=== PATIENT | female | born 1940 | race Caucasian/White ===

== ENCOUNTER → 2019-11-30 13:02 | Outpatient (CLI) | payer MEDICARE, BC, SELFPAY ==
--- NOTE | 2019-11-30 | DI.MRI.S_ITS ---
PROCEDURE: MR LUMBAR SPINE WO CON INDICATIONS: SPINAL STENOSIS TECHNIQUE: Noncontrast sagittal T1 spin echo and T2 fast echo, sagittal STIR, axial T1 and T2 fast spin echo through the lumbar spine. In cases with scoliosis, additional coronal T2 fast spin echo may be performed. COMPARISON: [facility], , L-SPINE WITHOUT CONTRAST, 09/20/2015, 13:13. FINDINGS: Image quality: Excellent. Alignment and Curvature: There is minimal anterolisthesis of L3 on L4. Bone Marrow: Marrow is of normal overall signal. No acute vertebral body compression fractures. Spinal Cord: Conus medullaris terminates at the T12-L1 level. Visualized cord demonstrates normal signal and size. Paraspinous Soft Tissues: No paravertebral masses. 1.2 cm right renal cyst is unchanged. L1-L2: Decreased intervertebral disc space and degenerative endplate changes are noted. Broad-based disc bulge and bilateral facet arthrosis with hypertrophy of ligamentum flavum is seen causing moderate central canal stenosis and mild bilateral neural foraminal narrowing progressed since 2016 study. L2-L3: Decreased intervertebral disc space and degenerative endplate changes are noted. Broad-based disc bulge and bilateral facet arthrosis with hypertrophy of ligamentum flavum is seen causing mild to moderate central canal stenosis and bilateral neural foraminal narrowing unchanged from previous study. L3-L4: Decreased intervertebral disc space and degenerative endplate changes are seen with broad-based disc bulge and bilateral facet arthrosis and hypertrophy of ligamentum flavum. There is severe central canal stenosis and left worse than right bilateral neural foraminal narrowing. There is likely compression of bilateral exiting L3 nerve roots. Finding has progressed since 2016 study. L4-L5: There is marked intervertebral disc space narrowing. Broad-based disc bulge and bilateral facet arthrosis is seen with hypertrophy of ligamentum flavum causing severe central canal stenosis and left worse than right bilateral neural foraminal narrowing. There is likely compression of bilateral L4 and L5 nerve roots. Finding has also progressed since previous study. L5-S1: Mild diffuse disc bulge and bilateral facet arthrosis is seen with mild central canal stenosis and bilateral neural foraminal narrowing not significantly changed from prior study. IMPRESSION: 1. Degenerative disc bulge and bilateral facet arthrosis throughout lumbar spine causing moderate to severe central canal stenosis and bilateral neural foraminal narrowing more prominent at L3-4 and L4-5 levels progressed since 2016 study. 2. Minimal anterolisthesis of L3 on L4. No marrow edema. No acute compression fracture. Dictated by: Shelton Boateng M.D. on 11/30/2019 at 15:08 Approved by: Shelton Boateng M.D. on 11/30/2019 at 15:16
== END ==
PROVIDERS: Family Provider Family Medicine; PCP Family Medicine; Referring Provider Nurse Practitioner; Visit Provider Nurse Practitioner
DX: M48.061 Spinal stenosis, lumbar region without neurogenic claudication (principal); M48.07 Spinal stenosis, lumbosacral region; M47.816 Spondylosis without myelopathy or radiculopathy, lumbar region; M47.817 Spondylosis without myelopathy or radiculopathy, lumbosacral region; M51.36 Other intervertebral disc degeneration, lumbar region; M51.37 Other intervertebral disc degeneration, lumbosacral region; G62.9 Polyneuropathy, unspecified
CPT/HCPCS: 72148

== ENCOUNTER → 2021-08-02 13:49 | Outpatient (CLI) | payer MEDICARE, BC, SELFPAY ==
--- NOTE | 2021-08-02 | DI.CT.S_ITS ---
PROCEDURE: CT SOFT TISSUE NECK W CON INDICATIONS: Localized swelling, mass and lump, neck TECHNIQUE: After the administration of intravenous contrast, 3.0 mm axial sections acquired from the sella to the aortic arch. Additional oblique axial 3.0 mm sections acquired through the pharynx. 3 mm thick coronal and sagittal reformats were generated. For radiation dose reduction, the following was used: automated exposure control. COMPARISON: None. FINDINGS: Image quality: Excellent. Lymph nodes: No enlarged lymph nodes seen throughout the neck. Vessels: Visualized vasculature appears patent. Neck spaces: The oropharynx, nasopharynx, and pharynx demonstrate no mucosal lesions. The vocal cords, false vocal cords, pyriform sinuses, epiglottis, vallecula, and tongue base all appear normal. Extramucosal spaces appear unremarkable. Glands: The parotid and submandibular glands appear normal. Thyroid gland demonstrates 3.1 cm focus of low attenuation within the right lobe causing [id number] midline shift of the trachea.. Miscellaneous: Visualized brain and orbits appear normal. Lung apices appear clear. Superficial soft tissues appear normal. Bones: No suspicious bony lesions. Visualized sinuses and mastoids appear unremarkable. IMPRESSION: Prominent left thyroid mass possibly adenoma or cyst. It is causing [id number] tracheal deviation and thyroid ultrasound is recommended for further evaluation. Dictated by: Araceli Andujar M.D. on 08/02/2021 at 17:01 Approved by: Araceli Andujar M.D. on 08/02/2021 at 17:03
== END ==
PROVIDERS: Family Provider Family Medicine; PCP Family Medicine; Referring Provider Internal Medicine; Visit Provider Internal Medicine
DX: E07.9 Disorder of thyroid, unspecified (principal); R22.1 Localized swelling, mass and lump, neck
CPT/HCPCS: 70491; Q9967

== ENCOUNTER 2022-12-08 19:49 | Emergency (ER) | payer MEDICARE, BC, SELFPAY ==
[2022-12-08 19:55] VITALS: BP 175/88; PULSE 72; RESP 17; TEMP 36.2; O2SAT 97; BMI 27.4
--- NOTE | 2022-12-08 20:55 | PC.NURSE ---
Pt unwilling to wait for MD evaluation. Left VDC
== END 2022-12-08 20:58 | disposition left against medical advice (07) ==
PROVIDERS: Emergency Provider Emergency Medicine; Family Provider Family Medicine; PCP Family Medicine
DX: R42 Dizziness and giddiness (principal)
CPT/HCPCS: 99281

== ENCOUNTER 2023-04-17 14:30 | Outpatient (RCR) | payer MEDICARE, BC, SELFPAY ==
--- NOTE | 2023-02-11 17:01 | PT.OIE ---
Current Diagnoses Polyneuropathy, unspecified (02/11/23) Benign paroxysmal vertigo, right ear (02/11/23) Labyrinthitis, unspecified ear (02/11/23) Stiffness of unspecified knee, not elsewhere classified (02/11/23) Other abnormalities of gait and mobility (02/11/23) Repeated falls (02/11/23) Visit Care Team Role Provider Type Kin Haywood MD Attending Provider Non-Staff Family Provider Primary Care Provider Referring Provider Specialty: Internal Medicine Address: [address] [place] [address] [address], [place], [address] Email: Physical Therapy Initial Evaluation PT-OP-A Visit Information Start: 02/11/23 16:35 Freq: Status: Active Protocol: Document 02/11/23 12:45 DCW (Rec: 02/11/23 17:01 DCW [id number]) Out-Patient Physical Therapy Visit Information Visit Information Visit Type Initial Evaluation Visit Start Time 12:50 Visit Stop Time 13:55 Total Visit Minutes 60 Visit Number 1 Number of MISSILEMAN Visits 0 Evaluation Information Evaluation Date 02/11/23 PT-OP-B Current Condition Start: 02/11/23 16:35 Freq: Status: Active Protocol: Document 02/11/23 12:45 DCW (Rec: 02/11/23 17:01 DCW [id number]) Current Condition History of Current Condition Onset Date Multi-year history Current Complaints Falls, instability, difficult floor transfers, leg weakness, dizziness History of Current Condition Pt is an 82 year old female presenting with multiple complaints, including repeated falls, inability to get up off the ground following her falls, instability/dizziness, leg weakness and bilateral knee stiffness 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 Pt complains that she falls constantly, but it is typically not due to dizziness , although she does occasionally experience dizziness. Most recently she fell on 12/06/22 after bending over. She experienced sudden, violent vertigo, collapsed, and could not get up until her went to get the neighbor for assistance. Pt is a fairly tangential historian . Notes she does do an online exercise/balance class, but it has not helped her improve her knee mobility, and still feels often off balance. Prior Treatments and Tests Reports she has undergone a bilateral knee manipulation in 2016, did not help with decreased bilateral knee ROM following TKA in 2013 (left) and 2014 (right). Reports she tries PT once or twice a year for her knees, without benefit. PT-OP-C Subjective Start: 02/11/23 16:35 Freq: Status: Active Protocol: Document 02/11/23 12:45 DCW (Rec: 02/11/23 17:01 DCW [id number]) OP-PT Subjective Patient Comments Patient Comments I fall constantly. Typically tripping over things, but it's just like I collapse and go down, I can't even catch myself. PT-OP-M Strength Start: 02/11/23 16:35 Freq: Status: Active Protocol: Document 02/11/23 12:45 DCW (Rec: 02/11/23 17:01 DCW [id number]) Hip Strength Hip Manual Muscle Testing Right Flexion (L2) 4+ Good+ Abduction 4+ Good+ Adduction 4- Good- Left Flexion (L2) 4 Good Abduction 4+ Good+ Adduction 4- Good- Knee Strength Knee Manual Muscle Testing Right Flexion (S2) 4 Good Extension (L3) 4 Good Left Flexion (S2) 4 Good Extension (L3) 4 Good PT-OP-O Vestibular Start: 02/11/23 16:35 Freq: Status: Active Protocol: Document 02/11/23 12:45 DCW (Rec: 02/11/23 17:01 DCW [id number]) Vestibular Assessment Screening Tests Vestibular Artery Screen Negative Auditory Tests Rios Test Within normal limits Rinne Test Negative Air Conduction Results Equal Visual Testing Smooth Pursuits Horizontal WNL Smooth Pursuits Vertical WNL Saccades Horizontal WNL Heave Test Positive Bilateral Thrust Head Positive Bilateral Positional Testing Smith-Hallpike Positive Right,Negative Left, Upbeating,< 60 Seconds Rolling Test Negative Left,Negative Right PT-OP-Q Treatments Start: 02/11/23 16:35 Freq: Status: Active Protocol: Document 02/11/23 12:45 DCW (Rec: 02/11/23 17:01 DCW [id number]) Canalithic Repositioning BPPV Treatment Radha Affected Canal(s) Right posterior Reps x2 PT-OP-T Assessment and Plan Start: 02/11/23 16:35 Freq: Status: Active Protocol: Document 02/11/23 12:45 DCW (Rec: 02/11/23 17:01 DCW [id number]) Physical Therapy Assessment Rehab Potential Rehabilitation Potential Good Evaluation Complexity Number of Personal Factors/Comorbidities 3 or More Number of Body Systems Impaired 4 or More Clinical Presentation at Evaluation Unstable Impairments Impairments Balance,Functional Activities, Functional Mobility,Pain,ROM, Soft Tissue Mobility,Strength, Vestibular Goals Two Impairment Pt unable to get herself off the floor Debeader Goal (LTG) Pt to demonstrate ability to perform floor transfer x2 without assistance in order to demonstrate improved ability to recover following a potential fall LTG Duration 04/13/23 One Impairment Positive right [place]-Hallpike [employer] Goal (LTG) Pt to present with negative positional testing bilaterally LTG Duration 04/13/23 Assessment Summary Assessment Pt presents for a high complexity evaluation with multiple complaints and concerns. Pt has experienced repeated falls recently, with signs of both neuropathy and vestibular dysfunction contributing to her difficulties. In addition, due to her LE strength and ROM deficits in her bilateral knees, pt has difficulty with recovery following these falls , and is typically stuck on the floor until she can get assistance. 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 Pt should benefit from skilled therapy focusing on LE strength and ROM, transfer and gait training, balance challenges, and vestibular rehabilitation. During right [place]-Hallpike test, pt complained of vertigo and demonstrated up-beating, torsional nystagmus lasting approximately 10 seconds, consistent with diagnosis of right-sided posterior canal BPPV, canalithiasis-type. Pt was treated with a right-sided modified Radha maneuver. Pt complained of symptoms in the first and third position, which is normally indicative of a successful treatment. Further positional testing was negative. Pt was educated on BPPV, expectations for treatment, possible recurrence (BPPV has a ~50% recurrence rate in the five years following treatment), and post -Radha restrictions. Pt to return in ~1 week for a follow -up appointment, and intermittently afterward as indicated for treatment of BPPV. Following pt's appointment, she went into the restroom. When washing her hands, she experienced a sudden brief episode of vertigo and became very concerned. Therapist returned patient to treatment room, performed Smith-Hallpike, and despite a negative test, repeated right modified Radha. No indications of any lingering effects. Brief episode of vertigo while in restroom may have been caused by last few otolith suddenly exiting the posterior canal, but unclear at this time. Pt instructed to take it easy the remainder of the day and relax in the waiting room if she continued to feel off balance. Pt did feel better following this retesting. Physical Therapy Plan Frequency and Duration Frequency of Treatment 1-2x/week Plan of Care Start Date 02/11/23 Plan of Care End Date 04/13/23 Therapeutic Interventions Therapeutic Interventions Balance Training,Canalithic Repositioning,Home Exercise Program,Joint Mobilizations, Manual Therapy,Neuromuscular Re-education,Patient/Caregiver Education,Self-Care/Home Management,Soft Tissue Mobilization,Therapeutic Activities,Therapeutic Exercises Modalities Cold Pack/Ice Massage,Electric Stimulation,Hot Packs, Ultrasound Next Visit Focus/Plan Next Note Type Treatment Note Next Visit Plan Further testing of balance and knee ROM/function. Positional testing and CRM as indicated.
--- NOTE | 2023-02-11 17:03 | PT.OPPOC ---
Physical, Occupational & Speech Therapy At [facility] Current Diagnoses Polyneuropathy, unspecified (02/11/23) Benign paroxysmal vertigo, right ear (02/11/23) Labyrinthitis, unspecified ear (02/11/23) Stiffness of unspecified knee, not elsewhere classified (02/11/23) Other abnormalities of gait and mobility (02/11/23) Repeated falls (02/11/23) Visit Care Team Role Provider Type Kin Haywood MD Attending Provider Non-Staff Family Provider Primary Care Provider Referring Provider Specialty: Internal Medicine Address: [address] [place] [address] [address], [place], [address] Email: Plan Of Care PT-OP-T Assessment and Plan Start: 02/11/23 16:35 Freq: Status: Active Protocol: Document 02/11/23 12:45 DCW (Rec: 02/11/23 17:01 DCW [id number]) Physical Therapy Assessment Rehab Potential Rehabilitation Potential Good Evaluation Complexity Number of Personal Factors/Comorbidities 3 or More Number of Body Systems Impaired 4 or More Clinical Presentation at Evaluation Unstable Impairments Impairments Balance,Functional Activities, Functional Mobility,Pain,ROM, Soft Tissue Mobility,Strength, Vestibular Goals Two Impairment Pt unable to get herself off the floor Snf Goal (LTG) Pt to demonstrate ability to perform floor transfer x2 without assistance in order to demonstrate improved ability to recover following a potential fall LTG Duration 04/13/23 One Impairment Positive right [place]-Hallpike Professional Nursing Assistant Goal (LTG) Pt to present with negative positional testing bilaterally LTG Duration 04/13/23 Assessment Summary Assessment Pt presents for a high complexity evaluation with multiple complaints and concerns. Pt has experienced repeated falls recently, with signs of both neuropathy and vestibular dysfunction contributing to her difficulties. In addition, due to her LE strength and ROM deficits in her bilateral knees, pt has difficulty with recovery following these falls , and is typically stuck on the floor until she can get assistance. 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 Pt should benefit from skilled therapy focusing on LE strength and ROM, transfer and gait training, balance challenges, and vestibular rehabilitation. During right [place]-Hallpike test, pt complained of vertigo and demonstrated up-beating, torsional nystagmus lasting approximately 10 seconds, consistent with diagnosis of right-sided posterior canal BPPV, canalithiasis-type. Pt was treated with a right-sided modified Radha maneuver. Pt complained of symptoms in the first and third position, which is normally indicative of a successful treatment. Further positional testing was negative. Pt was educated on BPPV, expectations for treatment, possible recurrence (BPPV has a ~50% recurrence rate in the five years following treatment), and post -Radha restrictions. Pt to return in ~1 week for a follow -up appointment, and intermittently afterward as indicated for treatment of BPPV. Following pt's appointment, she went into the restroom. When washing her hands, she experienced a sudden brief episode of vertigo and became very concerned. Therapist returned patient to treatment room, performed [place]-Hallpike, and despite a negative test, repeated right modified Radha. No indications of any lingering effects. Brief episode of vertigo while in restroom may have been caused by last few otolith suddenly exiting the posterior canal, but unclear at this time. Pt instructed to take it easy the remainder of the day and relax in the waiting room if she continued to feel off balance. Pt did feel better following this retesting. Physical Therapy Plan Frequency and Duration Frequency of Treatment 1-2x/week Plan of Care Start Date 02/11/23 Plan of Care End Date 04/13/23 Therapeutic Interventions Therapeutic Interventions Balance Training,Canalithic Repositioning,Home Exercise Program,Joint Mobilizations, Manual Therapy,Neuromuscular Re-education,Patient/Caregiver Education,Self-Care/Home Management,Soft Tissue Mobilization,Therapeutic Activities,Therapeutic Exercises Modalities Cold Pack/Ice Massage,Electric Stimulation,Hot Packs, Ultrasound Next Visit Focus/Plan Next Note Type Treatment Note Next Visit Plan Further testing of balance and knee ROM/function. Positional testing and CRM as indicated. Plan of Care Dates Plan of Care Start Date 02/11/23 Plan of Care End Date 04/13/23 Electronically Signed by: Carter Lozano, PT 02/11/23 8736 If you are in agreement with this Plan of Care, please return a signed and dated copy. I have reviewed this Plan of Care and certify that the skilled therapy services above are required to meet the patient?s needs. Physician Signature Date Printed Name and Credentials Clinical Instructor Signature Printed Name and Credentials
--- NOTE | 2023-02-13 11:17 | PT.OTN ---
Current Diagnoses Polyneuropathy, unspecified (02/13/23) Benign paroxysmal vertigo, right ear (02/13/23) Labyrinthitis, unspecified ear (02/13/23) Stiffness of unspecified knee, not elsewhere classified (02/13/23) Other abnormalities of gait and mobility (02/13/23) Repeated falls (02/13/23) Physical Therapy Treatment Note PT-OP-A Visit Information Start: 02/11/23 16:35 Freq: Status: Active Protocol: Document 02/13/23 10:35 DCW (Rec: 02/13/23 11:17 DCW [id number]) Out-Patient Physical Therapy Visit Information Visit Information Visit Type Treatment Note Visit Start Time 10:35 Visit Stop Time 11:15 Total Visit Minutes 40 Visit Number 2 Number of COATER HELPER Visits 0 Evaluation Information Evaluation Date 02/11/23 PT-OP-B Current Condition Start: 02/11/23 16:35 Freq: Status: Active Protocol: Document 02/11/23 12:45 DCW (Rec: 02/11/23 17:01 DCW [id number]) Current Condition History of Current Condition Onset Date Multi-year history Current Complaints Falls, instability, difficult floor transfers, leg weakness, dizziness History of Current Condition Pt is an 82 year old female presenting with multiple complaints, including repeated falls, inability to get up off the ground following her falls, instability/dizziness, leg weakness and bilateral knee stiffness 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 Pt complains that she falls constantly, but it is typically not due to dizziness , although she does occasionally experience dizziness. Most recently she fell on 12/06/22 after bending over. She experienced sudden, violent vertigo, collapsed, and could not get up until her went to get the neighbor for assistance. Pt is a fairly tangential historian . Notes she does do an online exercise/balance class, but it has not helped her improve her knee mobility, and still feels often off balance. Prior Treatments and Tests Reports she has undergone a bilateral knee manipulation in 2015, did not help with decreased bilateral knee ROM following TKA in 2013 (left) and 2014 (right). Reports she tries PT once or twice a year for her knees, without benefit. PT-OP-C Subjective Start: 02/11/23 16:35 Freq: Status: Active Protocol: Document 02/13/23 10:35 DCW (Rec: 02/13/23 11:17 DCW [id number]) OP-PT Subjective Patient Comments Patient Comments I've been pretty dimitri with my falling so far. I've takes some spectacular falls, and I have't broken anything. PT-OP-D Balance Start: 02/11/23 16:35 Freq: Status: Active Protocol: Document 02/13/23 10:35 DCW (Rec: 02/13/23 11:17 DCW [id number]) Balance Tests Single Limb Standing Single Limb- Right 5 Single Limb- Left 3 PT-OP-E Functional Tests Start: 02/11/23 16:35 Freq: Status: Active Protocol: Document 02/13/23 10:35 DCW (Rec: 02/13/23 11:17 DCW [id number]) Functional Tests Dynamic Gait Index (DGI) Score 19/24 Five Times Sit to Stand Test Score 11.42 PT-OP-K Range of Motion Start: 02/11/23 16:35 Freq: Status: Active Protocol: Document 02/13/23 10:35 DCW (Rec: 02/13/23 11:17 DCW [id number]) Knee Goniometric Range of Motion Knee Right Knee ROM WFL No Patient Position Supine Flexion Active (degrees) 96 Flexion Passive (degrees) 105 Extension Active (degrees) 12 Extension Passive (degrees) 12 Left Knee ROM WFL No Patient Position Supine Flexion Active (degrees) 90 Flexion Passive (degrees) 95 Extension Active (degrees) 14 Extension Passive (degrees) 14 PT-OP-M Strength Start: 02/11/23 16:35 Freq: Status: Active Protocol: Document 02/11/23 12:45 DCW (Rec: 02/11/23 17:01 DCW [id number]) Hip Strength Hip Manual Muscle Testing Right Flexion (L2) 4+ Good+ Abduction 4+ Good+ Adduction 4- Good- Left Flexion (L2) 4 Good Abduction 4+ Good+ Adduction 4- Good- Knee Strength Knee Manual Muscle Testing Right Flexion (S2) 4 Good Extension (L3) 4 Good Left Flexion (S2) 4 Good Extension (L3) 4 Good PT-OP-O Vestibular Start: 02/11/23 16:35 Freq: Status: Active Protocol: Document 02/13/23 10:35 DCW (Rec: 02/13/23 11:17 DCW [id number]) Vestibular Assessment Positional Testing Smith-Hallpike Negative Left,Negative Right Rolling Test Negative Left,Negative Right PT-OP-Q Treatments Start: 02/11/23 16:35 Freq: Status: Active Protocol: Document 02/11/23 12:45 DCW (Rec: 02/11/23 17:01 DCW [id number]) Canalithic Repositioning BPPV Treatment Radha Affected Canal(s) Right posterior Reps x2 PT-OP-T Assessment and Plan Start: 02/11/23 16:35 Freq: Status: Active Protocol: Document 02/13/23 10:35 DCW (Rec: 02/13/23 11:17 DCW [id number]) Physical Therapy Assessment Assessment Summary Assessment Positional testing negative today. Spent rest of session focusing on knee and balance assessment. DGI score of 19/24 suggests slight increased falls risk, pt does not do well on SLS. Limited knee ROM is biggest limiting factor with pt's ability to get up off the floor following a fall . Did discuss ADs, pt hesitant about use of walking sticks or cane, feels she would not be able to walk her dog if both hands were occupied. Agreeable to practice. Physical Therapy Plan Frequency and Duration Frequency of Treatment 1-2x/week Plan of Care Start Date 02/11/23 Plan of Care End Date 04/13/23 Therapeutic Interventions Therapeutic Interventions Balance Training,Canalithic Repositioning,Home Exercise Program,Joint Mobilizations, Manual Therapy,Neuromuscular Re-education,Patient/Caregiver Education,Self-Care/Home Management,Soft Tissue Mobilization,Therapeutic Activities,Therapeutic Exercises Modalities Cold Pack/Ice Massage,Electric Stimulation,Hot Packs, Ultrasound Next Visit Focus/Plan Next Note Type Treatment Note Next Visit Plan Further testing of balance and knee ROM/function. Positional testing and CRM as indicated.
--- NOTE | 2023-02-16 11:08 | PT.OTN ---
Current Diagnoses Polyneuropathy, unspecified (02/16/23) Benign paroxysmal vertigo, right ear (02/16/23) Labyrinthitis, unspecified ear (02/16/23) Stiffness of unspecified knee, not elsewhere classified (02/16/23) Other abnormalities of gait and mobility (02/16/23) Repeated falls (02/16/23) Physical Therapy Treatment Note PT-OP-A Visit Information Start: 02/11/23 16:35 Freq: Status: Active Protocol: Document 02/16/23 10:22 DCW (Rec: 02/16/23 11:08 DCW [id number]) Out-Patient Physical Therapy Visit Information Visit Information Visit Type Treatment Note Visit Start Time 10: Visit Stop Time 11:00 Total Visit Minutes 38 Visit Number 3 Number of DIRECTOR OF SOCIAL MEDIA MARKETING Visits 0 Evaluation Information Evaluation Date 02/11/23 PT-OP-B Current Condition Start: 02/11/23 16:35 Freq: Status: Active Protocol: Document 02/11/23 12:45 DCW (Rec: 02/11/23 17:01 DCW [id number]) Current Condition History of Current Condition Onset Date Multi-year history Current Complaints Falls, instability, difficult floor transfers, leg weakness, dizziness History of Current Condition Pt is an 82 year old female presenting with multiple complaints, including repeated falls, inability to get up off the ground following her falls, instability/dizziness, leg weakness and bilateral knee stiffness 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 Pt complains that she falls constantly, but it is typically not due to dizziness , although she does occasionally experience dizziness. Most recently she fell on 12/06/22 after bending over. She experienced sudden, violent vertigo, collapsed, and could not get up until her went to get the neighbor for assistance. Pt is a fairly tangential historian . Notes she does do an online exercise/balance class, but it has not helped her improve her knee mobility, and still feels often off balance. Prior Treatments and Tests Reports she has undergone a bilateral knee manipulation in 2015, did not help with decreased bilateral knee ROM following TKA in 2013 (left) and 2014 (right). Reports she tries PT once or twice a year for her knees, without benefit. PT-OP-C Subjective Start: 02/11/23 16:35 Freq: Status: Active Protocol: Document 02/16/23 10:22 DCW (Rec: 02/16/23 11:08 DCW [id number]) OP-PT Subjective Patient Comments Patient Comments Pt doing fairly well today, but admits she has difficulty waking up in the morning PT-OP-D Balance Start: 02/11/23 16:35 Freq: Status: Active Protocol: Document 02/13/23 10:35 DCW (Rec: 02/13/23 11:17 DCW [id number]) Balance Tests Single Limb Standing Single Limb- Right 5 Single Limb- Left 3 PT-OP-E Functional Tests Start: 02/11/23 16:35 Freq: Status: Active Protocol: Document 02/13/23 10:35 DCW (Rec: 02/13/23 11:17 DCW [id number]) Functional Tests Dynamic Gait Index (DGI) Score 19/24 Five Times Sit to Stand Test Score 11.42 PT-OP-K Range of Motion Start: 02/11/23 16:35 Freq: Status: Active Protocol: Document 02/13/23 10:35 DCW (Rec: 02/13/23 11:17 DCW [id number]) Knee Goniometric Range of Motion Knee Right Knee ROM WFL No Patient Position Supine Flexion Active (degrees) 96 Flexion Passive (degrees) 105 Extension Active (degrees) 12 Extension Passive (degrees) 12 Left Knee ROM WFL No Patient Position Supine Flexion Active (degrees) 90 Flexion Passive (degrees) 95 Extension Active (degrees) 14 Extension Passive (degrees) 14 PT-OP-M Strength Start: 02/11/23 16:35 Freq: Status: Active Protocol: Document 02/11/23 12:45 DCW (Rec: 02/11/23 17:01 DCW [id number]) Hip Strength Hip Manual Muscle Testing Right Flexion (L2) 4+ Good+ Abduction 4+ Good+ Adduction 4- Good- Left Flexion (L2) 4 Good Abduction 4+ Good+ Adduction 4- Good- Knee Strength Knee Manual Muscle Testing Right Flexion (S2) 4 Good Extension (L3) 4 Good Left Flexion (S2) 4 Good Extension (L3) 4 Good PT-OP-O Vestibular Start: 02/11/23 16:35 Freq: Status: Active Protocol: Document 02/13/23 10:35 DCW (Rec: 02/13/23 11:17 DCW [id number]) Vestibular Assessment Positional Testing Smith-Hallpike Negative Left,Negative Right Rolling Test Negative Left,Negative Right PT-OP-Q Treatments Start: 02/11/23 16:35 Freq: Status: Active Protocol: Document 02/16/23 10:22 DCW (Rec: 02/16/23 11:08 [facility] [id number]) Cardio Equipment Recumbent Bicycle Duration (Minutes) 5 Resistance 0 Seat Position 5 Other Partial rotations Gym Equipment Shuttle Recovery Unilateral Squats Resistance 50# (One new) Bilateral Squats Resistance 75# (Two new) Shuttle Recovery Platform Stable Shuttle Balance Red Details WBOS, Staggered Therapeutic Exercises Supine Exercises Quad stretch Supine Exercise Name Leg off table Side bilateral Standing Exercises Wall posture Standing Exercise Name Wall posture PT-OP-T Assessment and Plan Start: 02/11/23 16:35 Freq: Status: Active Protocol: Document 02/16/23 10:22 DCW (Rec: 02/16/23 11:08 [facility] [id number]) Physical Therapy Assessment Impairments Impairments Balance,Functional Activities, Functional Mobility,Pain,ROM, Soft Tissue Mobility,Strength, Vestibular Goals Two Impairment Pt unable to get herself off the floor Black Oxide Operator Goal (LTG) Pt to demonstrate ability to perform floor transfer x2 without assistance in order to demonstrate improved ability to recover following a potential fall LTG Duration 04/13/23 One Impairment Positive right Smith-Hallpike Black Oxide Operator Goal (LTG) Pt to present with negative positional testing bilaterally LTG Duration 04/13/23 Assessment Summary Assessment Good response to treatment so far. PT very happy with new quad stretch, notes her legs typically feel like steel plates run up through them. Good difficulty with balance challenges. Physical Therapy Plan Frequency and Duration Frequency of Treatment 1-2x/week Plan of Care Start Date 02/11/23 Plan of Care End Date 04/13/23 Therapeutic Interventions Therapeutic Interventions Balance Training,Canalithic Repositioning,Home Exercise Program,Joint Mobilizations, Manual Therapy,Neuromuscular Re-education,Patient/Caregiver Education,Self-Care/Home Management,Soft Tissue Mobilization,Therapeutic Activities,Therapeutic Exercises Modalities Cold Pack/Ice Massage,Electric Stimulation,Hot Packs, Ultrasound Next Visit Focus/Plan Next Note Type Treatment Note Next Visit Plan Further testing of balance and knee ROM/function. Positional testing and CRM as indicated.
--- NOTE | 2023-02-25 09:00 | PT.OTN ---
Current Diagnoses Polyneuropathy, unspecified (02/25/23) Benign paroxysmal vertigo, right ear (02/25/23) Labyrinthitis, unspecified ear (02/25/23) Stiffness of unspecified knee, not elsewhere classified (02/25/23) Other abnormalities of gait and mobility (02/25/23) Repeated falls (02/25/23) Physical Therapy Treatment Note PT-OP-A Visit Information Start: 02/11/23 16:35 Freq: Status: Active Protocol: Document 02/25/23 08:16 SP (Rec: 02/25/23 09:03 SP [id number]) Out-Patient Physical Therapy Visit Information Visit Information Visit Type Treatment Note Visit Start Time 08:16 Visit Stop Time 09:00 Total Visit Minutes 44 Visit Number 4 Number of PSYCHIATRIC CLINICIAN Visits 1 Evaluation Information Evaluation Date 02/11/23 PT-OP-B Current Condition Start: 02/11/23 16:35 Freq: Status: Active Protocol: Document 02/11/23 12:45 DCW (Rec: 02/11/23 17:01 DCW [id number]) Current Condition History of Current Condition Onset Date Multi-year history Current Complaints Falls, instability, difficult floor transfers, leg weakness, dizziness History of Current Condition Pt is an 82 year old female presenting with multiple complaints, including repeated falls, inability to get up off the ground following her falls, instability/dizziness, leg weakness and bilateral knee stiffness 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 Pt complains that she falls constantly, but it is typically not due to dizziness , although she does occasionally experience dizziness. Most recently she fell on 12/06/22 after bending over. She experienced sudden, violent vertigo, collapsed, and could not get up until her went to get the neighbor for assistance. Pt is a fairly tangential historian . Notes she does do an online exercise/balance class, but it has not helped her improve her knee mobility, and still feels often off balance. Prior Treatments and Tests Reports she has undergone a bilateral knee manipulation in 2015, did not help with decreased bilateral knee ROM following TKA in 2013 (left) and 2014 (right). Reports she tries PT once or twice a year for her knees, without benefit. 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 SHe reports last L knee manipulation to help with bend . She still hasn't gotten full ROM/ limited, but please has gotten what has now and why can't do full revolutions on recumbent bike. She states is working walking around [employer] and [employer] in town. She tries to walk 1 hill a day to keep mobile. PT-OP-D Balance Start: 02/11/23 16:35 Freq: Status: Active Protocol: Document 02/13/23 10:35 DCW (Rec: 02/13/23 11:17 DCW [id number]) Balance Tests Single Limb Standing Single Limb- Right 5 Single Limb- Left 3 PT-OP-E Functional Tests Start: 02/11/23 16:35 Freq: Status: Active Protocol: Document 02/13/23 10:35 DCW (Rec: 02/13/23 11:17 DCW [id number]) Functional Tests Dynamic Gait Index (DGI) Score 19/24 Five Times Sit to Stand Test Score 11.42 PT-OP-K Range of Motion Start: 02/11/23 16:35 Freq: Status: Active Protocol: Document 02/13/23 10:35 DCW (Rec: 02/13/23 11:17 DCW [id number]) Knee Goniometric Range of Motion Knee Right Knee ROM WFL No Patient Position Supine Flexion Active (degrees) 96 Flexion Passive (degrees) 105 Extension Active (degrees) 12 Extension Passive (degrees) 12 Left Knee ROM WFL No Patient Position Supine Flexion Active (degrees) 90 Flexion Passive (degrees) 95 Extension Active (degrees) 14 Extension Passive (degrees) 14 PT-OP-M Strength Start: 02/11/23 16:35 Freq: Status: Active Protocol: Document 02/11/23 12:45 DCW (Rec: 02/11/23 17:01 DCW [id number]) Hip Strength Hip Manual Muscle Testing Right Flexion (L2) 4+ Good+ Abduction 4+ Good+ Adduction 4- Good- Left Flexion (L2) 4 Good Abduction 4+ Good+ Adduction 4- Good- Knee Strength Knee Manual Muscle Testing Right Flexion (S2) 4 Good Extension (L3) 4 Good Left Flexion (S2) 4 Good Extension (L3) 4 Good PT-OP-O Vestibular Start: 02/11/23 16:35 Freq: Status: Active Protocol: Document 02/13/23 10:35 DCW (Rec: 02/13/23 11:17 DCW [id number]) Vestibular Assessment Positional Testing Smith-Hallpike Negative Left,Negative Right Rolling Test Negative Left,Negative Right PT-OP-Q Treatments Start: 02/11/23 16:35 Freq: Status: Active Protocol: Document 02/25/23 08:16 SP (Rec: 02/25/23 09:03 SP [id number]) Cardio Equipment Recumbent Elliptical (BiodSeen) Duration (Minutes) 6 Resistance 4 Seat Position 6- reps feels better. Other UEs/LEs- 482 steps, PRMs? Recumbent Bicycle Duration (Minutes) 2 Resistance 0 Seat Position 5 Other Partial rotations- Gym Equipment Shuttle Recovery Unilateral Squats Resistance 50# (One new) Reps/Time x20 reps Bilateral Squats Details cued knees // (103deg L) Resistance 75# (Two new) Shuttle Recovery Platform Stable Reps/Time x20 Shuttle Balance Red Details WBOS: f/b/lateral, Staggered ( fwd) Comments wt shift, less UEs- CG/5%A -improved wt shifting COG more fwd over ankles strategies, more ankle DF. Therapeutic Exercises Supine Exercises Quad stretch Supine Exercise Name Leg off table- showed be at angle (safe away from EOB) Side bilateral Equipment Used opp LE bent to support back Reps/Minutes 30SH dangle release, then knee flexion amanda hold 5-10SH Comments good feedback stretch Sitting Exercises STS Equipment Used elevated mat table (not measured height) Reps/Minutes x10 Comments cued slower descend hip hinge Standing Exercises Wall posture Standing Exercise Name Wall posture Neuro Re-Education Treatment Balance Activities hurdles Details next tx PT-OP-T Assessment and Plan Start: 02/11/23 16:35 Freq: Status: Active Protocol: Document 02/25/23 08:16 SP (Rec: 02/25/23 09:03 SP [id number]) Physical Therapy Assessment Goals Two Impairment Pt unable to get herself off the floor Hospital Ward Clerk Goal (LTG) Pt to demonstrate ability to perform floor transfer x2 without assistance in order to demonstrate improved ability to recover following a potential fall LTG Duration 04/13/23 One Impairment Positive right Smith-Hallpike Hospital Ward Clerk Goal (LTG) Pt to present with negative positional testing bilaterally LTG Duration 04/13/23 Assessment Summary Assessment Pt responded well to use of biodex and seat depth adjustments for L knee ROM progression vs Recumbent bike today. Good feedback quad stretch and added knee flexion , suggested upperbody more away from EOB and pelvis toward EOB (diagonal) to allow safety comfort positioning home carryover. Improved decrease UE support on rails during shuttle balance, with increased core/hip abd and COG over JUANJO. Briefly discussed use of rolling pin over quad if beneficial. Physical Therapy Plan Frequency and Duration Frequency of Treatment 1-2x/week Plan of Care Start Date 02/11/23 Plan of Care End Date 04/13/23 Therapeutic Interventions Therapeutic Interventions Balance Training,Canalithic Repositioning,Home Exercise Program,Joint Mobilizations, Manual Therapy,Neuromuscular Re-education,Patient/Caregiver Education,Self-Care/Home Management,Soft Tissue Mobilization,Therapeutic Activities,Therapeutic Exercises Modalities Cold Pack/Ice Massage,Electric Stimulation,Hot Packs, Ultrasound Next Visit Focus/Plan Next Note Type Treatment Note Next Visit Plan Further testing of balance and knee ROM/function. Positional testing and CRM as indicated.
--- NOTE | 2023-03-04 17:30 | PT.OTN ---
Current Diagnoses Polyneuropathy, unspecified (03/04/23) Benign paroxysmal vertigo, right ear (03/04/23) Labyrinthitis, unspecified ear (03/04/23) Stiffness of unspecified knee, not elsewhere classified (03/04/23) Other abnormalities of gait and mobility (03/04/23) Repeated falls (03/04/23) Physical Therapy Treatment Note PT-OP-A Visit Information Start: 02/11/23 16:35 Freq: Status: Active Protocol: Document 03/04/23 16:34 DCW (Rec: 03/04/23 17:30 DCW [id number]) Out-Patient Physical Therapy Visit Information Visit Information Visit Type Treatment Note Visit Start Time 16:34 Visit Stop Time 17:15 Total Visit Minutes 41 Visit Number 5 Number of COOK HOUSE LABORER Visits 0 Evaluation Information Evaluation Date 02/11/23 PT-OP-B Current Condition Start: 02/11/23 16:35 Freq: Status: Active Protocol: Document 02/11/23 12:45 DCW (Rec: 02/11/23 17:01 DCW [id number]) Current Condition History of Current Condition Onset Date Multi-year history Current Complaints Falls, instability, difficult floor transfers, leg weakness, dizziness History of Current Condition Pt is an 82 year old female presenting with multiple complaints, including repeated falls, inability to get up off the ground following her falls, instability/dizziness, leg weakness and bilateral knee stiffness 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 Pt complains that she falls constantly, but it is typically not due to dizziness , although she does occasionally experience dizziness. Most recently she fell on 12/06/22 after bending over. She experienced sudden, violent vertigo, collapsed, and could not get up until her went to get the neighbor for assistance. Pt is a fairly tangential historian . Notes she does do an online exercise/balance class, but it has not helped her improve her knee mobility, and still feels often off balance. Prior Treatments and Tests Reports she has undergone a bilateral knee manipulation in 2016, did not help with decreased bilateral knee ROM following TKA in 2013 (left) and 2014 (right). Reports she tries PT once or twice a year for her knees, without benefit. PT-OP-C Subjective Start: 02/11/23 16:35 Freq: Status: Active Protocol: Document 03/04/23 16:34 DCW (Rec: 03/04/23 17:30 DCW [id number]) OP-PT Subjective Patient Comments Patient Comments I had about 1-2 minutes walking out of here last visit where the knee felt better than it has in years, it just didn't last long. PT-OP-D Balance Start: 02/11/23 16:35 Freq: Status: Active Protocol: Document 02/13/23 10:35 DCW (Rec: 02/13/23 11:17 DCW [id number]) Balance Tests Single Limb Standing Single Limb- Right 5 Single Limb- Left 3 PT-OP-E Functional Tests Start: 02/11/23 16:35 Freq: Status: Active Protocol: Document 02/13/23 10:35 DCW (Rec: 02/13/23 11:17 DCW [id number]) Functional Tests Dynamic Gait Index (DGI) Score 19/24 Five Times Sit to Stand Test Score 11.42 PT-OP-K Range of Motion Start: 02/11/23 16:35 Freq: Status: Active Protocol: Document 02/13/23 10:35 DCW (Rec: 02/13/23 11:17 DCW [id number]) Knee Goniometric Range of Motion Knee Right Knee ROM WFL No Patient Position Supine Flexion Active (degrees) 96 Flexion Passive (degrees) 105 Extension Active (degrees) 12 Extension Passive (degrees) 12 Left Knee ROM WFL No Patient Position Supine Flexion Active (degrees) 90 Flexion Passive (degrees) 95 Extension Active (degrees) 14 Extension Passive (degrees) 14 PT-OP-M Strength Start: 02/11/23 16:35 Freq: Status: Active Protocol: Document 02/11/23 12:45 DCW (Rec: 02/11/23 17:01 DCW [id number]) Hip Strength Hip Manual Muscle Testing Right Flexion (L2) 4+ Good+ Abduction 4+ Good+ Adduction 4- Good- Left Flexion (L2) 4 Good Abduction 4+ Good+ Adduction 4- Good- Knee Strength Knee Manual Muscle Testing Right Flexion (S2) 4 Good Extension (L3) 4 Good Left Flexion (S2) 4 Good Extension (L3) 4 Good PT-OP-O Vestibular Start: 02/11/23 16:35 Freq: Status: Active Protocol: Document 02/13/23 10:35 DCW (Rec: 02/13/23 11:17 DCW [id number]) Vestibular Assessment Positional Testing [place]-Hallpike Negative Left,Negative Right Rolling Test Negative Left,Negative Right PT-OP-Q Treatments Start: 02/11/23 16:35 Freq: Status: Active Protocol: Document 03/04/23 16:34 DCW (Rec: 03/04/23 17:30 DCW [id number]) Cardio Equipment Recumbent Elliptical (Biodex) Duration (Minutes) 6 Resistance 4 Seat Position 6- reps feels better. Other UEs/LEs- 482 steps Gym Equipment Shuttle Recovery Unilateral Squats Resistance 50# (One new) Bilateral Squats Resistance 75# (Two new) Shuttle Recovery Platform Stable Shuttle Balance Red Details WBOS, Staggered Manual Therapy Treatment Joint Mobilizations Knee mobs Joint B knee Direction A<->P Grade III Body Position Sitting PT-OP-T Assessment and Plan Start: 02/11/23 16:35 Freq: Status: Active Protocol: Document 03/04/23 16:34 DCW (Rec: 03/04/23 17:30 DCW [id number]) Physical Therapy Assessment Impairments Impairments Balance,Functional Activities, Functional Mobility,Pain,ROM, Soft Tissue Mobility,Strength, Vestibular Goals Two Impairment Pt unable to get herself off the floor Creche Attendant Goal (LTG) Pt to demonstrate ability to perform floor transfer x2 without assistance in order to demonstrate improved ability to recover following a potential fall LTG Duration 04/13/23 One Impairment Positive right [place]-Hallpike Creche Attendant Goal (LTG) Pt to present with negative positional testing bilaterally LTG Duration 04/13/23 Assessment Summary Assessment Excellent response to treatment today, pt able to walk out of facility with much improved posture following joint mobilizations. Continue to focus on joint ROM and mobilizations, as well as LE strengthening and balance Physical Therapy Plan Frequency and Duration Frequency of Treatment 1-2x/week Plan of Care Start Date 02/11/23 Plan of Care End Date 04/13/23 Therapeutic Interventions Therapeutic Interventions Balance Training,Canalithic Repositioning,Home Exercise Program,Joint Mobilizations, Manual Therapy,Neuromuscular Re-education,Patient/Caregiver Education,Self-Care/Home Management,Soft Tissue Mobilization,Therapeutic Activities,Therapeutic Exercises Modalities Cold Pack/Ice Massage,Electric Stimulation,Hot Packs, Ultrasound Next Visit Focus/Plan Next Note Type Treatment Note Next Visit Plan Further testing of balance and knee ROM/function. Positional testing and CRM as indicated.
--- NOTE | 2023-03-11 13:30 | PT.OTN ---
Current Diagnoses Polyneuropathy, unspecified (03/11/23) Benign paroxysmal vertigo, right ear (03/11/23) Labyrinthitis, unspecified ear (03/11/23) Stiffness of unspecified knee, not elsewhere classified (03/11/23) Other abnormalities of gait and mobility (03/11/23) Repeated falls (03/11/23) Physical Therapy Treatment Note PT-OP-A Visit Information Start: 02/11/23 16:35 Freq: Status: Active Protocol: Document 03/11/23 12:50 DCW (Rec: 03/11/23 13:30 DCW [id number]) Out-Patient Physical Therapy Visit Information Visit Information Visit Type Treatment Note Visit Start Time 12:50 Visit Stop Time 13:30 Total Visit Minutes 40 Visit Number 6 Number of HARBOR MASTER Visits 0 Evaluation Information Evaluation Date 02/11/23 PT-OP-B Current Condition Start: 02/11/23 16:35 Freq: Status: Active Protocol: Document 02/11/23 12:45 DCW (Rec: 02/11/23 17:01 DCW [id number]) Current Condition History of Current Condition Onset Date Multi-year history Current Complaints Falls, instability, difficult floor transfers, leg weakness, dizziness History of Current Condition Pt is an 82 year old female presenting with multiple complaints, including repeated falls, inability to get up off the ground following her falls, instability/dizziness, leg weakness and bilateral knee stiffness 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 Pt complains that she falls constantly, but it is typically not due to dizziness , although she does occasionally experience dizziness. Most recently she fell on 12/06/22 after bending over. She experienced sudden, violent vertigo, collapsed, and could not get up until her went to get the neighbor for assistance. Pt is a fairly tangential historian . Notes she does do an online exercise/balance class, but it has not helped her improve her knee mobility, and still feels often off balance. Prior Treatments and Tests Reports she has undergone a bilateral knee manipulation in 2015, did not help with decreased bilateral knee ROM following TKA in 2013 (left) and 2014 (right). Reports she tries PT once or twice a year for her knees, without benefit. PT-OP-C Subjective Start: 02/11/23 16:35 Freq: Status: Active Protocol: Document 03/11/23 12:50 DCW (Rec: 03/11/23 13:30 DCW [id number]) OP-PT Subjective Patient Comments Patient Comments I think I feel better, but I' m not sure. PT-OP-D Balance Start: 02/11/23 16:35 Freq: Status: Active Protocol: Document 02/13/23 10:35 DCW (Rec: 02/13/23 11:17 DCW [id number]) Balance Tests Single Limb Standing Single Limb- Right 5 Single Limb- Left 3 PT-OP-E Functional Tests Start: 02/11/23 16:35 Freq: Status: Active Protocol: Document 02/13/23 10:35 DCW (Rec: 02/13/23 11:17 DCW [id number]) Functional Tests Dynamic Gait Index (DGI) Score 19/24 Five Times Sit to Stand Test Score 11.42 PT-OP-K Range of Motion Start: 02/11/23 16:35 Freq: Status: Active Protocol: Document 02/13/23 10:35 DCW (Rec: 02/13/23 11:17 DCW [id number]) Knee Goniometric Range of Motion Knee Right Knee ROM WFL No Patient Position Supine Flexion Active (degrees) 96 Flexion Passive (degrees) 105 Extension Active (degrees) 12 Extension Passive (degrees) 12 Left Knee ROM WFL No Patient Position Supine Flexion Active (degrees) 90 Flexion Passive (degrees) 95 Extension Active (degrees) 14 Extension Passive (degrees) 14 PT-OP-M Strength Start: 02/11/23 16:35 Freq: Status: Active Protocol: Document 02/11/23 12:45 DCW (Rec: 02/11/23 17:01 DCW [id number]) Hip Strength Hip Manual Muscle Testing Right Flexion (L2) 4+ Good+ Abduction 4+ Good+ Adduction 4- Good- Left Flexion (L2) 4 Good Abduction 4+ Good+ Adduction 4- Good- Knee Strength Knee Manual Muscle Testing Right Flexion (S2) 4 Good Extension (L3) 4 Good Left Flexion (S2) 4 Good Extension (L3) 4 Good PT-OP-O Vestibular Start: 02/11/23 16:35 Freq: Status: Active Protocol: Document 02/13/23 10:35 DCW (Rec: 02/13/23 11:17 DCW [id number]) Vestibular Assessment Positional Testing [place]-Hallpike Negative Left,Negative Right Rolling Test Negative Left,Negative Right PT-OP-Q Treatments Start: 02/11/23 16:35 Freq: Status: Active Protocol: Document 03/11/23 12:50 DCW (Rec: 03/11/23 13:30 DCW [id number]) Cardio Equipment Recumbent Elliptical (Biodex) Duration (Minutes) 6 Resistance 4 Seat Position 6 Other UEs/LEs- 482 steps Gym Equipment Shuttle Balance Red Details WBOS, Staggered Therapeutic Exercises Supine Exercises Quad stretch Supine Exercise Name Leg off table Side bilateral Equipment Used opp LE bent to support back Reps/Minutes 30 hold Comments good feedback stretch Manual Therapy Treatment Joint Mobilizations Knee mobs Joint B knee Direction A<->P Grade III Body Position Hooklying PT-OP-T Assessment and Plan Start: 02/11/23 16:35 Freq: Status: Active Protocol: Document 03/11/23 12:50 DCW (Rec: 03/11/23 13:30 DCW [id number]) Physical Therapy Assessment Impairments Impairments Balance,Functional Activities, Functional Mobility,Pain,ROM, Soft Tissue Mobility,Strength, Vestibular Goals Two Impairment Pt unable to get herself off the floor Usp Goal (LTG) Pt to demonstrate ability to perform floor transfer x2 without assistance in order to demonstrate improved ability to recover following a potential fall LTG Duration 04/13/23 One Impairment Positive right [place]-Hallpike Usp Goal (LTG) Pt to present with negative positional testing bilaterally LTG Duration 04/13/23 Assessment Summary Assessment Pt interested in working on floor transfers next visit. Good response today to joint mobs and hip flexor stretching . Balance showing some improvements. Physical Therapy Plan Frequency and Duration Frequency of Treatment 1-2x/week Plan of Care Start Date 02/11/23 Plan of Care End Date 04/13/23 Therapeutic Interventions Therapeutic Interventions Balance Training,Canalithic Repositioning,Home Exercise Program,Joint Mobilizations, Manual Therapy,Neuromuscular Re-education,Patient/Caregiver Education,Self-Care/Home Management,Soft Tissue Mobilization,Therapeutic Activities,Therapeutic Exercises Modalities Cold Pack/Ice Massage,Electric Stimulation,Hot Packs, Ultrasound Next Visit Focus/Plan Next Note Type Treatment Note Next Visit Plan Further testing of balance and knee ROM/function. Positional testing and CRM as indicated.
--- NOTE | 2023-03-18 09:00 | PT.OTN ---
Current Diagnoses Polyneuropathy, unspecified (03/18/23) Benign paroxysmal vertigo, right ear (03/18/23) Labyrinthitis, unspecified ear (03/18/23) Stiffness of unspecified knee, not elsewhere classified (03/18/23) Other abnormalities of gait and mobility (03/18/23) Repeated falls (03/18/23) Physical Therapy Treatment Note PT-OP-A Visit Information Start: 02/11/23 16:35 Freq: Status: Active Protocol: Document 03/18/23 08:20 SP (Rec: 03/18/23 09:07 SP [id number]) Out-Patient Physical Therapy Visit Information Visit Information Visit Type Treatment Note Visit Start Time 08:20 Visit Stop Time 09:00 Total Visit Minutes 40 Visit Number 7 Number of PASTING INSPECTOR Visits 1 Evaluation Information Evaluation Date 02/11/23 PT-OP-B Current Condition Start: 02/11/23 16:35 Freq: Status: Active Protocol: Document 02/11/23 12:45 DCW (Rec: 02/11/23 17:01 DCW [id number]) Current Condition History of Current Condition Onset Date Multi-year history Current Complaints Falls, instability, difficult floor transfers, leg weakness, dizziness History of Current Condition Pt is an 82 year old female presenting with multiple complaints, including repeated falls, inability to get up off the ground following her falls, instability/dizziness, leg weakness and bilateral knee stiffness 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 Pt complains that she falls constantly, but it is typically not due to dizziness , although she does occasionally experience dizziness. Most recently she fell on 12/06/22 after bending over. She experienced sudden, violent vertigo, collapsed, and could not get up until her went to get the neighbor for assistance. Pt is a fairly tangential historian . Notes she does do an online exercise/balance class, but it has not helped her improve her knee mobility, and still feels often off balance. Prior Treatments and Tests Reports she has undergone a bilateral knee manipulation in 2015, did not help with decreased bilateral knee ROM following TKA in 2013 (left) and 2014 (right). Reports she tries PT once or twice a year for her knees, without benefit. PT-OP-C Subjective Start: 02/11/23 16:35 Freq: Status: Active Protocol: Document 03/18/23 08:20 SP (Rec: 03/18/23 09:07 SP [id number]) OP-PT Subjective Patient Comments Patient Comments Pt reported finds PT has been helping. She feel getting stronger. She stated the quad stretch in PT off side of table was very helpful in lessening her rope like quad, but her bed at home isn't as tall to do, inquired if another angle or position to get same stretch possible? PT-OP-D Balance Start: 02/11/23 16:35 Freq: Status: Active Protocol: Document 02/13/23 10:35 DCW (Rec: 02/13/23 11:17 DCW [id number]) Balance Tests Single Limb Standing Single Limb- Right 5 Single Limb- Left 3 PT-OP-E Functional Tests Start: 02/11/23 16:35 Freq: Status: Active Protocol: Document 02/13/23 10:35 DCW (Rec: 02/13/23 11:17 DCW [id number]) Functional Tests Dynamic Gait Index (DGI) Score 19/24 Five Times Sit to Stand Test Score 11.42 PT-OP-K Range of Motion Start: 02/11/23 16:35 Freq: Status: Active Protocol: Document 02/13/23 10:35 DCW (Rec: 02/13/23 11:17 DCW [id number]) Knee Goniometric Range of Motion Knee Right Knee ROM WFL No Patient Position Supine Flexion Active (degrees) 96 Flexion Passive (degrees) 105 Extension Active (degrees) 12 Extension Passive (degrees) 12 Left Knee ROM WFL No Patient Position Supine Flexion Active (degrees) 90 Flexion Passive (degrees) 95 Extension Active (degrees) 14 Extension Passive (degrees) 14 PT-OP-M Strength Start: 02/11/23 16:35 Freq: Status: Active Protocol: Document 02/11/23 12:45 DCW (Rec: 02/11/23 17:01 DCW [id number]) Hip Strength Hip Manual Muscle Testing Right Flexion (L2) 4+ Good+ Abduction 4+ Good+ Adduction 4- Good- Left Flexion (L2) 4 Good Abduction 4+ Good+ Adduction 4- Good- Knee Strength Knee Manual Muscle Testing Right Flexion (S2) 4 Good Extension (L3) 4 Good Left Flexion (S2) 4 Good Extension (L3) 4 Good PT-OP-O Vestibular Start: 02/11/23 16:35 Freq: Status: Active Protocol: Document 02/13/23 10:35 DCW (Rec: 02/13/23 11:17 DCW [id number]) Vestibular Assessment Positional Testing [place]-Hallpike Negative Left,Negative Right Rolling Test Negative Left,Negative Right PT-OP-Q Treatments Start: 02/11/23 16:35 Freq: Status: Active Protocol: Document 03/18/23 08:20 SP (Rec: 03/18/23 09:07 SP [id number]) Cardio Equipment Recumbent Elliptical (Biodex) Duration (Minutes) 6 Resistance 4>7 Seat Position 6- 45 RPMs Other UEs&LEs> LEs only- 482 steps Gym Equipment Shuttle Recovery Unilateral Squats Details cued knee //with feet, ROM tolerant Resistance 50# (One new) Reps/Time x20 Bilateral Squats Details cued knee //with feet, ROM tolerant Resistance 75# (Two new) Shuttle Recovery Platform Stable Reps/Time x20 Therapeutic Exercises Supine Exercises Quad stretch Supine Exercise Name Hip flexor stretch: Jorge Side bilateral Equipment Used opp LE bent use towel at thigh to support back Reps/Minutes 30 hold Comments leg off side table vs perpendicular for low bed modification- good response Standing Exercises mini lunge Standing Exercise Name added to HEP Equipment Used //bars, BUE support Reps/Minutes x10 Comments cued normal stance width JUANJO, frnt knee behind forft, back knee flex floor hip flexor stretch Standing Exercise Name added to HEP- (lunge positioning)- good response Side bilateral Equipment Used rail support 1-2 UE Reps/Minutes 30 hold Comments cued upright posturing, allow back leg heel elevate for front hip stretch Therapeutic Activity Therapeutic Activity floor transfer Name nextt x Neuro Re-Education Treatment Balance Activities hurdles Details next tx PT-OP-T Assessment and Plan Start: 02/11/23 16:35 Freq: Status: Active Protocol: Document 03/18/23 08:20 SP (Rec: 03/18/23 09:07 SP [id number]) Physical Therapy Assessment Goals Two Impairment Pt unable to get herself off the floor Long-Term Goal (LTG) Pt to demonstrate ability to perform floor transfer x2 without assistance in order to demonstrate improved ability to recover following a potential fall LTG Duration 04/13/23 One Impairment Positive right [place]-Hallpike Long-Term Goal (LTG) Pt to present with negative positional testing bilaterally LTG Duration 04/13/23 Progress Towards Goals Progress Comments p Assessment Summary Assessment Pt good hip flexor stretch review off along side vs perpendicular EOB bed (her bed low) and same stretch response lunge stance with cues for set up. Pt good muscular effort during mini lunge added to HEP to assist quad and glut strengthening to support getting on/off floor transfers, will trial/perform next tx. Pt stated her quads and knees feel less stiff end tx. She reports also uses a rolling pin to quad as needed at home but doesn't fully relax her knee. Physical Therapy Plan Frequency and Duration Frequency of Treatment 1-2x/week Plan of Care Start Date 02/11/23 Plan of Care End Date 04/13/23 Therapeutic Interventions Therapeutic Interventions Balance Training,Canalithic Repositioning,Home Exercise Program,Joint Mobilizations, Manual Therapy,Neuromuscular Re-education,Patient/Caregiver Education,Self-Care/Home Management,Soft Tissue Mobilization,Therapeutic Activities,Therapeutic Exercises Modalities Cold Pack/Ice Massage,Electric Stimulation,Hot Packs, Ultrasound Next Visit Focus/Plan Next Note Type Treatment Note Next Visit Plan Assess response to added mini lunge, hip flexor stretch. Next tx trial floor transfers for fall prevention. POC: Further testing of balance and knee ROM/function. Positional testing and CRM as indicated.
--- NOTE | 2023-03-20 09:00 | PT.OTN ---
Current Diagnoses Polyneuropathy, unspecified (03/20/23) Benign paroxysmal vertigo, right ear (03/20/23) Labyrinthitis, unspecified ear (03/20/23) Stiffness of unspecified knee, not elsewhere classified (03/20/23) Other abnormalities of gait and mobility (03/20/23) Repeated falls (03/20/23) Physical Therapy Treatment Note PT-OP-A Visit Information Start: 02/11/23 16:35 Freq: Status: Active Protocol: Document 03/20/23 08:19 SP (Rec: 03/20/23 09:03 SP [id number]) Out-Patient Physical Therapy Visit Information Visit Information Visit Type Treatment Note Visit Start Time 08:19 Visit Stop Time 09:00 Total Visit Minutes 41 Visit Number 8 Number of HELMET COVERER Visits 2 Evaluation Information Evaluation Date 02/11/23 PT-OP-B Current Condition Start: 02/11/23 16:35 Freq: Status: Active Protocol: Document 02/11/23 12:45 DCW (Rec: 02/11/23 17:01 DCW [id number]) Current Condition History of Current Condition Onset Date Multi-year history Current Complaints Falls, instability, difficult floor transfers, leg weakness, dizziness History of Current Condition Pt is an 82 year old female presenting with multiple complaints, including repeated falls, inability to get up off the ground following her falls, instability/dizziness, leg weakness and bilateral knee stiffness 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 Pt complains that she falls constantly, but it is typically not due to dizziness , although she does occasionally experience dizziness. Most recently she fell on 12/06/22 after bending over. She experienced sudden, violent vertigo, collapsed, and could not get up until her went to get the neighbor for assistance. Pt is a fairly tangential historian . Notes she does do an online exercise/balance class, but it has not helped her improve her knee mobility, and still feels often off balance. Prior Treatments and Tests Reports she has undergone a bilateral knee manipulation in 2015, did not help with decreased bilateral knee ROM following TKA in 2013 (left) and 2014 (right). Reports she tries PT once or twice a year for her knees, without benefit. PT-OP-C Subjective Start: 02/11/23 16:35 Freq: Status: Active Protocol: Document 03/20/23 08:19 SP (Rec: 03/20/23 09:03 SP [id number]) OP-PT Subjective Patient Comments Patient Comments Pt reports was very tired after tx Wed. Misplaced her ex HOs, wants reprint them. PT-OP-D Balance Start: 02/11/23 16:35 Freq: Status: Active Protocol: Document 02/13/23 10:35 DCW (Rec: 02/13/23 11:17 DCW [id number]) Balance Tests Single Limb Standing Single Limb- Right 5 Single Limb- Left 3 PT-OP-E Functional Tests Start: 02/11/23 16:35 Freq: Status: Active Protocol: Document 02/13/23 10:35 DCW (Rec: 02/13/23 11:17 DCW [id number]) Functional Tests Dynamic Gait Index (DGI) Score 19/24 Five Times Sit to Stand Test Score 11.42 PT-OP-K Range of Motion Start: 02/11/23 16:35 Freq: Status: Active Protocol: Document 02/13/23 10:35 DCW (Rec: 02/13/23 11:17 DCW [id number]) Knee Goniometric Range of Motion Knee Right Knee ROM WFL No Patient Position Supine Flexion Active (degrees) 96 Flexion Passive (degrees) 105 Extension Active (degrees) 12 Extension Passive (degrees) 12 Left Knee ROM WFL No Patient Position Supine Flexion Active (degrees) 90 Flexion Passive (degrees) 95 Extension Active (degrees) 14 Extension Passive (degrees) 14 PT-OP-M Strength Start: 02/11/23 16:35 Freq: Status: Active Protocol: Document 02/11/23 12:45 DCW (Rec: 02/11/23 17:01 DCW [id number]) Hip Strength Hip Manual Muscle Testing Right Flexion (L2) 4+ Good+ Abduction 4+ Good+ Adduction 4- Good- Left Flexion (L2) 4 Good Abduction 4+ Good+ Adduction 4- Good- Knee Strength Knee Manual Muscle Testing Right Flexion (S2) 4 Good Extension (L3) 4 Good Left Flexion (S2) 4 Good Extension (L3) 4 Good PT-OP-O Vestibular Start: 02/11/23 16:35 Freq: Status: Active Protocol: Document 02/13/23 10:35 DCW (Rec: 02/13/23 11:17 DCW [id number]) Vestibular Assessment Positional Testing [place] Negative Left,Negative Right Rolling Test Negative Left,Negative Right PT-OP-Q Treatments Start: 02/11/23 16:35 Freq: Status: Active Protocol: Document 03/20/23 08:19 SP (Rec: 03/20/23 09:03 SP [id number]) Cardio Equipment Recumbent Stepper (Sci-Fit) Duration (Minutes) 8 Resistance 3 Seat Position 8- 70 RPMs, 1mile Other BUEs/BLEs cued heel press and allow Therapeutic Exercises Supine Exercises HS stretch Supine Exercise Name added to HEP: c/ and s/ AP Side bilateral Reps/Minutes 30 x3 reps bridge Supine Exercise Name added to HEP Side bilateral Reps/Minutes x15 reps Comments good Pelvis tilt/TA then lift/ lower Standing Exercises step ups Standing Exercise Name added to HEP Equipment Used light contact rail Reps/Minutes x10 each LE up/down Comments cued take peak at step for clearance ascend hip flexor stretch Standing Exercise Name HEP reviewed Side bilateral Equipment Used ft up on 2nd step, rail support Reps/Minutes 3x30 hold Comments cued upright posture, bk leg hip flex stre, front knee flex stretch Therapeutic Activity Therapeutic Activity floor transfer Name declined today 03/20 not ready Gait Training Gait Activity gait Description fwd posture, head up, decrease retro lean noted with cues Distance/Duration 50 ft x2 hallway Treatment Focus COG over JUANJO Comments cued chest lift w/ head up, wt shift upper body over pelvis walk like on a mission. PT-OP-T Assessment and Plan Start: 02/11/23 16:35 Freq: Status: Active Protocol: Document 03/20/23 08:19 SP (Rec: 03/20/23 09:03 SP [id number]) Physical Therapy Assessment Goals Two Impairment Pt unable to get herself off the floor [facility] Goal (LTG) Pt to demonstrate ability to perform floor transfer x2 without assistance in order to demonstrate improved ability to recover following a potential fall 03/20/23: pt stated not strong enough right now and feels can't do floor transfer right now. LTG Duration 04/13/23 updated 03/20/23 One Impairment Positive right [place]-Hallpike [facility] Goal (LTG) Pt to present with negative positional testing bilaterally LTG Duration 04/13/23 Assessment Summary Assessment Pt reported hip flexor stretch just as helpful in standing as alternative to laying down (bed to low). Provided HOs for HEP carryover home. Good quad , glut and core firing during bridge and step ups today. Pt improved more forward trunk positioning gait end tx post ther ex. Physical Therapy Plan Frequency and Duration Frequency of Treatment 1-2x/week Plan of Care Start Date 02/11/23 Plan of Care End Date 04/13/23 Therapeutic Interventions Therapeutic Interventions Balance Training,Canalithic Repositioning,Home Exercise Program,Joint Mobilizations, Manual Therapy,Neuromuscular Re-education,Patient/Caregiver Education,Self-Care/Home Management,Soft Tissue Mobilization,Therapeutic Activities,Therapeutic Exercises Modalities Cold Pack/Ice Massage,Electric Stimulation,Hot Packs, Ultrasound Next Visit Focus/Plan Next Note Type Treatment Note Next Visit Plan Assess response to added mini lunge, step ups, Next tx trial floor transfers for fall prevention. POC: Further testing of balance and knee ROM/function. Positional testing and CRM as indicated.
--- NOTE | 2023-03-25 10:36 | PT.OTN ---
Current Diagnoses Polyneuropathy, unspecified (03/25/23) Benign paroxysmal vertigo, right ear (03/25/23) Labyrinthitis, unspecified ear (03/25/23) Stiffness of unspecified knee, not elsewhere classified (03/25/23) Other abnormalities of gait and mobility (03/25/23) Repeated falls (03/25/23) Physical Therapy Treatment Note PT-OP-A Visit Information Start: 02/11/23 16:35 Freq: Status: Active Protocol: Document 03/25/23 09:50 DCW (Rec: 03/25/23 10:36 DCW [id number]) Out-Patient Physical Therapy Visit Information Visit Information Visit Type Treatment Note Visit Start Time 09:50 Visit Stop Time 10:30 Total Visit Minutes 40 Visit Number 9 Number of SENIOR CLINICAL PROJECT MANAGER Visits 0 Evaluation Information Evaluation Date 02/11/23 PT-OP-B Current Condition Start: 02/11/23 16:35 Freq: Status: Active Protocol: Document 02/11/23 12:45 DCW (Rec: 02/11/23 17:01 DCW [id number]) Current Condition History of Current Condition Onset Date Multi-year history Current Complaints Falls, instability, difficult floor transfers, leg weakness, dizziness History of Current Condition Pt is an 82 year old female presenting with multiple complaints, including repeated falls, inability to get up off the ground following her falls, instability/dizziness, leg weakness and bilateral knee stiffness 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 Pt complains that she falls constantly, but it is typically not due to dizziness , although she does occasionally experience dizziness. Most recently she fell on 12/06/22 after bending over. She experienced sudden, violent vertigo, collapsed, and could not get up until her went to get the neighbor for assistance. Pt is a fairly tangential historian . Notes she does do an online exercise/balance class, but it has not helped her improve her knee mobility, and still feels often off balance. Prior Treatments and Tests Reports she has undergone a bilateral knee manipulation in 2015, did not help with decreased bilateral knee ROM following TKA in 2013 (left) and 2014 (right). Reports she tries PT once or twice a year for her knees, without benefit. PT-OP-C Subjective Start: 02/11/23 16:35 Freq: Status: Active Protocol: Document 03/25/23 09:50 DCW (Rec: 03/25/23 10:36 DCW [id number]) OP-PT Subjective Patient Comments Patient Comments Thursday, pt was using her husbands recumbent bike, and she was able to get a full rotation for the first time in nine years. She was so excited that she did the same on Thursday, and increased the resistance, but ended up pulling her quad, so now she's having more pain. PT-OP-D Balance Start: 02/11/23 16:35 Freq: Status: Active Protocol: Document 02/13/23 10:35 DCW (Rec: 02/13/23 11:17 DCW [id number]) Balance Tests Single Limb Standing Single Limb- Right 5 Single Limb- Left 3 PT-OP-E Functional Tests Start: 02/11/23 16:35 Freq: Status: Active Protocol: Document 02/13/23 10:35 DCW (Rec: 02/13/23 11:17 DCW [id number]) Functional Tests Dynamic Gait Index (DGI) Score 19/24 Five Times Sit to Stand Test Score 11.42 PT-OP-K Range of Motion Start: 02/11/23 16:35 Freq: Status: Active Protocol: Document 02/13/23 10:35 DCW (Rec: 02/13/23 11:17 DCW [id number]) Knee Goniometric Range of Motion Knee Right Knee ROM WFL No Patient Position Supine Flexion Active (degrees) 96 Flexion Passive (degrees) 105 Extension Active (degrees) 12 Extension Passive (degrees) 12 Left Knee ROM WFL No Patient Position Supine Flexion Active (degrees) 90 Flexion Passive (degrees) 95 Extension Active (degrees) 14 Extension Passive (degrees) 14 PT-OP-M Strength Start: 02/11/23 16:35 Freq: Status: Active Protocol: Document 02/11/23 12:45 DCW (Rec: 02/11/23 17:01 DCW [id number]) Hip Strength Hip Manual Muscle Testing Right Flexion (L2) 4+ Good+ Abduction 4+ Good+ Adduction 4- Good- Left Flexion (L2) 4 Good Abduction 4+ Good+ Adduction 4- Good- Knee Strength Knee Manual Muscle Testing Right Flexion (S2) 4 Good Extension (L3) 4 Good Left Flexion (S2) 4 Good Extension (L3) 4 Good PT-OP-O Vestibular Start: 02/11/23 16:35 Freq: Status: Active Protocol: Document 02/13/23 10:35 DCW (Rec: 02/13/23 11:17 DCW [id number]) Vestibular Assessment Positional Testing Smith-Hallpike Negative Left,Negative Right Rolling Test Negative Left,Negative Right PT-OP-Q Treatments Start: 02/11/23 16:35 Freq: Status: Active Protocol: Document 03/25/23 09:50 DCW (Rec: 03/25/23 10:36 DCW [id number]) Cardio Equipment Recumbent Elliptical (Biodex) Duration (Minutes) 6 Resistance 4>7 Other UEs/LEs - 360 steps Gym Equipment Shuttle Balance Red Details WBOS, Staggered Therapeutic Exercises Supine Exercises HS stretch Supine Exercise Name HS stretch Side bilateral Reps/Minutes 30 x3 reps Quad stretch Supine Exercise Name Hip flexor stretch: Jorge Side bilateral Equipment Used opp LE bent use towel at thigh to support back Reps/Minutes 30 hold Comments leg off side table vs perpendicular for low bed modification- good response Standing Exercises mini lunge Equipment Used //bars, BUE support Reps/Minutes x10 Comments cued normal stance width JUANJO, frnt knee behind forft, back knee flex floor Therapeutic Activity Therapeutic Activity floor transfer Name Continues to report not ready . Manual Therapy Treatment Joint Mobilizations Knee mobs Joint B knee Direction A<->P Grade III Body Position Hooklying PT-OP-T Assessment and Plan Start: 02/11/23 16:35 Freq: Status: Active Protocol: Document 03/25/23 09:50 DCW (Rec: 03/25/23 10:36 DCW [id number]) Physical Therapy Assessment Impairments Impairments Balance,Functional Activities, Functional Mobility,Pain,ROM, Soft Tissue Mobility,Strength, Vestibular Goals Two Impairment Pt unable to get herself off the floor Retirement Goal (LTG) Pt to demonstrate ability to perform floor transfer x2 without assistance in order to demonstrate improved ability to recover following a potential fall 03/20/23: pt stated not strong enough right now and feels can't do floor transfer right now. LTG Duration 04/13/23 updated 03/20/23 One Impairment Positive right Smith-Hallpike Record Keeper Goal (LTG) Pt to present with negative positional testing bilaterally LTG Duration 04/13/23 Assessment Summary Assessment good response to joint mobs today. Pt sore overall from fall this weekend when her dog pulled her over, but still very happy with recent progress, including full rotations using her home recumbent exercise bike. Physical Therapy Plan Frequency and Duration Frequency of Treatment 1-2x/week Plan of Care Start Date 02/11/23 Plan of Care End Date 04/13/23 Therapeutic Interventions Therapeutic Interventions Balance Training,Canalithic Repositioning,Home Exercise Program,Joint Mobilizations, Manual Therapy,Neuromuscular Re-education,Patient/Caregiver Education,Self-Care/Home Management,Soft Tissue Mobilization,Therapeutic Activities,Therapeutic Exercises Modalities Cold Pack/Ice Massage,Electric Stimulation,Hot Packs, Ultrasound Next Visit Focus/Plan Next Note Type Treatment Note Next Visit Plan 10th visit prog note POC: Further testing of balance and knee ROM/function. Positional testing and CRM as indicated.
--- NOTE | 2023-03-27 13:02 | PT.OTN ---
Current Diagnoses Polyneuropathy, unspecified (03/27/23) Benign paroxysmal vertigo, right ear (03/27/23) Labyrinthitis, unspecified ear (03/27/23) Stiffness of unspecified knee, not elsewhere classified (03/27/23) Other abnormalities of gait and mobility (03/27/23) Repeated falls (03/27/23) Physical Therapy Treatment Note PT-OP-A Visit Information Start: 02/11/23 16:35 Freq: Status: Active Protocol: Document 03/27/23 12:19 SP (Rec: 03/27/23 13:04 SP [id number]) Out-Patient Physical Therapy Visit Information Visit Information Visit Type Treatment Note Visit Note 02/17 post eval Visit Start Time 12:19 Visit Stop Time 13:02 Total Visit Minutes 43 Visit Number 10 Number of DIRECTOR OF DIAGNOSTIC IMAGING Visits 1 Evaluation Information Evaluation Date 02/11/23 PT-OP-B Current Condition Start: 02/11/23 16:35 Freq: Status: Active Protocol: Document 02/11/23 12:45 DCW (Rec: 02/11/23 17:01 DCW [id number]) Current Condition History of Current Condition Onset Date Multi-year history Current Complaints Falls, instability, difficult floor transfers, leg weakness, dizziness History of Current Condition Pt is an 82 year old female presenting with multiple complaints, including repeated falls, inability to get up off the ground following her falls, instability/dizziness, leg weakness and bilateral knee stiffness 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 Pt complains that she falls constantly, but it is typically not due to dizziness , although she does occasionally experience dizziness. Most recently she fell on 12/06/22 after bending over. She experienced sudden, violent vertigo, collapsed, and could not get up until her went to get the neighbor for assistance. Pt is a fairly tangential historian . Notes she does do an online exercise/balance class, but it has not helped her improve her knee mobility, and still feels often off balance. Prior Treatments and Tests Reports she has undergone a bilateral knee manipulation in 2015, did not help with decreased bilateral knee ROM following TKA in 2013 (left) and 2014 (right). Reports she tries PT once or twice a year for her knees, without benefit. PT-OP-C Subjective Start: 02/11/23 16:35 Freq: Status: Active Protocol: Document 03/27/23 12:19 SP (Rec: 03/27/23 13:04 SP [id number]) OP-PT Subjective Patient Comments Patient Comments Pt reports her L quad is still sore and so not doing bike at home. She is not over doing it today. PT-OP-D Balance Start: 02/11/23 16:35 Freq: Status: Active Protocol: Document 02/13/23 10:35 DCW (Rec: 02/13/23 11:17 DCW [id number]) Balance Tests Single Limb Standing Single Limb- Right 5 Single Limb- Left 3 PT-OP-E Functional Tests Start: 02/11/23 16:35 Freq: Status: Active Protocol: Document 02/13/23 10:35 DCW (Rec: 02/13/23 11:17 DCW [id number]) Functional Tests Dynamic Gait Index (DGI) Score 19/24 Five Times Sit to Stand Test Score 11.42 PT-OP-K Range of Motion Start: 02/11/23 16:35 Freq: Status: Active Protocol: Document 02/13/23 10:35 DCW (Rec: 02/13/23 11:17 DCW [id number]) Knee Goniometric Range of Motion Knee Right Knee ROM WFL No Patient Position Supine Flexion Active (degrees) 96 Flexion Passive (degrees) 105 Extension Active (degrees) 12 Extension Passive (degrees) 12 Left Knee ROM WFL No Patient Position Supine Flexion Active (degrees) 90 Flexion Passive (degrees) 95 Extension Active (degrees) 14 Extension Passive (degrees) 14 PT-OP-M Strength Start: 02/11/23 16:35 Freq: Status: Active Protocol: Document 02/11/23 12:45 DCW (Rec: 02/11/23 17:01 DCW [id number]) Hip Strength Hip Manual Muscle Testing Right Flexion (L2) 4+ Good+ Abduction 4+ Good+ Adduction 4- Good- Left Flexion (L2) 4 Good Abduction 4+ Good+ Adduction 4- Good- Knee Strength Knee Manual Muscle Testing Right Flexion (S2) 4 Good Extension (L3) 4 Good Left Flexion (S2) 4 Good Extension (L3) 4 Good PT-OP-O Vestibular Start: 02/11/23 16:35 Freq: Status: Active Protocol: Document 02/13/23 10:35 DCW (Rec: 02/13/23 11:17 DCW [id number]) Vestibular Assessment Positional Testing Smith-Hallpike Negative Left,Negative Right Rolling Test Negative Left,Negative Right PT-OP-Q Treatments Start: 02/11/23 16:35 Freq: Status: Active Protocol: Document 03/27/23 12:19 SP (Rec: 03/27/23 13:04 SP [id number]) Cardio Equipment Recumbent Elliptical (Biodex) Duration (Minutes) 6 Resistance 4>7 Other UEs/LEs - 360 steps Manual Therapy Treatment Soft Tissue Mobilization L quad Body Location L quad, gastroc, distal HS, popliteus Mobilization Type Myofascial Release, Oscillations,Rolling Intensity/Depth Superficial Body Position Hooklying and LE draped off table Comments gentle manual STMs: knee bent Joint Mobilizations Knee mobs Joint B knee into flexion Direction A<->P Grade II Body Position Hooklying Neuro Re-Education Treatment Balance Activities fwd march/back stepping Details high knee marching fwd, back stepping Surface carpet Reps/Duration 30 ft. Comments cued tall elongated posture and allow arm mobility. Improved increase knee flexion and stride backwards, no sways/LOB. hurdles Equipment light contact rail (outside stairs), 2 hurdles Reps/Duration 4 laps Comments cued increase knee flex/DF, trail LE caught evan x2 no LOB PT-OP-T Assessment and Plan Start: 02/11/23 16:35 Freq: Status: Active Protocol: Document 03/27/23 12:19 SP (Rec: 03/27/23 13:04 SP [id number]) Physical Therapy Assessment Goals Two Impairment Pt unable to get herself off the floor Cabinet Maker Goal (LTG) Pt to demonstrate ability to perform floor transfer x2 without assistance in order to demonstrate improved ability to recover following a potential fall 03/20/23: pt stated not strong enough right now and feels can't do floor transfer right now. 03/27/23: slow progress due to recent fall and over worked L quad on bike gaining ROM but causing discomfort bending. She is unable to try but progressing mini lunge, bridges, step ups resisted exercise machines. LTG Duration 04/13/23 updated 03/27/23 One Impairment Positive right Smith-Hallpike Cabinet Maker Goal (LTG) Pt to present with negative positional testing bilaterally LTG Duration 04/13/23 Assessment Summary Assessment Pt responded well to manual, decreased reports of discomfort in L quad during Fabio stretch off table and improved less pain during gait end tx. Physical Therapy Plan Frequency and Duration Frequency of Treatment 1-2x/week Plan of Care Start Date 02/11/23 Plan of Care End Date 04/13/23 Therapeutic Interventions Therapeutic Interventions Balance Training,Canalithic Repositioning,Home Exercise Program,Joint Mobilizations, Manual Therapy,Neuromuscular Re-education,Patient/Caregiver Education,Self-Care/Home Management,Soft Tissue Mobilization,Therapeutic Activities,Therapeutic Exercises Modalities Cold Pack/Ice Massage,Electric Stimulation,Hot Packs, Ultrasound Next Visit Focus/Plan Next Note Type Treatment Note Next Visit Plan 10th visit prog note, POC in 4 visits POC: Further testing of balance and knee ROM/function. Positional testing and CRM as indicated.
--- NOTE | 2023-03-31 13:47 | PT.OTN ---
Current Diagnoses Polyneuropathy, unspecified (03/31/23) Benign paroxysmal vertigo, right ear (03/31/23) Labyrinthitis, unspecified ear (03/31/23) Stiffness of unspecified knee, not elsewhere classified (03/31/23) Other abnormalities of gait and mobility (03/31/23) Repeated falls (03/31/23) Physical Therapy Treatment Note PT-OP-A Visit Information Start: 02/11/23 16:35 Freq: Status: Active Protocol: Document 03/31/23 13:04 SP (Rec: 03/31/23 13:57 SP [id number]) Out-Patient Physical Therapy Visit Information Visit Information Visit Type Treatment Note Visit Note 03/20 post eval Visit Start Time 13:07 Visit Stop Time 13:47 Total Visit Minutes 40 Visit Number 11 Number of FULL ROLL INSPECTOR Visits 2 Evaluation Information Evaluation Date 02/11/23 PT-OP-B Current Condition Start: 02/11/23 16:35 Freq: Status: Active Protocol: Document 02/11/23 12:45 DCW (Rec: 02/11/23 17:01 DCW [id number]) Current Condition History of Current Condition Onset Date Multi-year history Current Complaints Falls, instability, difficult floor transfers, leg weakness, dizziness History of Current Condition Pt is an 82 year old female presenting with multiple complaints, including repeated falls, inability to get up off the ground following her falls, instability/dizziness, leg weakness and bilateral knee stiffness 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 Pt complains that she falls constantly, but it is typically not due to dizziness , although she does occasionally experience dizziness. Most recently she fell on 12/06/22 after bending over. She experienced sudden, violent vertigo, collapsed, and could not get up until her went to get the neighbor for assistance. Pt is a fairly tangential historian . Notes she does do an online exercise/balance class, but it has not helped her improve her knee mobility, and still feels often off balance. Prior Treatments and Tests Reports she has undergone a bilateral knee manipulation in 2015, did not help with decreased bilateral knee ROM following TKA in 2013 (left) and 2014 (right). Reports she tries PT once or twice a year for her knees, without benefit. PT-OP-C Subjective Start: 02/11/23 16:35 Freq: Status: Active Protocol: Document 03/31/23 13:04 SP (Rec: 03/31/23 13:57 SP [id number]) OP-PT Subjective Patient Comments Patient Comments Pt reports L leg feels weak and times effort lifting it to walk or step over things like logs on beach. She was told has callus on bottom of B feet and feels like walking on cactus. She has old orthotics but not wanting to put in current shoes wearing. Wondered if recommend new orthotic place and if a shoe dresser in town. She reports PT-OP-D Balance Start: 02/11/23 16:35 Freq: Status: Active Protocol: Document 02/13/23 10:35 DCW (Rec: 02/13/23 11:17 DCW [id number]) Balance Tests Single Limb Standing Single Limb- Right 5 Single Limb- Left 3 PT-OP-E Functional Tests Start: 02/11/23 16:35 Freq: Status: Active Protocol: Document 02/13/23 10:35 DCW (Rec: 02/13/23 11:17 DCW [id number]) Functional Tests Dynamic Gait Index (DGI) Score 19/24 Five Times Sit to Stand Test Score 11.42 PT-OP-K Range of Motion Start: 02/11/23 16:35 Freq: Status: Active Protocol: Document 02/13/23 10:35 DCW (Rec: 02/13/23 11:17 DCW [id number]) Knee Goniometric Range of Motion Knee Right Knee ROM WFL No Patient Position Supine Flexion Active (degrees) 96 Flexion Passive (degrees) 105 Extension Active (degrees) 12 Extension Passive (degrees) 12 Left Knee ROM WFL No Patient Position Supine Flexion Active (degrees) 90 Flexion Passive (degrees) 95 Extension Active (degrees) 14 Extension Passive (degrees) 14 PT-OP-M Strength Start: 02/11/23 16:35 Freq: Status: Active Protocol: Document 02/11/23 12:45 DCW (Rec: 02/11/23 17:01 DCW [id number]) Hip Strength Hip Manual Muscle Testing Right Flexion (L2) 4+ Good+ Abduction 4+ Good+ Adduction 4- Good- Left Flexion (L2) 4 Good Abduction 4+ Good+ Adduction 4- Good- Knee Strength Knee Manual Muscle Testing Right Flexion (S2) 4 Good Extension (L3) 4 Good Left Flexion (S2) 4 Good Extension (L3) 4 Good PT-OP-O Vestibular Start: 02/11/23 16:35 Freq: Status: Active Protocol: Document 02/13/23 10:35 DCW (Rec: 02/13/23 11:17 DCW [id number]) Vestibular Assessment Positional Testing [place]-Hallpike Negative Left,Negative Right Rolling Test Negative Left,Negative Right PT-OP-Q Treatments Start: 02/11/23 16:35 Freq: Status: Active Protocol: Document 03/31/23 13:04 SP (Rec: 03/31/23 13:57 SP [id number]) Therapeutic Exercises Supine Exercises Jorge stretch Supine Exercise Name reviewed self HEP Side left Reps/Minutes 30 Comments manual cross fiber with stretch good feedback SAQ Supine Exercise Name initiated: L quad weaker than R Side bilateral Resistance AROM holds Reps/Minutes 5 SH x10 each Comments good mid quad tiring. Sitting Exercises LAQ Sitting Exercise Name added to HEP Side bilateral Resistance 2# leg wt Reps/Minutes 2x10 Comments cued range as far as can go, slight lag- good quad fac STS Equipment Used 18 elevated table Reps/Minutes x10 Comments cued slower descend hip hinge Standing Exercises step ups Standing Exercise Name reviewed HEP Resistance 2# leg wt Equipment Used light contact rail Reps/Minutes x10 each LE up/down Comments cued take peak at step for clearance ascend Manual Therapy Treatment Soft Tissue Mobilization L quad Body Location L quad, ITB, gastroc, distal HS, popliteus Mobilization Type Myofascial Release, Oscillations,Rolling Intensity/Depth Superficial Body Position Hooklying and LE draped off table Comments gentle manual STMs: knee bent and off table during Jorge stretch Joint Mobilizations Knee mobs Joint B knee into flexion Direction A<->P Grade II Body Position Hooklying PT-OP-T Assessment and Plan Start: 02/11/23 16:35 Freq: Status: Active Protocol: Document 03/31/23 13:04 SP (Rec: 03/31/23 13:57 SP [id number]) Physical Therapy Assessment Goals Two Impairment Pt unable to get herself off the floor Roving Court Reporter Goal (LTG) Pt to demonstrate ability to perform floor transfer x2 without assistance in order to demonstrate improved ability to recover following a potential fall 03/20/23: pt stated not strong enough right now and feels can't do floor transfer right now. 03/27/23: slow progress due to recent fall and over worked L quad on bike gaining ROM but causing discomfort bending. She is unable to try but progressing mini lunge, bridges, step ups resisted exercise machines. LTG Duration 04/13/23 updated 03/27/23 One Impairment Positive right [place]-Hallpike Care Home Goal (LTG) Pt to present with negative positional testing bilaterally LTG Duration 04/13/23 Assessment Summary Assessment Pt improved quad engagement post manual and able to increase resistance 2# leg wts during LAQ and step ups today . Physical Therapy Plan Frequency and Duration Frequency of Treatment 1-2x/week Plan of Care Start Date 02/11/23 Plan of Care End Date 04/13/23 Therapeutic Interventions Therapeutic Interventions Balance Training,Canalithic Repositioning,Home Exercise Program,Joint Mobilizations, Manual Therapy,Neuromuscular Re-education,Patient/Caregiver Education,Self-Care/Home Management,Soft Tissue Mobilization,Therapeutic Activities,Therapeutic Exercises Modalities Cold Pack/Ice Massage,Electric Stimulation,Hot Packs, Ultrasound Next Visit Focus/Plan Next Note Type Treatment Note Next Visit Plan 12th visit prog note next tx, update POC in 2 visits, 04/10. Progress balance activities if knee tolerant. POC: Further testing of balance and knee ROM/function. Positional testing and CRM as indicated.
--- NOTE | 2023-04-08 10:31 | PT.OTN ---
Current Diagnoses Polyneuropathy, unspecified (04/08/23) Benign paroxysmal vertigo, right ear (04/08/23) Labyrinthitis, unspecified ear (04/08/23) Stiffness of unspecified knee, not elsewhere classified (04/08/23) Other abnormalities of gait and mobility (04/08/23) Repeated falls (04/08/23) Physical Therapy Treatment Note PT-OP-A Visit Information Start: 02/11/23 16:35 Freq: Status: Active Protocol: Document 04/08/23 09:51 DCW (Rec: 04/08/23 10:30 DCW [id number]) Out-Patient Physical Therapy Visit Information Visit Information Visit Type Progress Note Visit Start Time 09:51 Visit Stop Time 10:30 Total Visit Minutes 39 Visit Number 12 Number of DIGITAL IMAGING TECHNICIAN Visits 0 Evaluation Information Evaluation Date 02/11/23 PT-OP-B Current Condition Start: 02/11/23 16:35 Freq: Status: Active Protocol: Document 02/11/23 12:45 DCW (Rec: 02/11/23 17:01 DCW [id number]) Current Condition History of Current Condition Onset Date Multi-year history Current Complaints Falls, instability, difficult floor transfers, leg weakness, dizziness History of Current Condition Pt is an 82 year old female presenting with multiple complaints, including repeated falls, inability to get up off the ground following her falls, instability/dizziness, leg weakness and bilateral knee stiffness 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 Pt complains that she falls constantly, but it is typically not due to dizziness , although she does occasionally experience dizziness. Most recently she fell on 12/06/22 after bending over. She experienced sudden, violent vertigo, collapsed, and could not get up until her went to get the neighbor for assistance. Pt is a fairly tangential historian . Notes she does do an online exercise/balance class, but it has not helped her improve her knee mobility, and still feels often off balance. Prior Treatments and Tests Reports she has undergone a bilateral knee manipulation in 2015, did not help with decreased bilateral knee ROM following TKA in 2013 (left) and 2014 (right). Reports she tries PT once or twice a year for her knees, without benefit. PT-OP-C Subjective Start: 02/11/23 16:35 Freq: Status: Active Protocol: Document 04/08/23 09:51 DCW (Rec: 04/08/23 10:30 DCW [id number]) OP-PT Subjective Patient Comments Patient Comments Still excited she can get around PT-OP-D Balance Start: 02/11/23 16:35 Freq: Status: Active Protocol: Document 02/13/23 10:35 DCW (Rec: 02/13/23 11:17 DCW [id number]) Balance Tests Single Limb Standing Single Limb- Right 5 Single Limb- Left 3 PT-OP-E Functional Tests Start: 02/11/23 16:35 Freq: Status: Active Protocol: Document 02/13/23 10:35 DCW (Rec: 02/13/23 11:17 DCW [id number]) Functional Tests Dynamic Gait Index (DGI) Score 19/24 Five Times Sit to Stand Test Score 11.42 PT-OP-K Range of Motion Start: 02/11/23 16:35 Freq: Status: Active Protocol: Document 02/13/23 10:35 DCW (Rec: 02/13/23 11:17 DCW [id number]) Knee Goniometric Range of Motion Knee Right Knee ROM WFL No Patient Position Supine Flexion Active (degrees) 96 Flexion Passive (degrees) 105 Extension Active (degrees) 12 Extension Passive (degrees) 12 Left Knee ROM WFL No Patient Position Supine Flexion Active (degrees) 90 Flexion Passive (degrees) 95 Extension Active (degrees) 14 Extension Passive (degrees) 14 PT-OP-M Strength Start: 02/11/23 16:35 Freq: Status: Active Protocol: Document 02/11/23 12:45 DCW (Rec: 02/11/23 17:01 DCW [id number]) Hip Strength Hip Manual Muscle Testing Right Flexion (L2) 4+ Good+ Abduction 4+ Good+ Adduction 4- Good- Left Flexion (L2) 4 Good Abduction 4+ Good+ Adduction 4- Good- Knee Strength Knee Manual Muscle Testing Right Flexion (S2) 4 Good Extension (L3) 4 Good Left Flexion (S2) 4 Good Extension (L3) 4 Good PT-OP-O Vestibular Start: 02/11/23 16:35 Freq: Status: Active Protocol: Document 02/13/23 10:35 DCW (Rec: 02/13/23 11:17 DCW [id number]) Vestibular Assessment Positional Testing Mena-Hallpike Negative Left,Negative Right Rolling Test Negative Left,Negative Right PT-OP-Q Treatments Start: 02/11/23 16:35 Freq: Status: Active Protocol: Document 04/08/23 09:51 DCW (Rec: 04/08/23 10:30 DCW [id number]) Cardio Equipment Recumbent Elliptical (Biodex) Duration (Minutes) 6 Resistance 4>7 Seat Position 9 Other UEs/LEs - 360 steps Therapeutic Exercises Supine Exercises Adductor stretch Supine Exercise Name Hip adductor stretch Side bilateral ITB Stretch Supine Exercise Name ITB stretch /c strap Side bilateral Extension Stretch Supine Exercise Name Supine extension stretch Side bilateral Resistance 5# Comments ankles on bolster Manual Therapy Treatment Joint Mobilizations Knee mobs Joint B knee into flexion Direction A<->P Grade II Body Position Hooklying PT-OP-T Assessment and Plan Start: 02/11/23 16:35 Freq: Status: Active Protocol: Document 04/08/23 09:51 DCW (Rec: 04/08/23 10:30 DCW [id number]) Physical Therapy Assessment Impairments Impairments Balance,Functional Activities, Functional Mobility,Pain,ROM, Soft Tissue Mobility,Strength, Vestibular Goals Two Impairment Pt unable to get herself off the floor Fpc Goal (LTG) Pt to demonstrate ability to perform floor transfer x2 without assistance in order to demonstrate improved ability to recover following a potential fall 03/20/23: pt stated not strong enough right now and feels can't do floor transfer right now. 03/27/23: slow progress due to recent fall and over worked L quad on bike gaining ROM but causing discomfort bending. She is unable to try but progressing mini lunge, bridges, step ups resisted exercise machines. LTG Duration 04/13/23 updated 03/27/23 One Impairment Positive right Mena-Hallpike Cotton Tier Goal (LTG) Pt to present with negative positional testing bilaterally LTG Duration 04/13/23 Assessment Summary Assessment Good response to knee mobs and adductor/ITB stretch today, hit all the areas that have been bothering me the last 10 years. Ambulating with improved knee extension exiting clinic today. Physical Therapy Plan Frequency and Duration Frequency of Treatment 1-2x/week Plan of Care Start Date 02/11/23 Plan of Care End Date 04/13/23 Therapeutic Interventions Therapeutic Interventions Balance Training,Canalithic Repositioning,Home Exercise Program,Joint Mobilizations, Manual Therapy,Neuromuscular Re-education,Patient/Caregiver Education,Self-Care/Home Management,Soft Tissue Mobilization,Therapeutic Activities,Therapeutic Exercises Modalities Cold Pack/Ice Massage,Electric Stimulation,Hot Packs, Ultrasound Next Visit Focus/Plan Next Note Type Treatment Note Next Visit Plan 12th visit prog note next tx, update POC in 2 visits, 04/10. Progress balance activities if knee tolerant. POC: Further testing of balance and knee ROM/function. Positional testing and CRM as indicated.
--- NOTE | 2023-04-10 12:51 | PT.OTN ---
Current Diagnoses Polyneuropathy, unspecified (04/10/23) Benign paroxysmal vertigo, right ear (04/10/23) Labyrinthitis, unspecified ear (04/10/23) Stiffness of unspecified knee, not elsewhere classified (04/10/23) Other abnormalities of gait and mobility (04/10/23) Repeated falls (04/10/23) Physical Therapy Treatment Note PT-OP-A Visit Information Start: 02/11/23 16:35 Freq: Status: Active Protocol: Document 04/10/23 12:02 DCW (Rec: 04/10/23 12:50 DCW [id number]) Out-Patient Physical Therapy Visit Information Visit Information Visit Type Progress Note Visit Start Time 12:02 Visit Stop Time 12:45 Total Visit Minutes 43 Visit Number 13 Number of CENTRAL OFFICE MAINTAINER Visits 0 Evaluation Information Evaluation Date 02/11/23 PT-OP-B Current Condition Start: 02/11/23 16:35 Freq: Status: Active Protocol: Document 02/11/23 12:45 DCW (Rec: 02/11/23 17:01 DCW [id number]) Current Condition History of Current Condition Onset Date Multi-year history Current Complaints Falls, instability, difficult floor transfers, leg weakness, dizziness History of Current Condition Pt is an 82 year old female presenting with multiple complaints, including repeated falls, inability to get up off the ground following her falls, instability/dizziness, leg weakness and bilateral knee stiffness 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 Pt complains that she falls constantly, but it is typically not due to dizziness , although she does occasionally experience dizziness. Most recently she fell on 12/06/22 after bending over. She experienced sudden, violent vertigo, collapsed, and could not get up until her went to get the neighbor for assistance. Pt is a fairly tangential historian . Notes she does do an online exercise/balance class, but it has not helped her improve her knee mobility, and still feels often off balance. Prior Treatments and Tests Reports she has undergone a bilateral knee manipulation in 2015, did not help with decreased bilateral knee ROM following TKA in 2013 (left) and 2014 (right). Reports she tries PT once or twice a year for her knees, without benefit. PT-OP-C Subjective Start: 02/11/23 16:35 Freq: Status: Active Protocol: Document 04/10/23 12:02 DCW (Rec: 04/10/23 12:50 DCW [id number]) OP-PT Subjective Patient Comments Patient Comments Pt reports at least a 40% reduction in pain in her mid- back since she is able to stand up straighter doing meal prep. PT-OP-D Balance Start: 02/11/23 16:35 Freq: Status: Active Protocol: Document 02/13/23 10:35 DCW (Rec: 02/13/23 11:17 DCW [id number]) Balance Tests Single Limb Standing Single Limb- Right 5 Single Limb- Left 3 PT-OP-E Functional Tests Start: 02/11/23 16:35 Freq: Status: Active Protocol: Document 02/13/23 10:35 DCW (Rec: 02/13/23 11:17 DCW [id number]) Functional Tests Dynamic Gait Index (DGI) Score 19/24 Five Times Sit to Stand Test Score 11.42 PT-OP-K Range of Motion Start: 02/11/23 16:35 Freq: Status: Active Protocol: Document 04/10/23 12:02 DCW (Rec: 04/10/23 12:50 DCW [id number]) Knee Goniometric Range of Motion Knee Right Knee ROM WFL No Patient Position Supine Flexion Active (degrees) 107 Flexion Passive (degrees) 110 Extension Active (degrees) 5 Extension Passive (degrees) 5 Left Knee ROM WFL No Patient Position Supine Flexion Active (degrees) 95 Flexion Passive (degrees) 100 Extension Active (degrees) 3 Extension Passive (degrees) 3 PT-OP-M Strength Start: 02/11/23 16:35 Freq: Status: Active Protocol: Document 02/11/23 12:45 DCW (Rec: 02/11/23 17:01 DCW [id number]) Hip Strength Hip Manual Muscle Testing Right Flexion (L2) 4+ Good+ Abduction 4+ Good+ Adduction 4- Good- Left Flexion (L2) 4 Good Abduction 4+ Good+ Adduction 4- Good- Knee Strength Knee Manual Muscle Testing Right Flexion (S2) 4 Good Extension (L3) 4 Good Left Flexion (S2) 4 Good Extension (L3) 4 Good PT-OP-O Vestibular Start: 02/11/23 16:35 Freq: Status: Active Protocol: Document 02/13/23 10:35 DCW (Rec: 02/13/23 11:17 DCW [id number]) Vestibular Assessment Positional Testing Smith-Hallpike Negative Left,Negative Right Rolling Test Negative Left,Negative Right PT-OP-Q Treatments Start: 02/11/23 16:35 Freq: Status: Active Protocol: Document 04/10/23 12:02 DCW (Rec: 04/10/23 12:50 DCW [id number]) Cardio Equipment Recumbent Elliptical (Biodex) Duration (Minutes) 4 Resistance 6 Seat Position 11 Other UEs/LEs - 453 steps Gym Equipment Shuttle Balance Red Details WBOS, Staggered Therapeutic Exercises Supine Exercises Adductor stretch Supine Exercise Name Hip adductor stretch Side bilateral ITB Stretch Supine Exercise Name ITB stretch /c strap Side bilateral Extension Stretch Supine Exercise Name Supine extension stretch Side bilateral Resistance 5# Comments ankles on bolster Manual Therapy Treatment Joint Mobilizations Knee mobs Joint B knee into flexion Direction A<->P Grade II Body Position Hooklying PT-OP-T Assessment and Plan Start: 02/11/23 16:35 Freq: Status: Active Protocol: Document 04/10/23 12:02 DCW (Rec: 04/10/23 12:50 DCW [id number]) Physical Therapy Assessment Impairments Impairments Balance,Functional Activities, Functional Mobility,Pain,ROM, Soft Tissue Mobility,Strength, Vestibular Goals Two Impairment Pt unable to get herself off the floor Fpc Goal (LTG) Pt to demonstrate ability to perform floor transfer x2 without assistance in order to demonstrate improved ability to recover following a potential fall 03/20/23: pt stated not strong enough right now and feels can't do floor transfer right now. 03/27/23: slow progress due to recent fall and over worked L quad on bike gaining ROM but causing discomfort bending. She is unable to try but progressing mini lunge, bridges, step ups resisted exercise machines. LTG Duration 05/11/23 One Impairment Positive right Smith-Hallpike Wrister Goal (LTG) Pt to present with negative positional testing bilaterally LTG Duration Met Assessment Summary Assessment Showing good improvement with knee ROM, pt very happy with recent progress. Still very hesitant to actually attempt floor transfers, due to increased fear of reinjury to knees. Continue to work toward improved ROM, strength, and functional mobility of LEs, gait, and balance. Physical Therapy Plan Frequency and Duration Frequency of Treatment 1-2x/week Plan of Care Start Date 04/10/23 Plan of Care End Date 06/11/23 Therapeutic Interventions Therapeutic Interventions Balance Training,Canalithic Repositioning,Home Exercise Program,Joint Mobilizations, Manual Therapy,Neuromuscular Re-education,Patient/Caregiver Education,Self-Care/Home Management,Soft Tissue Mobilization,Therapeutic Activities,Therapeutic Exercises Modalities Cold Pack/Ice Massage,Electric Stimulation,Hot Packs, Ultrasound Next Visit Focus/Plan Next Note Type Treatment Note Next Visit Plan Progress balance activities if knee tolerant. POC: Further testing of balance and knee ROM/function. Positional testing and CRM as indicated.
--- NOTE | 2023-04-10 12:51 | PT.OPPOC ---
Physical, Occupational & Speech Therapy At [facility] Current Diagnoses Polyneuropathy, unspecified (04/10/23) Benign paroxysmal vertigo, right ear (04/10/23) Labyrinthitis, unspecified ear (04/10/23) Stiffness of unspecified knee, not elsewhere classified (04/10/23) Other abnormalities of gait and mobility (04/10/23) Repeated falls (04/10/23) Visit Care Team Role Provider Type Kin Haywood MD Attending Provider Non-Staff Family Provider Primary Care Provider Referring Provider Specialty: Internal Medicine Address: [address] [place] [address] [address], [place], [address] Email: Plan Of Care PT-OP-T Assessment and Plan Start: 02/11/23 16:35 Freq: Status: Active Protocol: Document 04/10/23 12:02 DCW (Rec: 04/10/23 12:50 DCW [id number]) Physical Therapy Assessment Impairments Impairments Balance,Functional Activities, Functional Mobility,Pain,ROM, Soft Tissue Mobility,Strength, Vestibular Goals Two Impairment Pt unable to get herself off the floor Group Home Goal (LTG) Pt to demonstrate ability to perform floor transfer x2 without assistance in order to demonstrate improved ability to recover following a potential fall 03/20/23: pt stated not strong enough right now and feels can't do floor transfer right now. 03/27/23: slow progress due to recent fall and over worked L quad on bike gaining ROM but causing discomfort bending. She is unable to try but progressing mini lunge, bridges, step ups resisted exercise machines. LTG Duration 05/11/23 One Impairment Positive right Smith-Hallpike Group Home Goal (LTG) Pt to present with negative positional testing bilaterally LTG Duration Met Assessment Summary Assessment Showing good improvement with knee ROM, pt very happy with recent progress. Still very hesitant to actually attempt floor transfers, due to increased fear of reinjury to knees. Continue to work toward improved ROM, strength, and functional mobility of LEs, gait, and balance. Physical Therapy Plan Frequency and Duration Frequency of Treatment 1-2x/week Plan of Care Start Date 04/10/23 Plan of Care End Date 06/11/23 Therapeutic Interventions Therapeutic Interventions Balance Training,Canalithic Repositioning,Home Exercise Program,Joint Mobilizations, Manual Therapy,Neuromuscular Re-education,Patient/Caregiver Education,Self-Care/Home Management,Soft Tissue Mobilization,Therapeutic Activities,Therapeutic Exercises Modalities Cold Pack/Ice Massage,Electric Stimulation,Hot Packs, Ultrasound Next Visit Focus/Plan Next Note Type Treatment Note Next Visit Plan Progress balance activities if knee tolerant. POC: Further testing of balance and knee ROM/function. Positional testing and CRM as indicated. Plan of Care Dates Plan of Care Start Date 04/10/23 Plan of Care End Date 06/11/23 Electronically Signed by: Carter Lozano, PT 04/10/23 1117 If you are in agreement with this Plan of Care, please return a signed and dated copy. I have reviewed this Plan of Care and certify that the skilled therapy services above are required to meet the patient?s needs. Physician Signature Date Printed Name and Credentials Clinical Instructor Signature Printed Name and Credentials
--- NOTE | 2023-04-15 12:45 | PT.OTN ---
Current Diagnoses Polyneuropathy, unspecified (04/15/23) Benign paroxysmal vertigo, right ear (04/15/23) Labyrinthitis, unspecified ear (04/15/23) Stiffness of unspecified knee, not elsewhere classified (04/15/23) Other abnormalities of gait and mobility (04/15/23) Repeated falls (04/15/23) Physical Therapy Treatment Note PT-OP-A Visit Information Start: 02/11/23 16:35 Freq: Status: Active Protocol: Document 04/15/23 12:00 DCW (Rec: 04/15/23 12:44 DCW [id number]) Out-Patient Physical Therapy Visit Information Visit Information Visit Type Treatment Note Visit Start Time 12:00 Visit Stop Time 12:45 Total Visit Minutes 45 Visit Number 14 Number of FRIT COATER Visits 0 Evaluation Information Evaluation Date 02/11/23 PT-OP-B Current Condition Start: 02/11/23 16:35 Freq: Status: Active Protocol: Document 02/11/23 12:45 DCW (Rec: 02/11/23 17:01 DCW [id number]) Current Condition History of Current Condition Onset Date Multi-year history Current Complaints Falls, instability, difficult floor transfers, leg weakness, dizziness History of Current Condition Pt is an 82 year old female presenting with multiple complaints, including repeated falls, inability to get up off the ground following her falls, instability/dizziness, leg weakness and bilateral knee stiffness 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 Pt complains that she falls constantly, but it is typically not due to dizziness , although she does occasionally experience dizziness. Most recently she fell on 12/06/22 after bending over. She experienced sudden, violent vertigo, collapsed, and could not get up until her went to get the neighbor for assistance. Pt is a fairly tangential historian . Notes she does do an online exercise/balance class, but it has not helped her improve her knee mobility, and still feels often off balance. Prior Treatments and Tests Reports she has undergone a bilateral knee manipulation in 2015, did not help with decreased bilateral knee ROM following TKA in 2013 (left) and 2014 (right). Reports she tries PT once or twice a year for her knees, without benefit. PT-OP-C Subjective Start: 02/11/23 16:35 Freq: Status: Active Protocol: Document 04/15/23 12:00 DCW (Rec: 04/15/23 12:44 DCW [id number]) OP-PT Subjective Patient Comments Patient Comments Pt unfortunately suffered a fall yesterday when out shopping, thinks she caught her foot on a transition piece . [place] that she landed more on her left hip and knee, was checked out my court officer at the time, feels okay, sort of, today, both knees feel a little funny. PT-OP-D Balance Start: 02/11/23 16:35 Freq: Status: Active Protocol: Document 02/13/23 10:35 DCW (Rec: 02/13/23 11:17 DCW [id number]) Balance Tests Single Limb Standing Single Limb- Right 5 Single Limb- Left 3 PT-OP-E Functional Tests Start: 02/11/23 16:35 Freq: Status: Active Protocol: Document 02/13/23 10:35 DCW (Rec: 02/13/23 11:17 DCW [id number]) Functional Tests Dynamic Gait Index (DGI) Score 19/24 Five Times Sit to Stand Test Score 11.42 PT-OP-K Range of Motion Start: 02/11/23 16:35 Freq: Status: Active Protocol: Document 04/10/23 12:02 DCW (Rec: 04/10/23 12:50 DCW [id number]) Knee Goniometric Range of Motion Knee Right Knee ROM WFL No Patient Position Supine Flexion Active (degrees) 107 Flexion Passive (degrees) 110 Extension Active (degrees) 5 Extension Passive (degrees) 5 Left Knee ROM WFL No Patient Position Supine Flexion Active (degrees) 95 Flexion Passive (degrees) 100 Extension Active (degrees) 3 Extension Passive (degrees) 3 PT-OP-M Strength Start: 02/11/23 16:35 Freq: Status: Active Protocol: Document 02/11/23 12:45 DCW (Rec: 02/11/23 17:01 DCW [id number]) Hip Strength Hip Manual Muscle Testing Right Flexion (L2) 4+ Good+ Abduction 4+ Good+ Adduction 4- Good- Left Flexion (L2) 4 Good Abduction 4+ Good+ Adduction 4- Good- Knee Strength Knee Manual Muscle Testing Right Flexion (S2) 4 Good Extension (L3) 4 Good Left Flexion (S2) 4 Good Extension (L3) 4 Good PT-OP-O Vestibular Start: 02/11/23 16:35 Freq: Status: Active Protocol: Document 02/13/23 10:35 DCW (Rec: 02/13/23 11:17 DCW [id number]) Vestibular Assessment Positional Testing Smith-Hallpike Negative Left,Negative Right Rolling Test Negative Left,Negative Right PT-OP-Q Treatments Start: 02/11/23 16:35 Freq: Status: Active Protocol: Document 04/15/23 12:00 DCW (Rec: 04/15/23 12:44 DCW [id number]) Cardio Equipment Recumbent Elliptical (Biodex) Duration (Minutes) 5 Resistance 6 Seat Position 10 Other UEs/LEs Gym Equipment Shuttle Balance Red Details WBOS, Staggered Therapeutic Exercises Supine Exercises Adductor stretch Supine Exercise Name Hip adductor stretch Side bilateral Extension Stretch Supine Exercise Name Supine extension stretch Side bilateral Resistance 5# Comments ankles on bolster Gait Training Gait Activity gait Treatment Focus COG over JUANJO Comments cued chest lift w/ head up, wt shift upper body over pelvis walk like on a mission. Focused on heel strike and heel-toe gait pattern Manual Therapy Treatment Joint Mobilizations Knee mobs Joint B knee Direction A<->P Grade II Body Position Hooklying PT-OP-T Assessment and Plan Start: 02/11/23 16:35 Freq: Status: Active Protocol: Document 04/15/23 12:00 DCW (Rec: 04/15/23 12:44 INW [id number]) Physical Therapy Assessment Impairments Impairments Balance,Functional Activities, Functional Mobility,Pain,ROM, Soft Tissue Mobility,Strength, Vestibular Goals Two Impairment Pt unable to get herself off the floor Correction Goal (LTG) Pt to demonstrate ability to perform floor transfer x2 without assistance in order to demonstrate improved ability to recover following a potential fall 03/20/23: pt stated not strong enough right now and feels can't do floor transfer right now. 03/27/23: slow progress due to recent fall and over worked L quad on bike gaining ROM but causing discomfort bending. She is unable to try but progressing mini lunge, bridges, step ups resisted exercise machines. LTG Duration 05/11/23 One Impairment Positive right Smith-Hallpike Bdr Goal (LTG) Pt to present with negative positional testing bilaterally LTG Duration Met Assessment Summary Assessment Pt able to demonstrate improved gait pattern following instruction, did a better job with getting increased extension in knee before heel strike, and increased ability to perform a heel-toe pattern. Physical Therapy Plan Frequency and Duration Frequency of Treatment 1-2x/week Plan of Care Start Date 04/10/23 Plan of Care End Date 06/11/23 Therapeutic Interventions Therapeutic Interventions Balance Training,Canalithic Repositioning,Home Exercise Program,Joint Mobilizations, Manual Therapy,Neuromuscular Re-education,Patient/Caregiver Education,Self-Care/Home Management,Soft Tissue Mobilization,Therapeutic Activities,Therapeutic Exercises Modalities Cold Pack/Ice Massage,Electric Stimulation,Hot Packs, Ultrasound Next Visit Focus/Plan Next Note Type Treatment Note Next Visit Plan Progress balance activities if knee tolerant. POC: Further testing of balance and knee ROM/function. Positional testing and CRM as indicated.
--- NOTE | 2023-04-17 15:13 | PT.OTN ---
Current Diagnoses Polyneuropathy, unspecified (04/17/23) Benign paroxysmal vertigo, right ear (04/17/23) Labyrinthitis, unspecified ear (04/17/23) Stiffness of unspecified knee, not elsewhere classified (04/17/23) Other abnormalities of gait and mobility (04/17/23) Repeated falls (04/17/23) Physical Therapy Treatment Note PT-OP-A Visit Information Start: 02/11/23 16:35 Freq: Status: Active Protocol: Document 04/17/23 14:36 DCW (Rec: 04/17/23 15:13 DCW [id number]) Out-Patient Physical Therapy Visit Information Visit Information Visit Type Treatment Note Visit Start Time 14:36 Visit Stop Time 15:15 Total Visit Minutes 39 Visit Number 15 Number of P[employer]PERATOR Visits 0 Evaluation Information Evaluation Date 02/11/23 PT-OP-B Current Condition Start: 02/11/23 16:35 Freq: Status: Active Protocol: Document 02/11/23 12:45 DCW (Rec: 02/11/23 17:01 DCW [id number]) Current Condition History of Current Condition Onset Date Multi-year history Current Complaints Falls, instability, difficult floor transfers, leg weakness, dizziness History of Current Condition Pt is an 82 year old female presenting with multiple complaints, including repeated falls, inability to get up off the ground following her falls, instability/dizziness, leg weakness and bilateral knee stiffness 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 Pt complains that she falls constantly, but it is typically not due to dizziness , although she does occasionally experience dizziness. Most recently she fell on 12/06/22 after bending over. She experienced sudden, violent vertigo, collapsed, and could not get up until her went to get the neighbor for assistance. Pt is a fairly tangential historian . Notes she does do an online exercise/balance class, but it has not helped her improve her knee mobility, and still feels often off balance. Prior Treatments and Tests Reports she has undergone a bilateral knee manipulation in 2015, did not help with decreased bilateral knee ROM following TKA in 2013 (left) and 2014 (right). Reports she tries PT once or twice a year for her knees, without benefit. PT-OP-C Subjective Start: 02/11/23 16:35 Freq: Status: Active Protocol: Document 04/17/23 14:36 DCW (Rec: 04/17/23 15:13 DCW [id number]) OP-PT Subjective Patient Comments Patient Comments I took it easy yesterday, and had a fantastic walk with my dog along [facility]. PT-OP-D Balance Start: 02/11/23 16:35 Freq: Status: Active Protocol: Document 02/13/23 10:35 DCW (Rec: 02/13/23 11:17 DCW [id number]) Balance Tests Single Limb Standing Single Limb- Right 5 Single Limb- Left 3 PT-OP-E Functional Tests Start: 02/11/23 16:35 Freq: Status: Active Protocol: Document 02/13/23 10:35 DCW (Rec: 02/13/23 11:17 DCW [id number]) Functional Tests Dynamic Gait Index (DGI) Score 19/24 Five Times Sit to Stand Test Score 11.42 PT-OP-K Range of Motion Start: 02/11/23 16:35 Freq: Status: Active Protocol: Document 04/10/23 12:02 DCW (Rec: 04/10/23 12:50 DCW [id number]) Knee Goniometric Range of Motion Knee Right Knee ROM WFL No Patient Position Supine Flexion Active (degrees) 107 Flexion Passive (degrees) 110 Extension Active (degrees) 5 Extension Passive (degrees) 5 Left Knee ROM WFL No Patient Position Supine Flexion Active (degrees) 95 Flexion Passive (degrees) 100 Extension Active (degrees) 3 Extension Passive (degrees) 3 PT-OP-M Strength Start: 02/11/23 16:35 Freq: Status: Active Protocol: Document 02/11/23 12:45 DCW (Rec: 02/11/23 17:01 DCW [id number]) Hip Strength Hip Manual Muscle Testing Right Flexion (L2) 4+ Good+ Abduction 4+ Good+ Adduction 4- Good- Left Flexion (L2) 4 Good Abduction 4+ Good+ Adduction 4- Good- Knee Strength Knee Manual Muscle Testing Right Flexion (S2) 4 Good Extension (L3) 4 Good Left Flexion (S2) 4 Good Extension (L3) 4 Good PT-OP-O Vestibular Start: 02/11/23 16:35 Freq: Status: Active Protocol: Document 02/13/23 10:35 DCW (Rec: 02/13/23 11:17 DCW [id number]) Vestibular Assessment Positional Testing [place]-Hallpike Negative Left,Negative Right Rolling Test Negative Left,Negative Right PT-OP-Q Treatments Start: 02/11/23 16:35 Freq: Status: Active Protocol: Document 04/17/23 14:36 DCW (Rec: 04/17/23 15:13 [facility] [id number]) Cardio Equipment Recumbent Elliptical (Biodex) Duration (Minutes) 6 Resistance 6 Seat Position 10 Other UEs/LEs Therapeutic Exercises Supine Exercises Adductor stretch Supine Exercise Name Hip adductor stretch Side bilateral Extension Stretch Supine Exercise Name Supine extension stretch Side bilateral Resistance 5# Comments ankles on bolster bridge Supine Exercise Name Bridging Side bilateral Reps/Minutes x15 reps Standing Exercises Hip Extension Standing Exercise Name Hip Extension Side bilateral Resistance Green loop Manual Therapy Treatment Joint Mobilizations Knee mobs Joint B knee Direction A<->P Grade II Body Position Hooklying PT-OP-T Assessment and Plan Start: 02/11/23 16:35 Freq: Status: Active Protocol: Document 04/17/23 14:36 DCW (Rec: 04/17/23 15:13 [facility] [id number]) Physical Therapy Assessment Impairments Impairments Balance,Functional Activities, Functional Mobility,Pain,ROM, Soft Tissue Mobility,Strength, Vestibular Goals Two Impairment Pt unable to get herself off the floor [employer] Goal (LTG) Pt to demonstrate ability to perform floor transfer x2 without assistance in order to demonstrate improved ability to recover following a potential fall 03/20/23: pt stated not strong enough right now and feels can't do floor transfer right now. 03/27/23: slow progress due to recent fall and over worked L quad on bike gaining ROM but causing discomfort bending. She is unable to try but progressing mini lunge, bridges, step ups resisted exercise machines. LTG Duration 05/11/23 One Impairment Positive right [place]-Hallpike [employer] Goal (LTG) Pt to present with negative positional testing bilaterally LTG Duration Met Assessment Summary Assessment Pt very concerned about decline in function if she were to stop PT. Still struggling some with ambulation and knee ROM, although it is showing improvement. Continue with gait and balance training, strengthening, and knee ROM Physical Therapy Plan Frequency and Duration Frequency of Treatment 1-2x/week Plan of Care Start Date 04/10/23 Plan of Care End Date 06/11/23 Therapeutic Interventions Therapeutic Interventions Balance Training,Canalithic Repositioning,Home Exercise Program,Joint Mobilizations, Manual Therapy,Neuromuscular Re-education,Patient/Caregiver Education,Self-Care/Home Management,Soft Tissue Mobilization,Therapeutic Activities,Therapeutic Exercises Modalities Cold Pack/Ice Massage,Electric Stimulation,Hot Packs, Ultrasound Next Visit Focus/Plan Next Note Type Treatment Note Next Visit Plan Progress balance activities if knee tolerant. POC: Further testing of balance and knee ROM/function. Positional testing and CRM as indicated.
--- NOTE | 2023-05-18 10:13 | PT-OP ANOTE ---
Pt arrived for her scheduled appointment today. Unfortunately, two weeks ago, pt suffered a fall walking her dog, resulting in a right shoulder dislocation and potential rotator cuff tear, as well as re-injury of her knees. Pt does have a new referral for her right shoulder and right knee. Will discharge from skilled therapy today, change next scheduled visit to a new evaluation.
--- NOTE | 2023-05-18 10:26 | PT.OPDS ---
Current Diagnoses Polyneuropathy, unspecified (04/17/23) Benign paroxysmal vertigo, right ear (04/17/23) Labyrinthitis, unspecified ear (04/17/23) Stiffness of unspecified knee, not elsewhere classified (04/17/23) Other abnormalities of gait and mobility (04/17/23) Repeated falls (04/17/23) Visit Care Team Role Provider Type Kni Haywood MD Attending Provider Non-Staff Family Provider Primary Care Provider Referring Provider Specialty: Internal Medicine Address: [address] [place] [address] [address], [place], [address] Email: Visit Number Visit Number 15 Discharge Summary PT-OP-B Current Condition Start: 02/11/23 16:35 Freq: Status: Active Protocol: Document 02/11/23 12:45 DCW (Rec: 02/11/23 17:01 DCW [id number]) Current Condition History of Current Condition Onset Date Multi-year history Current Complaints Falls, instability, difficult floor transfers, leg weakness, dizziness History of Current Condition Pt is an 82 year old female presenting with multiple complaints, including repeated falls, inability to get up off the ground following her falls, instability/dizziness, leg weakness and bilateral knee stiffness 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 Pt complains that she falls constantly, but it is typically not due to dizziness , although she does occasionally experience dizziness. Most recently she fell on 12/06/22 after bending over. She experienced sudden, violent vertigo, collapsed, and could not get up until her went to get the neighbor for assistance. Pt is a fairly tangential historian . Notes she does do an online exercise/balance class, but it has not helped her improve her knee mobility, and still feels often off balance. Prior Treatments and Tests Reports she has undergone a bilateral knee manipulation in 2016, did not help with decreased bilateral knee ROM following TKA in 2013 (left) and 2014 (right). Reports she tries PT once or twice a year for her knees, without benefit. PT-OP-C Subjective Start: 02/11/23 16:35 Freq: Status: Active Protocol: Document 04/17/23 14:36 DCW (Rec: 04/17/23 15:13 DCW [id number]) OP-PT Subjective Patient Comments Patient Comments I took it easy yesterday, and had a fantastic walk with my dog along [facility]. PT-OP-D Balance Start: 02/11/23 16:35 Freq: Status: Active Protocol: Document 02/13/23 10:35 DCW (Rec: 02/13/23 11:17 DCW [id number]) Balance Tests Single Limb Standing Single Limb- Right 5 Single Limb- Left 3 PT-OP-E Functional Tests Start: 02/11/23 16:35 Freq: Status: Active Protocol: Document 02/13/23 10:35 DCW (Rec: 02/13/23 11:17 DCW [id number]) Functional Tests Dynamic Gait Index (DGI) Score 19/24 Five Times Sit to Stand Test Score 11.42 PT-OP-K Range of Motion Start: 02/11/23 16:35 Freq: Status: Active Protocol: Document 04/10/23 12:02 DCW (Rec: 04/10/23 12:50 DCW [id number]) Knee Goniometric Range of Motion Knee Right Knee ROM WFL No Patient Position Supine Flexion Active (degrees) 107 Flexion Passive (degrees) 110 Extension Active (degrees) 5 Extension Passive (degrees) 5 Left Knee ROM WFL No Patient Position Supine Flexion Active (degrees) 95 Flexion Passive (degrees) 100 Extension Active (degrees) 3 Extension Passive (degrees) 3 PT-OP-M Strength Start: 02/11/23 16:35 Freq: Status: Active Protocol: Document 02/11/23 12:45 DCW (Rec: 02/11/23 17:01 DCW [id number]) Hip Strength Hip Manual Muscle Testing Right Flexion (L2) 4+ Good+ Abduction 4+ Good+ Adduction 4- Good- Left Flexion (L2) 4 Good Abduction 4+ Good+ Adduction 4- Good- Knee Strength Knee Manual Muscle Testing Right Flexion (S2) 4 Good Extension (L3) 4 Good Left Flexion (S2) 4 Good Extension (L3) 4 Good PT-OP-O Vestibular Start: 02/11/23 16:35 Freq: Status: Active Protocol: Document 02/13/23 10:35 DCW (Rec: 02/13/23 11:17 DCW [id number]) Vestibular Assessment Positional Testing [place]-Hallpike Negative Left,Negative Right Rolling Test Negative Left,Negative Right PT-OP-T Assessment and Plan Start: 02/11/23 16:35 Freq: Status: Active Protocol: Document 05/18/23 09:45 DCW (Rec: 05/18/23 10:26 DCW [id number]) Physical Therapy Assessment Assessment Summary Assessment Pt being discharged from skilled PT due to change in medical status. Will perform new evaluation next week for recently dislocated shoulder. Physical Therapy Plan Frequency and Duration Frequency of Treatment 1-2x/week Plan of Care Start Date 04/10/23 Plan of Care End Date 06/11/23 Therapeutic Interventions Therapeutic Interventions Balance Training,Canalithic Repositioning,Home Exercise Program,Joint Mobilizations, Manual Therapy,Neuromuscular Re-education,Patient/Caregiver Education,Self-Care/Home Management,Soft Tissue Mobilization,Therapeutic Activities,Therapeutic Exercises Modalities Cold Pack/Ice Massage,Electric Stimulation,Hot Packs, Ultrasound Discharge Physical Therapy Discharge Reasons Change in Medical Status Next Visit Focus/Plan Next Note Type Discharge Summary
== END 2023-05-20 08:33 | disposition home or self-care (01) ==
LOC: PHYS 14:30
PROVIDERS: Family Provider Internal Medicine; PCP Internal Medicine; Referring Provider Internal Medicine; Visit Provider Internal Medicine
DX: G62.9 Polyneuropathy, unspecified (principal); R29.6 Repeated falls; M25.669 Stiffness of unspecified knee, not elsewhere classified; R26.89 Other abnormalities of gait and mobility; H81.11 Benign paroxysmal vertigo, right ear; H83.09 Labyrinthitis, unspecified ear
CPT/HCPCS: 95992; 97110; 97112; 97116; 97140; 97163

== ENCOUNTER 2023-05-03 08:46 | Emergency (ER) | payer MEDICARE, BC, SELFPAY ==
[2023-05-03] VITALS (29 sets, daily range): BP systolic 151–205; BP diastolic 69–111; PULSE 55–82; RESP 11–33; TEMP 36.8; O2SAT 80–100; BMI 27.6
--- NOTE | 2023-05-03 | DI.RAD.S_ITS ---
PROCEDURE: XR SHOULDER RT MIN 2V INDICATIONS: POST REDUCTION TECHNIQUE: 3 views of the shoulder were acquired. COMPARISON: [facility], CR, XR SHOULDER RT MIN 2V, 05/03/2023, 9:16. FINDINGS: Bones: Relocation of the humeral head, in better alignment with the glenoid. Soft tissues: There is suspected effusion. IMPRESSION: Relocation of the humeral head. Consider cross-sectional imaging to further evaluate Bankart or Hill-Sachs injuries if clinically indicated. Possible shoulder effusion. Dictated by: Luis A Yost M.D. on 05/03/2023 at 11:25 Approved by: Luis A Yost M.D. on 05/03/2023 at 11:26
--- NOTE | 2023-05-03 08:56 | DI.RAD.S_ITS ---
PROCEDURE: XR HUMERUS RT 2V INDICATIONS: glf TECHNIQUE: 2 views of the humerus were acquired. COMPARISON: None. FINDINGS: Bones: No fracture of the humeral shaft. Partially seen shoulder dislocation. Soft tissues: No suspicious calcifications are IMPRESSION: Shoulder findings are separately dictated. No displaced fracture of the humeral shaft. If there is high concern for occult injury, consider repeat radiography or cross-sectional imaging. Dictated by: Luis A Yost M.D. on 05/03/2023 at 10:10 Approved by: Luis A Yost M.D. on 05/03/2023 at 10:11
--- NOTE | 2023-05-03 08:56 | DI.RAD.S_ITS ---
PROCEDURE: XR SHOULDER RT MIN 2V INDICATIONS: glf TECHNIQUE: 2 views of the shoulder were acquired. COMPARISON: None. FINDINGS: Bones: Anterior inferior shoulder dislocation with suspected Hill-Sachs impaction fracture and possible Bankart fragment. Soft tissues: No suspicious calcifications. IMPRESSION: Shoulder dislocation. Suspected Hill-Sachs impaction and Bankart small bone fragment. Dictated by: Luis A Yost M.D. on 05/03/2023 at 10:11 Approved by: Luis A Yost M.D. on 05/03/2023 at 10:12
--- NOTE | 2023-05-03 09:00 | ED_ITS ---
HPI - Fall General Chief Complaint: Fall Stated Complaint: GLF Time Seen by Provider: 05/03/23 08:59 Source: patient, EMS, RN notes reviewed and old records reviewed Mode of arrival: EMS Limitations: no limitations History of Present Illness HPI Narrative: 82-year-old female with history of thrombocytopenia, neuropathy on hydroxyurea and aspirin daily. Patient was walking her dog when she caught her foot on a cr ack in the sidewalk. She fell 4 words unsure if she put her arm out but has pain in her right upper extremity at the shoulder humeral area. Patient states it feels longer than it should and are position of comfort is her arm straight. Patient states she did hit her face her nose has little bit of dried blood. She denies loss of consciousness. She denies headache. She is on an aspirin daily. Denies any neck pain, no chest pain or shortness of breath. Denies any GI or urinary symptoms. Denies any other injuries to her arms or legs. Patient states she has multiple sensitivities to medications. States she can not have any opiates for pain. Patient states she normally ambulates independently at home. She does live with her who has Parkinson's. Related Data Home Medications Medication Instructions Recorded Confirmed cholecalciferol (vitamin D3) 25 1,000 iu PO Q DAY ##0 12/17/10 mcg (1,000 unit) tablet (Vitamin D3) Previous Rx's Medication Instructions Recorded lorazepam 0.5 mg tablet (Ativan) 0.5 mg PO TID PRN muscle spasm #10 05/03/23 tabs meloxicam 7.5 mg tablet 7.5 mg PO BID PRN pain #10 tabs 05/03/23 Allergies Allergy/AdvReac Type Severity Reaction Status Date / Time azithromycin Allergy Unknown UNKNOWN Verified 05/03/23 09:05 ciprofloxacin Allergy Unknown Tendonitis Verified 05/03/23 09:05 codeine Allergy Unknown Feel Verified 05/03/23 09:05 awful Penicillins Allergy Unknown Peeling Verified 05/03/23 09:05 hands Review of Systems Review of Systems ROS Unobtainable: All systems reviewed & are unremarkable except as noted in HPI and below Patient History Social History Smoking Status: Never smoker Smoking Status: Never smoker alcohol intake frequency: holidays/special occasions only Substance Use Type: former substance user Exam Narrative Exam Narrative: GEN: Patient appears in[mild/moderate/severe] distress. HEAD: No evidence of trauma, no raccoon/Howell sign. NECK: Nontender, painless range of motion, trachea midline Negative Nexus criteria, no midline line tenderness, distracting injury, altered mental status, neuro deficit, recent EtOH. EYES: PERRLA, EOMI ENT: Patient has a small amount of dried blood from the left knee no other obvious trauma to the face, trachea is midline, TM's are normal no hemotypanum, dried blood left naris, no septal hematoma, no dental or oral injury, airway is normal and with normal occlusion, No bony tenderness RESP: Chest is nontender and has symmetric movement, no ecchymosis, breath sounds are normal no crackles, wheezes or rales CVS: Heart sounds are normal, no murmur noted, No JVD. ABG/GI: Nontender, soft, normal bowel sounds, no distention, no organomegaly, pelvic rock is negative NEURO: Oriented AOx3, neuro is grossly intact, sensation and motor is normal all 4 extremities moving, cranial nerves II through XII are intact, GCS is 15 PSYCH: Normal mood and affect SKIN: Intact, warm and dry, no crepitus and without decubitus BACK: No CVA tenderness, no vertebral tenderness, no step-off's, no crepitus EXT: Patient has pain over the right shoulder and humeral region. She has no tenderness of the right hand wrist or forearm or elbow. Does have 2+ radial pulse. Sensation in all 5 fingers. Cartoonist Special Effects equal bilaterally, bilateral hips are nontender, no pedal edema, normal range of motion and sensation of all other 3 extremities. 2+ pulses in all 5 extremities. Initial Vital Signs Initial Vital Signs: Vital Signs Pulse Rate 70 05/03/23 08:52 Blood Pressure 203/88 H 05/03/23 08:52 Pulse Oximetry 93 05/03/23 08:52 Procedures Orthopedic Joint Reduction Joint #1: Time Out Performed: Yes Side: right Joint Reduction Location: shoulder Analgesia: procedural sedation Shoulder Technique Used (if applicable): traction/counter-traction, scapula manipulation and external rotation Technique used: traction/counter-traction and direct manipulation Post-reduction neuro exam: intact and no change Post-reduction vascular: intact and no change Post Reduction X-Ray Obtained: Yes Splint Applied: Yes (sling) Patient Tolerated Procedure: Well Procedural Sedation Consent signed: Yes Time out performed: Yes Indication: fracture/dislocation reduction ASA Class: II Mallampati Airway Classification: Class III Time of Last PO Intake: 20:00 (last night) Preparation: playground monitor applied, pulse oximeter, capnometry used, supplemental O2 applied, suction/airway equipment at bedside and IV secured IV Propofol dose (mg): 100 Intraservice time/total sedation time (min): 20 ED Sedation Level: Moderate (Concious) Patient Tolerated Procedure: Well Complications: hypoxia Interventions: Airway repositioned, Assist by BVM and Oxygen applied Additional Comments: Patient received propofol 50 mg followed by additional 25 mg aliquots patient did not have adequate sedation for procedure received enough additional 25 mg. She was then able to be successfully reduced but did develop hypoventilation and subsequent hypoxia. Patient had repositioning and BVM for about 2 minutes intermittently, began to respire adequately on her own and hypoxia resolved. Course Orders Ordered: ED Orders 05/03/23 08:59 CT cervical spine wo con Stat CT facial bones wo con Stat CT head/brain wo con Stat 05/03/23 10:19 Urine Culture Stat Urine Microscopic Stat Discontinued Medications Acetaminophen (Acetaminophen 325 Mg Tablet) 975 mg PO NOW ONE Stop: 05/03/23 09:00 Last Admin: 05/03/23 09:08 Dose: 975 mg Documented By: LUIZA Hydrocodone Bitart/Acetaminophen (Hydrocodone/Acet 5/325 Tablet) 2 tab PO NOW ONE Stop: 05/03/23 09:26 Last Admin: 05/03/23 09:28 Dose: 2 tab Documented By: RB Ketorolac Tromethamine (Ketorolac 30 Mg/Ml Vial) 15 mg IV NOW ONE Stop: 05/03/23 11:25 Last Admin: 05/03/23 11:30 Dose: 15 mg Documented By: BIB Lorazepam (Lorazepam 0.5 Mg Tablet) 0.5 mg PO NOW ONE Stop: 05/03/23 12:09 Last Admin: 05/03/23 12:15 Dose: 0.5 mg Documented By: MAIRA Propofol (Propofol 200 Mg/20 Ml Vial) 75 mg 1 mg/kg (75 mg) IV NOW ONE Stop: 05/03/23 10:11 Last Admin: 05/03/23 11:19 Dose: Not Given Documented By: BIB Propofol (Propofol 200 Mg/20 Ml Vial) 100 mg IV NOW ONE Stop: 05/03/23 11:09 Last Admin: 05/03/23 10:50 Dose: 100 mg Documented By: BIB Vital Signs Vital signs: Vital Signs - 8 hr 05/03/23 10:00 05/03/23 10:01 05/03/23 10:01 Pulse Rate 70 67 Respiratory Rate 24 16 Blood Pressure 205/88 H Pulse Oximetry Oxygen Delivery Method Oxygen Flow Rate 05/03/23 10:26 05/03/23 10:26 05/03/23 10:30 Pulse Rate 70 Respiratory Rate 19 Blood Pressure 192/84 H 188/74 H Pulse Oximetry 93 Oxygen Delivery Method Oxygen Flow Rate 05/03/23 10:30 05/03/23 10:35 05/03/23 10:35 Pulse Rate 68 68 Respiratory Rate 15 21 Blood Pressure 183/80 H Pulse Oximetry 94 99 Oxygen Delivery Method Oxygen Flow Rate 05/03/23 10:41 05/03/23 10:41 05/03/23 10:45 Pulse Rate 71 75 Respiratory Rate 32 H 32 H Blood Pressure 199/82 H Pulse Oximetry 97 96 Oxygen Delivery Method Oxygen Flow Rate 05/03/23 10:45 05/03/23 10:55 05/03/23 10:55 Pulse Rate 82 Respiratory Rate 33 H Blood Pressure 181/84 H 173/111 H Pulse Oximetry 80 L Oxygen Delivery Method Ambu Bag Oxygen Flow Rate 05/03/23 11:00 05/03/23 11:00 05/03/23 11:05 Pulse Rate 69 70 Respiratory Rate 11 L 12 Blood Pressure 171/91 H Pulse Oximetry 99 100 Oxygen Delivery Method Nasal Cannula Oxygen Flow Rate 5 05/03/23 11:05 05/03/23 11:10 05/03/23 11:10 Pulse Rate 65 Respiratory Rate 17 Blood Pressure 202/88 H 182/81 H Pulse Oximetry 97 Oxygen Delivery Method Oxygen Flow Rate 05/03/23 11:13 05/03/23 11:15 05/03/23 11:15 Pulse Rate 65 72 Respiratory Rate 16 25 H Blood Pressure 171/76 H Pulse Oximetry 94 Oxygen Delivery Method Oxygen Flow Rate 05/03/23 11:20 05/03/23 11:20 05/03/23 11:26 Pulse Rate 67 70 Respiratory Rate 23 20 Blood Pressure 174/75 H Pulse Oximetry 93 93 Oxygen Delivery Method Oxygen Flow Rate 05/03/23 11:26 05/03/23 11:30 05/03/23 11:30 Pulse Rate 69 Respiratory Rate 23 Blood Pressure 176/76 H 151/81 H Pulse Oximetry 89 L Oxygen Delivery Method Oxygen Flow Rate 05/03/23 11:35 05/03/23 11:35 05/03/23 11:40 Pulse Rate 69 68 Respiratory Rate 22 18 Blood Pressure 178/79 H Pulse Oximetry 91 92 Oxygen Delivery Method Oxygen Flow Rate 05/03/23 11:40 05/03/23 11:45 05/03/23 11:45 Pulse Rate 71 Respiratory Rate 25 H Blood Pressure 167/76 H 164/77 H Pulse Oximetry 95 Oxygen Delivery Method Oxygen Flow Rate 05/03/23 11:50 05/03/23 11:50 05/03/23 11:55 Pulse Rate 70 71 Respiratory Rate 17 19 Blood Pressure 164/75 H Pulse Oximetry 96 92 Oxygen Delivery Method Oxygen Flow Rate 05/03/23 11:55 05/03/23 12:00 05/03/23 12:01 Pulse Rate 71 Respiratory Rate 17 Blood Pressure 180/77 H 152/69 H Pulse Oximetry 89 L Oxygen Delivery Method Oxygen Flow Rate 05/03/23 12:01 05/03/23 12:06 05/03/23 12:06 Pulse Rate 71 72 Respiratory Rate 20 21 Blood Pressure 170/74 H Pulse Oximetry 97 93 Oxygen Delivery Method Oxygen Flow Rate 05/03/23 12:31 Pulse Rate 75 Respiratory Rate 20 Blood Pressure 157/76 H Pulse Oximetry 98 Oxygen Delivery Method Room Air Oxygen Flow Rate MDM - Fall Lab Data Labs: Lab Results 05/03/23 Range/Units 10:19 Urine RBC 0-1/hpf (0-5/HPF) Urine WBC 1-5/hpf (0-5/HPF) Ur Squamous Epith Cells None seen (0-5/HPF) Amorphous Sediment 1+ Urine Bacteria Few (2-10) H (None) Ur Culture Indicated? Specimen cultured Urine Dip Bedside Urine Glucose Negative Bedside Urine Bilirubin - Negative Bedside Urine Ketone - Negative Urine Specific Thurston 1.015 Bedside Urine Occult Blood - Negative Bedside Urine pH 8.0 Bedside Urine Protein - Negative Bedside Urine Urobilinogen - Negative Bedside Urine Nitrite - Negative Bedside Urine Leukocytes + [address] scan - head: Radiologist's Impression: Marcia Underwood??82??F??1940 ? Allergy/Adv: azithromycin, ciprofloxacin, codeine, Penicillins (More??) Close Head CT (Signed) Luis A Yost - 05/03/[address] (Signed) Priyank,Luis A - 05/03/[address] (Signed) Luis A Yost - 05/03/23 Shoulder X-Ray 05/03/23 Humerus X-Ray 05/03/[address] (Signed) Araceli Andujar - 08/02/21 Lumbar Spine MRI (Signed) Shelton Boateng - 11/30/19 Launch?Image [address] [address] [address] Scan Report Signed Patient: Marcia Underwood MR#: [id number] : 1940 Acct:[id number] Age/Sex: 82 / F Date of Service: 05/03/23 Loc: ED Accession Number: [id number] Procedure: CT head/brain wo con Ordering Provider: Yanna Hoskins D.O. PROCEDURE: CT HEAD/BRAIN WO CON INDICATIONS: fall, hit nose, nosebleed, left shoulder/humeral pain TECHNIQUE: Noncontrast 4.5 mm thick angled axial sections acquired from the foramen magnum to the vertex, with coronal and sagittal reformats. For radiation dose reduction, the following was used: automated exposure control, adjustment of mA and/or kV according to patient size. COMPARISON: None. FINDINGS: Image quality: Good CSF spaces: Basal cisterns are patent. Lateral ventricles are symmetric. Volume: Vascular calcifications. Periventricular white matter disease is commonly seen with chronic microangiopathy. Volume loss is present. These findings are [id number] Brain: No intracranial hemorrhage. Suarez-white differentiation is grossly maintained. Suspected falx senescent calcifications. Craniofacial structures: Separately dictated IMPRESSION: No acute intracranial abnormality. Dictated by: Luis A Yost M.D. on 05/03/2023 at 9:58 Approved by: Luis A Yost M.D. on 05/03/2023 at 9:59 CT - cervical spine: Radiologist's Impression: [address] [address] [address] Scan Report Signed Patient: Marcia Underwood MR#: [id number] : 1940 Acct:[id number] Age/Sex: 82 / F Date of Service: 05/03/23 Loc: ED Accession Number: [id number] Procedure: CT cervical spine wo con Ordering Provider: Yanna Hoskins D.O. PROCEDURE: CT CERVICAL SPINE WO CON INDICATIONS: fall, hit nose, nosebleed, left shoulder/humeral pain TECHNIQUE: Noncontrast 3 mm thick sections acquired from the skull base to the T4 level. Sagittal and coronal reformats were then constructed. For radiation dose reduction, the following was used: automated exposure control, adjustment of mA and/or kV according to patient size. COMPARISON: None. FINDINGS: Image quality: Diagnostic, but with mild motion Bones: Mild degenerative changes, no traumatic subluxation or vertebral body height loss identified. Soft tissues: No pathologic prevertebral soft tissue swelling. Vascular calcifications are seen. Large thyroid nodule may be a cyst. IMPRESSION: Spondylosis of the cervical spine. No acute fracture or traumatic subluxation. If there is high concern for further derangement, consider MRI evaluation. Large thyroid nodule, possibly cystic. Consider sonographic surveillance. Dictated by: Luis A Yost M.D. on 05/03/2023 at 10:02 Approved by: Luis A Yost M.D. on 05/03/2023 at 10:04 CT facial bones: Radiologist's Impression: [place] [address] CT Scan Report Signed Patient: Marcia Underwood MR#: [id number] : 1940 Acct:[id number] Age/Sex: 82 / F Date of Service: 05/03/23 Loc: ED Accession Number: [id number] Procedure: CT facial bones wo con Ordering Provider: Yanna Hoskins D.O. PROCEDURE: CT FACIAL BONES WO CON INDICATIONS: fall, hit nose, nosebleed, left shoulder/humeral pain TECHNIQUE: Noncontrast 2.5 mm thick axial images acquired from the mandible through the frontal sinuses, with coronal and sagittal reformatting. For radiation dose reduction, the following was used: automated exposure control, adjustment of mA and/or kV according to patient size. COMPARISON: None. FINDINGS: Image quality: Diagnostic, but motion degraded Bones: Suspected minimally displaced nasal bone fractures. Pterygoid plates are intact. Zygomatic arches are intact. No deformity of the orbital nichols. The mandible appears intact. Sinuses and mastoids: Mild paranasal sinus mucosal thickening mastoids appear clear. Soft tissues: Lens replacements. No drainable fluid collection. Brain: Separately dictated. Spine is also separately dictated. IMPRESSION: Possible minimally displaced nasal bone fracture. No other displaced fracture identified in the maxillofacial bones. Head and spine findings are separately dictated. Dictated by: Luis A Yost M.D. on 05/03/2023 at 9:59 Approved by: Luis A Yost M.D. on 05/03/2023 at 10:01 Extremity x-ray #1: Radiologist's Impression: [address] [address] XRay Report Signed Patient: Marcia Underwood MR#: [id number] : 1940 Acct:[id number] Age/Sex: 82 / F Date of Service: 05/03/23 Loc: ED Accession Number: [id number] Procedure: XR shoulder RT min 2V Ordering Provider: Yanna Hoskins D.O. PROCEDURE: XR SHOULDER RT MIN 2V INDICATIONS: glf TECHNIQUE: 2 views of the shoulder were acquired. COMPARISON: None. FINDINGS: Bones: Anterior inferior shoulder dislocation with suspected Hill-Sachs impaction fracture and possible Bankart fragment. Soft tissues: No suspicious calcifications. IMPRESSION: Shoulder dislocation. Suspected Hill-Sachs impaction and Bankart small bone fragment. Dictated by: Luis A Yost M.D. on 05/03/2023 at 10:11 Approved by: Luis A Yost M.D. on 05/03/2023 at 10:12 Extremity x-ray #2: Radiologist's Impression: [address] [address] XRay Report Signed Patient: Marcia Underwood MR#: [id number] : 1940 Acct:[id number] Age/Sex: 82 / F Date of Service: 05/03/23 Loc: ED Accession Number: [id number] Procedure: XR shoulder RT min 2V Ordering Provider: Yanna Hoskins D.O. PROCEDURE: XR SHOULDER RT MIN 2V INDICATIONS: POST REDUCTION TECHNIQUE: 3 views of the shoulder were acquired. COMPARISON: [facility], CR, XR SHOULDER RT MIN 2V, 05/03/2023, 9:16. FINDINGS: Bones: Relocation of the humeral head, in better alignment with the glenoid. Soft tissues: There is suspected effusion. IMPRESSION: Relocation of the humeral head. Consider cross-sectional imaging to further evaluate Bankart or Hill-Sachs injuries if clinically indicated. Possible shoulder effusion. Dictated by: Luis A Yost M.D. on 05/03/2023 at 11:25 Approved by: Luis A Yost M.D. on 05/03/2023 at 11:26 [facility] Narrative Medical decision making narrative: 82-year-old female anticoagulated on aspirin. Had ground level mechanical fall has pain in the right humerus shoulder region. Suspect fracture versus dislocation. Patient does have some dried blood she states she did hit her face she denies any loss of consciousness she is on aspirin so head CT, C-spine facial bones were ordered as patient is 82 years old. Patient is quite adamant she would like to avoid line or narcotic medication. Imaging shows acute change on head CT, C-spine is negative for acute change. Facial bone show possible nasal bone fracture although patient states she does not think her nose is broken. Shoulder x-ray shows anterior inferior shoulder dislocation, suspected Hill-Sachs impaction fracture and possible Bankart fracture. No suspicious calcifications. Humerus shows no other changes. Spoke with Dr. Jean-Baptiste, orthopedic surgery reviewed findings to make sure okay to go ahead and reduce. Patient had reduction here in the department. Patient has significant improvement in alignment, repeat x-ray shows reduction of fracture, suspected effusion. Patient placed in sling. Does have some persistent pain, suspect likely does have Bankart or Blossom Sachs, discussed with patient. Patient had some paresthesias prior to reduction, improved afterwards. Will follow up with orthopedic surgery this week. Ambulated in department by nursing. Updated on additional findings and patient aware of nodule and followed by PCP already. Discharge Plan Departure Patient Disposition: Home Clinical Impression: Dislocation of shoulder, Thyroid nodule, Closed fracture nasal bone Instructions: DI for Shoulder Dislocation Activity Restrictions/Additional Instructions: Please follow up with Orthopedic surgery, Thursday to set up an appointment in the next week. Contact information is below. Your initial imaging showed a potential small fracture to the shoulder, follow up with Orthopedic surgery they may repeat your imaging at your next visit to follow this. There is questionable nasal bone fracture on your CT imaging and a thyroid nodule recommend follow up with your primary care for ultrasound. You may take Tylenol up to a 1000 mg every 6 hours. You may take meloxicam 1 tablet every 12 hours as needed for pain. This is an NSAID do not take ibuprofen or NSAIDs with this medication. You may take muscle relaxer 1 tablet every 8 hours as needed. This medication can make you sleepy do not drive, perform hazardous activities or make any major decisions while taking it. [facility]cription sent to [facility]. Elevated affected body part to decrease swelling. OK to use ice pack on the affected body part. Use for 15-20 minutes each time, for 5-6x per day. If you develop worsening pain, numbness, tingling, discoloration of the affected body part, adjust the sling and either see your doctor for an urgent re-assessment, or return to the Emergency Department. Return to the Emergency Department for any new or worsening symptoms. Prescriptions: New meloxicam 7.5 mg tablet 7.5 mg PO BID PRN (Reason: pain) Qty: 10 0RF lorazepam [Ativan] 0.5 mg tablet 0.5 mg PO TID PRN (Reason: muscle spasm) Qty: 10 0RF No Action cholecalciferol (vitamin D3) [Vitamin D3] 1,000 UNIT tablet 1,000 iu PO Q DAY Qty: 0 Referrals: Barron Jean-Baptiste MD [Physician] - Kin Haywood MD [Primary Care Provider] - Stand Alone Forms: Patient Portal/API
[2023-05-03] MEDS: ACETAMINOPHEN 325 MG TABLET 975 MG PO (09:08)
--- NOTE | 2023-05-03 09:16 | PC.NURSE ---
Called the number on the patient's file for the person to contact, Mr. Davalos, the patient's . Mr. Davalos did not picking machine operator helper, and I was not able to leave a voicemail because the phone mailbox was full.
--- NOTE | 2023-05-03 09:17 | PC.NURSE ---
Provider at patient bedside immediately upon patient arrival for assessment.
[2023-05-03] MEDS: HYDROCODONE/ACET 5/325 TABLET 2 TAB PO (09:28)
[2023-05-03 10:33] LABS: Amorphous Sediment Urine 1+; Bacteria Urine Few (2-10); Culture Indicated Urine Specimen Cultured; RBC Urine 0-1/HPF (0-5/HPF); Squamous Epithelial Cell Urine None Seen (0-5/HPF); WBC Urine 1-5/HPF (0-5/HPF)
[2023-05-03] MEDS: propofoL 200 MG/20 ML VIAL 100 MG IV (10:50)
[2023-05-03] MEDS: KETOROLAC 30 MG/ML VIAL 15 MG IV (11:30)
--- NOTE | 2023-05-03 12:09 | PC.NURSE ---
Pt is A&Ox4. R arm is warm , dry and pink with a palpable radial pulse and cap refill <2 seconds. Pt reports continued to shoulder pain and MD has been notified. Pt's spouse called and asked to come in so that he can be present for education on plan of care and home care.
[2023-05-03] MEDS: LORazepam 0.5 MG TABLET PO (12:15)
--- NOTE | 2023-05-03 13:14 | PC.NURSE ---
1300: Pt was able to transfer self from ED [facility] to bedside commode and voided. This RN assist pt with putting on briefs, pant and shoes. Pt then walked with steady gait across the room to a wheelchair. Pt reports to RN her plan to be taken home by spouse via POV and will pick up driver her prescriptions form the pharmacy in [facility].
== END 2023-05-03 13:00 | disposition home or self-care (01) ==
PROVIDERS: Emergency Provider Emergency Medicine; Family Provider Internal Medicine; PCP Internal Medicine
DX: S43.014A Anterior dislocation of right humerus, initial encounter (principal); R04.0 Epistaxis; S02.2XXA Fracture of nasal bones, initial encounter for closed fracture; E04.1 Nontoxic single thyroid nodule; W18.30XA Fall on same level, unspecified, initial encounter
CPT/HCPCS: 23650; 36415; 70450; 70486; 72125; 73030; 73060; 81003; 81015; 87086; 96374; 99152; 99284; 99285; J1885; J2704

== ENCOUNTER → 2023-05-23 14:36 | Outpatient (CLI) | payer MEDICARE, BC, SELFPAY ==
--- NOTE | 2023-05-23 14:39 | DI.MRI.S_ITS ---
PROCEDURE: MR SHOULDER RT WO CON INDICATIONS: ROTATOR CUFF TEAR TECHNIQUE: Noncontrast oblique coronal T2 fast spin echo with fat saturation, oblique sagittal T1 spin echo and T2 fast spin echo with fat saturation, axial T1 spin echo and T2 fast spin echo with fat saturation through the shoulder. COMPARISON: [facility], CR, XR SHOULDER RT MIN 2V, 05/03/2023, 9:16. [facility], CR, XR SHOULDER RT MIN 2V, 05/03/2023, 10:49. FINDINGS: Image quality: Excellent. Rotator cuff: Moderate to high-grade partial thickness tear involving distal supraspinatus at its insertion on the humeral head is seen with up to 3.3 cm medial retraction of torn tendon fibers to the level of acromioclavicular joint. There is suggestion of full-thickness perforation involving distal infraspinatus at its insertion on the humeral head with up to 1.6 cm medial retraction of torn tendon fibers. Low grade intrasubstance partial-thickness tear involving distal subscapularis is also seen. Sagittal images demonstrate mild supraspinatus muscle atrophy. Bones and bursae: Marrow edema involving anterolateral aspect of humeral head is seen extending to lateral aspect of proximal humeral shaft. Subtle linear hypointense signal within the area of edema is seen suggestive of a nondisplaced fracture. No other fracture or dislocation. Mild to moderate acromioclavicular joint osteoarthritic changes are seen with joint space narrowing and downward osteophyte formation depressing the musculotendinous junction of supraspinatus. The acromion demonstrates conventional anatomy, without an os acromiale. moderate joint effusion and subacromial subdeltoid bursal fluid is noted. No gross loose bodies. Capsule and soft tissues: There is fraying of superior anterior labrum with T2 hyperintense signal at 1 to 2 o'clock position. Similar signal abnormality and fraying of anterior inferior labrum at 5 to 6 o'clock position is also seen. The long head of the biceps tendon appears thickened. The rotator interval appears normal, without fibrosis. The coracohumeral ligament is normal in thickness. IMPRESSION: 1. Moderate to high-grade articular surface partial-thickness tear involving distal supraspinatus with up to 3.3 cm medial retraction of torn tendon fibers to the level of acromioclavicular joint. Possible full-thickness perforation involving distal infraspinatus at its insertion on the humeral head with up to 1.6 cm medial retraction of torn tendon fibers. Low-grade intrasubstance partial-thickness tear involving distal subscapularis. Mild supraspinatus muscle atrophy. 2. Suggestion of contusion versus nondisplaced fracture involving anterolateral aspect of humeral head extending to proximal humeral shaft. No other fracture or dislocation. [id number] acromioclavicular joint osteoarthritis. Moderate joint effusion and subacromial subdeltoid bursal fluid, no gross loose bodies. 3. Subtle superior anterior labral tear at 1 to 2 o'clock position and anterior-inferior labral tear at 5 to 6 o'clock position. 4. Proximal long head of biceps tendinosis. Dictated by: Shelton Boateng M.D. on 05/25/2023 at 8:26 Approved by: Shelton Boateng M.D. on 05/25/2023 at 8:31
== END ==
PROVIDERS: Family Provider Internal Medicine; PCP Internal Medicine; Referring Provider Physician Assistant; Visit Provider Physician Assistant
DX: S43.014A Anterior dislocation of right humerus, initial encounter (principal); S46.011A Strain of muscle(s) and tendon(s) of the rotator cuff of right shoulder, initial encounter; M19.011 Primary osteoarthritis, right shoulder; M25.411 Effusion, right shoulder; S43.491A Other sprain of right shoulder joint, initial encounter; X58.XXXA Exposure to other specified factors, initial encounter
CPT/HCPCS: 73221

== ENCOUNTER 2023-08-12 18:56 | Emergency (ER) | payer MEDICARE, BC, SELFPAY ==
--- NOTE | 2023-08-12 18:58 | DI.CT.S_ITS ---
PROCEDURE: CT CERVICAL SPINE WO CON INDICATIONS: GLF/HEAD INJURY TECHNIQUE: Noncontrast 3 mm thick sections acquired from the skull base to the T4 level. Sagittal and coronal reformats were then constructed. For radiation dose reduction, the following was used: automated exposure control, adjustment of mA and/or kV according to patient size. COMPARISON: [facility], CT, CT CERVICAL SPINE WO CON, 05/03/2023, 9:05. FINDINGS: Image quality: Excellent. Bones: No fractures or dislocations. Degenerative endplate changes, loss of disc height and bilateral facet hypertrophic changes are noted throughout cervical spine with mild central canal stenosis and bilateral neural foraminal narrowing at C5-6 level. Visualized superior ribs are intact. Soft tissues: Prevertebral soft tissues are normal in thickness. No paravertebral hematomas. No apical pneumothoraces. IMPRESSION: 1. No displaced fracture or traumatic subluxation. 2. Degenerative disc disease throughout cervical spine most notably at C5-6 level as above. Dictated by: Shelton Boateng M.D. on 08/12/2023 at 19:53 Approved by: Shelton Boateng M.D. on 08/12/2023 at 19:54
--- NOTE | 2023-08-12 18:58 | DI.CT.S_ITS ---
PROCEDURE: CT HEAD/BRAIN WO CON INDICATIONS: GLF/HEAD INJURY TECHNIQUE: Noncontrast 4.5 mm thick angled axial sections acquired from the foramen magnum to the vertex, with coronal and sagittal reformats. For radiation dose reduction, the following was used: automated exposure control, adjustment of mA and/or kV according to patient size. COMPARISON: [facility], CT, CT HEAD/BRAIN WO CON, 05/03/2023, 9:05. FINDINGS: Image quality: Diagnostic. CSF spaces: Basal cisterns are patent. No extra-axial fluid collections. The ventricles are symmetric in size and shape. Brain: No intracranial bleeds or masses. There is cerebral volume loss for age, with resultant ventricular and sulcal prominence. There are periventricular and deep white matter chronic small vessel ischemic changes. There is intracranial internal carotid artery atherosclerosis. Skull and face: Calvarium and visualized facial bones appear intact, without suspicious lesions. Sinuses: Visualized sinuses and mastoids are clear. IMPRESSION: No acute intracranial pathology. No significant changes from previous study. Dictated by: Shelton Boateng M.D. on 08/12/2023 at 19:52 Approved by: Shelton Boateng M.D. on 08/12/2023 at 19:53
[2023-08-12 19:02] VITALS: BP 142/110; PULSE 78; O2SAT 99
[2023-08-12] MEDS: ACETAMINOPHEN 325 MG TABLET 975 MG PO (19:10)
--- NOTE | 2023-08-12 19:10 | ED.FALL ---
HPI - Fall General Chief Complaint: Head Injury Stated Complaint: GLF,hit head,no thinners,lac on head Time Seen by Provider: 08/12/23 18:58 History of Present Illness HPI Narrative: 82-year-old female presents for evaluation of head injury after a ground level fall. Patient states that ever since her knee replacement surgeries 10 years ago she has had issues with balance and falling. She was trying to close a sliding patio door when she lost her balance and fell, striking the right side of her head against the ground. She denies use of blood thinners, denies loss of consciousness. She was a small abrasion on the right parietal scalp. She does not remember when her last tetanus shot was administered Related Data Home Medications Medication Instructions Recorded Confirmed cholecalciferol (vitamin D3) 25 1,000 iu PO Q DAY ##0 12/17/10 mcg (1,000 unit) tablet (Vitamin D3) Previous Rx's Medication Instructions Recorded lorazepam 0.5 mg tablet (Ativan) 0.5 mg PO TID PRN muscle spasm #10 05/03/23 tabs meloxicam 7.5 mg tablet 7.5 mg PO BID PRN pain #10 tabs 05/03/23 Allergies Allergy/AdvReac Type Severity Reaction Status Date / Time azithromycin Allergy Unknown UNKNOWN Verified 08/12/23 19:16 ciprofloxacin Allergy Unknown Tendonitis Verified 08/12/23 19:16 codeine Allergy Unknown Feel Verified 08/12/23 19:16 awful Penicillins Allergy Unknown Peeling Verified 08/12/23 19:16 hands Review of Systems Review of Systems Narrative: Negative except as noted above Patient History Social History Smoking Status: Former smoker Smoking Status: Never smoker alcohol intake frequency: holidays/special occasions only Substance Use Type: former substance user Exam Initial Vital Signs Initial Vital Signs: Vital Signs Pulse Rate 78 08/12/23 19:02 Blood Pressure 142/110 H 08/12/23 19:02 Pulse Oximetry 99 08/12/23 19:02 Const: Awake, alert, no acute distress, nontoxic appearing Skin: Warm, Dry, small superficial abrasion right parietal scalp, no active bleeding Neuro: AO x3, CN II-XII grossly intact, moves all extremities Course Orders Ordered: ED Orders 08/12/23 18:58 CT cervical spine wo con Stat CT head/brain wo con Stat Discontinued Medications Acetaminophen (Acetaminophen 325 Mg Tablet) 975 mg PO NOW ONE Stop: 08/12/23 19:04 Last Admin: 08/12/23 19:10 Dose: 650 mg Documented By: YESSENIA Diphtheria/Tetanus/Acell Pertussis (Tet,Diph,Pertuss(Acell),Vac/Pf 0.5 Ml Syringe) 0.5 ml IM .ONCE ONE Stop: 08/12/23 19:04 Last Admin: 08/12/23 19:11 Dose: 0.5 ml Documented By: YESSENIA Vital Signs Vital signs: Vital Signs - 8 hr 08/12/23 19:02 08/12/23 19:02 08/12/23 19:16 Temperature 97.9 F Pulse Rate 78 76 Respiratory Rate 20 Blood Pressure 142/110 H 142/110 H Pulse Oximetry 99 97 Oxygen Delivery Method Room Air 08/12/23 19:48 08/12/23 19:48 08/12/23 20:00 Temperature Pulse Rate 82 Respiratory Rate 18 Blood Pressure 167/108 H 153/72 H Pulse Oximetry 97 Oxygen Delivery Method 08/12/23 20:00 08/12/23 20:30 08/12/23 20:43 Temperature Pulse Rate 68 79 80 Respiratory Rate 13 18 24 Blood Pressure 153/72 H Pulse Oximetry 99 99 98 Oxygen Delivery Method Room Air MDM - Fall Differential Diagnosis Differential diagnosis: Likely syncope, dislocation of shoulder region and fracture of wrist Imaging Data CT scan - head: Radiologist's Impression: PROCEDURE: CT CERVICAL SPINE WO CON INDICATIONS: GLF/HEAD INJURY TECHNIQUE: Noncontrast 3 mm thick sections acquired from the skull base to the T4 level. Sagittal and coronal reformats were then constructed. For radiation dose reduction, the following was used: automated exposure control, adjustment of mA and/or kV according to patient size. COMPARISON: [facility], CT, CT CERVICAL SPINE WO CON, 05/03/2023, 9:05. FINDINGS: Image quality: Excellent. Bones: No fractures or dislocations. Degenerative endplate changes, loss of disc height and bilateral facet hypertrophic changes are noted throughout cervical spine with mild central canal stenosis and bilateral neural foraminal narrowing at C5-6 level. Visualized superior ribs are intact. Soft tissues: Prevertebral soft tissues are normal in thickness. No paravertebral hematomas. No apical pneumothoraces. IMPRESSION: 1. No displaced fracture or traumatic subluxation. 2. Degenerative disc disease throughout cervical spine most notably at C5-6 level as above. Dictated by: Shelton Boateng M.D. on 08/12/2023 at 19:53 Approved by: Shelton Boateng M.D. on 08/12/2023 at 19:54 CT - cervical spine: Radiologist's Impression: PROCEDURE: CT HEAD/BRAIN WO CON INDICATIONS: GLF/HEAD INJURY TECHNIQUE: Noncontrast 4.5 mm thick angled axial sections acquired from the foramen magnum to the vertex, with coronal and sagittal reformats. For radiation dose reduction, the following was used: automated exposure control, adjustment of mA and/or kV according to patient size. COMPARISON: [facility], CT, CT HEAD/BRAIN WO CON, 05/03/2023, 9:05. FINDINGS: Image quality: Diagnostic. CSF spaces: Basal cisterns are patent. No extra-axial fluid collections. The ventricles are symmetric in size and shape. Brain: No intracranial bleeds or masses. There is cerebral volume loss for age, with resultant ventricular and sulcal prominence. There are periventricular and deep white matter chronic small vessel ischemic changes. There is intracranial internal carotid artery atherosclerosis. Skull and face: Calvarium and visualized facial bones appear intact, without suspicious lesions. Sinuses: Visualized sinuses and mastoids are clear. IMPRESSION: No acute intracranial pathology. No significant changes from previous study. Dictated by: Shelton Boateng M.D. on 08/12/2023 at 19:52 Approved by: Shelton Boateng M.D. on 08/12/2023 at 19:53 MDM Narrative Medical decision making narrative: Ground level fall with minor head injury. Due to patient's age a head CT was ordered. CT imaging negative for acute traumatic findings. Patient had tetanus update. Discharged home with her in stable condition. Discharge Plan Departure Patient Disposition: Home Clinical Impression: Abrasion of scalp, Closed head injury Instructions: DI for Closed Head Injury Activity Restrictions/Additional Instructions: Continue to work with physical therapy to help improve her strength and decrease your risk of falling. Follow up with the primary care physician. You may take Tylenol and apply ice to your head for swelling and pain. Prescriptions: No Action cholecalciferol (vitamin D3) [Vitamin D3] 1,000 UNIT tablet 1,000 iu PO Q DAY Qty: 0 meloxicam 7.5 mg tablet 7.5 mg PO BID PRN (Reason: pain) Qty: 10 0RF lorazepam [Ativan] 0.5 mg tablet 0.5 mg PO TID PRN (Reason: muscle spasm) Qty: 10 0RF Referrals: Kin Haywood MD [Primary Care Provider] - Stand Alone Forms: Patient Portal/API
[2023-08-12] MEDS: TET,DIPH,PERTUSS(ACELL),VAC/PF 0.5 ML SYRINGE IM (19:11)
[2023-08-12 19:16] VITALS: BP 142/110; PULSE 76; RESP 20; TEMP 36.6; O2SAT 97; BMI 27.3
[2023-08-12 19:48] VITALS: BP 167/108; PULSE 82; RESP 18; O2SAT 97
[2023-08-12 20:00] VITALS: BP 153/72; PULSE 68; RESP 13; O2SAT 99
[2023-08-12 20:30] VITALS: PULSE 79; RESP 18; O2SAT 99
[2023-08-12 20:43] VITALS: BP 153/72; PULSE 80; RESP 24; O2SAT 98
== END 2023-08-12 20:44 | disposition home or self-care (01) ==
PROVIDERS: Emergency Provider Emergency Medicine; Family Provider Internal Medicine; PCP Internal Medicine
DX: S09.90XA Unspecified injury of head, initial encounter (principal); S00.01XA Abrasion of scalp, initial encounter; W18.30XA Fall on same level, unspecified, initial encounter; Z23 Encounter for immunization
CPT/HCPCS: 70450; 72125; 90471; 99283; 99284; 90715

== ENCOUNTER → 2023-09-01 15:20 | Outpatient (CLI) | payer MEDICARE, BC, SELFPAY ==
--- NOTE | 2023-09-01 15:23 | DI.US.S_ITS ---
PROCEDURE: US THYROID INDICATIONS: Nontoxic single thyroid nodule TECHNIQUE: Real-time scanning was performed of the thyroid gland, with image documentation. COMPARISON: [facility], CT, CT SOFT TISSUE NECK W CON, 08/02/2021, 14:16. FINDINGS: Thyroid: Right lobe measures 4.9 x 2.0 x 1.4 cm. Left lobe measures 7.2 x 4.0 x 5.5 cm. Isthmus is 0.2 cm thick. Echotexture is heterogeneous. A large simple cyst is seen in the left thyroid lobe measuring 6.1 x 4.0 x 4.5 cm. A smaller simple cyst is seen along the left lateral aspect of the isthmus. IMPRESSION: Large left thyroid benign cyst measuring up to 6.1 cm. No suspicious thyroid nodule that requires imaging follow-up. ACR TI-RADS definitions and recommendations: TI-RADS 1 (benign): 0 points. FNA not needed. TI-RADS 2 (not suspicious): 2 points. FNA not needed. TI-RADS 3 (mildly suspicious): 3 points. * FNA if 2.5 cm or larger, follow up if 1.5 cm or larger (at 1, 3, and 5 years). TI-RADS 4 (moderately suspicious): 4-6 points. * FNA if 1.5 cm or larger, follow up if 1 cm or larger (at 1, 2, 3, and 5 years). TI-RADS 5 (highly suspicious): 7 points or more. * FNA if 1 cm or larger, follow up if 0.5 cm or larger (every year for 5 years). Approved by: Andrew Briseno M.D. on 09/01/2023 at 20:16
== END ==
PROVIDERS: Family Provider Internal Medicine; PCP Internal Medicine; Referring Provider Internal Medicine; Visit Provider Internal Medicine
DX: E04.1 Nontoxic single thyroid nodule (principal)
CPT/HCPCS: 76536

== ENCOUNTER → 2023-09-11 08:51 | Outpatient (CLI) | payer MEDICARE, BC, SELFPAY ==
[2023-09-11 10:48] LABS: Add Manual Diff / Slide Review NO; Basophils Absolute Auto 0 /uL (0-100); Basophils Percent Auto 0.8 % (0-2); Eosinophils Absolute Auto 100 /uL (0-450); Eosinophils Percent Auto 2.4 % (2-4); Hematocrit 38.7 % (36-46); Lymphocytes Absolute Auto 1600 /uL (1100-4500); Lymphocytes Percent Auto 26.4 % (25-40); Mean Corpuscular HGB Conc 33.5 % (30-36); Mean Corpuscular Hemoglobin 34.4 PG (26-34); Mean Corpuscular Volume 102.8 fL (80-100); Monocytes Absolute Auto 500 /uL (0-900); Monocytes Percent Auto 9.1 % (3-14); Neutrophils Absolute Auto 3700 /uL (1500-7000); Neutrophils Percent Auto 61.3 % (50-75); Platelet Count 432 X10^3/uL (150-400); Red Blood Cell Count 3.76 X10^6/uL (4.0-5.2); Red Cell Distribution Width 13.9 % (11.6-14.8)
[2023-09-11 11:06] LABS: Alanine Aminotransferase 19 IU/L (<35); Albumin 4.3 g/dL (3.5-5.0); Albumin Globulin Ratio 1.7 (1.0-2.8); Alkaline Phosphatase 69 U/L (38-126); Aspartate Aminotransferase 34 IU/L (14-36); BUN Creatinine Ratio 39.7 (6-22); Bilirubin Total 0.7 mg/dL (0.2-1.3); Blood Urea Nitrogen 23 mg/dL (7-17); Carbon Dioxide 24 mmol/L (22-32); Chloride 106 mmol/L (98-107); Cholesterol 200 mg/dL (140-199); Estimated Glomerular Filt Rate > 60 mL/min (>60); Globulin 2.5 g/dL (1.7-4.1); Glucose 87 mg/dL (80-110); HDL Cholesterol 61 mg/dL (40-60); HEMOLYSIS < 15 (0-50); LDL Cholesterol Calculated 125 mg/dL (<100); Sodium 136 mmol/L (137-145); Total Protein 6.8 g/dL (6.3-8.2); Triglycerides 68 mg/dL (35-150)
== END ==
PROVIDERS: Family Provider Internal Medicine; PCP Internal Medicine; Referring Provider Internal Medicine; Visit Provider Internal Medicine
DX: D47.3 Essential (hemorrhagic) thrombocythemia (principal); E78.5 Hyperlipidemia, unspecified; E04.1 Nontoxic single thyroid nodule
CPT/HCPCS: 36415; 80053; 80061; 84443; 85025

== ENCOUNTER 2023-10-30 13:45 | Outpatient (RCR) | payer MEDICARE, BC, SELFPAY ==
--- NOTE | 2023-06-08 16:20 | PT.OIE ---
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) Stiffness of right shoulder, not elsewhere classified (06/08/23) Stiffness of right knee, not elsewhere classified (06/08/23) Stiffness of left knee, not elsewhere classified (06/08/23) Other abnormalities of gait and mobility (06/08/23) Repeated falls (06/08/23) Contusion of right knee, sequela (06/08/23) Visit Care Team Role Provider Type Kin Haywood MD Attending Provider Non-Staff Family Provider Primary Care Provider Referring Provider Specialty: Internal Medicine Address: [address] [place] [address] [address], [place], [address] Email: Physical Therapy Initial Evaluation PT-OP-A Visit Information Start: 06/08/23 15:50 Freq: Status: Active Protocol: Document 06/08/23 12:00 DCW (Rec: 06/08/23 16:19 DCW [id number]) Out-Patient Physical Therapy Visit Information Visit Information Visit Type Initial Evaluation Visit Start Time 12:00 Visit Stop Time 12:45 Visit Number 1 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 Pt additionally has ongoing bilateral knee problems with impact her gait and range of motion, stemming from a distant history of bilateral TKA. Pt was previously in PT at this facility for her knees, and unfortunately had to be discharged following her fall/ dislocation which occurred at her home on 05/03/23. Pt has had an MRI, and has been referred to an ortho, however does not really want surgery, so she has put off her ortho visit. Pt admits to an additional fall last week, when she hurt her tailbone. Admits she is supposed to be using her cane, but has not been. 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 Admits she has not been very active since her fall in April, which has impacted her knee mobility and walking, which had been progressing well with prior skilled therapy. Has not been doing much with her right shoulder, very limited mobility. Still wants to focus most on knees and gait, very hesitant to do anything with her right shoulder. Pt is a fairly difficult historian. Prior Treatments and Tests Shoulder MRI: IMPRESSION: 1. Moderate to high-grade articular surface partial- thickness tear involving distal supraspinatus with up to 3.3 cm medial retraction of torn tendon fibers to the level of acromioclavicular joint. Possible full- thickness perforation involving distal infraspinatus at its insertion on the humeral head with up to 1.6 cm medial retraction of torn tendon fibers. Low-grade intrasubstance partial- thickness tear involving distal subscapularis. Mild supraspinatus muscle atrophy. 2. Suggestion of contusion versus nondisplaced fracture involving anterolateral aspect of humeral head extending to proximal humeral shaft. No other fracture or dislocation. Hktv-[id number] acromioclavicular joint osteoarthritis. Moderate joint effusion and subacromial subdeltoid bursal fluid, no gross loose bodies. 3. Subtle superior anterior labral tear at 1 to 2 o'clock position and anterior-inferior labral tear at 5 to 6 o'clock position. 4 . Proximal long head of biceps tendinosis. per Radha Turpin on 05/25/2023 Treatment Goals Patient/Caregiver Goals Improve knee ROM and quality of gait. PT-OP-C Subjective Start: 06/08/23 15:50 Freq: Status: Active Protocol: Document 06/08/23 12:00 DCW (Rec: 06/08/23 16:19 DCW [id number]) OP-PT Subjective Patient Comments Patient Comments I don't want surgery, but if I do need it, I think it would be better to get it sooner rather than later. I need to recover before my 's function declines even more. Patient Questionnaires Lower Extremity Functional Scale LEFS Score 80 = 11.25%` Quick Dash- Upper Extremity Quick Dash UE Score 79.55% Quick Dash UE Impairment 60 to 79% Impaired (Score 60- 79) PT-OP-E Functional Tests Start: 06/08/23 16:19 Freq: Status: Active Protocol: Document 06/08/23 12:00 DCW (Rec: 06/08/23 16:20 DCW [id number]) Functional Tests Five Times Sit to Stand Test Score 16.71 Comments Treatment table at 19 PT-OP-G Mobility & Gait Start: 06/08/23 15:50 Freq: Status: Active Protocol: Document 06/08/23 12:00 DCW (Rec: 06/08/23 16:19 DCW [id number]) OP Gait Assessment Comments Gait Comments Pt ambulates with bilateral knee flexion, unable to get knees into full extension during swing or stance phase. Forward flexed at tunk. Currently not using any assistive device PT-OP-K Range of Motion Start: 06/08/23 15:50 Freq: Status: Active Protocol: Document 06/08/23 12:00 DCW (Rec: 06/08/23 16:19 DCW [id number]) Shoulder Goniometric Range of Motion Shoulder Right Passive Shoulder ROM WFL No Testing Position Sitting Flexion 21 Abduction 16 External Rotation at 0 degrees Abduction 0 Right Active Shoulder ROM WFL No Testing Position Sitting Flexion 0 Abduction 0 Internal Rotation Behind Back (text) R Iliac crest Comments ER limited to lacking 15? from neutral Knee Goniometric Range of Motion Knee Right Knee ROM WFL No Patient Position Sitting Flexion Active (degrees) 105 Extension Active (degrees) 12 Left Knee ROM WFL No Patient Position Sitting Flexion Active (degrees) 94 Extension Active (degrees) 10 PT-OP-M Strength Start: 06/08/23 15:50 Freq: Status: Active Protocol: Document 06/08/23 12:00 DCW (Rec: 06/08/23 16:19 DCW [id number]) Shoulder Strength Shoulder Manual Muscle Testing Right Flexion 1 Trace Abduction (C5) 1 Trace External Rotation 1 Trace Internal Rotation 1 Trace Knee Strength Knee Manual Muscle Testing Right Flexion (S2) 2+ Poor+ Extension (L3) 2+ Poor+ Left Flexion (S2) 2+ Poor+ Extension (L3) 2+ Poor+ PT-OP-Q Treatments Start: 06/08/23 15:50 Freq: Status: Active Protocol: Document 06/08/23 12:00 DCW (Rec: 06/08/23 16:19 DCW [id number]) Cardio Equipment Recumbent Elliptical (Biodex) Duration (Minutes) 8 Resistance 4 Seat Position 10 Other 2' /c UE, 6' /s UE PT-OP-T Assessment and Plan Start: 06/08/23 15:50 Freq: Status: Active Protocol: Document 06/08/23 12:00 DCW (Rec: 06/08/23 16:19 DCW [id number]) Physical Therapy Assessment Rehab Potential Rehabilitation Potential Fair Evaluation Complexity Number of Personal Factors/Comorbidities 3 or More Number of Body Systems Impaired 4 or More Clinical Presentation at Evaluation Unstable Impairments Impairments Functional Activities, Functional Mobility,Gait,Pain, Posture,ROM,Strength Goals Three Impairment Gait significantly impacted by limited bilateral knee ROM Straightedge Man Goal (LTG) Pt to improve bilateral knee extension to 5? from neutral in order to improve quality of gait during stance phase. LTG Duration 09/06/23 Two Impairment Right shoulder flexion/ abduction AROM limited to 0? Straightedge Man Goal (LTG) Pt to improve right shoulder AROM to at least 90? in both flexion and abduction in order to improve ability for pt to return to driving. LTG Duration 09/06/23 One Impairment Pt does not have an appropriate home exercise program Short Term Goal (STG) Pt to be independent and compliant with an appropriate HEP STG Duration 07/09/23 Assessment Summary Assessment Pt presents with signs and symptoms consistent with referring diagnosis. Pt severely limited with right shoulder following dislocation and rotator cuff tear. Very limited with PROM, with no AROM at this time. Pt ambulates with right arm just hanging at her side, or with elbow bent and held into IR at chest. Following improvement with gait pattern after PT last year, gait has returned to very poor pattern, with inability of pt to extend knees during strike and stance phase, resulting in a gait with flexed knees and a forward flexed trunk. Pt has suffered two fairly significant falls over the last month. Discussed importance of pt using cane secondary to safety concerns. Additionally discussed importance of ortho follow-up. Pt does tend to get hyper- focused on ability to use recumbent stepper at this clinic, and her biggest concern at this time is getting back onto it, however should also greatly benefit from right shoulder PROM in an effort to improve available ROM and return to function as much as possible, as well as joint mobilizations for bilateral knee to improve gait pattern and knee ROM. Additionally focus on strengthening, gait training, and functional mobility. Physical Therapy Plan Frequency and Duration Frequency of Treatment 2x/Week Plan of Care Start Date 06/08/23 Plan of Care End Date 09/06/23 Therapeutic Interventions Therapeutic Interventions Balance Training,Gait Training ,Home Exercise Program,Joint Mobilizations,Manual Therapy, Neuromuscular Re-education, Patient/Caregiver Education, Self-Care/Home Management,Soft Tissue Mobilization, Therapeutic Activities, Therapeutic Exercises Modalities Cold Pack/Ice Massage,Electric Stimulation,Hot Packs, Ultrasound Next Visit Focus/Plan Next Note Type Treatment Note Next Visit Plan Pulleys, shoulder PROM, B knee joint mobs, LE strengthening, gait training
--- NOTE | 2023-06-08 16:21 | PT.OPPOC ---
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) Stiffness of right shoulder, not elsewhere classified (06/08/23) Stiffness of right knee, not elsewhere classified (06/08/23) Stiffness of left knee, not elsewhere classified (06/08/23) Other abnormalities of gait and mobility (06/08/23) Repeated falls (06/08/23) Contusion of right knee, sequela (06/08/23) Visit Care Team Role Provider Type Kin Haywood MD Attending Provider Non-Staff Family Provider Primary Care Provider Referring Provider Specialty: Internal Medicine Address: [address] [place] [address] [address], [place], [address] Email: Plan Of Care PT-OP-T Assessment and Plan Start: 06/08/23 15:50 Freq: Status: Active Protocol: Document 06/08/23 12:00 DCW (Rec: 06/08/23 16:19 DCW [id number]) Physical Therapy Assessment Rehab Potential Rehabilitation Potential Fair Evaluation Complexity Number of Personal Factors/Comorbidities 3 or More Number of Body Systems Impaired 4 or More Clinical Presentation at Evaluation Unstable Impairments Impairments Functional Activities, Functional Mobility,Gait,Pain, Posture,ROM,Strength Goals Three Impairment Gait significantly impacted by limited bilateral knee ROM Mcc Goal (LTG) Pt to improve bilateral knee extension to 5? from neutral in order to improve quality of gait during stance phase. LTG Duration 09/06/23 Two Impairment Right shoulder flexion/ abduction AROM limited to 0? Engraver Automatic Goal (LTG) Pt to improve right shoulder AROM to at least 90? in both flexion and abduction in order to improve ability for pt to return to driving. LTG Duration 09/06/23 One Impairment Pt does not have an appropriate home exercise program Short Term Goal (STG) Pt to be independent and compliant with an appropriate HEP STG Duration 07/09/23 Assessment Summary Assessment Pt presents with signs and symptoms consistent with referring diagnosis. Pt severely limited with right shoulder following dislocation and rotator cuff tear. Very limited with PROM, with no AROM at this time. Pt ambulates with right arm just hanging at her side, or with elbow bent and held into IR at chest. Following improvement with gait pattern after PT last year, gait has returned to very poor pattern, with inability of pt to extend knees during strike and stance phase, resulting in a gait with flexed knees and a forward flexed trunk. Pt has suffered two fairly significant falls over the last month. Discussed importance of pt using cane secondary to safety concerns. Additionally discussed importance of ortho follow-up. Pt does tend to get hyper- focused on ability to use recumbent stepper at this clinic, and her biggest concern at this time is getting back onto it, however should also greatly benefit from right shoulder PROM in an effort to improve available ROM and return to function as much as possible, as well as joint mobilizations for bilateral knee to improve gait pattern and knee ROM. Additionally focus on strengthening, gait training, and functional mobility. Physical Therapy Plan Frequency and Duration Frequency of Treatment 2x/Week Plan of Care Start Date 06/08/23 Plan of Care End Date 09/06/23 Therapeutic Interventions Therapeutic Interventions Balance Training,Gait Training ,Home Exercise Program,Joint Mobilizations,Manual Therapy, Neuromuscular Re-education, Patient/Caregiver Education, Self-Care/Home Management,Soft Tissue Mobilization, Therapeutic Activities, Therapeutic Exercises Modalities Cold Pack/Ice Massage,Electric Stimulation,Hot Packs, Ultrasound Next Visit Focus/Plan Next Note Type Treatment Note Next Visit Plan Pulleys, shoulder PROM, B knee joint mobs, LE strengthening, gait training Plan of Care Dates Plan of Care Start Date 06/08/23 Plan of Care End Date 09/06/23 Electronically Signed by: Carter Loazno, PT 06/08/23 [id number] If you are in agreement with this Plan of Care, please return a signed and dated copy. I have reviewed this Plan of Care and certify that the skilled therapy services above are required to meet the patient?s needs. Physician Signature Date Printed Name and Credentials Clinical Instructor Signature Printed Name and Credentials
--- NOTE | 2023-06-16 15:15 | PT.OTN ---
Current Diagnoses Pathological dislocation of right shoulder, not elsewhere classified (06/16/23) Stiffness of right shoulder, not elsewhere classified (06/16/23) Stiffness of right knee, not elsewhere classified (06/16/23) Stiffness of left knee, not elsewhere classified (06/16/23) Other abnormalities of gait and mobility (06/16/23) Repeated falls (06/16/23) Contusion of right knee, sequela (06/16/23) Physical Therapy Treatment Note PT-OP-A Visit Information Start: 06/08/23 15:50 Freq: Status: Active Protocol: Document 06/16/23 14:34 SP (Rec: 06/16/23 15:44 SP [id number]) Out-Patient Physical Therapy Visit Information Visit Information Visit Type Treatment Note Visit Start Time 14:34 Visit Stop Time 15:15 Visit Number 2 Number of HEALTH CARE MARKETING MANAGER Visits 1 PT-OP-B Current Condition Start: 06/08/23 15:50 Freq: Status: Active Protocol: Document 06/08/23 12:00 DCW (Rec: 06/08/23 16:19 DCW [id number]) Current Condition History of Current Condition Onset Date May 03, 2023 Current Complaints R shoulder dislocation, rotator cuff tear, bilateral knee stiffness, gait History of Current Condition Pt is an 82 year old female presenting to skilled therapy five weeks s/p fall with resultant right shoulder dislocation and rotator cuff tear. Pt additionally has ongoing bilateral knee problems with impact her gait and range of motion, stemming from a distant history of bilateral TKA. Pt was previously in PT at this facility for her knees, and unfortunately had to be discharged following her fall/ dislocation which occurred at her home on 05/03/23. Pt has had an MRI, and has been referred to an ortho, however does not really want surgery, so she has put off her ortho visit. Pt admits to an additional fall last week, when she hurt her tailbone. Admits she is supposed to be using her cane, but has not been. 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 Admits she has not been very active since her fall in April, which has impacted her knee mobility and walking, which had been progressing well with prior skilled therapy. Has not been doing much with her right shoulder, very limited mobility. Still wants to focus most on knees and gait, very hesitant to do anything with her right shoulder. Pt is a fairly difficult historian. Prior Treatments and Tests Shoulder MRI: IMPRESSION: 1. Moderate to high-grade articular surface partial- thickness tear involving distal supraspinatus with up to 3.3 cm medial retraction of torn tendon fibers to the level of acromioclavicular joint. Possible full- thickness perforation involving distal infraspinatus at its insertion on the humeral head with up to 1.6 cm medial retraction of torn tendon fibers. Low-grade intrasubstance partial- thickness tear involving distal subscapularis. Mild supraspinatus muscle atrophy. 2. Suggestion of contusion versus nondisplaced fracture involving anterolateral aspect of humeral head extending to proximal humeral shaft. No other fracture or dislocation. [id number] acromioclavicular joint osteoarthritis. Moderate joint effusion and subacromial subdeltoid bursal fluid, no gross loose bodies. 3. Subtle superior anterior labral tear at 1 to 2 o'clock position and anterior-inferior labral tear at 5 to 6 o'clock position. 4 . Proximal long head of biceps tendinosis. per Radha Turpin on 05/25/2023 Treatment Goals Patient/Caregiver Goals Improve knee ROM and quality of gait. PT-OP-C Subjective Start: 06/08/23 15:50 Freq: Status: Active Protocol: Document 06/16/23 14:34 SP (Rec: 06/16/23 15:44 SP [id number]) OP-PT Subjective Patient Comments Patient Comments Pt reports L quad so tight and having hard time rolling it self for relief. Attends an online zoom for cardio with class seated. She tries to perform any R UE AROM but only able move wrist but unable move arm away from body. She reports is using her recumbent bike for BLE ROM moility, feels good 5-10 min. Wants to know what else can do with her RUE to get better and also wants to perform LE exercises as well to get back to walking better with less use SPC. She states does use her husbands FWW if needed but not much wt on RUE, more for stability. PT-OP-E Functional Tests Start: 06/08/23 16:19 Freq: Status: Active Protocol: Document 06/08/23 12:00 DCW (Rec: 06/08/23 16:20 DCW [id number]) Functional Tests Five Times Sit to Stand Test Score 16.71 Comments Treatment table at 19 PT-OP-G Mobility & Gait Start: 06/08/23 15:50 Freq: Status: Active Protocol: Document 06/08/23 12:00 DCW (Rec: 06/08/23 16:19 DCW [id number]) OP Gait Assessment Comments Gait Comments Pt ambulates with bilateral knee flexion, unable to get knees into full extension during swing or stance phase. Forward flexed at tunk. Currently not using any assistive device PT-OP-K Range of Motion Start: 06/08/23 15:50 Freq: Status: Active Protocol: Document 06/08/23 12:00 DCW (Rec: 06/08/23 16:19 DCW [id number]) Shoulder Goniometric Range of Motion Shoulder Right Passive Shoulder ROM WFL No Testing Position Sitting Flexion 21 Abduction 16 External Rotation at 0 degrees Abduction 0 Right Active Shoulder ROM WFL No Testing Position Sitting Flexion 0 Abduction 0 Internal Rotation Behind Back (text) R Iliac crest Comments ER limited to lacking 15? from neutral Knee Goniometric Range of Motion Knee Right Knee ROM WFL No Patient Position Sitting Flexion Active (degrees) 105 Extension Active (degrees) 12 Left Knee ROM WFL No Patient Position Sitting Flexion Active (degrees) 94 Extension Active (degrees) 10 PT-OP-M Strength Start: 06/08/23 15:50 Freq: Status: Active Protocol: Document 06/08/23 12:00 DCW (Rec: 06/08/23 16:19 DCW [id number]) Shoulder Strength Shoulder Manual Muscle Testing Right Flexion 1 Trace Abduction (C5) 1 Trace External Rotation 1 Trace Internal Rotation 1 Trace Knee Strength Knee Manual Muscle Testing Right Flexion (S2) 2+ Poor+ Extension (L3) 2+ Poor+ Left Flexion (S2) 2+ Poor+ Extension (L3) 2+ Poor+ PT-OP-Q Treatments Start: 06/08/23 15:50 Freq: Status: Active Protocol: Document 06/16/23 14:34 SP (Rec: 06/16/23 15:44 SP [id number]) Therapeutic Exercises Supine Exercises SLR Supine Exercise Name reviewed past HEP: Reps/Minutes x5 sets Comments cued TKE, ankle DF, SLR no higher than opp knee AAROM Supine Exercise Name added to HEP Side right Resistance LUE assist RUE PROM Reps/Minutes 5 reps Comments appprox 85 deg FF manual and self, painfree range. posture pres Supine Exercise Name posture press /c pelvic lift Side bilateral Equipment Used BLE over wedge Reps/Minutes 5 SH 5 Comments cued no to not much lift pelvis, more scap retraction/ shld ext isometric Sitting Exercises kendra Sitting Exercise Name trialed- HOLD 06/16/23 due to R shld pain and [place] recruitmet Resistance seated facing- unable perform this range Equipment Used standing facing- to much guarding and required Mod/Max therapist support Reps/Minutes 6 reps Comments cued no UT recruitment and allow therapist give most support- stopped 2nd STS Sitting Exercise Name reviewed self HEP performs in class Equipment Used 17.5 table Reps/Minutes x8 reps Comments no UE support, cued x1 wt shift fwd. shoulder rolls Sitting Exercise Name reviewed self ROM and does in online class Reps/Minutes 5 reps x2 Comments good feedback Standing Exercises UE walk outs Standing Exercise Name trialed and good response added to HEP Side bilateral Resistance BUE on Reps/Minutes 2x3-5 reps Comments cued low, painfree range, approx 45 deg shld fl, cued elbow fairly straight Manual Therapy Treatment Manual Techniques PROM Type R UE: FF approx 75 deg, ABD approx 45 deg, ER neutral front, IR to abdomen Body Position Hooklying Comments painfree range PT-OP-T Assessment and Plan Start: 06/08/23 15:50 Freq: Status: Active Protocol: Document 06/16/23 14:34 SP (Rec: 06/16/23 15:44 SP [id number]) Physical Therapy Assessment Goals Three Impairment Gait significantly impacted by limited bilateral knee ROM Manager Of Photography Goal (LTG) Pt to improve bilateral knee extension to 5? from neutral in order to improve quality of gait during stance phase. LTG Duration 09/06/23 Two Impairment Right shoulder flexion/ abduction AROM limited to 0? Assisted Goal (LTG) Pt to improve right shoulder AROM to at least 90? in both flexion and abduction in order to improve ability for pt to return to driving. LTG Duration 09/06/23 One Impairment Pt does not have an appropriate home exercise program Short Term Goal (STG) Pt to be independent and compliant with an appropriate HEP 06/16/23: added supine PROM LUE assist RUE FF, SLR, UE walk out BUE on rail PROM FF, scap retraction. STG Duration 07/09/23 progressing 06/16/23 Assessment Summary Assessment Pt responded well to PROM slow gentle within painfree range approx 85 deg FF, ABD, ER, IR then AAROM ff only using LUE support RUE in hooklying for HEP. Initiated posture press scap retraction with no pain and she added a pelvic lift to decreased sacrum discomfort laying on table and good glut engagement reported, no pain in R shldm discussed not WB in RUE at this time for healing. She responded well to shoulder rolls already performing in an online class and added standing walk outs into shld flexion painfree range cued not over stretch range. Discussed gentle small range R arm swing during gait to allow decrease guarding and increase scapular ROM. Pt good understanding of all ther ex suggested for HEP to progress mobility with in safe ROM and activities able to tolerate painfree. Physical Therapy Plan Frequency and Duration Frequency of Treatment 2x/Week Plan of Care Start Date 06/08/23 Plan of Care End Date 09/06/23 Therapeutic Interventions Therapeutic Interventions Balance Training,Gait Training ,Home Exercise Program,Joint Mobilizations,Manual Therapy, Neuromuscular Re-education, Patient/Caregiver Education, Self-Care/Home Management,Soft Tissue Mobilization, Therapeutic Activities, Therapeutic Exercises Modalities Cold Pack/Ice Massage,Electric Stimulation,Hot Packs, Ultrasound Next Visit Focus/Plan Next Note Type Treatment Note Next Visit Plan Check HEP: see goal #1. NExt discuss modality support. POC: Pulleys, shoulder PROM, B knee joint mobs, LE strengthening, gait training
--- NOTE | 2023-06-18 15:15 | PT.OTN ---
Current Diagnoses Pathological dislocation of right shoulder, not elsewhere classified (06/18/23) Stiffness of right shoulder, not elsewhere classified (06/18/23) Stiffness of right knee, not elsewhere classified (06/18/23) Stiffness of left knee, not elsewhere classified (06/18/23) Other abnormalities of gait and mobility (06/18/23) Repeated falls (06/18/23) Contusion of right knee, sequela (06/18/23) Physical Therapy Treatment Note PT-OP-A Visit Information Start: 06/08/23 15:50 Freq: Status: Active Protocol: Document 06/18/23 14:37 SP (Rec: 06/18/23 15:50 SP [id number]) Out-Patient Physical Therapy Visit Information Visit Information Visit Type Treatment Note Visit Start Time 14:37 Visit Stop Time 15:15 Visit Number 3 Number of SALES MGR Visits 2 Evaluation Information Evaluation Date 06/08/23 PT-OP-B Current Condition Start: 06/08/23 15:50 Freq: Status: Active Protocol: Document 06/08/23 12:00 DCW (Rec: 06/08/23 16:19 DCW [id number]) Current Condition History of Current Condition Onset Date May 03, 2023 Current Complaints R shoulder dislocation, rotator cuff tear, bilateral knee stiffness, gait History of Current Condition Pt is an 82 year old female presenting to skilled therapy five weeks s/p fall with resultant right shoulder dislocation and rotator cuff tear. Pt additionally has ongoing bilateral knee problems with impact her gait and range of motion, stemming from a distant history of bilateral TKA. Pt was previously in PT at this facility for her knees, and unfortunately had to be discharged following her fall/ dislocation which occurred at her home on 05/03/23. Pt has had an MRI, and has been referred to an ortho, however does not really want surgery, so she has put off her ortho visit. Pt admits to an additional fall last week, when she hurt her tailbone. Admits she is supposed to be using her cane, but has not been. 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 Admits she has not been very active since her fall in April, which has impacted her knee mobility and walking, which had been progressing well with prior skilled therapy. Has not been doing much with her right shoulder, very limited mobility. Still wants to focus most on knees and gait, very hesitant to do anything with her right shoulder. Pt is a fairly difficult historian. Prior Treatments and Tests Shoulder MRI: IMPRESSION: 1. Moderate to high-grade articular surface partial- thickness tear involving distal supraspinatus with up to 3.3 cm medial retraction of torn tendon fibers to the level of acromioclavicular joint. Possible full- thickness perforation involving distal infraspinatus at its insertion on the humeral head with up to 1.6 cm medial retraction of torn tendon fibers. Low-grade intrasubstance partial- thickness tear involving distal subscapularis. Mild supraspinatus muscle atrophy. 2. Suggestion of contusion versus nondisplaced fracture involving anterolateral aspect of humeral head extending to proximal humeral shaft. No other fracture or dislocation. [id number] acromioclavicular joint osteoarthritis. Moderate joint effusion and subacromial subdeltoid bursal fluid, no gross loose bodies. 3. Subtle superior anterior labral tear at 1 to 2 o'clock position and anterior-inferior labral tear at 5 to 6 o'clock position. 4 . Proximal long head of biceps tendinosis. per Radha Turpin on 05/25/2023 Treatment Goals Patient/Caregiver Goals Improve knee ROM and quality of gait. PT-OP-C Subjective Start: 06/08/23 15:50 Freq: Status: Active Protocol: Document 06/18/23 14:37 SP (Rec: 06/18/23 15:50 SP [id number]) OP-PT Subjective Patient Comments Patient Comments Pt reports did some marching in her online class, holds L rail for LE lift higher and balance. She feels her R arm is moving better. Pt reports the walk outs holding back of chair was pretty sore on R shld so stopped. I can reach across front abdomen and behind my back now. PT-OP-E Functional Tests Start: 06/08/23 16:19 Freq: Status: Active Protocol: Document 06/08/23 12:00 DCW (Rec: 06/08/23 16:20 DCW [id number]) Functional Tests Five Times Sit to Stand Test Score 16.71 Comments Treatment table at 19 PT-OP-G Mobility & Gait Start: 06/08/23 15:50 Freq: Status: Active Protocol: Document 06/08/23 12:00 DCW (Rec: 06/08/23 16:19 DCW [id number]) OP Gait Assessment Comments Gait Comments Pt ambulates with bilateral knee flexion, unable to get knees into full extension during swing or stance phase. Forward flexed at tunk. Currently not using any assistive device PT-OP-K Range of Motion Start: 06/08/23 15:50 Freq: Status: Active Protocol: Document 06/08/23 12:00 DCW (Rec: 06/08/23 16:19 DCW [id number]) Shoulder Goniometric Range of Motion Shoulder Right Passive Shoulder ROM WFL No Testing Position Sitting Flexion 21 Abduction 16 External Rotation at 0 degrees Abduction 0 Right Active Shoulder ROM WFL No Testing Position Sitting Flexion 0 Abduction 0 Internal Rotation Behind Back (text) R Iliac crest Comments ER limited to lacking 15? from neutral Knee Goniometric Range of Motion Knee Right Knee ROM WFL No Patient Position Sitting Flexion Active (degrees) 105 Extension Active (degrees) 12 Left Knee ROM WFL No Patient Position Sitting Flexion Active (degrees) 94 Extension Active (degrees) 10 PT-OP-M Strength Start: 06/08/23 15:50 Freq: Status: Active Protocol: Document 06/08/23 12:00 DCW (Rec: 06/08/23 16:19 DCW [id number]) Shoulder Strength Shoulder Manual Muscle Testing Right Flexion 1 Trace Abduction (C5) 1 Trace External Rotation 1 Trace Internal Rotation 1 Trace Knee Strength Knee Manual Muscle Testing Right Flexion (S2) 2+ Poor+ Extension (L3) 2+ Poor+ Left Flexion (S2) 2+ Poor+ Extension (L3) 2+ Poor+ PT-OP-Q Treatments Start: 06/08/23 15:50 Freq: Status: Active Protocol: Document 06/18/23 14:37 SP (Rec: 06/18/23 15:50 SP [id number]) Therapeutic Exercises Supine Exercises SLR Supine Exercise Name reviewed past HEP: Side bilateral Resistance ROM each LE Reps/Minutes x5 reps Comments cued TKE, ankle DF, SLR no higher than opp knee AAROM Supine Exercise Name reviewed HEP Side right Resistance LUE assist RUE PROM Reps/Minutes 5 reps Comments appprox 110 deg FF manual and self, painfree range. posture pres Supine Exercise Name posture press /c pelvic lift Side bilateral Equipment Used BLE over wedge Reps/Minutes 5 SH 5 Comments cued no to not much lift pelvis, more scap retraction/ shld ext isometric Sitting Exercises STS Sitting Exercise Name reviewed self HEP performs in class Equipment Used 17 BIG chair Reps/Minutes x2 reps Comments no UE support, cued ft back as far as can, hip hinge/wt shift fwd. shoulder rolls Sitting Exercise Name reviewed self scapular AROM Resistance AROM Reps/Minutes 5 reps x2 Comments good feedback Standing Exercises marching Standing Exercise Name reviewed self, peforms in class Resistance SPC in LUE in PT, chair support home Reps/Minutes x10 Comments she performs for increase knee ROM R arm AROM Standing Exercise Name Reviewed pt RUE AROM when dressing Side right Resistance AROM Reps/Minutes 3 reps Comments pt able reaching front mid abdomen<>behind back mid sacrum, little pendulum Standing Exercise Name added to HEP, pt decined HO Side right Resistance PROM-A/AAROM small range Equipment Used seated & standing Reps/Minutes 15 sec x3 reps Comments cued wt shift standing, challenged tends more small painfree AROM Manual Therapy Treatment Soft Tissue Mobilization L quad Body Position Supine Comments manual use rolling pin. that feels so good, I cant do myself at home without use of my R arm right now. Joint Mobilizations B knees Joint next tx Manual Techniques PROM Type R UE: FF approx 85 deg, ER neutral front, IR to abdomen Body Position Hooklying Comments manual, ed self painfree range Neuro Re-Education Treatment Balance Activities hurdles Details step to/receiprocal Equipment L HR, 6 hurdles Reps/Duration 2 laps Comments cued L hip& knee flexion, improved decrease circumduction Self-Care/Home Management Treatment Education Other Education education on use of modalities for circulation, pain control , verbalized understanding, interested in ther ex/walking/ balance during PT can use modalities at home. PT-OP-T Assessment and Plan Start: 06/08/23 15:50 Freq: Status: Active Protocol: Document 06/18/23 14:37 SP (Rec: 06/18/23 15:50 SP [id number]) Physical Therapy Assessment Goals Three Impairment Gait significantly impacted by limited bilateral knee ROM Spring Floor Service Worker Goal (LTG) Pt to improve bilateral knee extension to 5? from neutral in order to improve quality of gait during stance phase. LTG Duration 09/06/23 Two Impairment Right shoulder flexion/ abduction AROM limited to 0? Spring Floor Service Worker Goal (LTG) Pt to improve right shoulder AROM to at least 90? in both flexion and abduction in order to improve ability for pt to return to driving. LTG Duration 09/06/23 One Impairment Pt does not have an appropriate home exercise program Short Term Goal (STG) Pt to be independent and compliant with an appropriate HEP 06/16/23: added supine PROM LUE assist RUE FF, SLR, UE walk out BUE on rail PROM FF, scap retraction. 06/18/22: pendulum. STG Duration 07/09/23 progressing 06/18/23 Assessment Summary Assessment Pt improved PROM FF manual and self LUE assist RUE approx 90 -100 deg cued slow eccentric control, manual ER to neutral hand front, IR to abdomen. Initiated RUE pendulums in standing with cuing for wt shifting with improvement mobility. Pt demonstrates ability to reach across front abdomen and behind sacrum today that helps assist her to dress. Pt concerned with decrease B L>R knee flexion to perform her bridges and challenges her sit to stands today, demonstrated more momentum wt shifting to come to stand. Pt declined modalities end tx for R shoulder soreness with activity today. Physical Therapy Plan Frequency and Duration Frequency of Treatment 2x/Week Plan of Care Start Date 06/08/23 Plan of Care End Date 09/06/23 Therapeutic Interventions Therapeutic Interventions Balance Training,Gait Training ,Home Exercise Program,Joint Mobilizations,Manual Therapy, Neuromuscular Re-education, Patient/Caregiver Education, Self-Care/Home Management,Soft Tissue Mobilization, Therapeutic Activities, Therapeutic Exercises Modalities Cold Pack/Ice Massage,Electric Stimulation,Hot Packs, Ultrasound Next Visit Focus/Plan Next Note Type Treatment Note Next Visit Plan recheck PROM RUE, pendulum. NExt add knee flexion seated/ Heel slides POC: Pulleys, shoulder PROM, B knee joint mobs, LE strengthening, gait training
--- NOTE | 2023-06-24 11:16 | PT.OTN ---
Current Diagnoses Pathological dislocation of right shoulder, not elsewhere classified (06/24/23) Stiffness of right shoulder, not elsewhere classified (06/24/23) Stiffness of right knee, not elsewhere classified (06/24/23) Stiffness of left knee, not elsewhere classified (06/24/23) Other abnormalities of gait and mobility (06/24/23) Repeated falls (06/24/23) Contusion of right knee, sequela (06/24/23) Physical Therapy Treatment Note PT-OP-A Visit Information Start: 06/08/23 15:50 Freq: Status: Active Protocol: Document 06/24/23 10:30 DCW (Rec: 06/24/23 11:16 DCW [id number]) Out-Patient Physical Therapy Visit Information Visit Information Visit Type Treatment Note Visit Start Time 10:30 Visit Stop Time 11:15 Visit Number 4 Number of BUSINESS INTEGRATION MANAGER Visits 0 Evaluation Information Evaluation Date 06/08/23 PT-OP-B Current Condition Start: 06/08/23 15:50 Freq: Status: Active Protocol: Document 06/08/23 12:00 DCW (Rec: 06/08/23 16:19 DCW [id number]) Current Condition History of Current Condition Onset Date May 03, 2023 Current Complaints R shoulder dislocation, rotator cuff tear, bilateral knee stiffness, gait History of Current Condition Pt is an 82 year old female presenting to skilled therapy five weeks s/p fall with resultant right shoulder dislocation and rotator cuff tear. Pt additionally has ongoing bilateral knee problems with impact her gait and range of motion, stemming from a distant history of bilateral TKA. Pt was previously in PT at this facility for her knees, and unfortunately had to be discharged following her fall/ dislocation which occurred at her home on 05/03/23. Pt has had an MRI, and has been referred to an ortho, however does not really want surgery, so she has put off her ortho visit. Pt admits to an additional fall last week, when she hurt her tailbone. Admits she is supposed to be using her cane, but has not been. 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 Admits she has not been very active since her fall in April, which has impacted her knee mobility and walking, which had been progressing well with prior skilled therapy. Has not been doing much with her right shoulder, very limited mobility. Still wants to focus most on knees and gait, very hesitant to do anything with her right shoulder. Pt is a fairly difficult historian. Prior Treatments and Tests Shoulder MRI: IMPRESSION: 1. Moderate to high-grade articular surface partial- thickness tear involving distal supraspinatus with up to 3.3 cm medial retraction of torn tendon fibers to the level of acromioclavicular joint. Possible full- thickness perforation involving distal infraspinatus at its insertion on the humeral head with up to 1.6 cm medial retraction of torn tendon fibers. Low-grade intrasubstance partial- thickness tear involving distal subscapularis. Mild supraspinatus muscle atrophy. 2. Suggestion of contusion versus nondisplaced fracture involving anterolateral aspect of humeral head extending to proximal humeral shaft. No other fracture or dislocation. [id number] acromioclavicular joint osteoarthritis. Moderate joint effusion and subacromial subdeltoid bursal fluid, no gross loose bodies. 3. Subtle superior anterior labral tear at 1 to 2 o'clock position and anterior-inferior labral tear at 5 to 6 o'clock position. 4 . Proximal long head of biceps tendinosis. per Radha Turpin on 05/25/2023 Treatment Goals Patient/Caregiver Goals Improve knee ROM and quality of gait. PT-OP-C Subjective Start: 06/08/23 15:50 Freq: Status: Active Protocol: Document 06/24/23 10:30 DCW (Rec: 06/24/23 11:16 DCW [id number]) OP-PT Subjective Patient Comments Patient Comments Feels her legs are not my legs due to the neuropathy, is still struggling significantly with knee pain and immobility. PT-OP-E Functional Tests Start: 06/08/23 16:19 Freq: Status: Active Protocol: Document 06/08/23 12:00 DCW (Rec: 06/08/23 16:20 DCW [id number]) Functional Tests Five Times Sit to Stand Test Score 16.71 Comments Treatment table at 19 PT-OP-G Mobility & Gait Start: 06/08/23 15:50 Freq: Status: Active Protocol: Document 06/08/23 12:00 DCW (Rec: 06/08/23 16:19 DCW [id number]) OP Gait Assessment Comments Gait Comments Pt ambulates with bilateral knee flexion, unable to get knees into full extension during swing or stance phase. Forward flexed at tunk. Currently not using any assistive device PT-OP-K Range of Motion Start: 06/08/23 15:50 Freq: Status: Active Protocol: Document 06/08/23 12:00 DCW (Rec: 06/08/23 16:19 DCW [id number]) Shoulder Goniometric Range of Motion Shoulder Right Passive Shoulder ROM WFL No Testing Position Sitting Flexion 21 Abduction 16 External Rotation at 0 degrees Abduction 0 Right Active Shoulder ROM WFL No Testing Position Sitting Flexion 0 Abduction 0 Internal Rotation Behind Back (text) R Iliac crest Comments ER limited to lacking 15? from neutral Knee Goniometric Range of Motion Knee Right Knee ROM WFL No Patient Position Sitting Flexion Active (degrees) 105 Extension Active (degrees) 12 Left Knee ROM WFL No Patient Position Sitting Flexion Active (degrees) 94 Extension Active (degrees) 10 PT-OP-M Strength Start: 06/08/23 15:50 Freq: Status: Active Protocol: Document 06/08/23 12:00 DCW (Rec: 06/08/23 16:19 KYW [id number]) Shoulder Strength Shoulder Manual Muscle Testing Right Flexion 1 Trace Abduction (C5) 1 Trace External Rotation 1 Trace Internal Rotation 1 Trace Knee Strength Knee Manual Muscle Testing Right Flexion (S2) 2+ Poor+ Extension (L3) 2+ Poor+ Left Flexion (S2) 2+ Poor+ Extension (L3) 2+ Poor+ PT-OP-Q Treatments Start: 06/08/23 15:50 Freq: Status: Active Protocol: Document 06/24/23 10:30 DCW (Rec: 06/24/23 11:16 DCW [id number]) Cardio Equipment Recumbent Elliptical (BiodSupponor) Duration (Minutes) 7 Resistance 4 Seat Position 8 Other L UE only Therapeutic Exercises Supine Exercises AAROM Supine Exercise Name AAROM /c PVC, then self-AAROM Side right Resistance LUE assist RUE PROM Comments Flexion, Abduction Manual Therapy Treatment Joint Mobilizations B knees Joint B knee Direction A<->P Grade III Manual Techniques PROM Type R UE: Flexion, Abduction, ER Body Position Hooklying Comments manual, ed self painfree range PT-OP-T Assessment and Plan Start: 06/08/23 15:50 Freq: Status: Active Protocol: Document 06/24/23 10:30 DCW (Rec: 06/24/23 11:16 DCW [id number]) Physical Therapy Assessment Goals Three Impairment Gait significantly impacted by limited bilateral knee ROM Alf Goal (LTG) Pt to improve bilateral knee extension to 5? from neutral in order to improve quality of gait during stance phase. LTG Duration 09/06/23 Two Impairment Right shoulder flexion/ abduction AROM limited to 0? Commercial Portfolio Manager Goal (LTG) Pt to improve right shoulder AROM to at least 90? in both flexion and abduction in order to improve ability for pt to return to driving. LTG Duration 09/06/23 One Impairment Pt does not have an appropriate home exercise program Short Term Goal (STG) Pt to be independent and compliant with an appropriate HEP 06/16/23: added supine PROM LUE assist RUE FF, SLR, UE walk out BUE on rail PROM FF, scap retraction. 06/18/22: pendulum. STG Duration 07/09/23 progressing 06/18/23 Assessment Summary Assessment Continued to focus today on both PROM and AROM bilateral LEs and right UE. Pt still quite limited with most motions. Using longer walking stick today, does appear to help improve upright posture. Physical Therapy Plan Frequency and Duration Frequency of Treatment 2x/Week Plan of Care Start Date 06/08/23 Plan of Care End Date 09/06/23 Therapeutic Interventions Therapeutic Interventions Balance Training,Gait Training ,Home Exercise Program,Joint Mobilizations,Manual Therapy, Neuromuscular Re-education, Patient/Caregiver Education, Self-Care/Home Management,Soft Tissue Mobilization, Therapeutic Activities, Therapeutic Exercises Modalities Cold Pack/Ice Massage,Electric Stimulation,Hot Packs, Ultrasound Next Visit Focus/Plan Next Note Type Treatment Note Next Visit Plan recheck PROM RUE, pendulum. NExt add knee flexion seated/ Heel slides POC: Pulleys, shoulder PROM, B knee joint mobs, LE strengthening, gait training
--- NOTE | 2023-06-26 16:02 | PT.OTN ---
Current Diagnoses Pathological dislocation of right shoulder, not elsewhere classified (06/26/23) Stiffness of right shoulder, not elsewhere classified (06/26/23) Stiffness of right knee, not elsewhere classified (06/26/23) Stiffness of left knee, not elsewhere classified (06/26/23) Other abnormalities of gait and mobility (06/26/23) Repeated falls (06/26/23) Contusion of right knee, sequela (06/26/23) Physical Therapy Treatment Note PT-OP-A Visit Information Start: 06/08/23 15:50 Freq: Status: Active Protocol: Document 06/26/23 15:19 DCW (Rec: 06/26/23 16:01 DCW [id number]) Out-Patient Physical Therapy Visit Information Visit Information Visit Type Treatment Note Visit Start Time 15:15 Visit Stop Time 16:00 Visit Number 5 Number of LOTTERY OFFICE MANAGER Visits 0 Evaluation Information Evaluation Date 06/08/23 PT-OP-B Current Condition Start: 06/08/23 15:50 Freq: Status: Active Protocol: Document 06/08/23 12:00 DCW (Rec: 06/08/23 16:19 DCW [id number]) Current Condition History of Current Condition Onset Date May 03, 2023 Current Complaints R shoulder dislocation, rotator cuff tear, bilateral knee stiffness, gait History of Current Condition Pt is an 82 year old female presenting to skilled therapy five weeks s/p fall with resultant right shoulder dislocation and rotator cuff tear. Pt additionally has ongoing bilateral knee problems with impact her gait and range of motion, stemming from a distant history of bilateral TKA. Pt was previously in PT at this facility for her knees, and unfortunately had to be discharged following her fall/ dislocation which occurred at her home on 05/03/23. Pt has had an MRI, and has been referred to an ortho, however does not really want surgery, so she has put off her ortho visit. Pt admits to an additional fall last week, when she hurt her tailbone. Admits she is supposed to be using her cane, but has not been. 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 Admits she has not been very active since her fall in April, which has impacted her knee mobility and walking, which had been progressing well with prior skilled therapy. Has not been doing much with her right shoulder, very limited mobility. Still wants to focus most on knees and gait, very hesitant to do anything with her right shoulder. Pt is a fairly difficult historian. Prior Treatments and Tests Shoulder MRI: IMPRESSION: 1. Moderate to high-grade articular surface partial- thickness tear involving distal supraspinatus with up to 3.3 cm medial retraction of torn tendon fibers to the level of acromioclavicular joint. Possible full- thickness perforation involving distal infraspinatus at its insertion on the humeral head with up to 1.6 cm medial retraction of torn tendon fibers. Low-grade intrasubstance partial- thickness tear involving distal subscapularis. Mild supraspinatus muscle atrophy. 2. Suggestion of contusion versus nondisplaced fracture involving anterolateral aspect of humeral head extending to proximal humeral shaft. No other fracture or dislocation. [id number] acromioclavicular joint osteoarthritis. Moderate joint effusion and subacromial subdeltoid bursal fluid, no gross loose bodies. 3. Subtle superior anterior labral tear at 1 to 2 o'clock position and anterior-inferior labral tear at 5 to 6 o'clock position. 4 . Proximal long head of biceps tendinosis. per Radha Turpin on 05/25/2023 Treatment Goals Patient/Caregiver Goals Improve knee ROM and quality of gait. PT-OP-C Subjective Start: 06/08/23 15:50 Freq: Status: Active Protocol: Document 06/26/23 15:19 DCW (Rec: 06/26/23 16:01 DCW [id number]) OP-PT Subjective Patient Comments Patient Comments I was fine until I tried to stand up. Yesterday, I went the longest I've walked yet. PT-OP-E Functional Tests Start: 06/08/23 16:19 Freq: Status: Active Protocol: Document 06/08/23 12:00 DCW (Rec: 06/08/23 16:20 DCW [id number]) Functional Tests Five Times Sit to Stand Test Score 16.71 Comments Treatment table at 19 PT-OP-G Mobility & Gait Start: 06/08/23 15:50 Freq: Status: Active Protocol: Document 06/08/23 12:00 DCW (Rec: 06/08/23 16:19 DCW [id number]) OP Gait Assessment Comments Gait Comments Pt ambulates with bilateral knee flexion, unable to get knees into full extension during swing or stance phase. Forward flexed at tunk. Currently not using any assistive device PT-OP-K Range of Motion Start: 06/08/23 15:50 Freq: Status: Active Protocol: Document 06/08/23 12:00 DCW (Rec: 06/08/23 16:19 DC [id number]) Shoulder Goniometric Range of Motion Shoulder Right Passive Shoulder ROM WFL No Testing Position Sitting Flexion 21 Abduction 16 External Rotation at 0 degrees Abduction 0 Right Active Shoulder ROM WFL No Testing Position Sitting Flexion 0 Abduction 0 Internal Rotation Behind Back (text) R Iliac crest Comments ER limited to lacking 15? from neutral Knee Goniometric Range of Motion Knee Right Knee ROM WFL No Patient Position Sitting Flexion Active (degrees) 105 Extension Active (degrees) 12 Left Knee ROM WFL No Patient Position Sitting Flexion Active (degrees) 94 Extension Active (degrees) 10 PT-OP-M Strength Start: 06/08/23 15:50 Freq: Status: Active Protocol: Document 06/08/23 12:00 DCW (Rec: 06/08/23 16:19 DC [id number]) Shoulder Strength Shoulder Manual Muscle Testing Right Flexion 1 Trace Abduction (C5) 1 Trace External Rotation 1 Trace Internal Rotation 1 Trace Knee Strength Knee Manual Muscle Testing Right Flexion (S2) 2+ Poor+ Extension (L3) 2+ Poor+ Left Flexion (S2) 2+ Poor+ Extension (L3) 2+ Poor+ PT-OP-Q Treatments Start: 06/08/23 15:50 Freq: Status: Active Protocol: Document 06/26/23 15:19 DCW (Rec: 06/26/23 16:01 [facility] [id number]) Cardio Equipment Recumbent Stepper (Sci-Fit) Duration (Minutes) 6 Resistance 3 Other BLEs cued heel press and allow Therapeutic Exercises Supine Exercises AAROM Supine Exercise Name AAROM /c PVC, then self-AAROM Side right Resistance LUE assist RUE PROM Comments Flexion, Abduction Sitting Exercises kendra Sitting Exercise Name Gentle PROM flexion Manual Therapy Treatment Joint Mobilizations B knees Joint B knee Direction A<->P Grade III Manual Techniques PROM Type R UE: Flexion, Abduction, ER Body Position Hooklying Comments manual, ed self painfree range PT-OP-T Assessment and Plan Start: 06/08/23 15:50 Freq: Status: Active Protocol: Document 06/26/23 15:19 DCW (Rec: 06/26/23 16:01 DCW [id number]) Physical Therapy Assessment Goals Three Impairment Gait significantly impacted by limited bilateral knee ROM Group Home Goal (LTG) Pt to improve bilateral knee extension to 5? from neutral in order to improve quality of gait during stance phase. LTG Duration 09/06/23 Two Impairment Right shoulder flexion/ abduction AROM limited to 0? Lead Database Developer Goal (LTG) Pt to improve right shoulder AROM to at least 90? in both flexion and abduction in order to improve ability for pt to return to driving. LTG Duration 09/06/23 One Impairment Pt does not have an appropriate home exercise program Short Term Goal (STG) Pt to be independent and compliant with an appropriate HEP 06/16/23: added supine PROM LUE assist RUE FF, SLR, UE walk out BUE on rail PROM FF, scap retraction. 06/18/22: pendulum. STG Duration 07/09/23 progressing 06/18/23 Assessment Summary Assessment Pt able to show slightly increased shoulder and knee mobility with less pain today, although still very limited. Physical Therapy Plan Frequency and Duration Frequency of Treatment 2x/Week Plan of Care Start Date 06/08/23 Plan of Care End Date 09/06/23 Therapeutic Interventions Therapeutic Interventions Balance Training,Gait Training ,Home Exercise Program,Joint Mobilizations,Manual Therapy, Neuromuscular Re-education, Patient/Caregiver Education, Self-Care/Home Management,Soft Tissue Mobilization, Therapeutic Activities, Therapeutic Exercises Modalities Cold Pack/Ice Massage,Electric Stimulation,Hot Packs, Ultrasound Next Visit Focus/Plan Next Note Type Treatment Note Next Visit Plan recheck PROM RUE, pendulum. NExt add knee flexion seated/ Heel slides POC: Pulleys, shoulder PROM, B knee joint mobs, LE strengthening, gait training
--- NOTE | 2023-07-01 10:33 | PT.OTN ---
Current Diagnoses Pathological dislocation of right shoulder, not elsewhere classified (07/01/23) Stiffness of right shoulder, not elsewhere classified (07/01/23) Stiffness of right knee, not elsewhere classified (07/01/23) Stiffness of left knee, not elsewhere classified (07/01/23) Other abnormalities of gait and mobility (07/01/23) Repeated falls (07/01/23) Contusion of right knee, sequela (07/01/23) Physical Therapy Treatment Note PT-OP-A Visit Information Start: 06/08/23 15:50 Freq: Status: Active Protocol: Document 07/01/23 09:48 SP (Rec: 07/01/23 10:34 SP [id number]) Out-Patient Physical Therapy Visit Information Visit Information Visit Type Treatment Note Visit Start Time 09:48 Visit Stop Time 10:33 Visit Number 6 Number of CORPORATE CONTROLLER Visits 1 PT-OP-B Current Condition Start: 06/08/23 15:50 Freq: Status: Active Protocol: Document 06/08/23 12:00 DCW (Rec: 06/08/23 16:19 DCW [id number]) Current Condition History of Current Condition Onset Date May 03, 2023 Current Complaints R shoulder dislocation, rotator cuff tear, bilateral knee stiffness, gait History of Current Condition Pt is an 82 year old female presenting to skilled therapy five weeks s/p fall with resultant right shoulder dislocation and rotator cuff tear. Pt additionally has ongoing bilateral knee problems with impact her gait and range of motion, stemming from a distant history of bilateral TKA. Pt was previously in PT at this facility for her knees, and unfortunately had to be discharged following her fall/ dislocation which occurred at her home on 05/03/23. Pt has had an MRI, and has been referred to an ortho, however does not really want surgery, so she has put off her ortho visit. Pt admits to an additional fall last week, when she hurt her tailbone. Admits she is supposed to be using her cane, but has not been. 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 Admits she has not been very active since her fall in April, which has impacted her knee mobility and walking, which had been progressing well with prior skilled therapy. Has not been doing much with her right shoulder, very limited mobility. Still wants to focus most on knees and gait, very hesitant to do anything with her right shoulder. Pt is a fairly difficult historian. Prior Treatments and Tests Shoulder MRI: IMPRESSION: 1. Moderate to high-grade articular surface partial- thickness tear involving distal supraspinatus with up to 3.3 cm medial retraction of torn tendon fibers to the level of acromioclavicular joint. Possible full- thickness perforation involving distal infraspinatus at its insertion on the humeral head with up to 1.6 cm medial retraction of torn tendon fibers. Low-grade intrasubstance partial- thickness tear involving distal subscapularis. Mild supraspinatus muscle atrophy. 2. Suggestion of contusion versus nondisplaced fracture involving anterolateral aspect of humeral head extending to proximal humeral shaft. No other fracture or dislocation. [id number] acromioclavicular joint osteoarthritis. Moderate joint effusion and subacromial subdeltoid bursal fluid, no gross loose bodies. 3. Subtle superior anterior labral tear at 1 to 2 o'clock position and anterior-inferior labral tear at 5 to 6 o'clock position. 4 . Proximal long head of biceps tendinosis. per Radha Turpin on 05/25/2023 Treatment Goals Patient/Caregiver Goals Improve knee ROM and quality of gait. PT-OP-C Subjective Start: 06/08/23 15:50 Freq: Status: Active Protocol: Document 07/01/23 09:48 SP (Rec: 07/01/23 10:34 SP [id number]) OP-PT Subjective Patient Comments Patient Comments Pt reports is able to reach behind back more now, still challenging actively moving RUE away from her body. She states compliant HEP using pull at home forward facing. PT-OP-E Functional Tests Start: 06/08/23 16:19 Freq: Status: Active Protocol: Document 06/08/23 12:00 DCW (Rec: 06/08/23 16:20 DCW [id number]) Functional Tests Five Times Sit to Stand Test Score 16.71 Comments Treatment table at 19 PT-OP-G Mobility & Gait Start: 06/08/23 15:50 Freq: Status: Active Protocol: Document 06/08/23 12:00 DCW (Rec: 06/08/23 16:19 DCW [id number]) OP Gait Assessment Comments Gait Comments Pt ambulates with bilateral knee flexion, unable to get knees into full extension during swing or stance phase. Forward flexed at tunk. Currently not using any assistive device PT-OP-K Range of Motion Start: 06/08/23 15:50 Freq: Status: Active Protocol: Document 06/08/23 12:00 DCW (Rec: 06/08/23 16:19 DCW [id number]) Shoulder Goniometric Range of Motion Shoulder Right Passive Shoulder ROM WFL No Testing Position Sitting Flexion 21 Abduction 16 External Rotation at 0 degrees Abduction 0 Right Active Shoulder ROM WFL No Testing Position Sitting Flexion 0 Abduction 0 Internal Rotation Behind Back (text) R Iliac crest Comments ER limited to lacking 15? from neutral Knee Goniometric Range of Motion Knee Right Knee ROM WFL No Patient Position Sitting Flexion Active (degrees) 105 Extension Active (degrees) 12 Left Knee ROM WFL No Patient Position Sitting Flexion Active (degrees) 94 Extension Active (degrees) 10 PT-OP-M Strength Start: 06/08/23 15:50 Freq: Status: Active Protocol: Document 06/08/23 12:00 DCW (Rec: 06/08/23 16:19 DCW [id number]) Shoulder Strength Shoulder Manual Muscle Testing Right Flexion 1 Trace Abduction (C5) 1 Trace External Rotation 1 Trace Internal Rotation 1 Trace Knee Strength Knee Manual Muscle Testing Right Flexion (S2) 2+ Poor+ Extension (L3) 2+ Poor+ Left Flexion (S2) 2+ Poor+ Extension (L3) 2+ Poor+ PT-OP-Q Treatments Start: 06/08/23 15:50 Freq: Status: Active Protocol: Document 07/01/23 09:48 SP (Rec: 07/01/23 10:34 SP [id number]) Cardio Equipment Recumbent Stepper (Sci-Fit) Duration (Minutes) 6 Resistance 3 Seat Position 10 Other BLEs cued heel press & LUE: 45 -71 RPMs Therapeutic Exercises Supine Exercises AAROM Supine Exercise Name AAROM /c PVC, then self-AAROM Side right Resistance LUE assist RUE PROM Comments Flexion, Abduction, ER /c stick Sidelying Exercises AAROM Sidelying Exercise Name abd, FF Side right Resistance AAROM Max A 75% Reps/Minutes 3 min Comments good feedback with tactile support into scapular ROM Sitting Exercises shld ER Sitting Exercise Name seated and supine Side left Resistance AAROM Equipment Used /c cane, towel roll under arm Reps/Minutes 5 reps Comments cues for proper set up and form. kendra Sitting Exercise Name Gentle PROM flexion Resistance LUE assist RUE Reps/Minutes 3 reps Comments pain in R shld today, had to stop shoulder rolls Sitting Exercise Name reviewed self scapular AROM ( standing) Resistance AROM Reps/Minutes 5 reps x2 Comments good feedback Standing Exercises R shld IR Standing Exercise Name trialed in PT Side right Equipment Used AROM opp L pelvis Reps/Minutes 5 breaths Comments use towel start elevate up, cued gentle/painfree range pendulum Standing Exercise Name HEP reviewed: fwd, lat, Side right Resistance PROM/AAROM small range Equipment Used standing Reps/Minutes 15 sec x3 reps Comments cued wt shift standing, pnfree UE walk outs Standing Exercise Name good feedback response Side bilateral Resistance BUE on Equipment Used chair back support Reps/Minutes 5 reps Comments cued low, painfree range, approx 45 deg shld fl, cued elbow fairly straight Manual Therapy Treatment Soft Tissue Mobilization R shld Body Location R bicep, pec, coracobrac, Joint Mobilizations R shld Joint GH & scapulothoracic Direction sup/inf/AP Grade II Body Position Hooklying Manual Techniques PROM Type R UE: Flexion, Abduction, ER Body Position Hooklying Comments manual with gentle osscilation to decrease guarding; ed self painfree range, ed self ER /c stick PT-OP-T Assessment and Plan Start: 06/08/23 15:50 Freq: Status: Active Protocol: Document 07/01/23 09:48 SP (Rec: 07/01/23 10:34 SP [id number]) Physical Therapy Assessment Goals Three Impairment Gait significantly impacted by limited bilateral knee ROM Loss Control Engineer Goal (LTG) Pt to improve bilateral knee extension to 5? from neutral in order to improve quality of gait during stance phase. LTG Duration 09/06/23 Two Impairment Right shoulder flexion/ abduction AROM limited to 0? Loss Control Engineer Goal (LTG) Pt to improve right shoulder AROM to at least 90? in both flexion and abduction in order to improve ability for pt to return to driving. LTG Duration 09/06/23 One Impairment Pt does not have an appropriate home exercise program Short Term Goal (STG) Pt to be independent and compliant with an appropriate HEP 06/16/23: added supine PROM LUE assist RUE FF, SLR, UE walk out BUE on rail PROM FF, scap retraction. 06/18/22: pendulum. STG Duration 07/09/23 progressing 06/18/23 Assessment Summary Assessment Pt is gaining AROM into R shld IR behind back to L pelvis. She is limited in strength and compensates through wrist and trunk with R AROM. Pt requires max A for AAROM use cane today, support and cuing for tricep and rhomboid fac and less/no UT recruitment. Pt better understanding and proper form pendulum and UE PROM walk outs. Pt responds well to ossicilation during manual and PROM gaining ROM. Pt better understanding AAROM into ER supine and seated towel between arm/ trunk. Physical Therapy Plan Frequency and Duration Frequency of Treatment 2x/Week Plan of Care Start Date 06/08/23 Plan of Care End Date 09/06/23 Therapeutic Interventions Therapeutic Interventions Balance Training,Gait Training ,Home Exercise Program,Joint Mobilizations,Manual Therapy, Neuromuscular Re-education, Patient/Caregiver Education, Self-Care/Home Management,Soft Tissue Mobilization, Therapeutic Activities, Therapeutic Exercises Modalities Cold Pack/Ice Massage,Electric Stimulation,Hot Packs, Ultrasound Next Visit Focus/Plan Next Note Type Treatment Note Next Visit Plan recheck PROM RUE, AAROM ER /c dowel, pendulum. NExt add knee flexion seated/ Heel slides POC: Pulleys, shoulder PROM, B knee joint mobs, LE strengthening, gait training
--- NOTE | 2023-07-06 12:48 | PT.OTN ---
Current Diagnoses Pathological dislocation of right shoulder, not elsewhere classified (07/06/23) Stiffness of right shoulder, not elsewhere classified (07/06/23) Stiffness of right knee, not elsewhere classified (07/06/23) Stiffness of left knee, not elsewhere classified (07/06/23) Other abnormalities of gait and mobility (07/06/23) Repeated falls (07/06/23) Contusion of right knee, sequela (07/06/23) Physical Therapy Treatment Note PT-OP-A Visit Information Start: 06/08/23 15:50 Freq: Status: Active Protocol: Document 07/06/23 12:00 DCW (Rec: 07/06/23 12:48 DCW [id number]) Out-Patient Physical Therapy Visit Information Visit Information Visit Type Treatment Note Visit Start Time 12:00 Visit Stop Time 12:45 Visit Number 7 Number of CONTOUR STITCHER Visits 0 PT-OP-B Current Condition Start: 06/08/23 15:50 Freq: Status: Active Protocol: Document 06/08/23 12:00 DCW (Rec: 06/08/23 16:19 DCW [id number]) Current Condition History of Current Condition Onset Date May 03, 2023 Current Complaints R shoulder dislocation, rotator cuff tear, bilateral knee stiffness, gait History of Current Condition Pt is an 82 year old female presenting to skilled therapy five weeks s/p fall with resultant right shoulder dislocation and rotator cuff tear. Pt additionally has ongoing bilateral knee problems with impact her gait and range of motion, stemming from a distant history of bilateral TKA. Pt was previously in PT at this facility for her knees, and unfortunately had to be discharged following her fall/ dislocation which occurred at her home on 05/03/23. Pt has had an MRI, and has been referred to an ortho, however does not really want surgery, so she has put off her ortho visit. Pt admits to an additional fall last week, when she hurt her tailbone. Admits she is supposed to be using her cane, but has not been. 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 Admits she has not been very active since her fall in April, which has impacted her knee mobility and walking, which had been progressing well with prior skilled therapy. Has not been doing much with her right shoulder, very limited mobility. Still wants to focus most on knees and gait, very hesitant to do anything with her right shoulder. Pt is a fairly difficult historian. Prior Treatments and Tests Shoulder MRI: IMPRESSION: 1. Moderate to high-grade articular surface partial- thickness tear involving distal supraspinatus with up to 3.3 cm medial retraction of torn tendon fibers to the level of acromioclavicular joint. Possible full- thickness perforation involving distal infraspinatus at its insertion on the humeral head with up to 1.6 cm medial retraction of torn tendon fibers. Low-grade intrasubstance partial- thickness tear involving distal subscapularis. Mild supraspinatus muscle atrophy. 2. Suggestion of contusion versus nondisplaced fracture involving anterolateral aspect of humeral head extending to proximal humeral shaft. No other fracture or dislocation. [id number] acromioclavicular joint osteoarthritis. Moderate joint effusion and subacromial subdeltoid bursal fluid, no gross loose bodies. 3. Subtle superior anterior labral tear at 1 to 2 o'clock position and anterior-inferior labral tear at 5 to 6 o'clock position. 4 . Proximal long head of biceps tendinosis. per Radha Turpin on 05/25/2023 Treatment Goals Patient/Caregiver Goals Improve knee ROM and quality of gait. PT-OP-C Subjective Start: 06/08/23 15:50 Freq: Status: Active Protocol: Document 07/06/23 12:00 DCW (Rec: 07/06/23 12:48 DCW [id number]) OP-PT Subjective Patient Comments Patient Comments Baylis justtired and weak after preparing a simple dinner last night. PT-OP-E Functional Tests Start: 06/08/23 16:19 Freq: Status: Active Protocol: Document 06/08/23 12:00 DCW (Rec: 06/08/23 16:20 DCW [id number]) Functional Tests Five Times Sit to Stand Test Score 16.71 Comments Treatment table at 19 PT-OP-G Mobility & Gait Start: 06/08/23 15:50 Freq: Status: Active Protocol: Document 06/08/23 12:00 DCW (Rec: 06/08/23 16:19 DCW [id number]) OP Gait Assessment Comments Gait Comments Pt ambulates with bilateral knee flexion, unable to get knees into full extension during swing or stance phase. Forward flexed at tunk. Currently not using any assistive device PT-OP-K Range of Motion Start: 06/08/23 15:50 Freq: Status: Active Protocol: Document 06/08/23 12:00 DCW (Rec: 06/08/23 16:19 DCW [id number]) Shoulder Goniometric Range of Motion Shoulder Right Passive Shoulder ROM WFL No Testing Position Sitting Flexion 21 Abduction 16 External Rotation at 0 degrees Abduction 0 Right Active Shoulder ROM WFL No Testing Position Sitting Flexion 0 Abduction 0 Internal Rotation Behind Back (text) R Iliac crest Comments ER limited to lacking 15? from neutral Knee Goniometric Range of Motion Knee Right Knee ROM WFL No Patient Position Sitting Flexion Active (degrees) 105 Extension Active (degrees) 12 Left Knee ROM WFL No Patient Position Sitting Flexion Active (degrees) 94 Extension Active (degrees) 10 PT-OP-M Strength Start: 06/08/23 15:50 Freq: Status: Active Protocol: Document 06/08/23 12:00 DCW (Rec: 06/08/23 16:19 DCW [id number]) Shoulder Strength Shoulder Manual Muscle Testing Right Flexion 1 Trace Abduction (C5) 1 Trace External Rotation 1 Trace Internal Rotation 1 Trace Knee Strength Knee Manual Muscle Testing Right Flexion (S2) 2+ Poor+ Extension (L3) 2+ Poor+ Left Flexion (S2) 2+ Poor+ Extension (L3) 2+ Poor+ PT-OP-Q Treatments Start: 06/08/23 15:50 Freq: Status: Active Protocol: Document 07/06/23 12:00 DCW (Rec: 07/06/23 12:48 DCW [id number]) Cardio Equipment Recumbent Stepper (Sci-Fit) Duration (Minutes) 6 Resistance 3 Seat Position 10 Other BLEs cued heel press & LUE: 45 -71 RPMs Therapeutic Exercises Supine Exercises AAROM Supine Exercise Name AAROM /c PVC, then self-AAROM Side right Resistance LUE assist RUE PROM Comments Flexion, Abduction, ER /c stick Standing Exercises pendulum Standing Exercise Name fwd, lat, circles Side right Resistance PROM/AAROM small range Equipment Used standing Reps/Minutes 15 sec x3 reps Comments cued wt shift standing, pnfree Manual Therapy Treatment Soft Tissue Mobilization R shld Body Location R bicep, pec, coracobrac, Joint Mobilizations R shld Joint GH & scapulothoracic Direction sup/inf/AP Grade II Body Position Hooklying B knees Joint B knee Direction A<->P Grade III Manual Techniques PROM Type R UE: Flexion, Abduction, ER Body Position Hooklying Comments manual with gentle osscilation to decrease guarding PT-OP-T Assessment and Plan Start: 06/08/23 15:50 Freq: Status: Active Protocol: Document 07/06/23 12:00 DCW (Rec: 07/06/23 12:48 DCW [id number]) Physical Therapy Assessment Goals Three Impairment Gait significantly impacted by limited bilateral knee ROM Wrapper Stemmer Operator Goal (LTG) Pt to improve bilateral knee extension to 5? from neutral in order to improve quality of gait during stance phase. LTG Duration 09/06/23 Two Impairment Right shoulder flexion/ abduction AROM limited to 0? Custodial Goal (LTG) Pt to improve right shoulder AROM to at least 90? in both flexion and abduction in order to improve ability for pt to return to driving. LTG Duration 09/06/23 One Impairment Pt does not have an appropriate home exercise program Short Term Goal (STG) Pt to be independent and compliant with an appropriate HEP 06/16/23: added supine PROM LUE assist RUE FF, SLR, UE walk out BUE on rail PROM FF, scap retraction. 06/18/22: pendulum. STG Duration 07/09/23 progressing 06/18/23 Assessment Summary Assessment Pt continues to be very guarded with UE mobility, needs work to help relax prior to PROM/AAROM. Did tolerate joint mobs on knees better today, improvement with gait afterward. Pt feeling more optimistic by end of session. Physical Therapy Plan Frequency and Duration Frequency of Treatment 2x/Week Plan of Care Start Date 06/08/23 Plan of Care End Date 09/06/23 Therapeutic Interventions Therapeutic Interventions Balance Training,Gait Training ,Home Exercise Program,Joint Mobilizations,Manual Therapy, Neuromuscular Re-education, Patient/Caregiver Education, Self-Care/Home Management,Soft Tissue Mobilization, Therapeutic Activities, Therapeutic Exercises Modalities Cold Pack/Ice Massage,Electric Stimulation,Hot Packs, Ultrasound Next Visit Focus/Plan Next Note Type Treatment Note Next Visit Plan recheck PROM RUE, AAROM ER /c dowel, pendulum. NExt add knee flexion seated/ Heel slides POC: Pulleys, shoulder PROM, B knee joint mobs, LE strengthening, gait training
--- NOTE | 2023-07-10 11:59 | PT.OTN ---
Current Diagnoses Pathological dislocation of right shoulder, not elsewhere classified (07/10/23) Stiffness of right shoulder, not elsewhere classified (07/10/23) Stiffness of right knee, not elsewhere classified (07/10/23) Stiffness of left knee, not elsewhere classified (07/10/23) Other abnormalities of gait and mobility (07/10/23) Repeated falls (07/10/23) Contusion of right knee, sequela (07/10/23) Physical Therapy Treatment Note PT-OP-A Visit Information Start: 06/08/23 15:50 Freq: Status: Active Protocol: Document 07/10/23 11:15 DCW (Rec: 07/10/23 11:59 DCW [id number]) Out-Patient Physical Therapy Visit Information Visit Information Visit Type Treatment Note Visit Start Time 11:15 Visit Stop Time 12:00 Visit Number 8 Number of KEY MAKER Visits 0 PT-OP-B Current Condition Start: 06/08/23 15:50 Freq: Status: Active Protocol: Document 06/08/23 12:00 DCW (Rec: 06/08/23 16:19 DCW [id number]) Current Condition History of Current Condition Onset Date May 03, 2023 Current Complaints R shoulder dislocation, rotator cuff tear, bilateral knee stiffness, gait History of Current Condition Pt is an 82 year old female presenting to skilled therapy five weeks s/p fall with resultant right shoulder dislocation and rotator cuff tear. Pt additionally has ongoing bilateral knee problems with impact her gait and range of motion, stemming from a distant history of bilateral TKA. Pt was previously in PT at this facility for her knees, and unfortunately had to be discharged following her fall/ dislocation which occurred at her home on 05/03/23. Pt has had an MRI, and has been referred to an ortho, however does not really want surgery, so she has put off her ortho visit. Pt admits to an additional fall last week, when she hurt her tailbone. Admits she is supposed to be using her cane, but has not been. 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 Admits she has not been very active since her fall in April, which has impacted her knee mobility and walking, which had been progressing well with prior skilled therapy. Has not been doing much with her right shoulder, very limited mobility. Still wants to focus most on knees and gait, very hesitant to do anything with her right shoulder. Pt is a fairly difficult historian. Prior Treatments and Tests Shoulder MRI: IMPRESSION: 1. Moderate to high-grade articular surface partial- thickness tear involving distal supraspinatus with up to 3.3 cm medial retraction of torn tendon fibers to the level of acromioclavicular joint. Possible full- thickness perforation involving distal infraspinatus at its insertion on the humeral head with up to 1.6 cm medial retraction of torn tendon fibers. Low-grade intrasubstance partial- thickness tear involving distal subscapularis. Mild supraspinatus muscle atrophy. 2. Suggestion of contusion versus nondisplaced fracture involving anterolateral aspect of humeral head extending to proximal humeral shaft. No other fracture or dislocation. [id number] acromioclavicular joint osteoarthritis. Moderate joint effusion and subacromial subdeltoid bursal fluid, no gross loose bodies. 3. Subtle superior anterior labral tear at 1 to 2 o'clock position and anterior-inferior labral tear at 5 to 6 o'clock position. 4 . Proximal long head of biceps tendinosis. per Radha Turpin on 05/25/2023 Treatment Goals Patient/Caregiver Goals Improve knee ROM and quality of gait. PT-OP-C Subjective Start: 06/08/23 15:50 Freq: Status: Active Protocol: Document 07/10/23 11:15 DCW (Rec: 07/10/23 11:59 DCW [id number]) OP-PT Subjective Patient Comments Patient Comments I'm just frustrated. I can't get this thing (right arm) to swing or move. PT-OP-E Functional Tests Start: 06/08/23 16:19 Freq: Status: Active Protocol: Document 06/08/23 12:00 DCW (Rec: 06/08/23 16:20 DCW [id number]) Functional Tests Five Times Sit to Stand Test Score 16.71 Comments Treatment table at 19 PT-OP-G Mobility & Gait Start: 06/08/23 15:50 Freq: Status: Active Protocol: Document 06/08/23 12:00 DCW (Rec: 06/08/23 16:19 DCW [id number]) OP Gait Assessment Comments Gait Comments Pt ambulates with bilateral knee flexion, unable to get knees into full extension during swing or stance phase. Forward flexed at tunk. Currently not using any assistive device PT-OP-K Range of Motion Start: 06/08/23 15:50 Freq: Status: Active Protocol: Document 06/08/23 12:00 DCW (Rec: 06/08/23 16:19 DCW [id number]) Shoulder Goniometric Range of Motion Shoulder Right Passive Shoulder ROM WFL No Testing Position Sitting Flexion 21 Abduction 16 External Rotation at 0 degrees Abduction 0 Right Active Shoulder ROM WFL No Testing Position Sitting Flexion 0 Abduction 0 Internal Rotation Behind Back (text) R Iliac crest Comments ER limited to lacking 15? from neutral Knee Goniometric Range of Motion Knee Right Knee ROM WFL No Patient Position Sitting Flexion Active (degrees) 105 Extension Active (degrees) 12 Left Knee ROM WFL No Patient Position Sitting Flexion Active (degrees) 94 Extension Active (degrees) 10 PT-OP-M Strength Start: 06/08/23 15:50 Freq: Status: Active Protocol: Document 06/08/23 12:00 DCW (Rec: 06/08/23 16:19 DCW [id number]) Shoulder Strength Shoulder Manual Muscle Testing Right Flexion 1 Trace Abduction (C5) 1 Trace External Rotation 1 Trace Internal Rotation 1 Trace Knee Strength Knee Manual Muscle Testing Right Flexion (S2) 2+ Poor+ Extension (L3) 2+ Poor+ Left Flexion (S2) 2+ Poor+ Extension (L3) 2+ Poor+ PT-OP-Q Treatments Start: 06/08/23 15:50 Freq: Status: Active Protocol: Document 07/10/23 11:15 DCW (Rec: 07/10/23 11:59 DCW [id number]) Cardio Equipment Recumbent Elliptical ([employer]) Duration (Minutes) 7 Resistance 5 Seat Position 9 Other L UE only Therapeutic Exercises Supine Exercises AAROM Supine Exercise Name AAROM /c PVC Side right Resistance LUE assist RUE PROM Comments Flexion, Abduction, ER /c stick Sitting Exercises Table Slides Sitting Exercise Name Table slides - abduction kendra Sitting Exercise Name Gentle PROM flexion Resistance LUE assist RUE Manual Therapy Treatment Joint Mobilizations R shld Joint GH & scapulothoracic Direction sup/inf/AP Grade II Body Position Hooklying B knees Joint B knee Direction A<->P Grade III Manual Techniques PROM Type R UE: Flexion, Abduction, ER Body Position Hooklying Comments manual with gentle osscilation to decrease guarding PT-OP-T Assessment and Plan Start: 06/08/23 15:50 Freq: Status: Active Protocol: Document 07/10/23 11:15 DCW (Rec: 07/10/23 11:59 DCW [id number]) Physical Therapy Assessment Goals Three Impairment Gait significantly impacted by limited bilateral knee ROM Halfway Goal (LTG) Pt to improve bilateral knee extension to 5? from neutral in order to improve quality of gait during stance phase. LTG Duration 09/06/23 Two Impairment Right shoulder flexion/ abduction AROM limited to 0? Halfway Goal (LTG) Pt to improve right shoulder AROM to at least 90? in both flexion and abduction in order to improve ability for pt to return to driving. LTG Duration 09/06/23 One Impairment Pt does not have an appropriate home exercise program Short Term Goal (STG) Pt to be independent and compliant with an appropriate HEP 06/16/23: added supine PROM LUE assist RUE FF, SLR, UE walk out BUE on rail PROM FF, scap retraction. 06/18/22: pendulum. STG Duration 07/09/23 progressing 06/18/23 Assessment Summary Assessment Showing some slight progress with shoulder PROM, did much better using pulleys today. Suggested spending more time at home attempting PROM/AAROM of right shoulder. Physical Therapy Plan Frequency and Duration Frequency of Treatment 2x/Week Plan of Care Start Date 06/08/23 Plan of Care End Date 09/06/23 Therapeutic Interventions Therapeutic Interventions Balance Training,Gait Training ,Home Exercise Program,Joint Mobilizations,Manual Therapy, Neuromuscular Re-education, Patient/Caregiver Education, Self-Care/Home Management,Soft Tissue Mobilization, Therapeutic Activities, Therapeutic Exercises Modalities Cold Pack/Ice Massage,Electric Stimulation,Hot Packs, Ultrasound Next Visit Focus/Plan Next Note Type Treatment Note Next Visit Plan recheck PROM RUE, AAROM ER /c dowel, pendulum. NExt add knee flexion seated/ Heel slides POC: Pulleys, shoulder PROM, B knee joint mobs, LE strengthening, gait training
--- NOTE | 2023-07-15 15:34 | PT.OTN ---
Current Diagnoses Pathological dislocation of right shoulder, not elsewhere classified (07/15/23) Stiffness of right shoulder, not elsewhere classified (07/15/23) Stiffness of right knee, not elsewhere classified (07/15/23) Stiffness of left knee, not elsewhere classified (07/15/23) Other abnormalities of gait and mobility (07/15/23) Repeated falls (07/15/23) Contusion of right knee, sequela (07/15/23) Physical Therapy Treatment Note PT-OP-A Visit Information Start: 06/08/23 15:50 Freq: Status: Active Protocol: Document 07/15/23 14:34 SP (Rec: 07/15/23 16:40 SP [id number]) Out-Patient Physical Therapy Visit Information Visit Information Visit Type Treatment Note Visit Start Time 14:34 Visit Stop Time 15:34 Visit Number 9 Number of DOCUMENTATION ENGINEER Visits 1 Evaluation Information Evaluation Date 06/08/23 PT-OP-B Current Condition Start: 06/08/23 15:50 Freq: Status: Active Protocol: Document 06/08/23 12:00 DCW (Rec: 06/08/23 16:19 DCW [id number]) Current Condition History of Current Condition Onset Date May 03, 2023 Current Complaints R shoulder dislocation, rotator cuff tear, bilateral knee stiffness, gait History of Current Condition Pt is an 82 year old female presenting to skilled therapy five weeks s/p fall with resultant right shoulder dislocation and rotator cuff tear. Pt additionally has ongoing bilateral knee problems with impact her gait and range of motion, stemming from a distant history of bilateral TKA. Pt was previously in PT at this facility for her knees, and unfortunately had to be discharged following her fall/ dislocation which occurred at her home on 05/03/23. Pt has had an MRI, and has been referred to an ortho, however does not really want surgery, so she has put off her ortho visit. Pt admits to an additional fall last week, when she hurt her tailbone. Admits she is supposed to be using her cane, but has not been. 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 Admits she has not been very active since her fall in April, which has impacted her knee mobility and walking, which had been progressing well with prior skilled therapy. Has not been doing much with her right shoulder, very limited mobility. Still wants to focus most on knees and gait, very hesitant to do anything with her right shoulder. Pt is a fairly difficult historian. Prior Treatments and Tests Shoulder MRI: IMPRESSION: 1. Moderate to high-grade articular surface partial- thickness tear involving distal supraspinatus with up to 3.3 cm medial retraction of torn tendon fibers to the level of acromioclavicular joint. Possible full- thickness perforation involving distal infraspinatus at its insertion on the humeral head with up to 1.6 cm medial retraction of torn tendon fibers. Low-grade intrasubstance partial- thickness tear involving distal subscapularis. Mild supraspinatus muscle atrophy. 2. Suggestion of contusion versus nondisplaced fracture involving anterolateral aspect of humeral head extending to proximal humeral shaft. No other fracture or dislocation. [id number] acromioclavicular joint osteoarthritis. Moderate joint effusion and subacromial subdeltoid bursal fluid, no gross loose bodies. 3. Subtle superior anterior labral tear at 1 to 2 o'clock position and anterior-inferior labral tear at 5 to 6 o'clock position. 4 . Proximal long head of biceps tendinosis. per Radha Turpin on 05/25/2023 Treatment Goals Patient/Caregiver Goals Improve knee ROM and quality of gait. PT-OP-C Subjective Start: 06/08/23 15:50 Freq: Status: Active Protocol: Document 07/15/23 14:34 SP (Rec: 07/15/23 16:40 SP [id number]) OP-PT Subjective Patient Comments Patient Comments Pt reports still attending online fall prevention class, hasn't fallen since Xmax sukumar but still off balance. She arrives no AD and is focused on R arm swing improvement noted. She reports uses stick and pulleys for self assist in LUE supports KYE PAYAN but still not to far away from her body. C/o contact pain just brushing touch of R mid humerus into proximal forearm today, I can't light massage grasp like normally do. My R arm seems to be heavier and makes me lean off to right and then makes my left leg uncomfortable, pt painted front L thigh to knee. PT-OP-E Functional Tests Start: 06/08/23 16:19 Freq: Status: Active Protocol: Document 06/08/23 12:00 DCW (Rec: 06/08/23 16:20 DCW [id number]) Functional Tests Five Times Sit to Stand Test Score 16.71 Comments Treatment table at 19 PT-OP-G Mobility & Gait Start: 06/08/23 15:50 Freq: Status: Active Protocol: Document 06/08/23 12:00 DCW (Rec: 06/08/23 16:19 DCW [id number]) OP Gait Assessment Comments Gait Comments Pt ambulates with bilateral knee flexion, unable to get knees into full extension during swing or stance phase. Forward flexed at tunk. Currently not using any assistive device PT-OP-K Range of Motion Start: 06/08/23 15:50 Freq: Status: Active Protocol: Document 06/08/23 12:00 DCW (Rec: 06/08/23 16:19 DCW [id number]) Shoulder Goniometric Range of Motion Shoulder Right Passive Shoulder ROM WFL No Testing Position Sitting Flexion 21 Abduction 16 External Rotation at 0 degrees Abduction 0 Right Active Shoulder ROM WFL No Testing Position Sitting Flexion 0 Abduction 0 Internal Rotation Behind Back (text) R Iliac crest Comments ER limited to lacking 15? from neutral Knee Goniometric Range of Motion Knee Right Knee ROM WFL No Patient Position Sitting Flexion Active (degrees) 105 Extension Active (degrees) 12 Left Knee ROM WFL No Patient Position Sitting Flexion Active (degrees) 94 Extension Active (degrees) 10 PT-OP-M Strength Start: 06/08/23 15:50 Freq: Status: Active Protocol: Document 06/08/23 12:00 DCW (Rec: 06/08/23 16:19 DCW [id number]) Shoulder Strength Shoulder Manual Muscle Testing Right Flexion 1 Trace Abduction (C5) 1 Trace External Rotation 1 Trace Internal Rotation 1 Trace Knee Strength Knee Manual Muscle Testing Right Flexion (S2) 2+ Poor+ Extension (L3) 2+ Poor+ Left Flexion (S2) 2+ Poor+ Extension (L3) 2+ Poor+ PT-OP-Q Treatments Start: 06/08/23 15:50 Freq: Status: Active Protocol: Document 07/15/23 14:34 SP (Rec: 07/15/23 16:40 SP [id number]) Cardio Equipment Recumbent Elliptical ([email or web address]) Duration (Minutes) 7 Resistance 5 Seat Position 9 Other L UE only BLEs. Therapeutic Exercises Standing Exercises pendulum Standing Exercise Name fwd, lat, circles Side right Resistance PROM/AAROM small range Equipment Used standing Reps/Minutes 15 sec x3 reps Comments cued wt shift standing, pnfree UE walk outs Standing Exercise Name HEP reviewed upon arrival Side bilateral Resistance BUE on table Reps/Minutes 5 reps Comments cued pnfree range, approx 60 deg (gain 25deg) shld fl Manual Therapy Treatment Soft Tissue Mobilization R shld Body Location neck, ant R shld, bicep med/ lat, forearm, wrist Mobilization Type Manual Lymphatic Drainage Intensity/Depth Superficial Body Position Hooklying Comments prox to distal, distal>prox /c instructional ed self. Taping Ktaping R shld Body Location R humerus- 10% tension Treatment Focus edema mgt lymphatic Type of Tape Kinesio Tape Skin Inspection full feeling, skin normal color but little taught edemidus looking vs L Comments 1. anterolateral proximal humerus to lateral mid forearm 1>3 strands 2. proximal posterior humerus 1>3 strands distally to posterior mid forearm *Verbalized understanding can be worn until evening today if ok/no adverse affects ( redness, itching, tingling, discomfort light tension) to remove Ktaping immediately but can be worn up to 2 days longest. Ok to wear in shower, no scrubbing might fall off. Slow ease removing to not cause abrasions if sticking well. Manual Techniques PROM Type R UE: Flexion, Abduction, ER Body Position Hooklying Comments very small range (not measured ) tolerated today with c/o pain in mid> proximal shoulder . Light broad grasp support upper and forearm due to feedback per pt. Other Other Manual Treatments Circumferencial measurements in cm distal to proximal UEs: R wrist: 16cm; L 14.8cm R 5cm: 16.5cm; L 17cm R 10cm: 20.5 cm; L 21 cm R 15cm: 24.5 cm; L 23.5cm R 20cm: 25.5 cm; L 25cm Elbow R 25cm: 27.7cm; L 26.2 cm R 30cm: 30.1cm; L 28 cm R 35cm: 31.5cm; L 32.5 cm R 40cm: 30.8cm; L 31 cm Self-Care/Home Management Treatment Education Patient Education Pain Management,Safety Other Education education on self application light skin lymph sweeps same prox>distal then distal to proximal. Ed Ktaping safety, verbalized understanding wear time. PT-OP-T Assessment and Plan Start: 06/08/23 15:50 Freq: Status: Active Protocol: Document 07/15/23 14:34 SP (Rec: 07/15/23 16:40 SP [id number]) Physical Therapy Assessment Goals Three Impairment Gait significantly impacted by limited bilateral knee ROM Ball Thread Machine Tender Goal (LTG) Pt to improve bilateral knee extension to 5? from neutral in order to improve quality of gait during stance phase. LTG Duration 09/06/23 Two Impairment Right shoulder flexion/ abduction AROM limited to 0? Ball Thread Machine Tender Goal (LTG) Pt to improve right shoulder AROM to at least 90? in both flexion and abduction in order to improve ability for pt to return to driving. LTG Duration 09/06/23 One Impairment Pt does not have an appropriate home exercise program Short Term Goal (STG) Pt to be independent and compliant with an appropriate HEP 06/16/23: added supine PROM LUE assist RUE FF, SLR, UE walk out BUE on rail PROM FF, scap retraction. 06/18/22: pendulum. STG Duration 07/09/23 progressing 06/18/23 Assessment Summary Assessment DOCUMENTATION ENGINEER assist pt doff and don sweater (don RUE 1st/head then LUE, doff LUE/head/RUE). DOCUMENTATION ENGINEER noted thickening R UE skin/ soft tissue posterior tricep and proximal forearm areas vs L, hadn't noticed in past due to wears long sleeve sweaters in past appt with less c/o, noted normal coloring but skin little glossy posteriorly. Education of lymphedema, she reports not noticing of changes in size worsening since her fall in Apr, but hard time seeing herself. Discussed speaking with for further assessment. Pt gave feedback to pressure to very light contact sweeping lymphatic massage to skin at R lateral neck, A& P R shld, distal humerus and further down forearm to wrist then distal long strokes to proximal humerus. No significant notice at glance in swelling reduction changes. PROM R shld less range tolerated today <45 deg FF & ABD, midline/neutral ER front. Pt reported her R arm felt little better end tx when walking away, swinging little better when thinks about doing . Pt would benefit from continued skilled PT for R shld and skin checks/remeasure next tx, progress AAROM as able. Physical Therapy Plan Frequency and Duration Frequency of Treatment 2x/Week Plan of Care Start Date 06/08/23 Plan of Care End Date 09/06/23 Therapeutic Interventions Therapeutic Interventions Balance Training,Gait Training ,Home Exercise Program,Joint Mobilizations,Manual Therapy, Neuromuscular Re-education, Patient/Caregiver Education, Self-Care/Home Management,Soft Tissue Mobilization, Therapeutic Activities, Therapeutic Exercises Modalities Cold Pack/Ice Massage,Electric Stimulation,Hot Packs, Ultrasound Next Visit Focus/Plan Next Note Type Treatment Note Next Visit Plan Recheck response to ktaping, lymph massage, PROM RUE, gentle HEP tolerated pnfree ROM support dowel/kendra, pendulum. Future: add knee flexion seated/Heel slides POC: Pulleys, shoulder PROM, B knee joint mobs, LE strengthening, gait training
--- NOTE | 2023-07-17 17:35 | PT-OP ANOTE ---
Pt called reported Ktaping helped and saw reduction in swelling Wed into early this am but woke up at 430 am and had pain in her R top of shld and now can't raise up her R arm again as high weighting her down so using her R walk stick to balance herself with LLE, didn't know if it was the tape so removed it. She remembered did her zoom SAIL (Stay Active and Independent for Life) class after last tx but didn;t bother her. JEWELRY BENCH WORKER suggested doing shld isometrics flex, ext, abd, add light resistance at wall and use CP for pain control. Pt verbalized understanding and will try. Pt has appt with PT next Wed.
--- NOTE | 2023-07-22 16:44 | PT.OTN ---
Current Diagnoses Pathological dislocation of right shoulder, not elsewhere classified (07/22/23) Stiffness of right shoulder, not elsewhere classified (07/22/23) Stiffness of right knee, not elsewhere classified (07/22/23) Stiffness of left knee, not elsewhere classified (07/22/23) Other abnormalities of gait and mobility (07/22/23) Repeated falls (07/22/23) Contusion of right knee, sequela (07/22/23) Physical Therapy Treatment Note PT-OP-A Visit Information Start: 06/08/23 15:50 Freq: Status: Active Protocol: Document 07/22/23 16:00 DCW (Rec: 07/22/23 16:44 DCW [id number]) Out-Patient Physical Therapy Visit Information Visit Information Visit Type Progress Note Visit Start Time 16:00 Visit Stop Time 16:45 Visit Number 10 Number of TRAFFIC INCIDENT MANAGEMENT MANAGER Visits 0 Evaluation Information Evaluation Date 06/08/23 PT-OP-B Current Condition Start: 06/08/23 15:50 Freq: Status: Active Protocol: Document 06/08/23 12:00 DCW (Rec: 06/08/23 16:19 DCW [id number]) Current Condition History of Current Condition Onset Date May 03, 2023 Current Complaints R shoulder dislocation, rotator cuff tear, bilateral knee stiffness, gait History of Current Condition Pt is an 82 year old female presenting to skilled therapy five weeks s/p fall with resultant right shoulder dislocation and rotator cuff tear. Pt additionally has ongoing bilateral knee problems with impact her gait and range of motion, stemming from a distant history of bilateral TKA. Pt was previously in PT at this facility for her knees, and unfortunately had to be discharged following her fall/ dislocation which occurred at her home on 05/03/23. Pt has had an MRI, and has been referred to an ortho, however does not really want surgery, so she has put off her ortho visit. Pt admits to an additional fall last week, when she hurt her tailbone. Admits she is supposed to be using her cane, but has not been. 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 Admits she has not been very active since her fall in April, which has impacted her knee mobility and walking, which had been progressing well with prior skilled therapy. Has not been doing much with her right shoulder, very limited mobility. Still wants to focus most on knees and gait, very hesitant to do anything with her right shoulder. Pt is a fairly difficult historian. Prior Treatments and Tests Shoulder MRI: IMPRESSION: 1. Moderate to high-grade articular surface partial- thickness tear involving distal supraspinatus with up to 3.3 cm medial retraction of torn tendon fibers to the level of acromioclavicular joint. Possible full- thickness perforation involving distal infraspinatus at its insertion on the humeral head with up to 1.6 cm medial retraction of torn tendon fibers. Low-grade intrasubstance partial- thickness tear involving distal subscapularis. Mild supraspinatus muscle atrophy. 2. Suggestion of contusion versus nondisplaced fracture involving anterolateral aspect of humeral head extending to proximal humeral shaft. No other fracture or dislocation. [id number] acromioclavicular joint osteoarthritis. Moderate joint effusion and subacromial subdeltoid bursal fluid, no gross loose bodies. 3. Subtle superior anterior labral tear at 1 to 2 o'clock position and anterior-inferior labral tear at 5 to 6 o'clock position. 4 . Proximal long head of biceps tendinosis. per Radha Turpin on 05/25/2023 Treatment Goals Patient/Caregiver Goals Improve knee ROM and quality of gait. PT-OP-C Subjective Start: 06/08/23 15:50 Freq: Status: Active Protocol: Document 07/22/23 16:00 DCW (Rec: 07/22/23 16:44 DCW [id number]) OP-PT Subjective Patient Comments Patient Comments My arm's not doing much, my legs aren't working right, I can't walk like I used to, I'm turning into a frightened old lady. PT-OP-E Functional Tests Start: 06/08/23 16:19 Freq: Status: Active Protocol: Document 06/08/23 12:00 DCW (Rec: 06/08/23 16:20 DCW [id number]) Functional Tests Five Times Sit to Stand Test Score 16.71 Comments Treatment table at 19 PT-OP-G Mobility & Gait Start: 06/08/23 15:50 Freq: Status: Active Protocol: Document 06/08/23 12:00 DCW (Rec: 06/08/23 16:19 DCW [id number]) OP Gait Assessment Comments Gait Comments Pt ambulates with bilateral knee flexion, unable to get knees into full extension during swing or stance phase. Forward flexed at tunk. Currently not using any assistive device PT-OP-K Range of Motion Start: 06/08/23 15:50 Freq: Status: Active Protocol: Document 06/08/23 12:00 DCW (Rec: 06/08/23 16:19 DCW [id number]) Shoulder Goniometric Range of Motion Shoulder Right Passive Shoulder ROM WFL No Testing Position Sitting Flexion 21 Abduction 16 External Rotation at 0 degrees Abduction 0 Right Active Shoulder ROM WFL No Testing Position Sitting Flexion 0 Abduction 0 Internal Rotation Behind Back (text) R Iliac crest Comments ER limited to lacking 15? from neutral Knee Goniometric Range of Motion Knee Right Knee ROM WFL No Patient Position Sitting Flexion Active (degrees) 105 Extension Active (degrees) 12 Left Knee ROM WFL No Patient Position Sitting Flexion Active (degrees) 94 Extension Active (degrees) 10 PT-OP-M Strength Start: 06/08/23 15:50 Freq: Status: Active Protocol: Document 06/08/23 12:00 DCW (Rec: 06/08/23 16:19 DCW [id number]) Shoulder Strength Shoulder Manual Muscle Testing Right Flexion 1 Trace Abduction (C5) 1 Trace External Rotation 1 Trace Internal Rotation 1 Trace Knee Strength Knee Manual Muscle Testing Right Flexion (S2) 2+ Poor+ Extension (L3) 2+ Poor+ Left Flexion (S2) 2+ Poor+ Extension (L3) 2+ Poor+ PT-OP-Q Treatments Start: 06/08/23 15:50 Freq: Status: Active Protocol: Document 07/22/23 16:00 DCW (Rec: 07/22/23 16:44 DCW [id number]) Cardio Equipment Recumbent Elliptical (Etalia) Duration (Minutes) 6 Resistance 5 Seat Position 9 Other L UE only BLEs. Therapeutic Exercises Supine Exercises Hamstring Stretch Supine Exercise Name HS stretch /c strap Side bilateral Sitting Exercises kendra Sitting Exercise Name Gentle PROM flexion Resistance LUE assist RUE Standing Exercises TKE Standing Exercise Name TKE Side bilateral Resistance Lv 2 Biceps Curl Standing Exercise Name Biceps curl Side right Wall Slides Standing Exercise Name UE wall slides into flexion Side right Manual Therapy Treatment Joint Mobilizations B knees Joint B knee Direction A<->P Grade III Manual Techniques PROM Type R UE: Flexion, Abduction, ER Body Position Hooklying Comments manual with gentle osscilation to decrease guarding PT-OP-T Assessment and Plan Start: 06/08/23 15:50 Freq: Status: Active Protocol: Document 07/22/23 16:00 DCW (Rec: 07/22/23 16:44 DCW [id number]) Physical Therapy Assessment Goals Three Impairment Gait significantly impacted by limited bilateral knee ROM Circular Saw Filer Goal (LTG) Pt to improve bilateral knee extension to 5? from neutral in order to improve quality of gait during stance phase. LTG Duration 09/06/23 Two Impairment Right shoulder flexion/ abduction AROM limited to 0? Detention Goal (LTG) Pt to improve right shoulder AROM to at least 90? in both flexion and abduction in order to improve ability for pt to return to driving. LTG Duration 09/06/23 One Impairment Pt does not have an appropriate home exercise program Short Term Goal (STG) Pt to be independent and compliant with an appropriate HEP 06/16/23: added supine PROM LUE assist RUE FF, SLR, UE walk out BUE on rail PROM FF, scap retraction. 06/18/22: pendulum. STG Duration 07/09/23 progressing 06/18/23 Assessment Summary Assessment Pt making very limited progress with shoulder ROM and strength so far secondary to significant internal derrangement. Knees and gait improving mildly, still unable to perform full knee extension, limits ambulation. Physical Therapy Plan Frequency and Duration Frequency of Treatment 2x/Week Plan of Care Start Date 06/08/23 Plan of Care End Date 09/06/23 Therapeutic Interventions Therapeutic Interventions Balance Training,Gait Training ,Home Exercise Program,Joint Mobilizations,Manual Therapy, Neuromuscular Re-education, Patient/Caregiver Education, Self-Care/Home Management,Soft Tissue Mobilization, Therapeutic Activities, Therapeutic Exercises Modalities Cold Pack/Ice Massage,Electric Stimulation,Hot Packs, Ultrasound Next Visit Focus/Plan Next Note Type Treatment Note Next Visit Plan Recheck response to ktaping, lymph massage, PROM RUE, gentle HEP tolerated pnfree ROM support dowel/kendra, pendulum. Future: add knee flexion seated/Heel slides POC: Pulleys, shoulder PROM, B knee joint mobs, LE strengthening, gait training
--- NOTE | 2023-07-29 14:32 | PT.OTN ---
Current Diagnoses Pathological dislocation of right shoulder, not elsewhere classified (07/29/23) Stiffness of right shoulder, not elsewhere classified (07/29/23) Stiffness of right knee, not elsewhere classified (07/29/23) Stiffness of left knee, not elsewhere classified (07/29/23) Other abnormalities of gait and mobility (07/29/23) Repeated falls (07/29/23) Contusion of right knee, sequela (07/29/23) Physical Therapy Treatment Note PT-OP-A Visit Information Start: 06/08/23 15:50 Freq: Status: Active Protocol: Document 07/29/23 13:46 SP (Rec: 07/29/23 14:36 SP [id number]) Out-Patient Physical Therapy Visit Information Visit Information Visit Type Treatment Note Visit Start Time 13:48 Visit Stop Time 14:32 Visit Number 11 Number of DEVULCANIZER LOADER Visits 1 Evaluation Information Evaluation Date 06/08/23 PT-OP-B Current Condition Start: 06/08/23 15:50 Freq: Status: Active Protocol: Document 06/08/23 12:00 DCW (Rec: 06/08/23 16:19 DCW [id number]) Current Condition History of Current Condition Onset Date May 03, 2023 Current Complaints R shoulder dislocation, rotator cuff tear, bilateral knee stiffness, gait History of Current Condition Pt is an 82 year old female presenting to skilled therapy five weeks s/p fall with resultant right shoulder dislocation and rotator cuff tear. Pt additionally has ongoing bilateral knee problems with impact her gait and range of motion, stemming from a distant history of bilateral TKA. Pt was previously in PT at this facility for her knees, and unfortunately had to be discharged following her fall/ dislocation which occurred at her home on 05/03/23. Pt has had an MRI, and has been referred to an ortho, however does not really want surgery, so she has put off her ortho visit. Pt admits to an additional fall last week, when she hurt her tailbone. Admits she is supposed to be using her cane, but has not been. 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 Admits she has not been very active since her fall in April, which has impacted her knee mobility and walking, which had been progressing well with prior skilled therapy. Has not been doing much with her right shoulder, very limited mobility. Still wants to focus most on knees and gait, very hesitant to do anything with her right shoulder. Pt is a fairly difficult historian. Prior Treatments and Tests Shoulder MRI: IMPRESSION: 1. Moderate to high-grade articular surface partial- thickness tear involving distal supraspinatus with up to 3.3 cm medial retraction of torn tendon fibers to the level of acromioclavicular joint. Possible full- thickness perforation involving distal infraspinatus at its insertion on the humeral head with up to 1.6 cm medial retraction of torn tendon fibers. Low-grade intrasubstance partial- thickness tear involving distal subscapularis. Mild supraspinatus muscle atrophy. 2. Suggestion of contusion versus nondisplaced fracture involving anterolateral aspect of humeral head extending to proximal humeral shaft. No other fracture or dislocation. [id number] acromioclavicular joint osteoarthritis. Moderate joint effusion and subacromial subdeltoid bursal fluid, no gross loose bodies. 3. Subtle superior anterior labral tear at 1 to 2 o'clock position and anterior-inferior labral tear at 5 to 6 o'clock position. 4 . Proximal long head of biceps tendinosis. per Radha Turpin on 05/25/2023 Treatment Goals Patient/Caregiver Goals Improve knee ROM and quality of gait. PT-OP-C Subjective Start: 06/08/23 15:50 Freq: Status: Active Protocol: Document 07/29/23 13:46 SP (Rec: 07/29/23 14:36 SP [id number]) OP-PT Subjective Patient Comments Patient Comments Pt reports the edema ktaping helped reduction swelling up and physician supported with medication and finding improvement. She has ortho appt 08/05. She reports not using walking stick and little more strain on L thigh to allow advance RLE. She brought in her MRI report to ask if can help explain better what is wrong with her R shld and why maybe isn't lifting up like wants. She states doesnt want surgery and hoping PT can help get range/strength back. She reports her is driving her because she doesn' t have range and strength to perform gear shift Drive and Reverse with RUE in middle console, Wants to try practice RUE activities that can help improve her range to do a gear shift activity due to not sure how long will be able to drive with his medical hx. PT-OP-E Functional Tests Start: 06/08/23 16:19 Freq: Status: Active Protocol: Document 06/08/23 12:00 DCW (Rec: 06/08/23 16:20 DCW [id number]) Functional Tests Five Times Sit to Stand Test Score 16.71 Comments Treatment table at 19 PT-OP-G Mobility & Gait Start: 06/08/23 15:50 Freq: Status: Active Protocol: Document 06/08/23 12:00 DCW (Rec: 06/08/23 16:19 DCW [id number]) OP Gait Assessment Comments Gait Comments Pt ambulates with bilateral knee flexion, unable to get knees into full extension during swing or stance phase. Forward flexed at tunk. Currently not using any assistive device PT-OP-K Range of Motion Start: 06/08/23 15:50 Freq: Status: Active Protocol: Document 06/08/23 12:00 DCW (Rec: 06/08/23 16:19 DCW [id number]) Shoulder Goniometric Range of Motion Shoulder Right Passive Shoulder ROM WFL No Testing Position Sitting Flexion 21 Abduction 16 External Rotation at 0 degrees Abduction 0 Right Active Shoulder ROM WFL No Testing Position Sitting Flexion 0 Abduction 0 Internal Rotation Behind Back (text) R Iliac crest Comments ER limited to lacking 15? from neutral Knee Goniometric Range of Motion Knee Right Knee ROM WFL No Patient Position Sitting Flexion Active (degrees) 105 Extension Active (degrees) 12 Left Knee ROM WFL No Patient Position Sitting Flexion Active (degrees) 94 Extension Active (degrees) 10 PT-OP-M Strength Start: 06/08/23 15:50 Freq: Status: Active Protocol: Document 06/08/23 12:00 DCW (Rec: 06/08/23 16:19 DCW [id number]) Shoulder Strength Shoulder Manual Muscle Testing Right Flexion 1 Trace Abduction (C5) 1 Trace External Rotation 1 Trace Internal Rotation 1 Trace Knee Strength Knee Manual Muscle Testing Right Flexion (S2) 2+ Poor+ Extension (L3) 2+ Poor+ Left Flexion (S2) 2+ Poor+ Extension (L3) 2+ Poor+ PT-OP-Q Treatments Start: 06/08/23 15:50 Freq: Status: Active Protocol: Document 07/29/23 13:46 SP (Rec: 03/20/24 14:36 SP [id number]) Therapeutic Exercises Sitting Exercises rows Sitting Exercise Name added for strength gear shifting goal to return drive Side right Resistance TB #1 anchored at elbow height Reps/Minutes 5 reps Comments cued elbow flexion pulling back Table Slides Sitting Exercise Name Table slides fwd,bwd assimulate gear shifting drive / reverse Side right Resistance AROM rolling ball on stool to R Equipment Used seated BIG chair STS Sitting Exercise Name reviewed self HEP performs in class Equipment Used 17 BIG chair Reps/Minutes x5 reps through session Comments no UE support, cued ft back as far as can, hip hinge/wt shift fwd. Standing Exercises R shld Standing Exercise Name add/eccentric ABD, ext/ eccentric FF, tricep ext Side left Resistance Tb #1 over door Reps/Minutes 5x2 each Comments cued slow eccentric AAROM to allow increase ROM, minimal pain feels better Self-Care/Home Management Treatment Education Patient Education Body Mechanics,Pain Management ,Safety Other Education 8 Min review anatomy and MRI results understand lack of RUE ROM limiting her ability to drive. PT-OP-T Assessment and Plan Start: 06/08/23 15:50 Freq: Status: Active Protocol: Document 07/29/23 13:46 SP (Rec: 07/29/23 14:36 SP [id number]) Physical Therapy Assessment Goals Three Impairment Gait significantly impacted by limited bilateral knee ROM Keying Machine Operator Goal (LTG) Pt to improve bilateral knee extension to 5? from neutral in order to improve quality of gait during stance phase. LTG Duration 09/06/23 Two Impairment Right shoulder flexion/ abduction AROM limited to 0? Keying Machine Operator Goal (LTG) Pt to improve right shoulder AROM to at least 90? in both flexion and abduction in order to improve ability for pt to return to driving. LTG Duration 09/06/23 One Impairment Pt does not have an appropriate home exercise program Short Term Goal (STG) Pt to be independent and compliant with an appropriate HEP 06/16/23: added supine PROM LUE assist RUE FF, SLR, UE walk out BUE on rail PROM FF, scap retraction. 06/18/22: pendulum. STG Duration 07/09/23 progressing 06/18/23 Assessment Summary Assessment Tx focused on MRI results during LE ther ex. Ther ex focused on AROM/AAROM using theraband seated and standing for eccentric progression in ABD, tricep, FF that has a hard time performing herself. Reports little sore and tiring but able to perform to support progression, declined HOs for home. Physical Therapy Plan Frequency and Duration Frequency of Treatment 2x/Week Plan of Care Start Date 06/08/23 Plan of Care End Date 09/06/23 Therapeutic Interventions Therapeutic Interventions Balance Training,Gait Training ,Home Exercise Program,Joint Mobilizations,Manual Therapy, Neuromuscular Re-education, Patient/Caregiver Education, Self-Care/Home Management,Soft Tissue Mobilization, Therapeutic Activities, Therapeutic Exercises Modalities Cold Pack/Ice Massage,Electric Stimulation,Hot Packs, Ultrasound Next Visit Focus/Plan Next Note Type Treatment Note Next Visit Plan Ask response to resisted ROM close chain and eccentric AAROM. Continue: PROM RUE, gentle HEP tolerated pnfree ROM support dowel/kendra, pendulum. Future: add knee flexion seated/Heel slides POC: Pulleys, shoulder PROM, B knee joint mobs, LE strengthening, gait training
--- NOTE | 2023-07-31 14:34 | PT.OTN ---
Current Diagnoses Pathological dislocation of right shoulder, not elsewhere classified (07/31/23) Stiffness of right shoulder, not elsewhere classified (07/31/23) Stiffness of right knee, not elsewhere classified (07/31/23) Stiffness of left knee, not elsewhere classified (07/31/23) Other abnormalities of gait and mobility (07/31/23) Repeated falls (07/31/23) Contusion of right knee, sequela (07/31/23) Physical Therapy Treatment Note PT-OP-A Visit Information Start: 06/08/23 15:50 Freq: Status: Active Protocol: Document 07/31/23 13:46 SP (Rec: 07/31/23 14:35 SP [id number]) Out-Patient Physical Therapy Visit Information Visit Information Visit Type Treatment Note Visit Start Time 13:46 Visit Stop Time 14:34 Visit Number 12 Number of SOFTWARE ENGINEER SALES Visits 2 Evaluation Information Evaluation Date 06/08/23 PT-OP-B Current Condition Start: 06/08/23 15:50 Freq: Status: Active Protocol: Document 06/08/23 12:00 DCW (Rec: 06/08/23 16:19 DCW [id number]) Current Condition History of Current Condition Onset Date May 03, 2023 Current Complaints R shoulder dislocation, rotator cuff tear, bilateral knee stiffness, gait History of Current Condition Pt is an 82 year old female presenting to skilled therapy five weeks s/p fall with resultant right shoulder dislocation and rotator cuff tear. Pt additionally has ongoing bilateral knee problems with impact her gait and range of motion, stemming from a distant history of bilateral TKA. Pt was previously in PT at this facility for her knees, and unfortunately had to be discharged following her fall/ dislocation which occurred at her home on 05/03/23. Pt has had an MRI, and has been referred to an ortho, however does not really want surgery, so she has put off her ortho visit. Pt admits to an additional fall last week, when she hurt her tailbone. Admits she is supposed to be using her cane, but has not been. 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 Admits she has not been very active since her fall in April, which has impacted her knee mobility and walking, which had been progressing well with prior skilled therapy. Has not been doing much with her right shoulder, very limited mobility. Still wants to focus most on knees and gait, very hesitant to do anything with her right shoulder. Pt is a fairly difficult historian. Prior Treatments and Tests Shoulder MRI: IMPRESSION: 1. Moderate to high-grade articular surface partial- thickness tear involving distal supraspinatus with up to 3.3 cm medial retraction of torn tendon fibers to the level of acromioclavicular joint. Possible full- thickness perforation involving distal infraspinatus at its insertion on the humeral head with up to 1.6 cm medial retraction of torn tendon fibers. Low-grade intrasubstance partial- thickness tear involving distal subscapularis. Mild supraspinatus muscle atrophy. 2. Suggestion of contusion versus nondisplaced fracture involving anterolateral aspect of humeral head extending to proximal humeral shaft. No other fracture or dislocation. [id number] acromioclavicular joint osteoarthritis. Moderate joint effusion and subacromial subdeltoid bursal fluid, no gross loose bodies. 3. Subtle superior anterior labral tear at 1 to 2 o'clock position and anterior-inferior labral tear at 5 to 6 o'clock position. 4 . Proximal long head of biceps tendinosis. per Radha Turpin on 05/25/2023 Treatment Goals Patient/Caregiver Goals Improve knee ROM and quality of gait. PT-OP-C Subjective Start: 06/08/23 15:50 Freq: Status: Active Protocol: Document 07/31/23 13:46 SP (Rec: 07/31/23 14:35 SP [id number]) OP-PT Subjective Patient Comments Patient Comments Pt had ortho appt on 08/05 but has another PT appt before then. PT-OP-E Functional Tests Start: 06/08/23 16:19 Freq: Status: Active Protocol: Document 06/08/23 12:00 DCW (Rec: 06/08/23 16:20 DCW [id number]) Functional Tests Five Times Sit to Stand Test Score 16.71 Comments Treatment table at 19 PT-OP-G Mobility & Gait Start: 06/08/23 15:50 Freq: Status: Active Protocol: Document 06/08/23 12:00 DCW (Rec: 06/08/23 16:19 DCW [id number]) OP Gait Assessment Comments Gait Comments Pt ambulates with bilateral knee flexion, unable to get knees into full extension during swing or stance phase. Forward flexed at tunk. Currently not using any assistive device PT-OP-K Range of Motion Start: 06/08/23 15:50 Freq: Status: Active Protocol: Document 06/08/23 12:00 DCW (Rec: 06/08/23 16:19 DCW [id number]) Shoulder Goniometric Range of Motion Shoulder Right Passive Shoulder ROM WFL No Testing Position Sitting Flexion 21 Abduction 16 External Rotation at 0 degrees Abduction 0 Right Active Shoulder ROM WFL No Testing Position Sitting Flexion 0 Abduction 0 Internal Rotation Behind Back (text) R Iliac crest Comments ER limited to lacking 15? from neutral Knee Goniometric Range of Motion Knee Right Knee ROM WFL No Patient Position Sitting Flexion Active (degrees) 105 Extension Active (degrees) 12 Left Knee ROM WFL No Patient Position Sitting Flexion Active (degrees) 94 Extension Active (degrees) 10 PT-OP-M Strength Start: 06/08/23 15:50 Freq: Status: Active Protocol: Document 06/08/23 12:00 DCW (Rec: 06/08/23 16:19 DCW [id number]) Shoulder Strength Shoulder Manual Muscle Testing Right Flexion 1 Trace Abduction (C5) 1 Trace External Rotation 1 Trace Internal Rotation 1 Trace Knee Strength Knee Manual Muscle Testing Right Flexion (S2) 2+ Poor+ Extension (L3) 2+ Poor+ Left Flexion (S2) 2+ Poor+ Extension (L3) 2+ Poor+ PT-OP-Q Treatments Start: 06/08/23 15:50 Freq: Status: Active Protocol: Document 07/31/23 13:46 SP (Rec: 07/31/23 14:35 SP [id number]) Cardio Equipment Recumbent Elliptical ([employer]) Duration (Minutes) 6 Resistance 0 BUEs (AAROM LUE) 5 min, 5>6 BLEs Seat Position 9 Therapeutic Exercises Sitting Exercises LAQ, marching Sitting Exercise Name trialed in PT: seated in chair Side bilateral Resistance 5# leg wt Equipment Used 1. LAQ 2. march step taps onto 4 step Reps/Minutes 2x10 reps each Comments good tiring effort rows Sitting Exercise Name reviewed for strength gear shifting goal to return drive Side right Resistance TB #1 latex light blue> #4 non latex dark blue- anchored at elbow height Equipment Used seated in chair Reps/Minutes 5 reps x2 Comments cued elbow flexion pulling back, various angles Table Slides Sitting Exercise Name Table slides fwd,bwd assimulate gear shifting drive / reverse Side right Resistance AROM flexion or pushing/RROM ext or pulling Equipment Used seated chair, push ease stool <>pull resisted rolling stool Reps/Minutes 1 min Comments good tiring effort/sore anterior R bicep and ant shld STS Sitting Exercise Name reviewed self HEP performs in class Equipment Used 17 BIG chair Reps/Minutes x5 reps through session Comments no UE support, cued ft back as far as can, hip hinge/wt shift fwd. Standing Exercises R shld Standing Exercise Name add/eccentric ABD, ext/ eccentric FF, tricep ext Side left Resistance Tb #1> 3> #4 dark blue latexfree over door Equipment Used seated 07/30 Reps/Minutes 10 each Comments cued slow eccentric AAROM to allow increase ROM, minimal pain feels better Manual Therapy Treatment Soft Tissue Mobilization L quad Body Location ITB, lateral distal HS and gastroc Body Position Supine Comments manual use rolling pin. that feels so good, I cant do myself at home without use of my R arm right now. Joint Mobilizations R shld Joint GH & scapulothoracic, AC- PA, SC- caudal /c FF Direction sup/inf/AP Grade II Body Position seated B knees Joint B knee: tib fib prox, tib femoral, Direction A<->P Grade III PT-OP-R Modalities Start: 07/31/23 15:39 Freq: Status: Active Protocol: Document 07/31/23 13:46 SP (Rec: 07/31/23 15:40 SP [id number]) Hot Pack/Cold Pack Treatment CP Location R shld Patient Position Sitting Patient Tolerance Good Comments not as sore after CP. PT-OP-T Assessment and Plan Start: 06/08/23 15:50 Freq: Status: Active Protocol: Document 07/31/23 13:46 SP (Rec: 07/31/23 14:35 SP [id number]) Physical Therapy Assessment Goals Three Impairment Gait significantly impacted by limited bilateral knee ROM Clinical Trial Leader Goal (LTG) Pt to improve bilateral knee extension to 5? from neutral in order to improve quality of gait during stance phase. LTG Duration 09/06/23 Two Impairment Right shoulder flexion/ abduction AROM limited to 0? Clinical Trial Leader Goal (LTG) Pt to improve right shoulder AROM to at least 90? in both flexion and abduction in order to improve ability for pt to return to driving. LTG Duration 09/06/23 One Impairment Pt does not have an appropriate home exercise program Short Term Goal (STG) Pt to be independent and compliant with an appropriate HEP 06/16/23: added supine PROM LUE assist RUE FF, SLR, UE walk out BUE on rail PROM FF, scap retraction. 06/18/22: pendulum. STG Duration 07/09/23 progressing 06/18/23 Assessment Summary Assessment Pt reported pleased able to pull back and down with heavier band and better assist higher seated in chair while anchored over door. Assimulation gear shift push/ pulling rolling stool for carryover support strength return to driving her personal goal. Pt was sensitive initially over mid>proximal humerus bicep/ distal pec but more tolerant broad pressure and ed to pt on self application. Welcomed to CP end tx for sore recovery. Pt more midling balance gait and R arm swing little more end tx vs previous txs. SOFTWARE ENGINEER SALES discussed continue use kendra for [place] motion support. Physical Therapy Plan Frequency and Duration Frequency of Treatment 2x/Week Plan of Care Start Date 06/08/23 Plan of Care End Date 09/06/23 Therapeutic Interventions Therapeutic Interventions Balance Training,Gait Training ,Home Exercise Program,Joint Mobilizations,Manual Therapy, Neuromuscular Re-education, Patient/Caregiver Education, Self-Care/Home Management,Soft Tissue Mobilization, Therapeutic Activities, Therapeutic Exercises Modalities Cold Pack/Ice Massage,Electric Stimulation,Hot Packs, Ultrasound Next Visit Focus/Plan Next Note Type Treatment Note Next Visit Plan Ask response to resisted ROM close chain and eccentric AAROM. Ortho appt 08/05. Continue: PROM RUE, gentle HEP tolerated pnfree ROM support dowel/kendra, pendulum. Future: add knee flexion seated/Heel slides POC: Pulleys, shoulder PROM, B knee joint mobs, LE strengthening, gait training
--- NOTE | 2023-08-04 16:46 | PT.OTN ---
Current Diagnoses Pathological dislocation of right shoulder, not elsewhere classified (08/04/23) Stiffness of right shoulder, not elsewhere classified (08/04/23) Stiffness of right knee, not elsewhere classified (08/04/23) Stiffness of left knee, not elsewhere classified (08/04/23) Other abnormalities of gait and mobility (08/04/23) Repeated falls (08/04/23) Contusion of right knee, sequela (08/04/23) Physical Therapy Treatment Note PT-OP-A Visit Information Start: 06/08/23 15:50 Freq: Status: Active Protocol: Document 08/04/23 16:00 DCW (Rec: 08/04/23 16:46 DCW [id number]) Out-Patient Physical Therapy Visit Information Visit Information Visit Type Treatment Note Visit Start Time 16:00 Visit Stop Time 16:45 Visit Number 13 Number of MEDICAL AFFAIRS SPECIALIST Visits 0 Evaluation Information Evaluation Date 06/08/23 PT-OP-B Current Condition Start: 06/08/23 15:50 Freq: Status: Active Protocol: Document 06/08/23 12:00 DCW (Rec: 06/08/23 16:19 DCW [id number]) Current Condition History of Current Condition Onset Date May 03, 2023 Current Complaints R shoulder dislocation, rotator cuff tear, bilateral knee stiffness, gait History of Current Condition Pt is an 82 year old female presenting to skilled therapy five weeks s/p fall with resultant right shoulder dislocation and rotator cuff tear. Pt additionally has ongoing bilateral knee problems with impact her gait and range of motion, stemming from a distant history of bilateral TKA. Pt was previously in PT at this facility for her knees, and unfortunately had to be discharged following her fall/ dislocation which occurred at her home on 05/03/23. Pt has had an MRI, and has been referred to an ortho, however does not really want surgery, so she has put off her ortho visit. Pt admits to an additional fall last week, when she hurt her tailbone. Admits she is supposed to be using her cane, but has not been. 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 Admits she has not been very active since her fall in April, which has impacted her knee mobility and walking, which had been progressing well with prior skilled therapy. Has not been doing much with her right shoulder, very limited mobility. Still wants to focus most on knees and gait, very hesitant to do anything with her right shoulder. Pt is a fairly difficult historian. Prior Treatments and Tests Shoulder MRI: IMPRESSION: 1. Moderate to high-grade articular surface partial- thickness tear involving distal supraspinatus with up to 3.3 cm medial retraction of torn tendon fibers to the level of acromioclavicular joint. Possible full- thickness perforation involving distal infraspinatus at its insertion on the humeral head with up to 1.6 cm medial retraction of torn tendon fibers. Low-grade intrasubstance partial- thickness tear involving distal subscapularis. Mild supraspinatus muscle atrophy. 2. Suggestion of contusion versus nondisplaced fracture involving anterolateral aspect of humeral head extending to proximal humeral shaft. No other fracture or dislocation. [id number] acromioclavicular joint osteoarthritis. Moderate joint effusion and subacromial subdeltoid bursal fluid, no gross loose bodies. 3. Subtle superior anterior labral tear at 1 to 2 o'clock position and anterior-inferior labral tear at 5 to 6 o'clock position. 4 . Proximal long head of biceps tendinosis. per Radha Turpin on 05/25/2023 Treatment Goals Patient/Caregiver Goals Improve knee ROM and quality of gait. PT-OP-C Subjective Start: 06/08/23 15:50 Freq: Status: Active Protocol: Document 08/04/23 16:00 DCW (Rec: 08/04/23 16:46 DCW [id number]) OP-PT Subjective Patient Comments Patient Comments Has appointment with ortho later this week, admits she is discouraged with her limited shoulder improvement. PT-OP-E Functional Tests Start: 06/08/23 16:19 Freq: Status: Active Protocol: Document 06/08/23 12:00 DCW (Rec: 06/08/23 16:20 DCW [id number]) Functional Tests Five Times Sit to Stand Test Score 16.71 Comments Treatment table at 19 PT-OP-G Mobility & Gait Start: 06/08/23 15:50 Freq: Status: Active Protocol: Document 06/08/23 12:00 DCW (Rec: 06/08/23 16:19 DCW [id number]) OP Gait Assessment Comments Gait Comments Pt ambulates with bilateral knee flexion, unable to get knees into full extension during swing or stance phase. Forward flexed at tunk. Currently not using any assistive device PT-OP-K Range of Motion Start: 06/08/23 15:50 Freq: Status: Active Protocol: Document 06/08/23 12:00 DCW (Rec: 06/08/23 16:19 DCW [id number]) Shoulder Goniometric Range of Motion Shoulder Right Passive Shoulder ROM WFL No Testing Position Sitting Flexion 21 Abduction 16 External Rotation at 0 degrees Abduction 0 Right Active Shoulder ROM WFL No Testing Position Sitting Flexion 0 Abduction 0 Internal Rotation Behind Back (text) R Iliac crest Comments ER limited to lacking 15? from neutral Knee Goniometric Range of Motion Knee Right Knee ROM WFL No Patient Position Sitting Flexion Active (degrees) 105 Extension Active (degrees) 12 Left Knee ROM WFL No Patient Position Sitting Flexion Active (degrees) 94 Extension Active (degrees) 10 PT-OP-M Strength Start: 06/08/23 15:50 Freq: Status: Active Protocol: Document 06/08/23 12:00 DCW (Rec: 06/08/23 16:19 DCW [id number]) Shoulder Strength Shoulder Manual Muscle Testing Right Flexion 1 Trace Abduction (C5) 1 Trace External Rotation 1 Trace Internal Rotation 1 Trace Knee Strength Knee Manual Muscle Testing Right Flexion (S2) 2+ Poor+ Extension (L3) 2+ Poor+ Left Flexion (S2) 2+ Poor+ Extension (L3) 2+ Poor+ PT-OP-Q Treatments Start: 06/08/23 15:50 Freq: Status: Active Protocol: Document 08/04/23 16:00 DCW (Rec: 08/04/23 16:46 DCW [id number]) Cardio Equipment Recumbent Elliptical ([employer]) Duration (Minutes) 6 Resistance 0 BUEs (AAROM LUE) 5 min, 7 BLEs Seat Position 9 Gym Equipment Shuttle Recovery Unilateral Squats Resistance 50# (One new) Reps/Time x20 Bilateral Squats Resistance 75# (Two new) Shuttle Recovery Platform Stable Reps/Time x20 Therapeutic Exercises Sitting Exercises kendra Sitting Exercise Name Gentle PROM flexion Resistance LUE assist RUE Standing Exercises R shld Standing Exercise Name add/eccentric ABD, ext/ eccentric FF, tricep ext Side left Resistance Tb #1> 3> #4 dark blue latexfree over door Equipment Used seated 07/30 Reps/Minutes 10 each Comments cued slow eccentric AAROM to allow increase ROM, minimal pain feels better Manual Therapy Treatment Joint Mobilizations B knees Joint B knee: tib fib prox, tib femoral, Direction A<->P Grade III PT-OP-R Modalities Start: 07/31/23 15:39 Freq: Status: Active Protocol: Document 07/31/23 13:46 SP (Rec: 07/31/23 15:40 SP [id number]) Hot Pack/Cold Pack Treatment CP Location R shld Patient Position Sitting Patient Tolerance Good Comments not as sore after CP. PT-OP-T Assessment and Plan Start: 06/08/23 15:50 Freq: Status: Active Protocol: Document 08/04/23 16:00 DCW (Rec: 08/04/23 16:46 DCW [id number]) Physical Therapy Assessment Goals Three Impairment Gait significantly impacted by limited bilateral knee ROM Quality Controller Goal (LTG) Pt to improve bilateral knee extension to 5? from neutral in order to improve quality of gait during stance phase. LTG Duration 09/06/23 Two Impairment Right shoulder flexion/ abduction AROM limited to 0? Longterm Goal (LTG) Pt to improve right shoulder AROM to at least 90? in both flexion and abduction in order to improve ability for pt to return to driving. LTG Duration 09/06/23 One Impairment Pt does not have an appropriate home exercise program Short Term Goal (STG) Pt to be independent and compliant with an appropriate HEP 06/16/23: added supine PROM LUE assist RUE FF, SLR, UE walk out BUE on rail PROM FF, scap retraction. 06/18/22: pendulum. STG Duration 07/09/23 progressing 06/18/23 Assessment Summary Assessment Pt very concerned regarding her Ortho appointment . Tolerated treatment fairly well today, continues to have increased knee discomfort and limited extension, but did feel better following manual joint mobs today. Physical Therapy Plan Frequency and Duration Frequency of Treatment 2x/Week Plan of Care Start Date 06/08/23 Plan of Care End Date 09/06/23 Therapeutic Interventions Therapeutic Interventions Balance Training,Gait Training ,Home Exercise Program,Joint Mobilizations,Manual Therapy, Neuromuscular Re-education, Patient/Caregiver Education, Self-Care/Home Management,Soft Tissue Mobilization, Therapeutic Activities, Therapeutic Exercises Modalities Cold Pack/Ice Massage,Electric Stimulation,Hot Packs, Ultrasound Next Visit Focus/Plan Next Note Type Treatment Note Next Visit Plan Ask response to resisted ROM close chain and eccentric AAROM. Ortho appt 08/05. Continue: PROM RUE, gentle HEP tolerated pnfree ROM support dowel/kendra, pendulum. Future: add knee flexion seated/Heel slides POC: Pulleys, shoulder PROM, B knee joint mobs, LE strengthening, gait training
--- NOTE | 2023-08-07 16:44 | PT.OTN ---
Current Diagnoses Pathological dislocation of right shoulder, not elsewhere classified (08/07/23) Stiffness of right shoulder, not elsewhere classified (08/07/23) Stiffness of right knee, not elsewhere classified (08/07/23) Stiffness of left knee, not elsewhere classified (08/07/23) Other abnormalities of gait and mobility (08/07/23) Repeated falls (08/07/23) Contusion of right knee, sequela (08/07/23) Physical Therapy Treatment Note PT-OP-A Visit Information Start: 06/08/23 15:50 Freq: Status: Active Protocol: Document 08/07/23 16:00 DCW (Rec: 08/07/23 16:44 DCW [id number]) Out-Patient Physical Therapy Visit Information Visit Information Visit Type Treatment Note Visit Start Time 16:00 Visit Stop Time 16:45 Visit Number 14 Number of ESTATE PLANNING DIRECTOR Visits 0 Evaluation Information Evaluation Date 06/08/23 PT-OP-B Current Condition Start: 06/08/23 15:50 Freq: Status: Active Protocol: Document 06/08/23 12:00 DCW (Rec: 06/08/23 16:19 DCW [id number]) Current Condition History of Current Condition Onset Date May 03, 2023 Current Complaints R shoulder dislocation, rotator cuff tear, bilateral knee stiffness, gait History of Current Condition Pt is an 82 year old female presenting to skilled therapy five weeks s/p fall with resultant right shoulder dislocation and rotator cuff tear. Pt additionally has ongoing bilateral knee problems with impact her gait and range of motion, stemming from a distant history of bilateral TKA. Pt was previously in PT at this facility for her knees, and unfortunately had to be discharged following her fall/ dislocation which occurred at her home on 05/03/23. Pt has had an MRI, and has been referred to an ortho, however does not really want surgery, so she has put off her ortho visit. Pt admits to an additional fall last week, when she hurt her tailbone. Admits she is supposed to be using her cane, but has not been. 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 Admits she has not been very active since her fall in April, which has impacted her knee mobility and walking, which had been progressing well with prior skilled therapy. Has not been doing much with her right shoulder, very limited mobility. Still wants to focus most on knees and gait, very hesitant to do anything with her right shoulder. Pt is a fairly difficult historian. Prior Treatments and Tests Shoulder MRI: IMPRESSION: 1. Moderate to high-grade articular surface partial- thickness tear involving distal supraspinatus with up to 3.3 cm medial retraction of torn tendon fibers to the level of acromioclavicular joint. Possible full- thickness perforation involving distal infraspinatus at its insertion on the humeral head with up to 1.6 cm medial retraction of torn tendon fibers. Low-grade intrasubstance partial- thickness tear involving distal subscapularis. Mild supraspinatus muscle atrophy. 2. Suggestion of contusion versus nondisplaced fracture involving anterolateral aspect of humeral head extending to proximal humeral shaft. No other fracture or dislocation. [id number] acromioclavicular joint osteoarthritis. Moderate joint effusion and subacromial subdeltoid bursal fluid, no gross loose bodies. 3. Subtle superior anterior labral tear at 1 to 2 o'clock position and anterior-inferior labral tear at 5 to 6 o'clock position. 4 . Proximal long head of biceps tendinosis. per Radha Turpin on 05/25/2023 Treatment Goals Patient/Caregiver Goals Improve knee ROM and quality of gait. PT-OP-C Subjective Start: 06/08/23 15:50 Freq: Status: Active Protocol: Document 08/07/23 16:00 DCW (Rec: 08/07/23 16:44 DCW [id number]) OP-PT Subjective Patient Comments Patient Comments Pt reports she saw the surgeon yesterday, and I agreed to do the surgery, but I still have the ability to chicken out, so I don't actually know if I'll do it or not. PT-OP-E Functional Tests Start: 06/08/23 16:19 Freq: Status: Active Protocol: Document 06/08/23 12:00 DCW (Rec: 06/08/23 16:20 DCW [id number]) Functional Tests Five Times Sit to Stand Test Score 16.71 Comments Treatment table at 19 PT-OP-G Mobility & Gait Start: 06/08/23 15:50 Freq: Status: Active Protocol: Document 06/08/23 12:00 DCW (Rec: 06/08/23 16:19 DCW [id number]) OP Gait Assessment Comments Gait Comments Pt ambulates with bilateral knee flexion, unable to get knees into full extension during swing or stance phase. Forward flexed at tunk. Currently not using any assistive device PT-OP-K Range of Motion Start: 06/08/23 15:50 Freq: Status: Active Protocol: Document 06/08/23 12:00 DCW (Rec: 06/08/23 16:19 DCW [id number]) Shoulder Goniometric Range of Motion Shoulder Right Passive Shoulder ROM WFL No Testing Position Sitting Flexion 21 Abduction 16 External Rotation at 0 degrees Abduction 0 Right Active Shoulder ROM WFL No Testing Position Sitting Flexion 0 Abduction 0 Internal Rotation Behind Back (text) R Iliac crest Comments ER limited to lacking 15? from neutral Knee Goniometric Range of Motion Knee Right Knee ROM WFL No Patient Position Sitting Flexion Active (degrees) 105 Extension Active (degrees) 12 Left Knee ROM WFL No Patient Position Sitting Flexion Active (degrees) 94 Extension Active (degrees) 10 PT-OP-M Strength Start: 06/08/23 15:50 Freq: Status: Active Protocol: Document 06/08/23 12:00 DCW (Rec: 06/08/23 16:19 DCW [id number]) Shoulder Strength Shoulder Manual Muscle Testing Right Flexion 1 Trace Abduction (C5) 1 Trace External Rotation 1 Trace Internal Rotation 1 Trace Knee Strength Knee Manual Muscle Testing Right Flexion (S2) 2+ Poor+ Extension (L3) 2+ Poor+ Left Flexion (S2) 2+ Poor+ Extension (L3) 2+ Poor+ PT-OP-Q Treatments Start: 06/08/23 15:50 Freq: Status: Active Protocol: Document 08/07/23 16:00 DCW (Rec: 08/07/23 16:44 DCW [id number]) Cardio Equipment Recumbent Elliptical (Biodex) Duration (Minutes) 6 Resistance 0 BUEs (AAROM LUE) 5 min, 7 BLEs Seat Position 9 Gym Equipment Shuttle Recovery Unilateral Squats Resistance 50# (One new) Reps/Time x20 Bilateral Squats Resistance 75# (Three new) Shuttle Recovery Platform Stable Reps/Time x20 Manual Therapy Treatment Soft Tissue Mobilization R shld Body Location neck, ant R shld, bicep med/ lat, forearm, wrist Mobilization Type Manual Lymphatic Drainage Intensity/Depth Superficial Body Position Hooklying Comments prox to distal, distal>prox /c instructional ed self. Joint Mobilizations R shld Joint GH & scapulothoracic, AC- PA, SC- caudal /c FF Direction sup/inf/AP Grade II Body Position seated B knees Joint B knee: tib fib prox, tib femoral, Direction A<->P Grade III PT-OP-R Modalities Start: 07/31/23 15:39 Freq: Status: Active Protocol: Document 07/31/23 13:46 SP (Rec: 07/31/23 15:40 SP [id number]) Hot Pack/Cold Pack Treatment CP Location R shld Patient Position Sitting Patient Tolerance Good Comments not as sore after CP. PT-OP-T Assessment and Plan Start: 06/08/23 15:50 Freq: Status: Active Protocol: Document 08/07/23 16:00 DCW (Rec: 08/07/23 16:44 DCW [id number]) Physical Therapy Assessment Impairments Impairments Functional Activities, Functional Mobility,Gait,Pain, Posture,ROM,Strength Goals Three Impairment Gait significantly impacted by limited bilateral knee ROM [place] Goal (LTG) Pt to improve bilateral knee extension to 5? from neutral in order to improve quality of gait during stance phase. LTG Duration 09/06/23 Two Impairment Right shoulder flexion/ abduction AROM limited to 0? [place] Goal (LTG) Pt to improve right shoulder AROM to at least 90? in both flexion and abduction in order to improve ability for pt to return to driving. LTG Duration 09/06/23 One Impairment Pt does not have an appropriate home exercise program Short Term Goal (STG) Pt to be independent and compliant with an appropriate HEP 06/16/23: added supine PROM LUE assist RUE FF, SLR, UE walk out BUE on rail PROM FF, scap retraction. 06/18/22: pendulum. STG Duration 07/09/23 progressing 06/18/23 Assessment Summary Assessment Pt continues to make slow progress with shoulder mobility, improvements with PROM, very minimal AROM changes. Pt also showing some mild improvement with ability to perform TKE in standing to help with gait. Physical Therapy Plan Frequency and Duration Frequency of Treatment 2x/Week Plan of Care Start Date 06/08/23 Plan of Care End Date 09/06/23 Therapeutic Interventions Therapeutic Interventions Balance Training,Gait Training ,Home Exercise Program,Joint Mobilizations,Manual Therapy, Neuromuscular Re-education, Patient/Caregiver Education, Self-Care/Home Management,Soft Tissue Mobilization, Therapeutic Activities, Therapeutic Exercises Modalities Cold Pack/Ice Massage,Electric Stimulation,Hot Packs, Ultrasound Next Visit Focus/Plan Next Note Type Treatment Note Next Visit Plan Continue: PROM RUE, gentle HEP tolerated pnfree ROM support dowel/kendra, pendulum. Future: add knee flexion seated/Heel slides POC: Pulleys, shoulder PROM, B knee joint mobs, LE strengthening, gait training
--- NOTE | 2023-08-12 16:53 | PT.OTN ---
Current Diagnoses Pathological dislocation of right shoulder, not elsewhere classified (08/12/23) Stiffness of right shoulder, not elsewhere classified (08/12/23) Stiffness of right knee, not elsewhere classified (08/12/23) Stiffness of left knee, not elsewhere classified (08/12/23) Other abnormalities of gait and mobility (08/12/23) Repeated falls (08/12/23) Contusion of right knee, sequela (08/12/23) Physical Therapy Treatment Note PT-OP-A Visit Information Start: 06/08/23 15:50 Freq: Status: Active Protocol: Document 08/12/23 13:03 NBM (Rec: 08/12/23 13:50 NBM [id number]) Out-Patient Physical Therapy Visit Information Visit Information Visit Type Treatment Note Visit Note Pt late and apologizes. Visit Start Time 13:16 Visit Stop Time 13:50 Visit Number 15 Number of GRAIN PICKER Visits 1 Evaluation Information Evaluation Date 06/08/23 PT-OP-B Current Condition Start: 06/08/23 15:50 Freq: Status: Active Protocol: Document 06/08/23 12:00 DCW (Rec: 06/08/23 16:19 DCW [id number]) Current Condition History of Current Condition Onset Date May 03, 2023 Current Complaints R shoulder dislocation, rotator cuff tear, bilateral knee stiffness, gait History of Current Condition Pt is an 82 year old female presenting to skilled therapy five weeks s/p fall with resultant right shoulder dislocation and rotator cuff tear. Pt additionally has ongoing bilateral knee problems with impact her gait and range of motion, stemming from a distant history of bilateral TKA. Pt was previously in PT at this facility for her knees, and unfortunately had to be discharged following her fall/ dislocation which occurred at her home on 05/03/23. Pt has had an MRI, and has been referred to an ortho, however does not really want surgery, so she has put off her ortho visit. Pt admits to an additional fall last week, when she hurt her tailbone. Admits she is supposed to be using her cane, but has not been. 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 Admits she has not been very active since her fall in April, which has impacted her knee mobility and walking, which had been progressing well with prior skilled therapy. Has not been doing much with her right shoulder, very limited mobility. Still wants to focus most on knees and gait, very hesitant to do anything with her right shoulder. Pt is a fairly difficult historian. Prior Treatments and Tests Shoulder MRI: IMPRESSION: 1. Moderate to high-grade articular surface partial- thickness tear involving distal supraspinatus with up to 3.3 cm medial retraction of torn tendon fibers to the level of acromioclavicular joint. Possible full- thickness perforation involving distal infraspinatus at its insertion on the humeral head with up to 1.6 cm medial retraction of torn tendon fibers. Low-grade intrasubstance partial- thickness tear involving distal subscapularis. Mild supraspinatus muscle atrophy. 2. Suggestion of contusion versus nondisplaced fracture involving anterolateral aspect of humeral head extending to proximal humeral shaft. No other fracture or dislocation. [id number] acromioclavicular joint osteoarthritis. Moderate joint effusion and subacromial subdeltoid bursal fluid, no gross loose bodies. 3. Subtle superior anterior labral tear at 1 to 2 o'clock position and anterior-inferior labral tear at 5 to 6 o'clock position. 4 . Proximal long head of biceps tendinosis. per Radha Turpin on 05/25/2023 Treatment Goals Patient/Caregiver Goals Improve knee ROM and quality of gait. PT-OP-C Subjective Start: 06/08/23 15:50 Freq: Status: Active Protocol: Document 08/12/23 13:03 NBM (Rec: 08/12/23 13:50 [facility] [id number]) OP-PT Subjective Patient Comments Patient Comments Marcia reports today she was able to perform some activities of daily living with her R arm which she was having to do with just her L arm. She is anxious about deciding where to do shoulder surgery and concerned she could fall and reinjure her shoulder after surgery. She walked over a mile yesterday on the [employer] trail on the [place] in less than an hour which is an improvement. PT-OP-E Functional Tests Start: 06/08/23 16:19 Freq: Status: Active Protocol: Document 06/08/23 12:00 DCW (Rec: 06/08/23 16:20 DCW [id number]) Functional Tests Five Times Sit to Stand Test Score 16.71 Comments Treatment table at 19 PT-OP-G Mobility & Gait Start: 06/08/23 15:50 Freq: Status: Active Protocol: Document 06/08/23 12:00 DCW (Rec: 06/08/23 16:19 DCW [id number]) OP Gait Assessment Comments Gait Comments Pt ambulates with bilateral knee flexion, unable to get knees into full extension during swing or stance phase. Forward flexed at tunk. Currently not using any assistive device PT-OP-K Range of Motion Start: 06/08/23 15:50 Freq: Status: Active Protocol: Document 06/08/23 12:00 DCW (Rec: 06/08/23 16:19 DCW [id number]) Shoulder Goniometric Range of Motion Shoulder Right Passive Shoulder ROM WFL No Testing Position Sitting Flexion 21 Abduction 16 External Rotation at 0 degrees Abduction 0 Right Active Shoulder ROM WFL No Testing Position Sitting Flexion 0 Abduction 0 Internal Rotation Behind Back (text) R Iliac crest Comments ER limited to lacking 15? from neutral Knee Goniometric Range of Motion Knee Right Knee ROM WFL No Patient Position Sitting Flexion Active (degrees) 105 Extension Active (degrees) 12 Left Knee ROM WFL No Patient Position Sitting Flexion Active (degrees) 94 Extension Active (degrees) 10 PT-OP-M Strength Start: 06/08/23 15:50 Freq: Status: Active Protocol: Document 06/08/23 12:00 DCW (Rec: 06/08/23 16:19 DCW [id number]) Shoulder Strength Shoulder Manual Muscle Testing Right Flexion 1 Trace Abduction (C5) 1 Trace External Rotation 1 Trace Internal Rotation 1 Trace Knee Strength Knee Manual Muscle Testing Right Flexion (S2) 2+ Poor+ Extension (L3) 2+ Poor+ Left Flexion (S2) 2+ Poor+ Extension (L3) 2+ Poor+ PT-OP-Q Treatments Start: 06/08/23 15:50 Freq: Status: Active Protocol: Document 08/12/23 13:03 NBM (Rec: 08/12/23 13:50 NBM [id number]) Cardio Equipment Recumbent Elliptical (Biodex) Duration (Minutes) 6 Resistance 0 BUEs (AAROM LUE) 5 min, 8x 2min, 7x3min BLEs Seat Position 9 Gym Equipment Shuttle Recovery heel raises Details DF/PF rocking w/ calf stretch Resistance 62# Shuttle Recovery Platform Stable Reps/Time x10 Unilateral Squats Details cues for foot placement to reduce stress on knee Resistance 75>50>62# (new) Reps/Time x5, x10, x20 Bilateral Squats Resistance 75# (Three new) Shuttle Recovery Platform Stable Reps/Time x20 Therapeutic Exercises Supine Exercises calf stretch Side bilateral Equipment Used on shuttle recovery Reps/Minutes x1' ea Hamstring Stretch Supine Exercise Name HS stretch w/ ankle pumps Side bilateral Equipment Used on shuttle recovery Reps/Minutes 1 min ea PT-OP-R Modalities Start: 07/31/23 15:39 Freq: Status: Active Protocol: Document 07/31/23 13:46 SP (Rec: 07/31/23 15:40 SP [id number]) Hot Pack/Cold Pack Treatment CP Location R shld Patient Position Sitting Patient Tolerance Good Comments not as sore after CP. PT-OP-T Assessment and Plan Start: 06/08/23 15:50 Freq: Status: Active Protocol: Document 08/12/23 13:03 NBM (Rec: 08/12/23 13:50 NBM [id number]) Physical Therapy Assessment Impairments Impairments Functional Activities, Functional Mobility,Gait,Pain, Posture,ROM,Strength Goals Three Impairment Gait significantly impacted by limited bilateral knee ROM Nursing Home Goal (LTG) Pt to improve bilateral knee extension to 5? from neutral in order to improve quality of gait during stance phase. LTG Duration 09/06/23 Two Impairment Right shoulder flexion/ abduction AROM limited to 0? Staple Side Laster Goal (LTG) Pt to improve right shoulder AROM to at least 90? in both flexion and abduction in order to improve ability for pt to return to driving. LTG Duration 09/06/23 One Impairment Pt does not have an appropriate home exercise program Short Term Goal (STG) Pt to be independent and compliant with an appropriate HEP 06/16/23: added supine PROM LUE assist RUE FF, SLR, UE walk out BUE on rail PROM FF, scap retraction. 06/18/22: pendulum. STG Duration 07/09/23 progressing 06/18/23 Assessment Summary Assessment Treatment focus on LE strengthening and stretching on Shuttle Recovery w/ postiive feedback response, and education in hydration for safety and to reduce fall risk; pt ends session with cup of water. She tolerates 2 min at increased resistance level 8 on recumbent elliptical, and unilateral squats on Shuttle Recovery increased from 50# to 62# demonstrating improving LE strength. Physical Therapy Plan Frequency and Duration Frequency of Treatment 2x/Week Plan of Care Start Date 06/08/23 Plan of Care End Date 09/06/23 Therapeutic Interventions Therapeutic Interventions Balance Training,Gait Training ,Home Exercise Program,Joint Mobilizations,Manual Therapy, Neuromuscular Re-education, Patient/Caregiver Education, Self-Care/Home Management,Soft Tissue Mobilization, Therapeutic Activities, Therapeutic Exercises Modalities Cold Pack/Ice Massage,Electric Stimulation,Hot Packs, Ultrasound Next Visit Focus/Plan Next Note Type Treatment Note Next Visit Plan Continue: PROM RUE, gentle HEP tolerated pnfree ROM support dowel/kendra, pendulum. Future: add knee flexion seated/Heel slides POC: Pulleys, shoulder PROM, B knee joint mobs, LE strengthening, gait training
--- NOTE | 2023-08-14 16:09 | PT.OTN ---
Current Diagnoses Pathological dislocation of right shoulder, not elsewhere classified (08/14/23) Stiffness of right shoulder, not elsewhere classified (08/14/23) Stiffness of right knee, not elsewhere classified (08/14/23) Stiffness of left knee, not elsewhere classified (08/14/23) Other abnormalities of gait and mobility (08/14/23) Repeated falls (08/14/23) Contusion of right knee, sequela (08/14/23) Physical Therapy Treatment Note PT-OP-A Visit Information Start: 06/08/23 15:50 Freq: Status: Active Protocol: Document 08/14/23 15:15 DCW (Rec: 08/14/23 16:09 DCW [id number]) Out-Patient Physical Therapy Visit Information Visit Information Visit Type Treatment Note Visit Start Time 15:15 Visit Stop Time 16:00 Visit Number 16 Number of REGISTERED DIETICIAN Visits 0 Evaluation Information Evaluation Date 06/08/23 PT-OP-B Current Condition Start: 06/08/23 15:50 Freq: Status: Active Protocol: Document 06/08/23 12:00 DCW (Rec: 06/08/23 16:19 DCW [id number]) Current Condition History of Current Condition Onset Date May 03, 2023 Current Complaints R shoulder dislocation, rotator cuff tear, bilateral knee stiffness, gait History of Current Condition Pt is an 82 year old female presenting to skilled therapy five weeks s/p fall with resultant right shoulder dislocation and rotator cuff tear. Pt additionally has ongoing bilateral knee problems with impact her gait and range of motion, stemming from a distant history of bilateral TKA. Pt was previously in PT at this facility for her knees, and unfortunately had to be discharged following her fall/ dislocation which occurred at her home on 05/03/23. Pt has had an MRI, and has been referred to an ortho, however does not really want surgery, so she has put off her ortho visit. Pt admits to an additional fall last week, when she hurt her tailbone. Admits she is supposed to be using her cane, but has not been. 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 Admits she has not been very active since her fall in April, which has impacted her knee mobility and walking, which had been progressing well with prior skilled therapy. Has not been doing much with her right shoulder, very limited mobility. Still wants to focus most on knees and gait, very hesitant to do anything with her right shoulder. Pt is a fairly difficult historian. Prior Treatments and Tests Shoulder MRI: IMPRESSION: 1. Moderate to high-grade articular surface partial- thickness tear involving distal supraspinatus with up to 3.3 cm medial retraction of torn tendon fibers to the level of acromioclavicular joint. Possible full- thickness perforation involving distal infraspinatus at its insertion on the humeral head with up to 1.6 cm medial retraction of torn tendon fibers. Low-grade intrasubstance partial- thickness tear involving distal subscapularis. Mild supraspinatus muscle atrophy. 2. Suggestion of contusion versus nondisplaced fracture involving anterolateral aspect of humeral head extending to proximal humeral shaft. No other fracture or dislocation. [id number] acromioclavicular joint osteoarthritis. Moderate joint effusion and subacromial subdeltoid bursal fluid, no gross loose bodies. 3. Subtle superior anterior labral tear at 1 to 2 o'clock position and anterior-inferior labral tear at 5 to 6 o'clock position. 4 . Proximal long head of biceps tendinosis. per Radha Turpin on 05/25/2023 Treatment Goals Patient/Caregiver Goals Improve knee ROM and quality of gait. PT-OP-C Subjective Start: 06/08/23 15:50 Freq: Status: Active Protocol: Document 08/14/23 15:15 DCW (Rec: 08/14/23 16:09 DCW [id number]) OP-PT Subjective Patient Comments Patient Comments Pt reports that the evening after her last visit, she fell backwards and hit her head. Admits she doesn't know what happened, she just fell over. 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 Reports some general soreness, no major injuries Admits she is very frustrated she keeps falling. PT-OP-E Functional Tests Start: 06/08/23 16:19 Freq: Status: Active Protocol: Document 06/08/23 12:00 DCW (Rec: 06/08/23 16:20 DCW [id number]) Functional Tests Five Times Sit to Stand Test Score 16.71 Comments Treatment table at 19 PT-OP-G Mobility & Gait Start: 06/08/23 15:50 Freq: Status: Active Protocol: Document 06/08/23 12:00 DCW (Rec: 06/08/23 16:19 DCW [id number]) OP Gait Assessment Comments Gait Comments Pt ambulates with bilateral knee flexion, unable to get knees into full extension during swing or stance phase. Forward flexed at tunk. Currently not using any assistive device PT-OP-K Range of Motion Start: 06/08/23 15:50 Freq: Status: Active Protocol: Document 06/08/23 12:00 DCW (Rec: 06/08/23 16:19 DCW [id number]) Shoulder Goniometric Range of Motion Shoulder Right Passive Shoulder ROM WFL No Testing Position Sitting Flexion 21 Abduction 16 External Rotation at 0 degrees Abduction 0 Right Active Shoulder ROM WFL No Testing Position Sitting Flexion 0 Abduction 0 Internal Rotation Behind Back (text) R Iliac crest Comments ER limited to lacking 15? from neutral Knee Goniometric Range of Motion Knee Right Knee ROM WFL No Patient Position Sitting Flexion Active (degrees) 105 Extension Active (degrees) 12 Left Knee ROM WFL No Patient Position Sitting Flexion Active (degrees) 94 Extension Active (degrees) 10 PT-OP-M Strength Start: 06/08/23 15:50 Freq: Status: Active Protocol: Document 06/08/23 12:00 DCW (Rec: 06/08/23 16:19 DCW [id number]) Shoulder Strength Shoulder Manual Muscle Testing Right Flexion 1 Trace Abduction (C5) 1 Trace External Rotation 1 Trace Internal Rotation 1 Trace Knee Strength Knee Manual Muscle Testing Right Flexion (S2) 2+ Poor+ Extension (L3) 2+ Poor+ Left Flexion (S2) 2+ Poor+ Extension (L3) 2+ Poor+ PT-OP-Q Treatments Start: 06/08/23 15:50 Freq: Status: Active Protocol: Document 08/14/23 15:15 DCW (Rec: 08/14/23 16:09 DCW [id number]) Cardio Equipment Recumbent Elliptical (Biodex) Duration (Minutes) 6 Resistance 0 BUEs (AAROM LUE) 5 min Seat Position 9 Gait Training Gait Activity Gait Comments Fwd (Arm swing, knee extension , heel strike) Retro Neuro Re-Education Treatment Balance Activities Tilt board Details Tilt board Comments DF/PF, Lateral Foam Details EO/EC Surface AirEx Tandem Details Tandem Stance PT-OP-R Modalities Start: 07/31/23 15:39 Freq: Status: Active Protocol: Document 07/31/23 13:46 SP (Rec: 07/31/23 15:40 SP [id number]) Hot Pack/Cold Pack Treatment CP Location R shld Patient Position Sitting Patient Tolerance Good Comments not as sore after CP. PT-OP-T Assessment and Plan Start: 06/08/23 15:50 Freq: Status: Active Protocol: Document 08/14/23 15:15 DCW (Rec: 08/14/23 16:09 DCW [id number]) Physical Therapy Assessment Impairments Impairments Functional Activities, Functional Mobility,Gait,Pain, Posture,ROM,Strength Goals Three Impairment Gait significantly impacted by limited bilateral knee ROM Centerless Grinder Tender Goal (LTG) Pt to improve bilateral knee extension to 5? from neutral in order to improve quality of gait during stance phase. LTG Duration 09/06/23 Two Impairment Right shoulder flexion/ abduction AROM limited to 0? Residential Goal (LTG) Pt to improve right shoulder AROM to at least 90? in both flexion and abduction in order to improve ability for pt to return to driving. LTG Duration 09/06/23 One Impairment Pt does not have an appropriate home exercise program Short Term Goal (STG) Pt to be independent and compliant with an appropriate HEP 06/16/23: added supine PROM LUE assist RUE FF, SLR, UE walk out BUE on rail PROM FF, scap retraction. 06/18/22: pendulum. STG Duration 07/09/23 progressing 06/18/23 Assessment Summary Assessment Pt suffered yet another fall earlier this week, continues to be worried about falls risk , however also continues ot be fairly impulsive and insistent about attempting challenges to balance and requesting therapist not guard her at all. Therapist strongly recommended against many of the balance challenges she wanted to try at home, including standing on a dynadisc. Physical Therapy Plan Frequency and Duration Frequency of Treatment 2x/Week Plan of Care Start Date 06/08/23 Plan of Care End Date 09/06/23 Therapeutic Interventions Therapeutic Interventions Balance Training,Gait Training ,Home Exercise Program,Joint Mobilizations,Manual Therapy, Neuromuscular Re-education, Patient/Caregiver Education, Self-Care/Home Management,Soft Tissue Mobilization, Therapeutic Activities, Therapeutic Exercises Modalities Cold Pack/Ice Massage,Electric Stimulation,Hot Packs, Ultrasound Next Visit Focus/Plan Next Note Type Treatment Note Next Visit Plan Continue: PROM RUE, gentle HEP tolerated pnfree ROM support dowel/kendra, pendulum. Future: add knee flexion seated/Heel slides POC: Pulleys, shoulder PROM, B knee joint mobs, LE strengthening, gait training
--- NOTE | 2023-08-21 16:03 | PT.OTN ---
Current Diagnoses Pathological dislocation of right shoulder, not elsewhere classified (08/21/23) Stiffness of right shoulder, not elsewhere classified (08/21/23) Stiffness of right knee, not elsewhere classified (08/21/23) Stiffness of left knee, not elsewhere classified (08/21/23) Other abnormalities of gait and mobility (08/21/23) Repeated falls (08/21/23) Contusion of right knee, sequela (08/21/23) Physical Therapy Treatment Note PT-OP-A Visit Information Start: 06/08/23 15:50 Freq: Status: Active Protocol: Document 08/21/23 15:18 DCW (Rec: 08/21/23 16:03 DCW [id number]) Out-Patient Physical Therapy Visit Information Visit Information Visit Type Treatment Note Visit Start Time 15:18 Visit Stop Time 16:00 Visit Number 17 Number of HAIR BOILER Visits 0 Evaluation Information Evaluation Date 06/08/23 Precautions Precautions Helpful to issue written instructions for pt to more easily review PT-OP-B Current Condition Start: 06/08/23 15:50 Freq: Status: Active Protocol: Document 06/08/23 12:00 DCW (Rec: 06/08/23 16:19 DCW [id number]) Current Condition History of Current Condition Onset Date May 03, 2023 Current Complaints R shoulder dislocation, rotator cuff tear, bilateral knee stiffness, gait History of Current Condition Pt is an 82 year old female presenting to skilled therapy five weeks s/p fall with resultant right shoulder dislocation and rotator cuff tear. Pt additionally has ongoing bilateral knee problems with impact her gait and range of motion, stemming from a distant history of bilateral TKA. Pt was previously in PT at this facility for her knees, and unfortunately had to be discharged following her fall/ dislocation which occurred at her home on 05/03/23. Pt has had an MRI, and has been referred to an ortho, however does not really want surgery, so she has put off her ortho visit. Pt admits to an additional fall last week, when she hurt her tailbone. Admits she is supposed to be using her cane, but has not been. 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 Admits she has not been very active since her fall in April, which has impacted her knee mobility and walking, which had been progressing well with prior skilled therapy. Has not been doing much with her right shoulder, very limited mobility. Still wants to focus most on knees and gait, very hesitant to do anything with her right shoulder. Pt is a fairly difficult historian. Prior Treatments and Tests Shoulder MRI: IMPRESSION: 1. Moderate to high-grade articular surface partial- thickness tear involving distal supraspinatus with up to 3.3 cm medial retraction of torn tendon fibers to the level of acromioclavicular joint. Possible full- thickness perforation involving distal infraspinatus at its insertion on the humeral head with up to 1.6 cm medial retraction of torn tendon fibers. Low-grade intrasubstance partial- thickness tear involving distal subscapularis. Mild supraspinatus muscle atrophy. 2. Suggestion of contusion versus nondisplaced fracture involving anterolateral aspect of humeral head extending to proximal humeral shaft. No other fracture or dislocation. [id number] acromioclavicular joint osteoarthritis. Moderate joint effusion and subacromial subdeltoid bursal fluid, no gross loose bodies. 3. Subtle superior anterior labral tear at 1 to 2 o'clock position and anterior-inferior labral tear at 5 to 6 o'clock position. 4 . Proximal long head of biceps tendinosis. per Radha Turpin on 05/25/2023 Treatment Goals Patient/Caregiver Goals Improve knee ROM and quality of gait. PT-OP-C Subjective Start: 06/08/23 15:50 Freq: Status: Active Protocol: Document 08/21/23 15:18 DCW (Rec: 08/21/23 16:03 DCW [id number]) OP-PT Subjective Patient Comments Patient Comments I think I've gone out and walked a mile every day since I saw you last. PT-OP-E Functional Tests Start: 06/08/23 16:19 Freq: Status: Active Protocol: Document 06/08/23 12:00 DCW (Rec: 06/08/23 16:20 DCW [id number]) Functional Tests Five Times Sit to Stand Test Score 16.71 Comments Treatment table at 19 PT-OP-G Mobility & Gait Start: 06/08/23 15:50 Freq: Status: Active Protocol: Document 06/08/23 12:00 DCW (Rec: 06/08/23 16:19 DCW [id number]) OP Gait Assessment Comments Gait Comments Pt ambulates with bilateral knee flexion, unable to get knees into full extension during swing or stance phase. Forward flexed at tunk. Currently not using any assistive device PT-OP-K Range of Motion Start: 06/08/23 15:50 Freq: Status: Active Protocol: Document 06/08/23 12:00 DCW (Rec: 06/08/23 16:19 DCW [id number]) Shoulder Goniometric Range of Motion Shoulder Right Passive Shoulder ROM WFL No Testing Position Sitting Flexion 21 Abduction 16 External Rotation at 0 degrees Abduction 0 Right Active Shoulder ROM WFL No Testing Position Sitting Flexion 0 Abduction 0 Internal Rotation Behind Back (text) R Iliac crest Comments ER limited to lacking 15? from neutral Knee Goniometric Range of Motion Knee Right Knee ROM WFL No Patient Position Sitting Flexion Active (degrees) 105 Extension Active (degrees) 12 Left Knee ROM WFL No Patient Position Sitting Flexion Active (degrees) 94 Extension Active (degrees) 10 PT-OP-M Strength Start: 06/08/23 15:50 Freq: Status: Active Protocol: Document 06/08/23 12:00 DCW (Rec: 06/08/23 16:19 DCW [id number]) Shoulder Strength Shoulder Manual Muscle Testing Right Flexion 1 Trace Abduction (C5) 1 Trace External Rotation 1 Trace Internal Rotation 1 Trace Knee Strength Knee Manual Muscle Testing Right Flexion (S2) 2+ Poor+ Extension (L3) 2+ Poor+ Left Flexion (S2) 2+ Poor+ Extension (L3) 2+ Poor+ PT-OP-Q Treatments Start: 06/08/23 15:50 Freq: Status: Active Protocol: Document 08/21/23 15:18 DCW (Rec: 08/21/23 16:03 DCW [id number]) Cardio Equipment Recumbent Elliptical (Biodex) Duration (Minutes) 6 Resistance 0 BUEs (AAROM LUE) 5 min Seat Position 9 Therapeutic Exercises Sitting Exercises Quad Sitting Exercise Name Self-STM Rolling Quad Side bilateral Gait Training Gait Activity Gait Comments Fwd (Arm swing, knee extension , heel strike) Retro Neuro Re-Education Treatment Balance Activities Wall fall Details Retro lean into wall Comments feet 4 away Weight Shift Details Limits of stability Comments Sway in cone motion Foam Details EO/EC, Stride stance Surface AirEx PT-OP-R Modalities Start: 07/31/23 15:39 Freq: Status: Active Protocol: Document 07/31/23 13:46 SP (Rec: 07/31/23 15:40 SP [id number]) Hot Pack/Cold Pack Treatment CP Location R shld Patient Position Sitting Patient Tolerance Good Comments not as sore after CP. PT-OP-T Assessment and Plan Start: 06/08/23 15:50 Freq: Status: Active Protocol: Document 08/21/23 15:18 DCW (Rec: 08/21/23 16:03 DCW [id number]) Physical Therapy Assessment Impairments Impairments Functional Activities, Functional Mobility,Gait,Pain, Posture,ROM,Strength Goals Three Impairment Gait significantly impacted by limited bilateral knee ROM Primer Charger Goal (LTG) Pt to improve bilateral knee extension to 5? from neutral in order to improve quality of gait during stance phase. LTG Duration 09/06/23 Two Impairment Right shoulder flexion/ abduction AROM limited to 0? Primer Charger Goal (LTG) Pt to improve right shoulder AROM to at least 90? in both flexion and abduction in order to improve ability for pt to return to driving. LTG Duration 09/06/23 One Impairment Pt does not have an appropriate home exercise program Short Term Goal (STG) Pt to be independent and compliant with an appropriate HEP 06/16/23: added supine PROM LUE assist RUE FF, SLR, UE walk out BUE on rail PROM FF, scap retraction. 06/18/22: pendulum. STG Duration 07/09/23 progressing 06/18/23 Assessment Summary Assessment Continues to be very hesitent in regards to getting her shoulder fixed at any point, but also frustrated at how little she has been able to improve with it. Focused more on balance and HEP to perform next week, due to only one PT session. Physical Therapy Plan Frequency and Duration Frequency of Treatment 2x/Week Plan of Care Start Date 06/08/23 Plan of Care End Date 09/06/23 Therapeutic Interventions Therapeutic Interventions Balance Training,Gait Training ,Home Exercise Program,Joint Mobilizations,Manual Therapy, Neuromuscular Re-education, Patient/Caregiver Education, Self-Care/Home Management,Soft Tissue Mobilization, Therapeutic Activities, Therapeutic Exercises Modalities Cold Pack/Ice Massage,Electric Stimulation,Hot Packs, Ultrasound Next Visit Focus/Plan Next Note Type Treatment Note Next Visit Plan Continue: PROM RUE, gentle HEP tolerated pnfree ROM support dowel/kendra, pendulum. Future: add knee flexion seated/Heel slides POC: Pulleys, shoulder PROM, B knee joint mobs, LE strengthening, gait training
--- NOTE | 2023-08-27 16:28 | PT.OTN ---
Current Diagnoses Pathological dislocation of right shoulder, not elsewhere classified (08/27/23) Stiffness of right shoulder, not elsewhere classified (08/27/23) Stiffness of right knee, not elsewhere classified (08/27/23) Stiffness of left knee, not elsewhere classified (08/27/23) Other abnormalities of gait and mobility (08/27/23) Repeated falls (08/27/23) Contusion of right knee, sequela (08/27/23) Physical Therapy Treatment Note PT-OP-A Visit Information Start: 06/08/23 15:50 Freq: Status: Active Protocol: Document 08/27/23 14:36 SW (Rec: 08/27/23 15:17 SW [id number]) Out-Patient Physical Therapy Visit Information Visit Information Visit Type Treatment Note Visit Start Time 14:31 Visit Stop Time 15:10 Visit Number 18 Number of CONTRACT ADMINISTRATOR Visits 1 PT-OP-B Current Condition Start: 06/08/23 15:50 Freq: Status: Active Protocol: Document 06/08/23 12:00 DCW (Rec: 06/08/23 16:19 DCW [id number]) Current Condition History of Current Condition Onset Date May 03, 2023 Current Complaints R shoulder dislocation, rotator cuff tear, bilateral knee stiffness, gait History of Current Condition Pt is an 82 year old female presenting to skilled therapy five weeks s/p fall with resultant right shoulder dislocation and rotator cuff tear. Pt additionally has ongoing bilateral knee problems with impact her gait and range of motion, stemming from a distant history of bilateral TKA. Pt was previously in PT at this facility for her knees, and unfortunately had to be discharged following her fall/ dislocation which occurred at her home on 05/03/23. Pt has had an MRI, and has been referred to an ortho, however does not really want surgery, so she has put off her ortho visit. Pt admits to an additional fall last week, when she hurt her tailbone. Admits she is supposed to be using her cane, but has not been. 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 Admits she has not been very active since her fall in April, which has impacted her knee mobility and walking, which had been progressing well with prior skilled therapy. Has not been doing much with her right shoulder, very limited mobility. Still wants to focus most on knees and gait, very hesitant to do anything with her right shoulder. Pt is a fairly difficult historian. Prior Treatments and Tests Shoulder MRI: IMPRESSION: 1. Moderate to high-grade articular surface partial- thickness tear involving distal supraspinatus with up to 3.3 cm medial retraction of torn tendon fibers to the level of acromioclavicular joint. Possible full- thickness perforation involving distal infraspinatus at its insertion on the humeral head with up to 1.6 cm medial retraction of torn tendon fibers. Low-grade intrasubstance partial- thickness tear involving distal subscapularis. Mild supraspinatus muscle atrophy. 2. Suggestion of contusion versus nondisplaced fracture involving anterolateral aspect of humeral head extending to proximal humeral shaft. No other fracture or dislocation. [id number] acromioclavicular joint osteoarthritis. Moderate joint effusion and subacromial subdeltoid bursal fluid, no gross loose bodies. 3. Subtle superior anterior labral tear at 1 to 2 o'clock position and anterior-inferior labral tear at 5 to 6 o'clock position. 4 . Proximal long head of biceps tendinosis. per Radha Turpin on 05/25/2023 Treatment Goals Patient/Caregiver Goals Improve knee ROM and quality of gait. PT-OP-C Subjective Start: 06/08/23 15:50 Freq: Status: Active Protocol: Document 08/27/23 14:36 SW (Rec: 08/27/23 15:17 SW [id number]) OP-PT Subjective Patient Comments Patient Comments Pt reports getting arm up today, but it wouldn't stay. Pt reports getting in earrings for the second day in a row. arm still painful PT-OP-E Functional Tests Start: 06/08/23 16:19 Freq: Status: Active Protocol: Document 06/08/23 12:00 DCW (Rec: 06/08/23 16:20 DCW [id number]) Functional Tests Five Times Sit to Stand Test Score 16.71 Comments Treatment table at 19 PT-OP-G Mobility & Gait Start: 06/08/23 15:50 Freq: Status: Active Protocol: Document 06/08/23 12:00 DCW (Rec: 06/08/23 16:19 DCW [id number]) OP Gait Assessment Comments Gait Comments Pt ambulates with bilateral knee flexion, unable to get knees into full extension during swing or stance phase. Forward flexed at tunk. Currently not using any assistive device PT-OP-K Range of Motion Start: 06/08/23 15:50 Freq: Status: Active Protocol: Document 06/08/23 12:00 DCW (Rec: 06/08/23 16:19 DCW [id number]) Shoulder Goniometric Range of Motion Shoulder Right Passive Shoulder ROM WFL No Testing Position Sitting Flexion 21 Abduction 16 External Rotation at 0 degrees Abduction 0 Right Active Shoulder ROM WFL No Testing Position Sitting Flexion 0 Abduction 0 Internal Rotation Behind Back (text) R Iliac crest Comments ER limited to lacking 15? from neutral Knee Goniometric Range of Motion Knee Right Knee ROM WFL No Patient Position Sitting Flexion Active (degrees) 105 Extension Active (degrees) 12 Left Knee ROM WFL No Patient Position Sitting Flexion Active (degrees) 94 Extension Active (degrees) 10 PT-OP-M Strength Start: 06/08/23 15:50 Freq: Status: Active Protocol: Document 06/08/23 12:00 DCW (Rec: 06/08/23 16:19 DCW [id number]) Shoulder Strength Shoulder Manual Muscle Testing Right Flexion 1 Trace Abduction (C5) 1 Trace External Rotation 1 Trace Internal Rotation 1 Trace Knee Strength Knee Manual Muscle Testing Right Flexion (S2) 2+ Poor+ Extension (L3) 2+ Poor+ Left Flexion (S2) 2+ Poor+ Extension (L3) 2+ Poor+ PT-OP-Q Treatments Start: 06/08/23 15:50 Freq: Status: Active Protocol: Document 08/27/23 14:36 SW (Rec: 08/27/23 15:17 SW [id number]) Therapeutic Exercises Sitting Exercises Heel slides Sitting Exercise Name Knee flexion with end range hold Side bilateral Resistance AROM Quad Sitting Exercise Name Quad set w/ slight overpressure for Knee ext Side bilateral kendra Sitting Exercise Name Gentle PROM flexion Resistance LUE assist RUE PT-OP-R Modalities Start: 07/31/23 15:39 Freq: Status: Active Protocol: Document 07/31/23 13:46 SP (Rec: 07/31/23 15:40 SP [id number]) Hot Pack/Cold Pack Treatment CP Location R shld Patient Position Sitting Patient Tolerance Good Comments not as sore after CP. PT-OP-T Assessment and Plan Start: 06/08/23 15:50 Freq: Status: Active Protocol: Document 08/27/23 14:36 SW (Rec: 08/27/23 15:17 [id number]) Physical Therapy Assessment Goals Three Impairment Gait significantly impacted by limited bilateral knee ROM Command Post Superintendent Goal (LTG) Pt to improve bilateral knee extension to 5? from neutral in order to improve quality of gait during stance phase. LTG Duration 09/06/23 Two Impairment Right shoulder flexion/ abduction AROM limited to 0? Command Post Superintendent Goal (LTG) Pt to improve right shoulder AROM to at least 90? in both flexion and abduction in order to improve ability for pt to return to driving. LTG Duration 09/06/23 One Impairment Pt does not have an appropriate home exercise program Short Term Goal (STG) Pt to be independent and compliant with an appropriate HEP 06/16/23: added supine PROM LUE assist RUE FF, SLR, UE walk out BUE on rail PROM FF, scap retraction. 06/18/22: pendulum. STG Duration 07/09/23 progressing 06/18/23 Assessment Summary Assessment Pt tolerated session well. Session focused on balance challenges. Pt continues to be frustrated with RUE, educated pt on purpose of ROM exercises, and cued pt to not push into increased pain. Initiated seated bilateral knee ext with foot elevated on stool and slight overpressure to increase pt extension toward PT goals, tolerated well, good feedback. Physical Therapy Plan Frequency and Duration Frequency of Treatment 2x/Week Plan of Care Start Date 06/08/23 Plan of Care End Date 09/06/23 Therapeutic Interventions Therapeutic Interventions Balance Training,Gait Training ,Home Exercise Program,Joint Mobilizations,Manual Therapy, Neuromuscular Re-education, Patient/Caregiver Education, Self-Care/Home Management,Soft Tissue Mobilization, Therapeutic Activities, Therapeutic Exercises Modalities Cold Pack/Ice Massage,Electric Stimulation,Hot Packs, Ultrasound Next Visit Focus/Plan Next Note Type Treatment Note Next Visit Plan Continue: PROM RUE, gentle HEP tolerated pnfree ROM support dowel/kendra, pendulum. Future: add knee flexion seated/Heel slides POC: Pulleys, shoulder PROM, B knee joint mobs, LE strengthening, gait training
--- NOTE | 2023-09-04 08:46 | PT-OP ANOTE ---
Therapist phoned patient's PCP office and left a message with the office staff regarding patient's recent falls and worsening status.
--- NOTE | 2023-09-09 17:46 | PT.OTN ---
Current Diagnoses Pathological dislocation of right shoulder, not elsewhere classified (09/09/23) Stiffness of right shoulder, not elsewhere classified (09/09/23) Stiffness of right knee, not elsewhere classified (09/09/23) Stiffness of left knee, not elsewhere classified (09/09/23) Other abnormalities of gait and mobility (09/09/23) Repeated falls (09/09/23) Contusion of right knee, sequela (09/09/23) Physical Therapy Treatment Note PT-OP-A Visit Information Start: 06/08/23 15:50 Freq: Status: Active Protocol: Document 09/09/23 16:07 DCW (Rec: 09/09/23 17:45 DCW [id number]) Out-Patient Physical Therapy Visit Information Visit Information Visit Type Progress Note Visit Start Time 16:07 Visit Stop Time 16:45 Visit Number 21 Number of PORTABLE MACHINE SANDER Visits 0 Evaluation Information Evaluation Date 06/08/23 Precautions Precautions Helpful to issue written instructions for pt to more easily review PT-OP-B Current Condition Start: 06/08/23 15:50 Freq: Status: Active Protocol: Document 06/08/23 12:00 DCW (Rec: 06/08/23 16:19 DCW [id number]) Current Condition History of Current Condition Onset Date May 03, 2023 Current Complaints R shoulder dislocation, rotator cuff tear, bilateral knee stiffness, gait History of Current Condition Pt is an 82 year old female presenting to skilled therapy five weeks s/p fall with resultant right shoulder dislocation and rotator cuff tear. Pt additionally has ongoing bilateral knee problems with impact her gait and range of motion, stemming from a distant history of bilateral TKA. Pt was previously in PT at this facility for her knees, and unfortunately had to be discharged following her fall/ dislocation which occurred at her home on 05/03/23. Pt has had an MRI, and has been referred to an ortho, however does not really want surgery, so she has put off her ortho visit. Pt admits to an additional fall last week, when she hurt her tailbone. Admits she is supposed to be using her cane, but has not been. 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 Admits she has not been very active since her fall in April, which has impacted her knee mobility and walking, which had been progressing well with prior skilled therapy. Has not been doing much with her right shoulder, very limited mobility. Still wants to focus most on knees and gait, very hesitant to do anything with her right shoulder. Pt is a fairly difficult historian. Prior Treatments and Tests Shoulder MRI: IMPRESSION: 1. Moderate to high-grade articular surface partial- thickness tear involving distal supraspinatus with up to 3.3 cm medial retraction of torn tendon fibers to the level of acromioclavicular joint. Possible full- thickness perforation involving distal infraspinatus at its insertion on the humeral head with up to 1.6 cm medial retraction of torn tendon fibers. Low-grade intrasubstance partial- thickness tear involving distal subscapularis. Mild supraspinatus muscle atrophy. 2. Suggestion of contusion versus nondisplaced fracture involving anterolateral aspect of humeral head extending to proximal humeral shaft. No other fracture or dislocation. [id number] acromioclavicular joint osteoarthritis. Moderate joint effusion and subacromial subdeltoid bursal fluid, no gross loose bodies. 3. Subtle superior anterior labral tear at 1 to 2 o'clock position and anterior-inferior labral tear at 5 to 6 o'clock position. 4 . Proximal long head of biceps tendinosis. per Radha Turpin on 05/25/2023 Treatment Goals Patient/Caregiver Goals Improve knee ROM and quality of gait. PT-OP-C Subjective Start: 06/08/23 15:50 Freq: Status: Active Protocol: Document 09/09/23 16:07 DCW (Rec: 09/09/23 17:45 DCW [id number]) OP-PT Subjective Patient Comments Patient Comments I'm just a mess of everything . PT-OP-E Functional Tests Start: 06/08/23 16:19 Freq: Status: Active Protocol: Document 09/09/23 16:07 DCW (Rec: 09/09/23 17:34 DCW [id number]) Functional Tests Five Times Sit to Stand Test Score 16.14 Comments Armless chair /s UE assist PT-OP-G Mobility & Gait Start: 06/08/23 15:50 Freq: Status: Active Protocol: Document 09/09/23 16:07 DCW (Rec: 09/09/23 17:34 DCW [id number]) OP Gait Assessment Comments Gait Comments Pt ambulates with bilateral knee flexion, unable to get knees into full extension during swing or stance phase. Forward flexed at tunk. Currently not using any assistive device PT-OP-K Range of Motion Start: 06/08/23 15:50 Freq: Status: Active Protocol: Document 09/09/23 16:07 DCW (Rec: 09/09/23 17:34 DCW [id number]) Shoulder Goniometric Range of Motion Shoulder Right Passive Shoulder ROM WFL No Testing Position Sitting Flexion 84 Abduction 73 External Rotation at 0 degrees Abduction 31 Right Active Shoulder ROM WFL No Testing Position Sitting Flexion 14 Abduction 42 External Rotation at 0 degrees Abduction 12 Internal Rotation Behind Back (text) L4 Knee Goniometric Range of Motion Knee Right Knee ROM WFL No Patient Position Sitting Flexion Active (degrees) 98 Extension Active (degrees) 10 Left Knee ROM WFL No Patient Position Sitting Flexion Active (degrees) 82 Extension Active (degrees) 11 PT-OP-M Strength Start: 06/08/23 15:50 Freq: Status: Active Protocol: Document 06/08/23 12:00 DCW (Rec: 06/08/23 16:19 DCW [id number]) Shoulder Strength Shoulder Manual Muscle Testing Right Flexion 1 Trace Abduction (C5) 1 Trace External Rotation 1 Trace Internal Rotation 1 Trace Knee Strength Knee Manual Muscle Testing Right Flexion (S2) 2+ Poor+ Extension (L3) 2+ Poor+ Left Flexion (S2) 2+ Poor+ Extension (L3) 2+ Poor+ PT-OP-Q Treatments Start: 06/08/23 15:50 Freq: Status: Active Protocol: Document 09/09/23 16:07 DCW (Rec: 09/09/23 17:45 DCW [id number]) Cardio Equipment Recumbent Elliptical (BiodViveve) Duration (Minutes) 6 Resistance 1->5 Seat Position 9 Therapeutic Exercises Sitting Exercises kendra Sitting Exercise Name Gentle PROM flexion PT-OP-R Modalities Start: 07/31/23 15:39 Freq: Status: Active Protocol: Document 07/31/23 13:46 SP (Rec: 07/31/23 15:40 SP [id number]) Hot Pack/Cold Pack Treatment CP Location R shld Patient Position Sitting Patient Tolerance Good Comments not as sore after CP. PT-OP-T Assessment and Plan Start: 06/08/23 15:50 Freq: Status: Active Protocol: Document 09/09/23 16:07 DCW (Rec: 09/09/23 17:45 DCW [id number]) Physical Therapy Assessment Goals Three Impairment Gait significantly impacted by limited bilateral knee ROM Customer Solutions Supervisor Goal (LTG) Pt to improve bilateral knee extension to 5? from neutral in order to improve quality of gait during stance phase. LTG Duration 11/09/23 Two Impairment Right shoulder flexion/ abduction AROM limited to 0? Customer Solutions Supervisor Goal (LTG) Pt to improve right shoulder AROM to at least 90? in both flexion and abduction in order to improve ability for pt to return to driving. LTG Duration 11/09/23 - improving One Impairment Pt does not have an appropriate home exercise program Short Term Goal (STG) Pt to be independent and compliant with an appropriate HEP 06/16/23: added supine PROM LUE assist RUE FF, SLR, UE walk out BUE on rail PROM FF, scap retraction. 06/18/22: pendulum. STG Duration 10/10/23 Assessment Summary Assessment Pt continues to be very limited with gait, secondary to increased recent falls and limitations with mobility of knee ROM. Is improving active shoulder ROM, flexion increased from 0? flexion to 14?, and from 0? abduction to 42?. Discussed some today working on improving swing phase of gait to improve knee extension, focus on heel strike. Pt demonstrated understanding. Continue with skilled therapeutic intervention in an effort to improve shoulder functional mobility and decrease further falls. Physical Therapy Plan Frequency and Duration Frequency of Treatment 1-2x/week Plan of Care Start Date 09/09/23 Plan of Care End Date 11/09/23 Therapeutic Interventions Therapeutic Interventions Balance Training,Gait Training ,Home Exercise Program,Joint Mobilizations,Manual Therapy, Neuromuscular Re-education, Patient/Caregiver Education, Self-Care/Home Management,Soft Tissue Mobilization, Therapeutic Activities, Therapeutic Exercises Modalities Cold Pack/Ice Massage,Electric Stimulation,Hot Packs, Ultrasound Next Visit Focus/Plan Next Note Type Treatment Note Next Visit Plan Continue: PROM RUE, gentle HEP tolerated pnfree ROM support dowel/kendra, pendulum. Future: add knee flexion seated/Heel slides POC: Pulleys, shoulder PROM, B knee joint mobs, LE strengthening, gait training
--- NOTE | 2023-09-09 17:48 | PT.OPPOC ---
Physical, Occupational & Speech Therapy At [facility] Current Diagnoses Pathological dislocation of right shoulder, not elsewhere classified (09/09/23) Stiffness of right shoulder, not elsewhere classified (09/09/23) Stiffness of right knee, not elsewhere classified (09/09/23) Stiffness of left knee, not elsewhere classified (09/09/23) Other abnormalities of gait and mobility (09/09/23) Repeated falls (09/09/23) Contusion of right knee, sequela (09/09/23) Visit Care Team Role Provider Type Kin Haywood MD Attending Provider Non-Staff Family Provider Primary Care Provider Referring Provider Specialty: Internal Medicine Address: [address] [place] [address] [id number], [place], [address] Email: Plan Of Care PT-OP-T Assessment and Plan Start: 06/08/23 15:50 Freq: Status: Active Protocol: Document 09/09/23 16:07 DCW (Rec: 09/09/23 17:45 DCW [id number]) Physical Therapy Assessment Goals Three Impairment Gait significantly impacted by limited bilateral knee ROM Photographic Artist Goal (LTG) Pt to improve bilateral knee extension to 5? from neutral in order to improve quality of gait during stance phase. LTG Duration 11/09/23 Two Impairment Right shoulder flexion/ abduction AROM limited to 0? Photographic Artist Goal (LTG) Pt to improve right shoulder AROM to at least 90? in both flexion and abduction in order to improve ability for pt to return to driving. LTG Duration 11/09/23 - improving One Impairment Pt does not have an appropriate home exercise program Short Term Goal (STG) Pt to be independent and compliant with an appropriate HEP 06/16/23: added supine PROM LUE assist RUE FF, SLR, UE walk out BUE on rail PROM FF, scap retraction. 06/18/22: pendulum. STG Duration 10/10/23 Assessment Summary Assessment Pt continues to be very limited with gait, secondary to increased recent falls and limitations with mobility of knee ROM. Is improving active shoulder ROM, flexion increased from 0? flexion to 14?, and from 0? abduction to 42?. Discussed some today working on improving swing phase of gait to improve knee extension, focus on heel strike. Pt demonstrated understanding. Continue with skilled therapeutic intervention in an effort to improve shoulder functional mobility and decrease further falls. Physical Therapy Plan Frequency and Duration Frequency of Treatment 1-2x/week Plan of Care Start Date 09/09/23 Plan of Care End Date 11/09/23 Therapeutic Interventions Therapeutic Interventions Balance Training,Gait Training ,Home Exercise Program,Joint Mobilizations,Manual Therapy, Neuromuscular Re-education, Patient/Caregiver Education, Self-Care/Home Management,Soft Tissue Mobilization, Therapeutic Activities, Therapeutic Exercises Modalities Cold Pack/Ice Massage,Electric Stimulation,Hot Packs, Ultrasound Next Visit Focus/Plan Next Note Type Treatment Note Next Visit Plan Continue: PROM RUE, gentle HEP tolerated pnfree ROM support dowel/kendra, pendulum. Future: add knee flexion seated/Heel slides POC: Pulleys, shoulder PROM, B knee joint mobs, LE strengthening, gait training Plan of Care Dates Plan of Care Start Date 09/09/23 Plan of Care End Date 11/09/23 Electronically Signed by: Carter Lozano, PT 09/09/23 [id number] If you are in agreement with this Plan of Care, please return a signed and dated copy. I have reviewed this Plan of Care and certify that the skilled therapy services above are required to meet the patient?s needs. Physician Signature Date Printed Name and Credentials Clinical Instructor Signature Printed Name and Credentials
--- NOTE | 2023-09-11 16:51 | PT.OTN ---
Current Diagnoses Pathological dislocation of right shoulder, not elsewhere classified (09/11/23) Stiffness of right shoulder, not elsewhere classified (09/11/23) Stiffness of right knee, not elsewhere classified (09/11/23) Stiffness of left knee, not elsewhere classified (09/11/23) Other abnormalities of gait and mobility (09/11/23) Repeated falls (09/11/23) Contusion of right knee, sequela (09/11/23) Physical Therapy Treatment Note PT-OP-A Visit Information Start: 06/08/23 15:50 Freq: Status: Active Protocol: Document 09/11/23 16:05 DCW (Rec: 09/11/23 16:51 DCW [id number]) Out-Patient Physical Therapy Visit Information Visit Information Visit Type Treatment Note Visit Start Time 16:05 Visit Stop Time 16:45 Visit Number 22 Number of MICA PLATE LAYER HAND Visits 0 Evaluation Information Evaluation Date 06/08/23 Precautions Precautions Helpful to issue written instructions for pt to more easily review PT-OP-B Current Condition Start: 06/08/23 15:50 Freq: Status: Active Protocol: Document 06/08/23 12:00 DCW (Rec: 06/08/23 16:19 DCW [id number]) Current Condition History of Current Condition Onset Date May 03, 2023 Current Complaints R shoulder dislocation, rotator cuff tear, bilateral knee stiffness, gait History of Current Condition Pt is an 82 year old female presenting to skilled therapy five weeks s/p fall with resultant right shoulder dislocation and rotator cuff tear. Pt additionally has ongoing bilateral knee problems with impact her gait and range of motion, stemming from a distant history of bilateral TKA. Pt was previously in PT at this facility for her knees, and unfortunately had to be discharged following her fall/ dislocation which occurred at her home on 05/03/23. Pt has had an MRI, and has been referred to an ortho, however does not really want surgery, so she has put off her ortho visit. Pt admits to an additional fall last week, when she hurt her tailbone. Admits she is supposed to be using her cane, but has not been. 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 Admits she has not been very active since her fall in April, which has impacted her knee mobility and walking, which had been progressing well with prior skilled therapy. Has not been doing much with her right shoulder, very limited mobility. Still wants to focus most on knees and gait, very hesitant to do anything with her right shoulder. Pt is a fairly difficult historian. Prior Treatments and Tests Shoulder MRI: IMPRESSION: 1. Moderate to high-grade articular surface partial- thickness tear involving distal supraspinatus with up to 3.3 cm medial retraction of torn tendon fibers to the level of acromioclavicular joint. Possible full- thickness perforation involving distal infraspinatus at its insertion on the humeral head with up to 1.6 cm medial retraction of torn tendon fibers. Low-grade intrasubstance partial- thickness tear involving distal subscapularis. Mild supraspinatus muscle atrophy. 2. Suggestion of contusion versus nondisplaced fracture involving anterolateral aspect of humeral head extending to proximal humeral shaft. No other fracture or dislocation. [id number] acromioclavicular joint osteoarthritis. Moderate joint effusion and subacromial subdeltoid bursal fluid, no gross loose bodies. 3. Subtle superior anterior labral tear at 1 to 2 o'clock position and anterior-inferior labral tear at 5 to 6 o'clock position. 4 . Proximal long head of biceps tendinosis. per Radha Turpin on 05/25/2023 Treatment Goals Patient/Caregiver Goals Improve knee ROM and quality of gait. PT-OP-C Subjective Start: 06/08/23 15:50 Freq: Status: Active Protocol: Document 09/11/23 16:05 DCW (Rec: 09/11/23 16:51 DCW [id number]) OP-PT Subjective Patient Comments Patient Comments Pt purchased new shoes online, read that they were astounding neurologists due to decreasing neuropathy. Feels she has been having less tingling. PT-OP-E Functional Tests Start: 06/08/23 16:19 Freq: Status: Active Protocol: Document 09/09/23 16:07 DCW (Rec: 09/09/23 17:34 DCW [id number]) Functional Tests Five Times Sit to Stand Test Score 16.14 Comments Armless chair /s UE assist PT-OP-G Mobility & Gait Start: 06/08/23 15:50 Freq: Status: Active Protocol: Document 09/09/23 16:07 DCW (Rec: 09/09/23 17:34 DCW [id number]) OP Gait Assessment Comments Gait Comments Pt ambulates with bilateral knee flexion, unable to get knees into full extension during swing or stance phase. Forward flexed at tunk. Currently not using any assistive device PT-OP-K Range of Motion Start: 06/08/23 15:50 Freq: Status: Active Protocol: Document 09/09/23 16:07 DCW (Rec: 09/09/23 17:34 DCW [id number]) Shoulder Goniometric Range of Motion Shoulder Right Passive Shoulder ROM WFL No Testing Position Sitting Flexion 84 Abduction 73 External Rotation at 0 degrees Abduction 31 Right Active Shoulder ROM WFL No Testing Position Sitting Flexion 14 Abduction 42 External Rotation at 0 degrees Abduction 12 Internal Rotation Behind Back (text) L4 Knee Goniometric Range of Motion Knee Right Knee ROM WFL No Patient Position Sitting Flexion Active (degrees) 98 Extension Active (degrees) 10 Left Knee ROM WFL No Patient Position Sitting Flexion Active (degrees) 82 Extension Active (degrees) 11 PT-OP-M Strength Start: 06/08/23 15:50 Freq: Status: Active Protocol: Document 06/08/23 12:00 DCW (Rec: 06/08/23 16:19 DCW [id number]) Shoulder Strength Shoulder Manual Muscle Testing Right Flexion 1 Trace Abduction (C5) 1 Trace External Rotation 1 Trace Internal Rotation 1 Trace Knee Strength Knee Manual Muscle Testing Right Flexion (S2) 2+ Poor+ Extension (L3) 2+ Poor+ Left Flexion (S2) 2+ Poor+ Extension (L3) 2+ Poor+ PT-OP-Q Treatments Start: 06/08/23 15:50 Freq: Status: Active Protocol: Document 09/11/23 16:05 DCW (Rec: 09/11/23 16:51 DCW [id number]) Cardio Equipment Recumbent Elliptical (Biodex) Duration (Minutes) 6 Resistance 5 Seat Position 9 Gym Equipment Shuttle Recovery Bilateral Squats Resistance 50# (Two new) Reps/Time 2x10 Manual Therapy Treatment Soft Tissue Mobilization L quad Body Location B distal HS and gastroc Body Position Hooklying Joint Mobilizations B knees Joint B knee: tib fib prox, tib femoral, Direction A<->P Grade III Neuro Re-Education Treatment Balance Activities Wall fall Details Retro lean into wall Comments feet 4 away Weight Shift Details Limits of stability Comments Sway in cone motion Foam Details EO/EC, X1 Surface Stacked x2 AirEx PT-OP-R Modalities Start: 07/31/23 15:39 Freq: Status: Active Protocol: Document 07/31/23 13:46 SP (Rec: 07/31/23 15:40 SP [id number]) Hot Pack/Cold Pack Treatment CP Location R shld Patient Position Sitting Patient Tolerance Good Comments not as sore after CP. PT-OP-T Assessment and Plan Start: 06/08/23 15:50 Freq: Status: Active Protocol: Document 09/11/23 16:05 DCW (Rec: 09/11/23 16:51 DCW [id number]) Physical Therapy Assessment Impairments Impairments Functional Activities, Functional Mobility,Gait,Pain, Posture,ROM,Strength Goals Three Impairment Gait significantly impacted by limited bilateral knee ROM Penitentiary Goal (LTG) Pt to improve bilateral knee extension to 5? from neutral in order to improve quality of gait during stance phase. LTG Duration 11/09/23 Two Impairment Right shoulder flexion/ abduction AROM limited to 0? Penitentiary Goal (LTG) Pt to improve right shoulder AROM to at least 90? in both flexion and abduction in order to improve ability for pt to return to driving. LTG Duration 11/09/23 - improving One Impairment Pt does not have an appropriate home exercise program Short Term Goal (STG) Pt to be independent and compliant with an appropriate HEP 06/16/23: added supine PROM LUE assist RUE FF, SLR, UE walk out BUE on rail PROM FF, scap retraction. 06/18/22: pendulum. STG Duration 10/10/23 Assessment Summary Assessment Pt following-up with ortho next week, asking about knee potential recovery, and second opinion of shoulder r/c repair. Typically fluctuated with functional mobility, today ambulating a bit better than usual, improved heel strike during gait. Physical Therapy Plan Frequency and Duration Frequency of Treatment 1-2x/week Plan of Care Start Date 09/09/23 Plan of Care End Date 11/09/23 Therapeutic Interventions Therapeutic Interventions Balance Training,Gait Training ,Home Exercise Program,Joint Mobilizations,Manual Therapy, Neuromuscular Re-education, Patient/Caregiver Education, Self-Care/Home Management,Soft Tissue Mobilization, Therapeutic Activities, Therapeutic Exercises Modalities Cold Pack/Ice Massage,Electric Stimulation,Hot Packs, Ultrasound Next Visit Focus/Plan Next Note Type Treatment Note Next Visit Plan Continue: PROM RUE, gentle HEP tolerated pnfree ROM support dowel/kendra, pendulum. Future: add knee flexion seated/Heel slides POC: Pulleys, shoulder PROM, B knee joint mobs, LE strengthening, gait training
--- NOTE | 2023-09-17 16:00 | PT.OTN ---
Current Diagnoses Pathological dislocation of right shoulder, not elsewhere classified (09/17/23) Stiffness of right shoulder, not elsewhere classified (09/17/23) Stiffness of right knee, not elsewhere classified (09/17/23) Stiffness of left knee, not elsewhere classified (09/17/23) Other abnormalities of gait and mobility (09/17/23) Repeated falls (09/17/23) Contusion of right knee, sequela (09/17/23) Physical Therapy Treatment Note PT-OP-A Visit Information Start: 06/08/23 15:50 Freq: Status: Active Protocol: Document 09/17/23 15:17 DCW (Rec: 09/17/23 16:00 DCW [id number]) Out-Patient Physical Therapy Visit Information Visit Information Visit Type Treatment Note Visit Start Time 15:17 Visit Stop Time 16:00 Visit Number 23 Number of SCHOOL OPERATIONS MANAGER Visits 0 Evaluation Information Evaluation Date 06/08/23 Precautions Precautions Helpful to issue written instructions for pt to more easily review PT-OP-B Current Condition Start: 06/08/23 15:50 Freq: Status: Active Protocol: Document 06/08/23 12:00 DCW (Rec: 06/08/23 16:19 DCW [id number]) Current Condition History of Current Condition Onset Date May 03, 2023 Current Complaints R shoulder dislocation, rotator cuff tear, bilateral knee stiffness, gait History of Current Condition Pt is an 82 year old female presenting to skilled therapy five weeks s/p fall with resultant right shoulder dislocation and rotator cuff tear. Pt additionally has ongoing bilateral knee problems with impact her gait and range of motion, stemming from a distant history of bilateral TKA. Pt was previously in PT at this facility for her knees, and unfortunately had to be discharged following her fall/ dislocation which occurred at her home on 05/03/23. Pt has had an MRI, and has been referred to an ortho, however does not really want surgery, so she has put off her ortho visit. Pt admits to an additional fall last week, when she hurt her tailbone. Admits she is supposed to be using her cane, but has not been. 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 Admits she has not been very active since her fall in April, which has impacted her knee mobility and walking, which had been progressing well with prior skilled therapy. Has not been doing much with her right shoulder, very limited mobility. Still wants to focus most on knees and gait, very hesitant to do anything with her right shoulder. Pt is a fairly difficult historian. Prior Treatments and Tests Shoulder MRI: IMPRESSION: 1. Moderate to high-grade articular surface partial- thickness tear involving distal supraspinatus with up to 3.3 cm medial retraction of torn tendon fibers to the level of acromioclavicular joint. Possible full- thickness perforation involving distal infraspinatus at its insertion on the humeral head with up to 1.6 cm medial retraction of torn tendon fibers. Low-grade intrasubstance partial- thickness tear involving distal subscapularis. Mild supraspinatus muscle atrophy. 2. Suggestion of contusion versus nondisplaced fracture involving anterolateral aspect of humeral head extending to proximal humeral shaft. No other fracture or dislocation. [id number] acromioclavicular joint osteoarthritis. Moderate joint effusion and subacromial subdeltoid bursal fluid, no gross loose bodies. 3. Subtle superior anterior labral tear at 1 to 2 o'clock position and anterior-inferior labral tear at 5 to 6 o'clock position. 4 . Proximal long head of biceps tendinosis. per Radha Turpin on 05/25/2023 Treatment Goals Patient/Caregiver Goals Improve knee ROM and quality of gait. PT-OP-C Subjective Start: 06/08/23 15:50 Freq: Status: Active Protocol: Document 09/17/23 15:17 DCW (Rec: 09/17/23 16:00 DCW [id number]) OP-PT Subjective Patient Comments Patient Comments Pt reports she saw Dr Reyna about her knee, she is now being sent to a back specialist. PT-OP-E Functional Tests Start: 06/08/23 16:19 Freq: Status: Active Protocol: Document 09/09/23 16:07 DCW (Rec: 09/09/23 17:34 DCW [id number]) Functional Tests Five Times Sit to Stand Test Score 16.14 Comments Armless chair /s UE assist PT-OP-G Mobility & Gait Start: 06/08/23 15:50 Freq: Status: Active Protocol: Document 09/09/23 16:07 DCW (Rec: 09/09/23 17:34 DCW [id number]) OP Gait Assessment Comments Gait Comments Pt ambulates with bilateral knee flexion, unable to get knees into full extension during swing or stance phase. Forward flexed at tunk. Currently not using any assistive device PT-OP-K Range of Motion Start: 06/08/23 15:50 Freq: Status: Active Protocol: Document 09/09/23 16:07 DCW (Rec: 09/09/23 17:34 DC [id number]) Shoulder Goniometric Range of Motion Shoulder Right Passive Shoulder ROM WFL No Testing Position Sitting Flexion 84 Abduction 73 External Rotation at 0 degrees Abduction 31 Right Active Shoulder ROM WFL No Testing Position Sitting Flexion 14 Abduction 42 External Rotation at 0 degrees Abduction 12 Internal Rotation Behind Back (text) L4 Knee Goniometric Range of Motion Knee Right Knee ROM WFL No Patient Position Sitting Flexion Active (degrees) 98 Extension Active (degrees) 10 Left Knee ROM WFL No Patient Position Sitting Flexion Active (degrees) 82 Extension Active (degrees) 11 PT-OP-M Strength Start: 06/08/23 15:50 Freq: Status: Active Protocol: Document 06/08/23 12:00 DCW (Rec: 06/08/23 16:19 DCW [id number]) Shoulder Strength Shoulder Manual Muscle Testing Right Flexion 1 Trace Abduction (C5) 1 Trace External Rotation 1 Trace Internal Rotation 1 Trace Knee Strength Knee Manual Muscle Testing Right Flexion (S2) 2+ Poor+ Extension (L3) 2+ Poor+ Left Flexion (S2) 2+ Poor+ Extension (L3) 2+ Poor+ PT-OP-Q Treatments Start: 06/08/23 15:50 Freq: Status: Active Protocol: Document 09/17/23 15:17 DCW (Rec: 09/17/23 16:00 DCW [id number]) Cardio Equipment Recumbent Elliptical ([employer]) Duration (Minutes) 6 Resistance 5 Seat Position 9 Therapeutic Exercises Standing Exercises Hamstring Stretch Standing Exercise Name Hamstring Stretch Side bilateral Other Exercises Step-down Other Exercise Name Step-down Side bilateral Equipment Used 6 step Manual Therapy Treatment Joint Mobilizations B knees Joint B knee: tib fib prox, tib femoral, Direction A<->P Grade III Neuro Re-Education Treatment Balance Activities Foam Details Marching, SLS Surface Large blue PT-OP-R Modalities Start: 07/31/23 15:39 Freq: Status: Active Protocol: Document 07/31/23 13:46 SP (Rec: 07/31/23 15:40 SP [id number]) Hot Pack/Cold Pack Treatment CP Location R shld Patient Position Sitting Patient Tolerance Good Comments not as sore after CP. PT-OP-T Assessment and Plan Start: 06/08/23 15:50 Freq: Status: Active Protocol: Document 09/17/23 15:17 DCW (Rec: 09/17/23 16:00 DCW [id number]) Physical Therapy Assessment Impairments Impairments Functional Activities, Functional Mobility,Gait,Pain, Posture,ROM,Strength Goals Three Impairment Gait significantly impacted by limited bilateral knee ROM Rn Digestive Goal (LTG) Pt to improve bilateral knee extension to 5? from neutral in order to improve quality of gait during stance phase. LTG Duration 11/09/23 Two Impairment Right shoulder flexion/ abduction AROM limited to 0? Rn Digestive Goal (LTG) Pt to improve right shoulder AROM to at least 90? in both flexion and abduction in order to improve ability for pt to return to driving. LTG Duration 11/09/23 - improving One Impairment Pt does not have an appropriate home exercise program Short Term Goal (STG) Pt to be independent and compliant with an appropriate HEP 06/16/23: added supine PROM LUE assist RUE FF, SLR, UE walk out BUE on rail PROM FF, scap retraction. 06/18/22: pendulum. STG Duration 10/10/23 Assessment Summary Assessment Pt showing slight improvements with her shoulder ROM, making progress with stabilization/ balance. Continue to focus on decreasing falls risk and improving active/passive shoulder ROM Physical Therapy Plan Frequency and Duration Frequency of Treatment 1-2x/week Plan of Care Start Date 09/09/23 Plan of Care End Date 11/09/23 Therapeutic Interventions Therapeutic Interventions Balance Training,Gait Training ,Home Exercise Program,Joint Mobilizations,Manual Therapy, Neuromuscular Re-education, Patient/Caregiver Education, Self-Care/Home Management,Soft Tissue Mobilization, Therapeutic Activities, Therapeutic Exercises Modalities Cold Pack/Ice Massage,Electric Stimulation,Hot Packs, Ultrasound Next Visit Focus/Plan Next Note Type Treatment Note Next Visit Plan Continue: PROM RUE, gentle HEP tolerated pnfree ROM support dowel/kendra, pendulum. Future: add knee flexion seated/Heel slides POC: Pulleys, shoulder PROM, B knee joint mobs, LE strengthening, gait training
--- NOTE | 2023-10-13 16:47 | PT.OTN ---
Current Diagnoses Pathological dislocation of right shoulder, not elsewhere classified (10/13/23) Stiffness of right shoulder, not elsewhere classified (10/13/23) Stiffness of right knee, not elsewhere classified (10/13/23) Stiffness of left knee, not elsewhere classified (10/13/23) Other abnormalities of gait and mobility (10/13/23) Repeated falls (10/13/23) Contusion of right knee, sequela (10/13/23) Physical Therapy Treatment Note PT-OP-A Visit Information Start: 06/08/23 15:50 Freq: Status: Active Protocol: Document 10/13/23 16:05 DCW (Rec: 10/13/23 16:47 DCW [id number]) Out-Patient Physical Therapy Visit Information Visit Information Visit Type Treatment Note Visit Start Time 16:05 Visit Stop Time 16:45 Visit Number 26 Number of APPLIED BEHAVIOR SPECIALIST Visits 0 Evaluation Information Evaluation Date 06/08/23 Precautions Precautions Helpful to issue written instructions for pt to more easily review PT-OP-B Current Condition Start: 06/08/23 15:50 Freq: Status: Active Protocol: Document 06/08/23 12:00 DCW (Rec: 06/08/23 16:19 DCW [id number]) Current Condition History of Current Condition Onset Date May 03, 2023 Current Complaints R shoulder dislocation, rotator cuff tear, bilateral knee stiffness, gait History of Current Condition Pt is an 82 year old female presenting to skilled therapy five weeks s/p fall with resultant right shoulder dislocation and rotator cuff tear. Pt additionally has ongoing bilateral knee problems with impact her gait and range of motion, stemming from a distant history of bilateral TKA. Pt was previously in PT at this facility for her knees, and unfortunately had to be discharged following her fall/ dislocation which occurred at her home on 05/03/23. Pt has had an MRI, and has been referred to an ortho, however does not really want surgery, so she has put off her ortho visit. Pt admits to an additional fall last week, when she hurt her tailbone. Admits she is supposed to be using her cane, but has not been. 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 Admits she has not been very active since her fall in April, which has impacted her knee mobility and walking, which had been progressing well with prior skilled therapy. Has not been doing much with her right shoulder, very limited mobility. Still wants to focus most on knees and gait, very hesitant to do anything with her right shoulder. Pt is a fairly difficult historian. Prior Treatments and Tests Shoulder MRI: IMPRESSION: 1. Moderate to high-grade articular surface partial- thickness tear involving distal supraspinatus with up to 3.3 cm medial retraction of torn tendon fibers to the level of acromioclavicular joint. Possible full- thickness perforation involving distal infraspinatus at its insertion on the humeral head with up to 1.6 cm medial retraction of torn tendon fibers. Low-grade intrasubstance partial- thickness tear involving distal subscapularis. Mild supraspinatus muscle atrophy. 2. Suggestion of contusion versus nondisplaced fracture involving anterolateral aspect of humeral head extending to proximal humeral shaft. No other fracture or dislocation. [id number] acromioclavicular joint osteoarthritis. Moderate joint effusion and subacromial subdeltoid bursal fluid, no gross loose bodies. 3. Subtle superior anterior labral tear at 1 to 2 o'clock position and anterior-inferior labral tear at 5 to 6 o'clock position. 4 . Proximal long head of biceps tendinosis. per Radha Turpin on 05/25/2023 Treatment Goals Patient/Caregiver Goals Improve knee ROM and quality of gait. PT-OP-C Subjective Start: 06/08/23 15:50 Freq: Status: Active Protocol: Document 10/13/23 16:05 DCW (Rec: 10/13/23 16:47 DCW [id number]) OP-PT Subjective Patient Comments Patient Comments Every time I think I'm doing better, I go boom again. PT-OP-E Functional Tests Start: 06/08/23 16:19 Freq: Status: Active Protocol: Document 09/09/23 16:07 DCW (Rec: 09/09/23 17:34 DCW [id number]) Functional Tests Five Times Sit to Stand Test Score 16.14 Comments Armless chair /s UE assist PT-OP-G Mobility & Gait Start: 06/08/23 15:50 Freq: Status: Active Protocol: Document 09/09/23 16:07 DCW (Rec: 09/09/23 17:34 DC [id number]) OP Gait Assessment Comments Gait Comments Pt ambulates with bilateral knee flexion, unable to get knees into full extension during swing or stance phase. Forward flexed at tunk. Currently not using any assistive device PT-OP-K Range of Motion Start: 06/08/23 15:50 Freq: Status: Active Protocol: Document 09/09/23 16:07 DCW (Rec: 09/09/23 17:34 [facility] [id number]) Shoulder Goniometric Range of Motion Shoulder Right Passive Shoulder ROM WFL No Testing Position Sitting Flexion 84 Abduction 73 External Rotation at 0 degrees Abduction 31 Right Active Shoulder ROM WFL No Testing Position Sitting Flexion 14 Abduction 42 External Rotation at 0 degrees Abduction 12 Internal Rotation Behind Back (text) L4 Knee Goniometric Range of Motion Knee Right Knee ROM WFL No Patient Position Sitting Flexion Active (degrees) 98 Extension Active (degrees) 10 Left Knee ROM WFL No Patient Position Sitting Flexion Active (degrees) 82 Extension Active (degrees) 11 PT-OP-M Strength Start: 06/08/23 15:50 Freq: Status: Active Protocol: Document 06/08/23 12:00 DCW (Rec: 06/08/23 16:19 DCW [id number]) Shoulder Strength Shoulder Manual Muscle Testing Right Flexion 1 Trace Abduction (C5) 1 Trace External Rotation 1 Trace Internal Rotation 1 Trace Knee Strength Knee Manual Muscle Testing Right Flexion (S2) 2+ Poor+ Extension (L3) 2+ Poor+ Left Flexion (S2) 2+ Poor+ Extension (L3) 2+ Poor+ PT-OP-Q Treatments Start: 06/08/23 15:50 Freq: Status: Active Protocol: Document 10/13/23 16:05 DCW (Rec: 10/13/23 16:47 DCW [id number]) Cardio Equipment Recumbent Elliptical ([employer]) Duration (Minutes) 5 Resistance 5 Seat Position 8 Therapeutic Exercises Supine Exercises Hip flexor Supine Exercise Name Hip Flexor stretch Side bilateral Gait Training Gait Activity Gait Comments Fwd (Arm swing, knee extension , heel strike) Retro Neuro Re-Education Treatment Balance Activities Foam Details Staggered Stance Surface Two AirEx Comments X1 Self-Care/Home Management Treatment Education Other Education Edu about safety, ambulating, outdoor walking. PT-OP-R Modalities Start: 07/31/23 15:39 Freq: Status: Active Protocol: Document 07/31/23 13:46 SP (Rec: 07/31/23 15:40 SP [id number]) Hot Pack/Cold Pack Treatment CP Location R shld Patient Position Sitting Patient Tolerance Good Comments not as sore after CP. PT-OP-T Assessment and Plan Start: 06/08/23 15:50 Freq: Status: Active Protocol: Document 10/13/23 16:05 DCW (Rec: 10/13/23 16:47 DCW [id number]) Physical Therapy Assessment Impairments Impairments Functional Activities, Functional Mobility,Gait,Pain, Posture,ROM,Strength Goals Three Impairment Gait significantly impacted by limited bilateral knee ROM Custodial Goal (LTG) Pt to improve bilateral knee extension to 5? from neutral in order to improve quality of gait during stance phase. LTG Duration 11/09/23 Two Impairment Right shoulder flexion/ abduction AROM limited to 0? Machine Sand Mixer Goal (LTG) Pt to improve right shoulder AROM to at least 90? in both flexion and abduction in order to improve ability for pt to return to driving. LTG Duration 11/09/23 - improving One Impairment Pt does not have an appropriate home exercise program Short Term Goal (STG) Pt to be independent and compliant with an appropriate HEP 06/16/23: added supine PROM LUE assist RUE FF, SLR, UE walk out BUE on rail PROM FF, scap retraction. 06/18/22: pendulum. STG Duration 10/10/23 Assessment Summary Assessment Spent time today discussing recent falls, and trying to make better decisions regarding places to walk with fewer obstacles and uneven surfaces. Added hip flexior stretch to HEP, pt noted feeling good afterward Physical Therapy Plan Frequency and Duration Frequency of Treatment 1-2x/week Plan of Care Start Date 09/09/23 Plan of Care End Date 11/09/23 Therapeutic Interventions Therapeutic Interventions Balance Training,Gait Training ,Home Exercise Program,Joint Mobilizations,Manual Therapy, Neuromuscular Re-education, Patient/Caregiver Education, Self-Care/Home Management,Soft Tissue Mobilization, Therapeutic Activities, Therapeutic Exercises Modalities Cold Pack/Ice Massage,Electric Stimulation,Hot Packs, Ultrasound Next Visit Focus/Plan Next Note Type Treatment Note Next Visit Plan Quad stretch, review pt's personal HEP. Continue: PROM RUE, gentle HEP tolerated pnfree ROM support dowel/kendra, pendulum. Future: add knee flexion seated/Heel slides POC: Pulleys, shoulder PROM, B knee joint mobs, LE strengthening, gait training
--- NOTE | 2023-10-23 12:20 | PT.OTN ---
Current Diagnoses Pathological dislocation of right shoulder, not elsewhere classified (10/23/23) Stiffness of right shoulder, not elsewhere classified (10/23/23) Stiffness of right knee, not elsewhere classified (10/23/23) Stiffness of left knee, not elsewhere classified (10/23/23) Other abnormalities of gait and mobility (10/23/23) Repeated falls (10/23/23) Contusion of right knee, sequela (10/23/23) Physical Therapy Treatment Note PT-OP-A Visit Information Start: 06/08/23 15:50 Freq: Status: Active Protocol: Document 10/23/23 11:16 AB (Rec: 10/23/23 12:20 AB [id number]) Out-Patient Physical Therapy Visit Information Visit Information Visit Type Treatment Note Visit Note Access Code [email or web address] Visit Start Time 11:21 Visit Stop Time 12:08 Visit Number 27 Number of RADIOTELEGRAPH OPERATOR Visits 1 Evaluation Information Evaluation Date 06/08/23 Precautions Precautions Helpful to issue written instructions for pt to more easily review PT-OP-B Current Condition Start: 06/08/23 15:50 Freq: Status: Active Protocol: Document 06/08/23 12:00 DCW (Rec: 06/08/23 16:19 DCW [id number]) Current Condition History of Current Condition Onset Date May 03, 2023 Current Complaints R shoulder dislocation, rotator cuff tear, bilateral knee stiffness, gait History of Current Condition Pt is an 82 year old female presenting to skilled therapy five weeks s/p fall with resultant right shoulder dislocation and rotator cuff tear. Pt additionally has ongoing bilateral knee problems with impact her gait and range of motion, stemming from a distant history of bilateral TKA. Pt was previously in PT at this facility for her knees, and unfortunately had to be discharged following her fall/ dislocation which occurred at her home on 05/03/23. Pt has had an MRI, and has been referred to an ortho, however does not really want surgery, so she has put off her ortho visit. Pt admits to an additional fall last week, when she hurt her tailbone. Admits she is supposed to be using her cane, but has not been. 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 Admits she has not been very active since her fall in April, which has impacted her knee mobility and walking, which had been progressing well with prior skilled therapy. Has not been doing much with her right shoulder, very limited mobility. Still wants to focus most on knees and gait, very hesitant to do anything with her right shoulder. Pt is a fairly difficult historian. Prior Treatments and Tests Shoulder MRI: IMPRESSION: 1. Moderate to high-grade articular surface partial- thickness tear involving distal supraspinatus with up to 3.3 cm medial retraction of torn tendon fibers to the level of acromioclavicular joint. Possible full- thickness perforation involving distal infraspinatus at its insertion on the humeral head with up to 1.6 cm medial retraction of torn tendon fibers. Low-grade intrasubstance partial- thickness tear involving distal subscapularis. Mild supraspinatus muscle atrophy. 2. Suggestion of contusion versus nondisplaced fracture involving anterolateral aspect of humeral head extending to proximal humeral shaft. No other fracture or dislocation. [id number] acromioclavicular joint osteoarthritis. Moderate joint effusion and subacromial subdeltoid bursal fluid, no gross loose bodies. 3. Subtle superior anterior labral tear at 1 to 2 o'clock position and anterior-inferior labral tear at 5 to 6 o'clock position. 4 . Proximal long head of biceps tendinosis. per Radha Turpin on 05/25/2023 Treatment Goals Patient/Caregiver Goals Improve knee ROM and quality of gait. PT-OP-C Subjective Start: 06/08/23 15:50 Freq: Status: Active Protocol: Document 10/23/23 11:16 AB (Rec: 10/23/23 12:20 AB [id number]) OP-PT Subjective Patient Comments Patient Comments Patient reports she sees Dr. Jean-Baptiste on Thursday next week , comments she does not think she will do the rotator cuff repair due to taking care of spouse with Parkinson's. Sit to stand with UE use, with increased use of momentum/ decreased hip hinge PT-OP-E Functional Tests Start: 06/08/23 16:19 Freq: Status: Active Protocol: Document 09/09/23 16:07 DCW (Rec: 09/09/23 17:34 DCW [id number]) Functional Tests Five Times Sit to Stand Test Score 16.14 Comments Armless chair /s UE assist PT-OP-G Mobility & Gait Start: 06/08/23 15:50 Freq: Status: Active Protocol: Document 09/09/23 16:07 DCW (Rec: 09/09/23 17:34 DCW [id number]) OP Gait Assessment Comments Gait Comments Pt ambulates with bilateral knee flexion, unable to get knees into full extension during swing or stance phase. Forward flexed at tunk. Currently not using any assistive device PT-OP-K Range of Motion Start: 06/08/23 15:50 Freq: Status: Active Protocol: Document 09/09/23 16:07 DCW (Rec: 09/09/23 17:34 DCW [id number]) Shoulder Goniometric Range of Motion Shoulder Right Passive Shoulder ROM WFL No Testing Position Sitting Flexion 84 Abduction 73 External Rotation at 0 degrees Abduction 31 Right Active Shoulder ROM WFL No Testing Position Sitting Flexion 14 Abduction 42 External Rotation at 0 degrees Abduction 12 Internal Rotation Behind Back (text) L4 Knee Goniometric Range of Motion Knee Right Knee ROM WFL No Patient Position Sitting Flexion Active (degrees) 98 Extension Active (degrees) 10 Left Knee ROM WFL No Patient Position Sitting Flexion Active (degrees) 82 Extension Active (degrees) 11 PT-OP-M Strength Start: 06/08/23 15:50 Freq: Status: Active Protocol: Document 06/08/23 12:00 DCW (Rec: 06/08/23 16:19 DCW [id number]) Shoulder Strength Shoulder Manual Muscle Testing Right Flexion 1 Trace Abduction (C5) 1 Trace External Rotation 1 Trace Internal Rotation 1 Trace Knee Strength Knee Manual Muscle Testing Right Flexion (S2) 2+ Poor+ Extension (L3) 2+ Poor+ Left Flexion (S2) 2+ Poor+ Extension (L3) 2+ Poor+ PT-OP-Q Treatments Start: 06/08/23 15:50 Freq: Status: Active Protocol: Document 10/23/23 11:16 AB (Rec: 10/23/23 12:20 AB [id number]) Therapeutic Exercises Supine Exercises shoulder flexion Supine Exercise Name elbow bent Side right Reps/Minutes X7 Comments limited by pain Hamstring Stretch Supine Exercise Name 1. HS stretch w/ ankle pumps 2 . IT band stretch Side bilateral Reps/Minutes x1 min ea X2 Sidelying Exercises shoulder ER Side right Reps/Minutes X10 Comments verbal and tactile cues, very minimal AROM Sitting Exercises wall slide Sitting Exercise Name flexion on forearm Reps/Minutes X5 Comments Verbal cues to perform in pain free range shld ER Sitting Exercise Name seated body over UE PROM and seated AROM with UE resting at table height Side right Resistance AAROM Reps/Minutes X 10 each Comments verbal and visual cues STS Sitting Exercise Name with then without UE use Side bilateral Equipment Used From chair Reps/Minutes X10 then X 1 X 3 during session Comments VC for knees past 90 deg, to hip hinge and avoid pause post hip hinge Manual Therapy Treatment Soft Tissue Mobilization knees Body Location bilateral knees/for swelling, hamstrings, quads Mobilization Type Cross-Friction,Rolling,Other Intensity/Depth Moderate Body Position Hooklying R shld Body Location ant post right shoulder Mobilization Type Cross-Friction,Rolling, Sustained Pressure Intensity/Depth Superficial Body Position Hooklying Comments prior to stretch L quad Body Location B hamstring and quad Mobilization Type Cross-Friction,Other Intensity/Depth Moderate Body Position Hooklying Joint Mobilizations R shld Joint GH Direction inf/AP Grade II Body Position Hooklying Manual Techniques PROM Type right UE ER Body Position Hooklying Reps/Duration 2 Comments contract relax PT-OP-R Modalities Start: 07/31/23 15:39 Freq: Status: Active Protocol: Document 07/31/23 13:46 SP (Rec: 07/31/23 15:40 SP [id number]) Hot Pack/Cold Pack Treatment CP Location R shld Patient Position Sitting Patient Tolerance Good Comments not as sore after CP. PT-OP-T Assessment and Plan Start: 06/08/23 15:50 Freq: Status: Active Protocol: Document 10/23/23 11:16 AB (Rec: 10/23/23 12:20 AB [id number]) Physical Therapy Assessment Goals Three Impairment Gait significantly impacted by limited bilateral knee ROM Divemaster Goal (LTG) Pt to improve bilateral knee extension to 5? from neutral in order to improve quality of gait during stance phase. LTG Duration 11/09/23 Two Impairment Right shoulder flexion/ abduction AROM limited to 0? Shelter Goal (LTG) Pt to improve right shoulder AROM to at least 90? in both flexion and abduction in order to improve ability for pt to return to driving. LTG Duration 11/09/23 - improving One Impairment Pt does not have an appropriate home exercise program Short Term Goal (STG) Pt to be independent and compliant with an appropriate HEP 06/16/23: added supine PROM LUE assist RUE FF, SLR, UE walk out BUE on rail PROM FF, scap retraction. 06/18/22: pendulum. STG Duration 10/10/23 Assessment Summary Assessment Marcia transfers sit to stand with normal/functional use of momentum, improved hip hinge, increased knee flexion, and without UE use post training with good carryover to end of session. Physical Therapy Plan Frequency and Duration Frequency of Treatment 1-2x/week Plan of Care Start Date 09/09/23 Plan of Care End Date 11/09/23 Next Visit Focus/Plan Next Note Type Treatment Note Next Visit Plan Quad stretch, review pt's personal HEP. Continue: PROM RUE, gentle HEP tolerated pnfree ROM support dowel/kendra, pendulum. Future: add knee flexion seated/Heel slides POC: Pulleys, shoulder PROM, B knee joint mobs, LE strengthening, gait training
--- NOTE | 2023-10-27 16:12 | PT.OTN ---
Current Diagnoses Pathological dislocation of right shoulder, not elsewhere classified (10/27/23) Stiffness of right shoulder, not elsewhere classified (10/27/23) Stiffness of right knee, not elsewhere classified (10/27/23) Stiffness of left knee, not elsewhere classified (10/27/23) Other abnormalities of gait and mobility (10/27/23) Repeated falls (10/27/23) Contusion of right knee, sequela (10/27/23) Physical Therapy Treatment Note PT-OP-A Visit Information Start: 06/08/23 15:50 Freq: Status: Active Protocol: Document 10/27/23 15:17 DCW (Rec: 10/27/23 16:03 DCW [id number]) Out-Patient Physical Therapy Visit Information Visit Information Visit Type Progress Note Visit Start Time 15:17 Visit Stop Time 16:00 Visit Number 28 Number of ASSESSMENT SERVICES MANAGER Visits 0 Evaluation Information Evaluation Date 06/08/23 Precautions Precautions Helpful to issue written instructions for pt to more easily review PT-OP-B Current Condition Start: 06/08/23 15:50 Freq: Status: Active Protocol: Document 06/08/23 12:00 DCW (Rec: 06/08/23 16:19 DCW [id number]) Current Condition History of Current Condition Onset Date May 03, 2023 Current Complaints R shoulder dislocation, rotator cuff tear, bilateral knee stiffness, gait History of Current Condition Pt is an 82 year old female presenting to skilled therapy five weeks s/p fall with resultant right shoulder dislocation and rotator cuff tear. Pt additionally has ongoing bilateral knee problems with impact her gait and range of motion, stemming from a distant history of bilateral TKA. Pt was previously in PT at this facility for her knees, and unfortunately had to be discharged following her fall/ dislocation which occurred at her home on 05/03/23. Pt has had an MRI, and has been referred to an ortho, however does not really want surgery, so she has put off her ortho visit. Pt admits to an additional fall last week, when she hurt her tailbone. Admits she is supposed to be using her cane, but has not been. 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 Admits she has not been very active since her fall in April, which has impacted her knee mobility and walking, which had been progressing well with prior skilled therapy. Has not been doing much with her right shoulder, very limited mobility. Still wants to focus most on knees and gait, very hesitant to do anything with her right shoulder. Pt is a fairly difficult historian. Prior Treatments and Tests Shoulder MRI: IMPRESSION: 1. Moderate to high-grade articular surface partial- thickness tear involving distal supraspinatus with up to 3.3 cm medial retraction of torn tendon fibers to the level of acromioclavicular joint. Possible full- thickness perforation involving distal infraspinatus at its insertion on the humeral head with up to 1.6 cm medial retraction of torn tendon fibers. Low-grade intrasubstance partial- thickness tear involving distal subscapularis. Mild supraspinatus muscle atrophy. 2. Suggestion of contusion versus nondisplaced fracture involving anterolateral aspect of humeral head extending to proximal humeral shaft. No other fracture or dislocation. [id number] acromioclavicular joint osteoarthritis. Moderate joint effusion and subacromial subdeltoid bursal fluid, no gross loose bodies. 3. Subtle superior anterior labral tear at 1 to 2 o'clock position and anterior-inferior labral tear at 5 to 6 o'clock position. 4 . Proximal long head of biceps tendinosis. per Radha Turpin on 05/25/2023 Treatment Goals Patient/Caregiver Goals Improve knee ROM and quality of gait. PT-OP-C Subjective Start: 06/08/23 15:50 Freq: Status: Active Protocol: Document 10/27/23 15:17 DCW (Rec: 10/27/23 16:03 DCW [id number]) OP-PT Subjective Patient Comments Patient Comments Pt reports she had a fall in the bathroom this past weekend , and has been experiencing positional vertigo PT-OP-E Functional Tests Start: 06/08/23 16:19 Freq: Status: Active Protocol: Document 09/09/23 16:07 DCW (Rec: 09/09/23 17:34 DCW [id number]) Functional Tests Five Times Sit to Stand Test Score 16.14 Comments Armless chair /s UE assist PT-OP-G Mobility & Gait Start: 06/08/23 15:50 Freq: Status: Active Protocol: Document 09/09/23 16:07 DCW (Rec: 09/09/23 17:34 DCW [id number]) OP Gait Assessment Comments Gait Comments Pt ambulates with bilateral knee flexion, unable to get knees into full extension during swing or stance phase. Forward flexed at tunk. Currently not using any assistive device PT-OP-K Range of Motion Start: 06/08/23 15:50 Freq: Status: Active Protocol: Document 09/09/23 16:07 DCW (Rec: 09/09/23 17:34 DCW [id number]) Shoulder Goniometric Range of Motion Shoulder Right Passive Shoulder ROM WFL No Testing Position Sitting Flexion 84 Abduction 73 External Rotation at 0 degrees Abduction 31 Right Active Shoulder ROM WFL No Testing Position Sitting Flexion 14 Abduction 42 External Rotation at 0 degrees Abduction 12 Internal Rotation Behind Back (text) L4 Knee Goniometric Range of Motion Knee Right Knee ROM WFL No Patient Position Sitting Flexion Active (degrees) 98 Extension Active (degrees) 10 Left Knee ROM WFL No Patient Position Sitting Flexion Active (degrees) 82 Extension Active (degrees) 11 PT-OP-M Strength Start: 06/08/23 15:50 Freq: Status: Active Protocol: Document 06/08/23 12:00 DCW (Rec: 06/08/23 16:19 DCW [id number]) Shoulder Strength Shoulder Manual Muscle Testing Right Flexion 1 Trace Abduction (C5) 1 Trace External Rotation 1 Trace Internal Rotation 1 Trace Knee Strength Knee Manual Muscle Testing Right Flexion (S2) 2+ Poor+ Extension (L3) 2+ Poor+ Left Flexion (S2) 2+ Poor+ Extension (L3) 2+ Poor+ PT-OP-O Vestibular Start: 10/27/23 15:22 Freq: Status: Active Protocol: Document 10/27/23 15:17 DCW (Rec: 10/27/23 16:01 DCW [id number]) Vestibular Assessment Positional Testing Smith-Hallpike Positive Right,Negative Left, Upbeating,< 60 Seconds PT-OP-Q Treatments Start: 06/08/23 15:50 Freq: Status: Active Protocol: Document 10/27/23 15:17 DCW (Rec: 10/27/23 16:12 DCW [id number]) Manual Therapy Treatment Other Other Manual Treatments Positional testing Canalithic Repositioning BPPV Treatment Radha Affected Canal(s) Right posterior Reps x2 PT-OP-R Modalities Start: 07/31/23 15:39 Freq: Status: Active Protocol: Document 07/31/23 13:46 SP (Rec: 07/31/23 15:40 SP [id number]) Hot Pack/Cold Pack Treatment CP Location R shld Patient Position Sitting Patient Tolerance Good Comments not as sore after CP. PT-OP-T Assessment and Plan Start: 06/08/23 15:50 Freq: Status: Active Protocol: Document 10/27/23 15:17 DCW (Rec: 10/27/23 16:12 DCW [id number]) Physical Therapy Assessment Impairments Impairments Functional Activities, Functional Mobility,Gait,Pain, Posture,ROM,Strength Goals Three Impairment Gait significantly impacted by limited bilateral knee ROM Retirement Goal (LTG) Pt to improve bilateral knee extension to 5? from neutral in order to improve quality of gait during stance phase. LTG Duration 11/09/23 Two Impairment Right shoulder flexion/ abduction AROM limited to 0? Departure Clerk Goal (LTG) Pt to improve right shoulder AROM to at least 90? in both flexion and abduction in order to improve ability for pt to return to driving. LTG Duration 11/09/23 - improving One Impairment Pt does not have an appropriate home exercise program Short Term Goal (STG) Pt to be independent and compliant with an appropriate HEP 06/16/23: added supine PROM LUE assist RUE FF, SLR, UE walk out BUE on rail PROM FF, scap retraction. 06/18/22: pendulum. STG Duration 10/10/23 Assessment Summary Assessment Plan was to likely discharge after today's retesting due to progress plateau, however pt' s balance significantly decreased today with recent falls and associated positional vertigo. Positional testing positive for right posterior-canal BPPV. Pt was treated with a left/right- sided modified Radha maneuver. Pt complained of symptoms in the first and third position, which is normally indicative of a successful treatment. Further positional testing mildly positive, and a second modified Radha was performed. Pt was educated on BPPV and expectations for treatment. Pt to return in ~1 week for a follow-up appointment, if BPPV has been successfully treated , will likely discharge at that time. Physical Therapy Plan Frequency and Duration Frequency of Treatment 1-2x/week Plan of Care Start Date 10/27/23 Plan of Care End Date 11/17/23 Therapeutic Interventions Therapeutic Interventions Balance Training,Gait Training ,Home Exercise Program,Joint Mobilizations,Manual Therapy, Neuromuscular Re-education, Patient/Caregiver Education, Self-Care/Home Management,Soft Tissue Mobilization, Therapeutic Activities, Therapeutic Exercises Modalities Cold Pack/Ice Massage,Electric Stimulation,Hot Packs, Ultrasound Next Visit Focus/Plan Next Note Type Treatment Note Next Visit Plan Quad stretch, review pt's personal HEP. Continue: PROM RUE, gentle HEP tolerated pnfree ROM support dowel/kendra, pendulum. Future: add knee flexion seated/Heel slides POC: Pulleys, shoulder PROM, B knee joint mobs, LE strengthening, gait training
--- NOTE | 2023-10-27 16:13 | PT.OPPOC ---
Physical, Occupational & Speech Therapy At [facility] Current Diagnoses Pathological dislocation of right shoulder, not elsewhere classified (10/27/23) Stiffness of right shoulder, not elsewhere classified (10/27/23) Stiffness of right knee, not elsewhere classified (10/27/23) Stiffness of left knee, not elsewhere classified (10/27/23) Other abnormalities of gait and mobility (10/27/23) Repeated falls (10/27/23) Contusion of right knee, sequela (10/27/23) Visit Care Team Role Provider Type Kin Haywood MD Attending Provider Non-Staff Family Provider Primary Care Provider Referring Provider Specialty: Internal Medicine Address: [address] [place] [address] [address], [place], [address] Email: Plan Of Care PT-OP-T Assessment and Plan Start: 06/08/23 15:50 Freq: Status: Active Protocol: Document 10/27/23 15:17 DCW (Rec: 10/27/23 16:12 DCW [id number]) Physical Therapy Assessment Impairments Impairments Functional Activities, Functional Mobility,Gait,Pain, Posture,ROM,Strength Goals Three Impairment Gait significantly impacted by limited bilateral knee ROM Usp Goal (LTG) Pt to improve bilateral knee extension to 5? from neutral in order to improve quality of gait during stance phase. LTG Duration 11/09/23 Two Impairment Right shoulder flexion/ abduction AROM limited to 0? Manual Plate Filler Goal (LTG) Pt to improve right shoulder AROM to at least 90? in both flexion and abduction in order to improve ability for pt to return to driving. LTG Duration 11/09/23 - improving One Impairment Pt does not have an appropriate home exercise program Short Term Goal (STG) Pt to be independent and compliant with an appropriate HEP 06/16/23: added supine PROM LUE assist RUE FF, SLR, UE walk out BUE on rail PROM FF, scap retraction. 06/18/22: pendulum. STG Duration 10/10/23 Assessment Summary Assessment Plan was to likely discharge after today's retesting due to progress plateau, however pt' s balance significantly decreased today with recent falls and associated positional vertigo. Positional testing positive for right posterior-canal BPPV. Pt was treated with a left/right- sided modified Radha maneuver. Pt complained of symptoms in the first and third position, which is normally indicative of a successful treatment. Further positional testing mildly positive, and a second modified Radha was performed. Pt was educated on BPPV and expectations for treatment. Pt to return in ~1 week for a follow-up appointment, if BPPV has been successfully treated , will likely discharge at that time. Physical Therapy Plan Frequency and Duration Frequency of Treatment 1-2x/week Plan of Care Start Date 10/27/23 Plan of Care End Date 11/17/23 Therapeutic Interventions Therapeutic Interventions Balance Training,Gait Training ,Home Exercise Program,Joint Mobilizations,Manual Therapy, Neuromuscular Re-education, Patient/Caregiver Education, Self-Care/Home Management,Soft Tissue Mobilization, Therapeutic Activities, Therapeutic Exercises Modalities Cold Pack/Ice Massage,Electric Stimulation,Hot Packs, Ultrasound Next Visit Focus/Plan Next Note Type Treatment Note Next Visit Plan Quad stretch, review pt's personal HEP. Continue: PROM RUE, gentle HEP tolerated pnfree ROM support dowel/kendra, pendulum. Future: add knee flexion seated/Heel slides POC: Pulleys, shoulder PROM, B knee joint mobs, LE strengthening, gait training Plan of Care Dates Plan of Care Start Date 10/27/23 Plan of Care End Date 11/17/23 Electronically Signed by: Carter Lozano, PT 10/27/23 4599 If you are in agreement with this Plan of Care, please return a signed and dated copy. I have reviewed this Plan of Care and certify that the skilled therapy services above are required to meet the patient?s needs. Physician Signature Date Printed Name and Credentials Clinical Instructor Signature Printed Name and Credentials
--- NOTE | 2023-10-30 14:29 | PT.OTN ---
Current Diagnoses Pathological dislocation of right shoulder, not elsewhere classified (10/30/23) Stiffness of right shoulder, not elsewhere classified (10/30/23) Stiffness of right knee, not elsewhere classified (10/30/23) Stiffness of left knee, not elsewhere classified (10/30/23) Other abnormalities of gait and mobility (10/30/23) Repeated falls (10/30/23) Contusion of right knee, sequela (10/30/23) Physical Therapy Treatment Note PT-OP-A Visit Information Start: 06/08/23 15:50 Freq: Status: Active Protocol: Document 10/30/23 13:50 DCW (Rec: 10/30/23 14:28 DCW [id number]) Out-Patient Physical Therapy Visit Information Visit Information Visit Type Treatment Note Visit Start Time 13:50 Visit Stop Time 14:30 Visit Number 29 Number of TIMBER GIRDLER Visits 0 Evaluation Information Evaluation Date 06/08/23 Precautions Precautions Helpful to issue written instructions for pt to more easily review PT-OP-B Current Condition Start: 06/08/23 15:50 Freq: Status: Active Protocol: Document 06/08/23 12:00 DCW (Rec: 06/08/23 16:19 DCW [id number]) Current Condition History of Current Condition Onset Date May 03, 2023 Current Complaints R shoulder dislocation, rotator cuff tear, bilateral knee stiffness, gait History of Current Condition Pt is an 82 year old female presenting to skilled therapy five weeks s/p fall with resultant right shoulder dislocation and rotator cuff tear. Pt additionally has ongoing bilateral knee problems with impact her gait and range of motion, stemming from a distant history of bilateral TKA. Pt was previously in PT at this facility for her knees, and unfortunately had to be discharged following her fall/ dislocation which occurred at her home on 05/03/23. Pt has had an MRI, and has been referred to an ortho, however does not really want surgery, so she has put off her ortho visit. Pt admits to an additional fall last week, when she hurt her tailbone. Admits she is supposed to be using her cane, but has not been. 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 Admits she has not been very active since her fall in April, which has impacted her knee mobility and walking, which had been progressing well with prior skilled therapy. Has not been doing much with her right shoulder, very limited mobility. Still wants to focus most on knees and gait, very hesitant to do anything with her right shoulder. Pt is a fairly difficult historian. Prior Treatments and Tests Shoulder MRI: IMPRESSION: 1. Moderate to high-grade articular surface partial- thickness tear involving distal supraspinatus with up to 3.3 cm medial retraction of torn tendon fibers to the level of acromioclavicular joint. Possible full- thickness perforation involving distal infraspinatus at its insertion on the humeral head with up to 1.6 cm medial retraction of torn tendon fibers. Low-grade intrasubstance partial- thickness tear involving distal subscapularis. Mild supraspinatus muscle atrophy. 2. Suggestion of contusion versus nondisplaced fracture involving anterolateral aspect of humeral head extending to proximal humeral shaft. No other fracture or dislocation. [id number] acromioclavicular joint osteoarthritis. Moderate joint effusion and subacromial subdeltoid bursal fluid, no gross loose bodies. 3. Subtle superior anterior labral tear at 1 to 2 o'clock position and anterior-inferior labral tear at 5 to 6 o'clock position. 4 . Proximal long head of biceps tendinosis. per Radha Turpin on 05/25/2023 Treatment Goals Patient/Caregiver Goals Improve knee ROM and quality of gait. PT-OP-C Subjective Start: 06/08/23 15:50 Freq: Status: Active Protocol: Document 10/30/23 13:50 DCW (Rec: 10/30/23 14:28 DCW [id number]) OP-PT Subjective Patient Comments Patient Comments Pt requests rechecking her positional testing today, unclear if she is still symptomatic, admits she did feel a little bit better yesterday. PT-OP-E Functional Tests Start: 06/08/23 16:19 Freq: Status: Active Protocol: Document 09/09/23 16:07 DCW (Rec: 09/09/23 17:34 DCW [id number]) Functional Tests Five Times Sit to Stand Test Score 16.14 Comments Armless chair /s UE assist PT-OP-G Mobility & Gait Start: 06/08/23 15:50 Freq: Status: Active Protocol: Document 09/09/23 16:07 DCW (Rec: 09/09/23 17:34 DCW [id number]) OP Gait Assessment Comments Gait Comments Pt ambulates with bilateral knee flexion, unable to get knees into full extension during swing or stance phase. Forward flexed at tunk. Currently not using any assistive device PT-OP-K Range of Motion Start: 06/08/23 15:50 Freq: Status: Active Protocol: Document 09/09/23 16:07 DCW (Rec: 09/09/23 17:34 DCW [id number]) Shoulder Goniometric Range of Motion Shoulder Right Passive Shoulder ROM WFL No Testing Position Sitting Flexion 84 Abduction 73 External Rotation at 0 degrees Abduction 31 Right Active Shoulder ROM WFL No Testing Position Sitting Flexion 14 Abduction 42 External Rotation at 0 degrees Abduction 12 Internal Rotation Behind Back (text) L4 Knee Goniometric Range of Motion Knee Right Knee ROM WFL No Patient Position Sitting Flexion Active (degrees) 98 Extension Active (degrees) 10 Left Knee ROM WFL No Patient Position Sitting Flexion Active (degrees) 82 Extension Active (degrees) 11 PT-OP-M Strength Start: 06/08/23 15:50 Freq: Status: Active Protocol: Document 06/08/23 12:00 DCW (Rec: 06/08/23 16:19 DCW [id number]) Shoulder Strength Shoulder Manual Muscle Testing Right Flexion 1 Trace Abduction (C5) 1 Trace External Rotation 1 Trace Internal Rotation 1 Trace Knee Strength Knee Manual Muscle Testing Right Flexion (S2) 2+ Poor+ Extension (L3) 2+ Poor+ Left Flexion (S2) 2+ Poor+ Extension (L3) 2+ Poor+ PT-OP-O Vestibular Start: 10/27/23 15:22 Freq: Status: Active Protocol: Document 10/30/23 13:50 DCW (Rec: 10/30/23 14:28 DCW [id number]) Vestibular Assessment Positional Testing [place] Negative Left,Negative Right PT-OP-Q Treatments Start: 06/08/23 15:50 Freq: Status: Active Protocol: Document 10/30/23 13:50 DCW (Rec: 10/30/23 14:28 DCW [id number]) Manual Therapy Treatment Other Other Manual Treatments Positional testing Self-Care/Home Management Treatment Education Other Education Final HEP Review: PPT, Bridge, LTR, Supine hip hike, hip flexor stretch, HS stretch, Toe Taps, Sit<->Stand Perform and review PT-OP-R Modalities Start: 07/31/23 15:39 Freq: Status: Active Protocol: Document 07/31/23 13:46 SP (Rec: 07/31/23 15:40 SP [id number]) Hot Pack/Cold Pack Treatment CP Location R shld Patient Position Sitting Patient Tolerance Good Comments not as sore after CP. PT-OP-T Assessment and Plan Start: 06/08/23 15:50 Freq: Status: Active Protocol: Document 10/30/23 13:50 DCW (Rec: 10/30/23 14:28 DCW [id number]) Physical Therapy Assessment Impairments Impairments Functional Activities, Functional Mobility,Gait,Pain, Posture,ROM,Strength Goals Three Impairment Gait significantly impacted by limited bilateral knee ROM Knifeman Goal (LTG) Pt to improve bilateral knee extension to 5? from neutral in order to improve quality of gait during stance phase. LTG Duration 11/09/23 Two Impairment Right shoulder flexion/ abduction AROM limited to 0? Half-Way Goal (LTG) Pt to improve right shoulder AROM to at least 90? in both flexion and abduction in order to improve ability for pt to return to driving. LTG Duration 11/09/23 - improving One Impairment Pt does not have an appropriate home exercise program Short Term Goal (STG) Pt to be independent and compliant with an appropriate HEP 06/16/23: added supine PROM LUE assist RUE FF, SLR, UE walk out BUE on rail PROM FF, scap retraction. 06/18/22: pendulum. STG Duration 10/10/23 Assessment Summary Assessment Positional testing negative today. Pt has largely plateaued, discharge from skilled therapy at this time. Pt provided with HEP, understands plan going forward , understands she will require a new referral in order to return in the future. Pt still unsure if she is willing to undergo either lumbar surgery from Laminectomy or shoulder surgery for R/C repair. Physical Therapy Plan Frequency and Duration Frequency of Treatment 1-2x/week Plan of Care Start Date 10/27/23 Plan of Care End Date 11/17/23 Therapeutic Interventions Therapeutic Interventions Balance Training,Gait Training ,Home Exercise Program,Joint Mobilizations,Manual Therapy, Neuromuscular Re-education, Patient/Caregiver Education, Self-Care/Home Management,Soft Tissue Mobilization, Therapeutic Activities, Therapeutic Exercises Modalities Cold Pack/Ice Massage,Electric Stimulation,Hot Packs, Ultrasound Discharge Physical Therapy Discharge Reasons Plateau in Progress Next Visit Focus/Plan Next Note Type Discharge Summary
== END 2023-11-30 11:42 ==
LOC: PHYS 13:45
PROVIDERS: Family Provider Internal Medicine; PCP Internal Medicine; Referring Provider Internal Medicine; Visit Provider Internal Medicine
DX: M24.311 Pathological dislocation of right shoulder, not elsewhere classified (principal); S80.01XS Contusion of right knee, sequela; M25.611 Stiffness of right shoulder, not elsewhere classified; M25.662 Stiffness of left knee, not elsewhere classified; M25.661 Stiffness of right knee, not elsewhere classified; R29.6 Repeated falls; R26.89 Other abnormalities of gait and mobility
CPT/HCPCS: 95992; 97110; 97112; 97116; 97140; 97163; 97535

== ENCOUNTER → 2023-11-17 13:10 | Outpatient (CLI) | payer MEDICARE, BC, SELFPAY ==
--- NOTE | 2023-11-17 13:11 | DI.MRI.S_ITS ---
PROCEDURE: MR LUMBAR SPINE WO CON INDICATIONS: Osseous stenosis of neural canal of lumbar region TECHNIQUE: Noncontrast sagittal T1 spin echo and T2 fast echo, sagittal STIR, and T2 fast spin echo through the lumbar spine. In cases with scoliosis, additional coronal T2 fast spin echo may be performed. COMPARISON: [facility], MR, MR LUMBAR SPINE WO CON, 11/30/2019, 13:37. [facility], CR, XR LUMBAR SPINE 2 OR 3 VIEWS, 10/15/2023, 16:02. [facility], MR, L-SPINE WITHOUT CONTRAST, 09/20/2015, 13:13. FINDINGS: Image quality: This examination is limited by involuntary motion artifact. Alignment and Curvature: Dextroconvex thoracolumbar scoliosis is seen. No focal AP alignment abnormality is seen. Bone Marrow: Marrow is of normal overall signal. Minimal retrolisthesis can be seen at T12-L1 and L1-L2. Minimal anterolisthesis is seen at the L3-L4 level. Spinal Cord: Conus medullaris terminates at the T12 level. Visualized cord demonstrates normal signal and size. Paraspinous Soft Tissues: No paravertebral masses. T12-L1: At least moderate loss of disc height and disc signal can be seen. Moderate disc bulge is seen, which is eccentric to the left. There is a superimposed central disc osteophyte protrusion. Mild to moderate facet hypertrophy is seen. Moderate bilateral neural foraminal narrowing is seen. Moderate central canal narrowing is seen. There is mild progression compared to 2019. L1-L2: Moderate loss of disc height is seen. Loss of disc signal is seen. Mild to moderate disc bulge is seen, with a central disc protrusion. At least moderate facet hypertrophy is seen. Associated hypertrophy of the ligamentum flavum can be seen. There is at least moderate bilateral neural foraminal narrowing seen. At least moderate central canal narrowing is seen at this level. Compared to 2020, the degenerative changes are similar. L2-L3: Moderate loss of disc height is seen. Loss of disc signal is seen. At least moderate disc bulge is seen, which is eccentric to the left. At least moderate facet hypertrophy is seen. Associated hypertrophy of the ligamentum flavum can be seen. There is at least moderate bilateral neural foraminal narrowing seen. Moderate to severe central canal narrowing is seen, as on series 5, image 13. When comparison is made with the prior images, these findings are similar. L3-L4: Moderate loss of disc height is seen. Loss of disc signal is seen. Moderate generalized disc bulge is seen. There is a central/left disc protrusion, which continues into the left neural foramen, as on series 6, image 14. There is a focal annular fissure seen posteriorly. At least moderate facet hypertrophy is seen. There is moderate to severe bilateral neural foraminal narrowing seen, with an associated degree of compression seen upon the exiting nerve roots. Moderate to severe central canal narrowing is seen at this level. When comparison is made with the prior images, these findings are similar. L4-L5: At least moderate loss of disc height and disc signal can be seen. At least moderate disc bulge is seen. There is a superimposed central disc protrusion. At least moderate facet hypertrophy is seen. There is moderate to severe bilateral neural foraminal narrowing seen, with an associated degree of compression seen upon the exiting nerve roots. Moderate to severe central canal narrowing is seen, as on series 5, image 22. These imaging findings have progressed compared to the prior study. L5-S1: The disc height is well-preserved. Loss of disc signal is seen at this level. Mild to moderate disc bulge is seen, with a central disc protrusion. There is a focal annular fissure seen posteriorly. Moderate to prominent facet hypertrophy is seen. There is moderate to severe right-sided and at least moderate left-sided neural foraminal narrowing. Moderate to severe central canal narrowing is seen. Compared to the prior MRI, the degenerative changes are mildly progressed. 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 Dictated by: Demarco Delacruz M.D. on 11/17/2023 at 17:31 Approved by: Demarco Delacruz M.D. on 11/17/2023 at 17:37
== END ==
PROVIDERS: Family Provider Internal Medicine; PCP Internal Medicine; Referring Provider Internal Medicine; Visit Provider Internal Medicine
DX: M99.33 Osseous stenosis of neural canal of lumbar region (principal); M47.816 Spondylosis without myelopathy or radiculopathy, lumbar region; M47.817 Spondylosis without myelopathy or radiculopathy, lumbosacral region
CPT/HCPCS: 72148

== ENCOUNTER 2024-05-27 09:58 | Emergency (ER) | payer MEDICARE, BC, SELFPAY ==
[2024-05-27] VITALS (10 sets, daily range): BP systolic 140–177; BP diastolic 63–127; PULSE 65–92; RESP 14–29; TEMP 36.4–36.6; O2SAT 91–99; BMI 27.4
--- NOTE | 2024-05-27 10:15 | DI.RAD.S_ITS ---
PROCEDURE: XR CHEST 1V INDICATIONS: Shortness of breath TECHNIQUE: One view of the chest was acquired. COMPARISON: None. FINDINGS: Surgical changes and devices: None. Lungs and pleura: Low lung volumes. No dense airspace disease or pleural effusion. Prominent rounded appearance of the right hilar structures. Mediastinum: Heart size is at the upper limit normal. Bones and chest wall: Degenerative changes. IMPRESSION: Low lung volumes without dense consolidation or pleural effusion. Prominent rounded appearance of the right hilar structures, possibly ectatic vessels on-end, though differential includes enlarged lymph nodes or hilar lesion, indeterminate on radiography. Dictated by: Luis A Yost M.D. on 05/27/2024 at 10:56 Approved by: Luis A Yost M.D. on 05/27/2024 at 10:58
[2024-05-27 10:50] LABS: Add Manual Diff / Slide Review NO; Basophils Absolute Auto 0 /uL (0-100); Basophils Percent Auto 0.6 % (0-2); Eosinophils Absolute Auto 100 /uL (0-450); Eosinophils Percent Auto 0.9 % (2-4); Hematocrit 42.5 % (36-46); Hemoglobin 13.9 g/dL (12.0-16.0); Lymphocytes Absolute Auto 1100 /uL (1100-4500); Lymphocytes Percent Auto 15.8 % (25-40); Mean Corpuscular HGB Conc 32.8 % (30-36); Mean Corpuscular Hemoglobin 34.1 PG (26-34); Mean Corpuscular Volume 104.1 fL (80-100); Monocytes Absolute Auto 600 /uL (0-900); Monocytes Percent Auto 8.3 % (3-14); Neutrophils Absolute Auto 5400 /uL (1500-7000); Neutrophils Percent Auto 74.4 % (50-75); Platelet Count 474 X10^3/uL (150-400); Red Blood Cell Count 4.08 X10^6/uL (4.0-5.2); Red Cell Distribution Width 14.4 % (11.6-14.8); White Blood Cell Count 7.2 X10^3/uL (4.5-11.0)
[2024-05-27 10:57] LABS: Alanine Aminotransferase 27 IU/L (<35); Albumin 4.7 g/dL (3.5-5.0); Albumin Globulin Ratio 1.6 (1.0-2.8); Alkaline Phosphatase 63 U/L (38-126); Aspartate Aminotransferase 41 IU/L (14-36); BUN Creatinine Ratio 33.3 (6-22); Bilirubin Total 0.5 mg/dL (0.2-1.3); Blood Urea Nitrogen 23 mg/dL (7-17); Calcium 9.1 mg/dL (8.4-10.2); Carbon Dioxide 26 mmol/L (22-32); Chloride 104 mmol/L (98-107); Estimated Glomerular Filt Rate > 60 mL/min (>60); Globulin 2.9 g/dL (1.7-4.1); Glucose 114 mg/dL (80-110); HEMOLYSIS < 15 (0-50); Potassium 4.1 mmol/L (3.4-5.1); Sodium 138 mmol/L (137-145); Total Protein 7.6 g/dL (6.3-8.2)
[2024-05-27 10:58] LABS: Lactate (Lactic Acid) 1.4 mmol/L (0.7-2.1)
[2024-05-27 11:09] LABS: NT-proBNP (BNP-Adult 18+) 955 pg/mL (<450); Troponin I < 0.012 ng/mL (0.01-0.034)
--- NOTE | 2024-05-27 11:16 | EKG_ITS ---
[facility] [address] [address] Test Date: 2024-05-27 Pat Name: Marcia Underwood Department: [facility] Room: Gender: Female Case Monitor: DEMARIO : 1940 Requested By: Order Number: [id number] Reading MD: Ahsan Pierre MD Measurements Intervals [place] Rate: 68 P: 61 MT: 156 QRS: -28 QRSD: 72 T: 48 QT: 400 QTc: 425 Interpretive Statements Sinus rhythm with premature atrial complexes with aberrant conduction with ventricular escape complexes Electronically Signed On 05-27-2024 12:04:42 PST by Ahsan Pierre MD
--- NOTE | 2024-05-27 11:42 | ED.GENADULT ---
HPI - General Adult General Chief complaint: Shortness of Breath/Dyspnea Stated complaint: Light headed , stressed, SOB Time Seen by Provider: 05/27/24 10:50 Mode of arrival: Ambulatory History of Present Illness HPI narrative: 83-year-old woman with a history of neuropathy with thrombocytosis treated with hydroxyurea and aspirin daily presents with complaints of dyspnea, a sensation of feeling clammy and lightheaded, increasing weakness and states this has been going on for about a month, today she was weak when she stood up and comes in for further evaluation. On review of systems she has a plethora of orthopedic complaints related to her knees, peripheral neuropathy, fall with a recent right rotator cuff injury, chronic vertigo issues, wax buildup in her ears and reiterates findings from her multiple physicians. She is seen and followed by Oncology for her thrombocytosis CT scans of the chest and abdomen on the of this month that showed mild adenopathy that appeared to be unchanged with recommendations to repeat scans 6 months. She has a number of questions about continuing hydroxyurea and side effects. She complains today no fevers or cough., Related Data Home Medications Medication Instructions Recorded Confirmed cholecalciferol (vitamin D3) 25 1,000 iu PO Q DAY ##0 12/17/10 01/28/24 mcg (1,000 unit) tablet (Vitamin D3) aspirin 81 mg tablet,delayed 81 mg PO DAILY 01/28/24 01/28/24 release (Adult Low Dose Aspirin) hydroxyurea 500 mg capsule 500 mg PO DAILY 01/28/24 01/28/24 Previous Rx's Medication Instructions Recorded lorazepam 0.5 mg tablet (Ativan) 0.5 mg PO TID PRN muscle spasm #10 05/03/23 tabs meloxicam 7.5 mg tablet 7.5 mg PO BID PRN pain #10 tabs 05/03/23 Allergies Allergy/AdvReac Type Severity Reaction Status Date / Time azithromycin Allergy Unknown UNKNOWN Verified 05/27/24 10:06 ciprofloxacin Allergy Unknown Tendonitis Verified 05/27/24 10:06 codeine Allergy Unknown Feel Verified 05/27/24 10:06 awful Penicillins Allergy Unknown Peeling Verified 05/27/24 10:06 hands Review of Systems Review of Systems Narrative: Pertinent positive and negative findings as per HPI Patient History Medical History (Updated 05/27/24 @ 12:25 by Latrice Daniels MD) Benign positional vertigo Osteoarthritis Thrombocytosis Social History Smoking Status: Former smoker Smoking Status: Former smoker alcohol intake frequency: holidays/special occasions only Exam Initial Vital Signs Initial Vital Signs: Vital Signs Temperature 97.5 F L 05/27/24 10:06 Pulse Rate 82 05/27/24 10:06 Respiratory Rate 14 05/27/24 10:06 Blood Pressure 170/72 H 05/27/24 10:06 Pulse Oximetry 99 05/27/24 10:06 Oxygen Delivery Method Room Air 05/27/24 10:06 General: Older appearing but alert, appropriate and able to give a detailed an extensive history HEENT: Moist mucous membranes, normal sclera with reactive pupils, Neck: No JVD, Respiratory: Full and symmetrical air movementno bruits Abdomen: Soft, nontender, good bowel tones, no flank pain Skin: Warm and dry, no rashes Neurologic: Grossly neurologically intact with no obvious asymmetries or abnormalities, complaints of bilateral lower extremity neuropathy Extremities: No trauma, minimal bilateral lower extremity edema Psych: Cooperative, appropriate insight and affect Course Orders Ordered: ED Orders 05/27/24 10:15 XR chest 1V Stat EKG-12 Lead Stat Measure peak expiratory flow ONCE RT Consult Eval and Treat NOW 05/27/24 10:31 Complete Blood Count AUTO DIFF Stat Comprehensive Metabolic Panel Stat Lactate (Lactic Acid) Stat NT-proBNP (BNP-Adult 18+) Stat Prothrombin Time INR Stat Troponin I Stat 05/27/24 10:48 Consult to HAND SHOE CUTTER - Turret Punch Operator Stat Vital Signs Vital signs: Vital Signs - 8 hr 05/27/24 10:06 05/27/24 10:23 05/27/24 10:30 Temperature 97.5 F L Pulse Rate 82 85 77 Respiratory Rate 14 29 H Blood Pressure 170/72 H Pulse Oximetry 99 98 98 Oxygen Delivery Method Room Air 05/27/24 10:31 05/27/24 10:31 05/27/24 11:00 Temperature Pulse Rate 79 65 Respiratory Rate 21 14 Blood Pressure 177/94 H Pulse Oximetry 98 91 Oxygen Delivery Method 05/27/24 11:01 05/27/24 11:01 Temperature Pulse Rate 66 Respiratory Rate 14 Blood Pressure 140/63 Pulse Oximetry 92 Oxygen Delivery Method Room Air Medical Decision Making Lab Data 05/27/24 10:31 05/27/24 10:31 Labs: Lab Results 05/27/24 Range/Units 10:31 WBC 7.2 (4.5-11.0) X10^3/uL RBC 4.08 (4.0-5.2) X10^6/uL Hgb 13.9 (12.0-16.0) g/dL Hct 42.5 (36-46) % MCV 104.1 H (80-100) fL MCH 34.1 H (26-34) PG MCHC 32.8 (30-36) % RDW 14.4 (11.6-14.8) % Plt Count 474 H (150-400) X10^3/uL Neut % (Auto) 74.4 (50-75) % Lymph % (Auto) 15.8 L (25-40) % [place] % (Auto) 8.3 (3-14) % Eos % (Auto) 0.9 L (2-4) % Baso % (Auto) 0.6 (0-2) % Neut # (Auto) 5400 (2195-2228) /uL Lymph # (Auto) 1100 (9912-3423) /uL [place] # (Auto) 600 (0-900) /uL Eos # (Auto) 100 (0-450) /uL Baso # (Auto) 0 (0-100) /uL PT 11.0 (9.4-12.5) SECONDS INR 1.0 (0.9-1.3) Sodium 138 (137-145) mmol/L Potassium 4.1 (3.4-5.1) mmol/L Chloride 104 (98-107) mmol/L Carbon Dioxide 26 (22-32) mmol/L BUN 23 H (7-17) mg/dL Creatinine 0.69 (0.52-1.04) mg/dL Estimated GFR > 60 (>60) mL/min BUN/Creatinine Ratio 33.3 H (6-22) Glucose 114 H (80-110) mg/dL Lactate 1.4 (0.7-2.1) mmol/L Calcium 9.1 (8.4-10.2) mg/dL Total Bilirubin 0.5 (0.2-1.3) mg/dL AST 41 H (14-36) IU/L ALT 27 (<35) IU/L Alkaline Phosphatase 63 (38-126) U/L Troponin I < 0.012 (0.01-0.034) ng/mL NT-Pro-B Natriuret Pep 955 H (<450) pg/mL Total Protein 7.6 (6.3-8.2) g/dL Albumin 4.7 (3.5-5.0) g/dL Globulin 2.9 (1.7-4.1) g/dL Albumin/Globulin Ratio 1.6 (1.0-2.8) Urine Dip Bedside Urine Glucose Negative Bedside Urine Bilirubin - Negative Bedside Urine Ketone - Negative Urine Specific [place] 1.015 Bedside Urine Occult Blood - Negative Bedside Urine pH 6.0 Bedside Urine Protein - Negative Bedside Urine Urobilinogen - Negative Bedside Urine Nitrite - Negative Bedside Urine Leukocytes - Negative Esterase Point of care testing: Urine Dip Bedside Urine Glucose Negative Bedside Urine Bilirubin - Negative Bedside Urine Ketone - Negative Urine Specific [place] 1.015 Bedside Urine Occult Blood - Negative Bedside Urine pH 6.0 Bedside Urine Protein - Negative Bedside Urine Urobilinogen - Negative Bedside Urine Nitrite - Negative Bedside Urine Leukocytes - Negative Esterase MDM Narrative Medical decision making narrative: CC: Weakness, dyspnea, clammy sensation, present almost a month Complicating co-morbidities: History of thrombocytosis, on hydroxyurea Data collected from: patient Social determinants of health that may influence the patients condition: Currently the primary caregiver for her who has Parkinson's disease, not interested in seeing physicians, increasing care requirements and she is asking for any suggestions for available help at home Medical records reviewed:Notes from [facility] and ENT are reviewed. I do not have access to her oncology notes or notes from her [facility] physicians Differential considered: Worsening thrombocytosis, neoplastic explanation for the mild cervical adenopathy, congestive heart failure, upper respiratory syndrome, acute coronary syndrome Exam documented above, pertinent findings include: Physical exam is fairly benign. No significant pulmonary findings, she is having occasional PVCs, belly is benign minimal lower extremity edema no overt signs of severe congestive heart failure Lab Test results independently reviewed as above. Pertinent findings: CBC shows MCV elevated at 104, platelet count at 474, no leukocytosis or anemia Metabolic panel shows appropriate renal function no electrolyte abnormalities, no liver abnormalities Troponin is undetectable BNP is minimally elevated at 955 Clean-catch urine shows occasional bacteria and no other signs of urinary tract infection Independently reviewed EKG: Sinus rhythm at a rate of 68 with frequent PVCs, no acute ischemic changes Imaging studies independently reviewed: Chest x-ray shows no airspace disease but mentioned of rounded appearance of right hilar structures uncertain significance Discussion: 83-year-old woman with plethora of Orthopedic, ENT and Neurology complaints today with increased dyspnea and general weakness. Workup today does not show any acute abnormality including severe congestive heart failure, evidence of infection, dramatically worsening thrombocytosis requiring additional treatment, pneumonia, viral syndrome or alternate explanation for her general malaise today. Our sr. social media & mobile manager was able to talk to her about possible suggestions for help at home for both she and her . Please see social work notes. At this point there is no indication for hospitalization, additional imaging particularly in light of the CT scan of the chest abdomen and pelvis done less than a week ago at [facility]. She had multiple questions about hydroxyurea and mother that might be changed. I encouraged her to talk with her oncologist who has prescribed this for her for years. She is safe for discharge Discharge Plan Departure Patient Disposition: Home Clinical Impression: Malaise and fatigue Dyspnea Qualifiers: Dyspnea type: unspecified Qualified Code(s): R06.00 - Dyspnea, unspecified Activity Restrictions/Additional Instructions: Thank you for coming in today. In the emergency room, we are looking for life-threatening abnormalities or reasons that you might need to be in the hospital. I am pleased to let you know that I did not find any of these diagnoses. Specifically there was no sign of heart attack, heart failure, pneumonia, collapsed lung, worsening of your thrombocytosis Unfortunately, from the ER we are sometimes not able to help you fully diagnose more of your chronic issues. I would encourage you to talk to your oncologist regarding your questions with the use of hydroxyurea, your platelet count today was at 474. You mentioned the CT scan showing the mild swollen lymph nodes that were done last week with recommendations to repeat these in six-month. Six-month follow up does seem appropriate. There is no indication that we need to repeat those scans today Our sr. social media & mobile manager, Izabel, spoke to you about possible suggestions for additional help at home particularly in light of your with his Parkinson's disease If you find that you are getting worse or develop any new symptoms, please feel free to return to the emergency department for further evaluation. Prescriptions: No Action hydroxyurea 500 mg capsule 500 mg PO DAILY aspirin [Adult Low Dose Aspirin] 81 mg tablet,delayed release (DR/EC) 81 mg PO DAILY cholecalciferol (vitamin D3) [Vitamin D3] 1,000 UNIT tablet 1,000 iu PO Q DAY Qty: 0 meloxicam 7.5 mg tablet 7.5 mg PO BID PRN (Reason: pain) Qty: 10 0RF lorazepam [Ativan] 0.5 mg tablet 0.5 mg PO TID PRN (Reason: muscle spasm) Qty: 10 0RF Referrals: Kin Haywood MD [Primary Care Provider] - Stand Alone Forms: Patient Portal/API/Survey
--- NOTE | 2024-05-27 14:01 | CM.SWNOTE ---
ED ICT TEACHER Note Patient is 83 y/o female who presents to the ED due to concern for SOB and Dizziness. Patient sees PCP Dr. Foote, patient has Medicare and BCBS out of [facility]. Patient endorses to RN concern for caring for her spouse with Parkinson's Dementia. She states he is independent most days but it has been difficult recently due to a new medication, she states that it was the wrong dose and he will be on a new dose soon. Patient endorses today that she was feeling weak, patient was ensured that all lab results were normal. Patient uses cane at baseline, experiences incontinence but is independent with ADLs at baseline. Patient endorses she has called and utilized caregivers in the past for her spouse. ICT TEACHER provides patient with list of private caregivers and senior resource guide with lists of caregiver agencies. Plan: patient to d/c to home upon medical clearance, patient to f/u with PCP and outpatient providers. RIVER Willis
== END 2024-05-27 12:58 | disposition home or self-care (01) ==
PROVIDERS: Emergency Provider Emergency Medicine; Family Provider Internal Medicine; PCP Internal Medicine
DX: R53.81 Other malaise (principal); R06.00 Dyspnea, unspecified; R42 Dizziness and giddiness; R53.1 Weakness
CPT/HCPCS: 36415; 71045; 80053; 81003; 83605; 83880; 84484; 85025; 85610; 93005; 93010; 99284

== ENCOUNTER 2025-04-16 08:11 | Emergency (ER) | payer MEDICARE, BC, SELFPAY ==
[2025-04-16] VITALS (11 sets, daily range): BP systolic 155–190; BP diastolic 72–79; PULSE 68–80; RESP 16–20; TEMP 36.8; O2SAT 93–100; BMI 27.4
--- NOTE | 2025-04-16 08:26 | DI.CT.S_ITS ---
PROCEDURE: CT CHEST WO CON INDICATIONS: trauma r/o r rib fx TECHNIQUE: Noncontrast 5 mm thick sections acquired from the pulmonary apices to the posterior costophrenic angles. 1 mm lung window, 5 mm thick coronal and sagittal and 7 mm axial MIP reformats were then acquired. For radiation dose reduction, the following was used: automated exposure control, adjustment of mA and/or kV according to patient size. COMPARISON: [facility], CT, CT HIGH RESOLUTION CHEST, 10/18/2024, 8:17. FINDINGS: Image quality: Diagnostic. Lower Neck: No enlarged lymph nodes. Thyroid: Left thyroid cyst measuring approximately 5.5 cm resulting in deviation of the trachea to the right. Axillae: No enlarged lymph nodes. Chest Wall: Unremarkable. Bones: Mildly displaced right lateral 9th and 10th rib fractures.. Lungs and Pleura: No pneumothorax or pleural effusions. No consolidation or suspicious nodules. Heart: Heart size is normal. No pericardial effusion. Thoracic Vessels: Mildly dilated main pulmonary artery measuring 3.1 cm. Aorta is normal in caliber with atherosclerotic vascular calcifications. Mediastinum and Leah: No enlarged lymph nodes. Esophagus: No wall thickening. No hiatal hernia. Upper Abdomen: Visualized upper abdomen solid organs and bowel loops appear normal. IMPRESSION: 1. Mildly displaced right lateral 9th and 10th rib fractures. No pneumothorax. 2. Mildly dilated main pulmonary artery, may suggest for pulmonary hypertension. 3. Please see above for additional findings. Dictated by: Efra Avalos M.D. on 04/16/2025 at 8:57 Approved by: Efra Avalos M.D. on 04/16/2025 at 9:03
--- NOTE | 2025-04-16 08:27 | ED_ITS ---
HPI - Fall General Chief Complaint: Fall Stated Complaint: Fall Time Seen by Provider: 04/16/25 08:18 Source: patient and EMS Mode of arrival: EMS History of Present Illness HPI Narrative: This is an 84-year-old female who last night had a mechanical ground level fall. No head injury no loss of conscious no neck pain patient complaining of right- sided rib pain. Patient denied hip pain or midline back pain. In the emergency department patient has a GCS of 15 and in no obvious distress. Related Data Home Medications ?Medication ?Instructions ?Recorded ?Confirmed cholecalciferol (vitamin D3) 25 1,000 iu PO Q DAY ##0 12/17/10 01/28/24 mcg (1,000 unit) tablet (Vitamin D3) aspirin 81 mg tablet,delayed 81 mg PO DAILY 01/28/24 0 01/28/24 release (Adult Low Dose Aspirin) hydroxyurea 500 mg capsule 500 mg PO DAILY 01/28/24 Previous Rx's ?Medication ?Instructions ?Recorded lorazepam 0.5 mg tablet (Ativan) 0.5 mg PO TID PRN mus christina spasm #10 05/03/23 tabs meloxicam 7.5 mg tablet 7.5 mg PO BID PRN pain #10 t abs 05/03/23 oxycodone-acetaminophen 5 mg-325 1 tab PO Q8H PRN pain #10 tabs 04/16/25 mg tablet (Percocet) oxycodone-acetaminophen 5 mg-325 1 tab PO TID PRN pain #10 tabs 04/16/25 mg tablet (Percocet) Allergies Allergy/AdvReac Type Severity Reaction Status Date / Time azithromycin Allergy Unknown UNKNOWN Verified 04/16/25 08:21 ciprofloxacin Allergy Unknown Tendonitis Verified 04/16/25 08:21 codeine Allergy Unknown Feel Verified 04/16/25 08:21 awful Penicillins Allergy Unknown Peeling Verified 04/16/25 08:21 hands Review of Systems Review of Systems Narrative: GENERAL: Denies chills, fatigue, malaise, fever, sweats. HEENT: Denies sinus pain, ear pain, sore throat, difficulty swallowing, dizziness. RESPIRATORY: Denies dyspnea, cough, wheezing, hemoptysis, sputum. CARDIOVASCULAR: Denies chest pain, palpitations, orthopnea, edema, GASTROINTESTINAL: Denies nausea, vomiting, abdominal pain, diarrhea, constipation, melena. : Denies dysuria, frequency, incontinence, hematuria, urinary retention. MUSCULOSKELETAL: denies weakness, joint pain, or bony pain SKIN: Denies rash, skin lesions, or other NEUROLOGIC: Denies weakness, headache, numbness, change in speech, confusion, seizures, incoordination. PSYCHIATRIC: No concerning psychosocial issues. 12 point review of systems is negative except for those stated above Patient History Medical History (Updated 04/16/25 @ 14:05 by Derek Bailey MD) Benign positional vertigo Osteoarthritis Thrombocytosis Social History Smoking Status: Former smoker Smoking Status: Former smoker alcohol intake frequency: holidays/special occasions only Exam Narrative Exam Narrative: GENERAL: [] year old patient appears stated age. Well-developed patient, in mild distress. HEAD: Atraumatic. Normocephalic. EYES: Pupils equal round and reactive. Extraocular motions intact. No scleral icterus. No injection or drainage. ENT: Nose without bleeding, purulent drainage. Throat without erythema, tonsillar hypertrophy or exudate. Airway patent. NECK: Trachea midline. Non tender CARDIOVASCULAR: Regular rate and rhythm without murmurs, gallops, or rubs. RESPIRATORY: Clear to auscultation. Breath sounds equal bilaterally. No wheezes, rales, or rhonchi. Chest: There is reproducible right anterolateral lower rib tenderness no crepitance GASTROINTESTINAL: Abdomen soft, non-tender, nondistended. EXTREMITIES: No edema or joint tenderness. BACK: Nontender without deformity or crepitance. No flank tenderness. NEURO: AOx3. SKIN: No rash or erythema of visible areas Initial Vital Signs Initial Vital Signs: Vital Signs Pulse Rate 76 04/16/25 08:14 Pulse Oximetry 95 04/16/25 08:14 Course Orders Ordered: ED Orders 04/16/25 08:26 CT chest wo con Stat 04/16/25 11:20 Consult to Physical Therapy Evaluate & Treat 04/16/25 11:26 Consult to INTERVENTIONIST - Inspector Balance Truing Stat Discontinued Medications Hydrocodone Bitart/Acetaminophen (Hydrocodone/Acet 5/325 Tablet) 1 tab PO NOW ONE Stop: 04/16/25 08:27 Last Admin: 04/16/25 08:45 Dose: 1 tab Documented By: CLAUDIA Vital Signs Vital signs: Vital Signs - 8 hr 04/16/25 08:14 04/16/25 08:16 04/16/25 08:16 Temperature Pulse Rate 76 78 Respiratory Rate Blood Pressure 190/79 H Pulse Oximetry 95 96 Oxygen Delivery Method 04/16/25 08:20 04/16/25 08:30 04/16/25 09:00 Temperature 98.2 F Pulse Rate 75 80 80 Respiratory Rate 20 Blood Pressure 190/79 H Pulse Oximetry 96 93 96 Oxygen Delivery Method Room Air 04/16/25 09:30 04/16/25 10:00 04/16/25 10:30 Temperature Pulse Rate 74 78 73 Respiratory Rate Blood Pressure Pulse Oximetry 99 100 93 Oxygen Delivery Method 04/16/25 10:48 04/16/25 10:48 04/16/25 11:00 Temperature Pulse Rate 68 73 Respiratory Rate 16 Blood Pressure 155/72 H Pulse Oximetry 95 100 Oxygen Delivery Method 04/16/25 11:01 04/16/25 11:01 Temperature Pulse Rate 70 Respiratory Rate 16 Blood Pressure 178/72 H Pulse Oximetry 98 Oxygen Delivery Method MDM - Fall MDM Narrative Medical decision making narrative: Patient had a CT of the chest read by the radiologist as mildly displaced fractures of the right anterior lateral 9th and 10th ribs also dilated main pulmonary artery. In the emergency room patient was given Percocet. I then consulted the social media project manager to assure that she had a proper home health care. Patient was also evaluated by PT. the home health was arranged and the patient will be discharged home I will send her home on a prescription for Percocet as she can follow up with the doctor next 1-2 days differential diagnosis is rib fracture rib contusion Discharge Plan Departure Patient Disposition: Home Clinical Impression: Multiple rib fractures Qualifiers: Encounter type: initial encounter Fracture type: closed Laterality: right Qualified Code(s): S22.41XA - Multiple fractures of ribs, right side, initial encounter for closed fracture Instructions: DI for Rib Fracture, How to Prevent Falls Prescriptions: New oxycodone-acetaminophen [Percocet] 5-325 mg tablet 1 tab PO Q8H PRN (Reason: pain) Qty: 10 0RF oxycodone-acetaminophen [Percocet] 5-325 mg tablet 1 tab PO TID PRN (Reason: pain) Qty: 10 0RF No Action hydroxyurea 500 mg capsule 500 mg PO DAILY aspirin [Adult Low Dose Aspirin] 81 mg tablet,delayed release (DR/EC) 81 mg PO DAILY cholecalciferol (vitamin D3) [Vitamin D3] 1,000 UNIT tablet 1,000 iu PO Q DAY Qty: 0 meloxicam 7.5 mg tablet 7.5 mg PO BID PRN (Reason: pain) Qty: 10 0RF lorazepam [Ativan] 0.5 mg tablet 0.5 mg PO TID PRN (Reason: muscle spasm) Qty: 10 0RF Referrals: Kin Haywood MD [Primary Care Provider, Internal Medicine] - As soon as possible Stand Alone Forms: Patient Portal/API
--- NOTE | 2025-04-16 12:08 | PC.NURSE ---
1115: This RN and vocational technical education teacher attempted to get pt to walk with a FWW. Pt did not want to get up, however, she WAS able to stand at the bedside independently. Pt given FWW, she was able to take one step with her L foot. Then she said her neuropathy was really bad. She stated she was shaking, she was dizzy, I can't walk. Pt was assisted back to bed. Pt states she didnt have breakfast this am so this RN brought pt some food and juice. Physician aware.
--- NOTE | 2025-04-16 12:12 | PC.NURSE ---
1130 SW at bedside, 1150 PT at bedside
--- NOTE | 2025-04-16 15:07 | PT.IIE ---
Medical History (Last Updated 05/27/24 @ 12:14 by Latrice Daniels MD) Benign positional vertigo Osteoarthritis Thrombocytosis Physical Therapy Inpatient Evaluation/Re-Eval M1 PT IP Prior Functional Status Start: 04/16/25 14:40 Freq: Status: Active Protocol: Document 04/16/25 13:20 DLM (Rec: 04/16/25 15:05 DLM Desktop) Medical Review Prior Functional Status Medical History Yes Reviewed Diet/Fluid Regular Consistency Communication WFL Mobility and Gait Independent with cane Activities of Daily Independent with basic ADL's. Has hired caregiver to Living and IADL's help with house chores, cleaning and caring for Spouse Prior Functional Spouse has Parkinsons with dementia Level (Other details Pt and Spouse just moved back to their Condo from ) assisted living. Pt reports assisted living did not work for them. She reports pt and Spouse are both incontinent. She wears Depends to manage it. Social History Household Members spouse,caregiver Living Arrangements Apartment/Condo Number of Floors ( One Floor Floors) Number of Stairs To none Enter/Railing? Home Environment High Toilet Home Equipment Straight Cane,Manual Wheelchair,Lift Recliner,Hospital Bed Employment Status Retired Additional Social pt reports chronic dizziness History Comment she was in SNF rehab 5 weeks in 2023 after fall with right shoulder injury She reports the wheelchair will fit into one of her bathrooms but not the second bathroom. M2 PT-IP Current Condition Start: 04/16/25 14:40 Freq: Status: Active Protocol: Document 04/16/25 13:20 DLM (Rec: 04/16/25 15:05 DLM Desktop) Physical Therapy Current Condition Current Condition Evaluation Date 04/16/25 Treatment Diagnosis Fall right rib 9&10 fractures Onset Date 04/16/25 M3 PT-IP Subjective Start: 04/16/25 14:40 Freq: Status: Active Protocol: Document 04/16/25 13:20 DLM (Rec: 04/16/25 15:05 DLM Desktop) Subjective Physical Therapy Visit Type Type Initial Evaluation Visit Start Time 12:00 Visit Stop Time 13:20 Notes 80 min Number of PICKLING OPERATOR Visits 0 Physical Therapy Visit Comments Patient Comments She can not go to SNF, has to be with her Spouse. They have hired caregiver who can assist 01/12 as needed Patient Goals she wants to go home Therapy Pain Assessment Pain When Pain Assessed During Mobility Pain Present Pain Present Pain Reported Location Right Lateral Ribs Intensity 8 Scale Used Numeric (0 - 10) Description Aching,Tender,With Movement Pain Behaviors Guarding,Moaning,Wincing Pain Management Modification of Treatment,Re-positioning,Timing of Techniques Activity with Medications M4 PT-IP Mobility and Gait Start: 04/16/25 14:40 Freq: Status: Active Protocol: Document 04/16/25 13:20 DLM (Rec: 04/16/25 15:05 DLM Desktop) PT-Bed Mobility Assessment Rolling Type of Rolling Roll to Left Level of Assist Independent Supine to Sit Supine to Sit Independent Scooting Scooting to Edge of Independent Bed PT-Transfer Assessment Sit to and From Stand Sit to and from Contact Guard Assistance,Use of Upper Extremities Stand Equipment Transfer Assistive Gait Belt,Front Wheeled Walker Device Transfers Transfer Destination Bed Transfer Technique Stand Step Pivot Transfer Ability Level of Assist Contact Guard Assistance,Use of Upper Extremities Comments Mobility Comments she reports she plans to sleep in lift recliner at home to manage her pain She is able to take a few functional steps to transfer stretcher to chair but it was too painful for her to progress to gait. She describes pain increase in right ribs with lifting right hip up in sitting and standing. Pt left sitting up in chair with call light close. Pt using cell phone to coordinate caregiver help at home. Gait Assessment Gait Gait Assistance Contact Guard Assist Required: Distance (Feet) 2 Assistive Devices Assistive Device Gait Belt,Front Wheeled Walker Gait Deviations General Gait Pattern Antalgic Factors Limiting Gait Function Factors Limiting Decreased Activity Tolerance,Pain Gait Function Comments Gait Comments She reports stepping backwards towards a chair is less painful than forward steps, increased pain with stepping sideways. She reports the pain limits her distance of gait at this time. Stair Climbing Assessment Comments Stair Climbing unable Comments PT-Balance Assessment Sitting Balance and Reactions Static Sitting Good Balance Ability Dynamic Sitting Good Balance Ability Standing Balance and Reactions Static Standing Fair Balance Ability Dynamic Standing Fair Balance Ability Device Used FWW M5 PT-IP Objective Assessments Start: 04/16/25 14:40 Freq: Status: Active Protocol: Document 04/16/25 13:20 DLM (Rec: 04/16/25 15:05 DLM Desktop) Orientation Orientation/Cognition Level of Alertness Alert Orientation Name,Age,Birthday,Month,Date,Year,Day of Week,Place, Situation Language Function No Deficits Noted Ability Safety Awareness Understands Safety Issues Memory Description No Deficits Noted Comments anxious about her new medical problem and ongoing issues at home caring for Spouse and moving Gross Range of Motion Upper Extremity ROM Assessment Within Functional Limits Impairments hx right shoulder dislocation and rotator cuff tear, mild end range stiffness but can reach over head Lower Extremity ROM Assessment Within Functional Limits Strength Upper Extremity Strength Assessment Right Impaired Shoulder flexion 4-/5 Lower Extremity Strength Assessment Right Impaired Hip flexion 2+/5 limited by pain Comments Strength Comments increased right rib pain with right hip flexion sitting and standing no increased pain with assisted right hip ROM Coordination Assessment Assessment Coordination tremors noted which pt reports is not baseline Comments Sensation Assessment Sensation Gross Sensation Right LE Impaired,Left LE Impaired Sensation Numbness,Tingling,Pins & [place],Burning,Pain Description Comments Sensation Comments chronic sensation impairments below knees Muscle Tone Muscle Tone WNL Yes M6 PT-IP Treatment Start: 04/16/25 14:40 Freq: Status: Active Protocol: Document 04/16/25 13:20 DLM (Rec: 04/16/25 15:05 DLM Desktop) Physical Therapy Treatment Education Education Provided Safety Other Treatments Other Treatment Worked with pt to address discharge issues and barriers Performed to going home. Educated pt to avoid lying right side or getting out of bed to right to manage rib pain. M7 PT-IP Assessment and Plan Start: 04/16/25 14:40 Freq: Status: Active Protocol: Document 04/16/25 13:20 DLM (Rec: 04/16/25 15:05 DLM Desktop) PT Summary Assessment and Plan Potential Rehabilitation Good Potential Status of Condition Evolving at Evaluation Summary Impairments Pain,Strength,Balance,Sensation,Bed Mobility,Transfers, Gait,Activity Tolerance Assessment Summary Marcia was seen in ED this visit. She fell at home and suffered right rib fractures at 9 and 10. She reports increased right rib pain with any right hip flexion movements. Pt is able to use right UE functionally. She is using her incentive spirometer for deep breathing to prevent PNA. She is motivated to return home since she helps care for her Spouse who has Parkinsons and dementia. Pt arranges hired caregivers at home to have the help she needs at home. Pt recently moved back home after not liking an assisted living facility. Pt is able to stand and take a few steps to transfer to a chair using the FWW but could not progress to gait for functional distances. Her right rib pain limits her activity. She moves very slowly with all activity ( bradykinetic). Pt wants to return home with primary use of a wheelchair and caregiver assist for transfers with a FWW. Pt on her cell phone coordinating caregiver support for home. Pt will need a lot of extra help at home and recommend home health PT/OT to assist with her functional recovery. Transportation by wheelchair van will be less painful for the patient. Discharge home is planned for later today. Discussed her case with her nurse and the web content & social media manager to manage discharge plans Frequency of Treatment Frequency Of Discharge Treatment Precautions Other Precautions fall risk manage right rib pain Recommendations To Nursing Amount of Assist 1 Person Assist Needed Discharge Recommendations PT Discharge Home with Assistance,Home Health Recommendations Other Discharge pt has hired caregiver for home assist Recommendations Equipment Needed for FWW Home Before Discharge Transportation Needs Private Vehicle,Wheelchair/Cabulance at Discharge - PT assist 1
--- NOTE | 2025-04-16 15:13 | CM.SWNOTE ---
ED TRANSPORT AIRCREWMAN Note Patient is 84 y/o female who presents to the ED via EMS due to concern for GLF last night, patient's CT scan shows rib fx (9 &10). Patient's PCP is Niki Luo, MSN, MATERIAL SCHEDULER, GAS METER INSTALLER HELPER-, patient has Medicare and BCBS out of [place] [facility] insurance. Patient has hx of Osteoarthritis and Thrombocytosis. Patient presents as A/Ox4. Patient presents as overwhelmed as she takes on the role of caregiver for her spouse with Parkinson's Dementia. Patient endorses that they have been bouncing around the last three months identifying LTC facilities that meet both of their needs. Patient currently resides in [place] in a condo with spouse. Patient's spouse has 01/12 caregiver with [facility] [employer]. Patient is in frequent contact with caregiver agency and planning to hire additional caregiver support for patient as well. Patient endorses concern for dizziness due to side effect of medication and frequent GLFs. Patient uses hiking stick at baseline, Patient endorses independence with ADLs and drives at baseline. Patient states that this morning she was not able to get up and ambulate due to pain. Patient's spouse has children that reside in [place] but they are currently on vacation, it is reported that they check in regularly and visit every 1-2 months. Patient endorses goal of care to return home, SNF rehab is discussed as a private pay option as well. Patient endorses plan to continue to pursue seeking LTC facility in [facility]. TRANSPORT AIRCREWMAN discusses Home health and patient endorses preference for [facility]. Patient endorses plan to hire additional caregiver for herself in the interium. PT evaluates patient after patient failed ambulation trial with RN and MARKET NEWS REPORTER. PT evaluates patient and recommends FWW upon d/c, 24 care and Home Health. TRANSPORT AIRCREWMAN attempts to schedule cabulance for patient. [facility]- no availability today [facility]- left VM, [facility], initially stated cost of $500 then told patient it would be $870 on the phone due to where transport is coming from ($4/per mile to and from [place]). Patient declines cabulance and arranges transport with caregiver. TRANSPORT AIRCREWMAN calls [facility] regarding referral for PT, OT and RN, it is reported that they can start care on Thursday. TRANSPORT AIRCREWMAN sends referral with [facility] and clinicals for review. TRANSPORT AIRCREWMAN provides patient with brochure for [facility], lists of LTC facilities/details of each facility, lists of private caregivers and agencies, information on PERS, DME resource list and patient is discharged with FWW. Plan: patient discharges upon medical clearance with caregiver, with rx for pain management, HH referral with [facility], and lists of several resources for LTC.Patient encouraged to f/u with family regarding LTC plans. Izabel Fernández, SOCIAL WORKER PALLIATIVE CARE
== END 2025-04-16 15:14 | disposition home or self-care (01) ==
PROVIDERS: Emergency Provider Emergency Medicine; Family Provider Internal Medicine; PCP Internal Medicine
DX: S22.41XA Multiple fractures of ribs, right side, initial encounter for closed fracture (principal); W18.39XA Other fall on same level, initial encounter
CPT/HCPCS: 71250; 97164; 97530; 99283; 99284